=== PATIENT | female | born 1955 | race Caucasian/White ===

== ENCOUNTER 2018-06-12 04:09 | Emergency (ER) | payer OTHER, SELFPAY ==
[2018-06-12 04:11] VITALS: BP 120/54; PULSE 69; RESP 20; TEMP 36.7; O2SAT 98; BMI 40.4
--- NOTE | 2018-06-12 04:35 | ED.VIS.GEN ---
History of Present Illness Chief Complaint: Chest Pain Informant: Patient Onset: Hours - 2.5 Context: Sudden Onset - woke her up from sleep Timing: Continuous Quality: heavy/pressure Location: substernal Current Severity: Moderate Maximum Severity: Moderate Worsened by: nothing. nonpleuritic, no change w/ position chgs, nonexertional. Relieved by: nothing. has tried no meds. Associated Symptoms: nausea Narrative: No vomiting although she feels like she needs to. Pain extends down to her upper abdomen but mostly substernal. No dyspnea, sweating, palpitations, lightheadedness or near syncope. No recent leg pain or swelling that is acute. Has a history of a heart attack, states she was here it was multiple years ago and received no PCI or other intervention. Thinks she was treated medically. States that when she had her MT, she mostly had dyspnea. She does not have that now. States she feels like she needs to belch. Had a routine chemical cardiac stress test 2 weeks ago that was negative. No recent long travel, immobilization, hospitalization, or surgery. - Past Medical History (1) Myocardial infarction Status: Chronic (2) Atrial fibrillation Status: Chronic Past Medical History - Allergies and Home Meds Allergies/Adverse Reactions: Allergies ketorolac tromethamine [From Toradol] Allergy (Verified 06/12/18 04:15) Hives Primary Care Physician: Jamarcus Toro MD [Primary Care Provider] - 3-5 Days if not improving Surgical History: hysterectomy - uterine fibroids, tonsillectomy Smoking Status: Never smoker Review of Systems All systems negative except as indicated Cardiovascular: Reports: Chest pain. Denies: Palpitations, Heart racing Respiratory: Denies: Dyspnea, Cough Gastrointestinal: Reports: Abdominal pain, Nausea Musculoskeletal: Denies: Neck pain, Back pain, Extremity Pain Neurological: Denies: Headache, Weakness, Parasthesia, Numbness Psych: Reports: Anxiety Physical Exam Vital Signs/Narrative: Vital Signs Temp Pulse Resp BP Pulse Ox 06/12/18 04:11 98.1 F 69 20 H 120/54 L 98 Inital Vital Signs reviewed: Yes General: Well nourished, Well developed, Obese Head: Normocephalic, Atraumatic Eyes: Perrl, EOMI ENT: Moist mucous membranes, No rhinorrhea Neck: Supple, Nontender, No JVD Cardiovascular: Regular rate, Regular rhythm, No murmurs Respiratory: No distress, CTA bilaterally, Chest nontender Abdomen: Soft, Nondistended, Normal bowel sounds, Tender - throughout upper abdomen only Back: Nontender, Normal Inspection Extremities: Nontender, No edema Skin: Normal color, No rash Neurological: Alert, Oriented x3, Cranial nerves II-XII grossly intact, Normal Strength, Normal Sensation, Normal Gait Psychological: - - anxious Diagnostic/Tx/Re-eval Chest X-Ray - ED: 1 View, Read by ED Physician, No Acute Disease Laboratory Tests 06/12/18 06/12/18 06/12/18 04:20 04:20 04:20 WBC 7.2 RBC 4.50 Hgb 13.9 Hct 43.0 MCV 95.6 MCH 30.9 MCHC 32.3 RDW 12.8 RDW Differential 43.1 Plt Count 280 MPV 10.2 Immature Gran % (Auto) 0.600 Neut % (Auto) 48.1 Lymph % (Auto) 42.7 H [place] % (Auto) 6.5 Eos % (Auto) 1.5 Baso % (Auto) 0.6 Absolute Neuts (auto) 3.5 Absolute Lymphs (auto) 3.07 Total Counted Not Reportable Sodium 144 Cancelled Potassium 4.4 Cancelled Chloride 107 Cancelled Carbon Dioxide 27.0 Cancelled Anion Gap 10 Cancelled BUN 15 Cancelled Creatinine 1.22 H Cancelled Estim Creat Clear Calc 45.33 Est GFR (MDRD) Af Amer 58 L Cancelled Est GFR (MDRD) Non-Af 48 L Cancelled BUN/Creatinine Ratio 12.3 Cancelled Glucose 127 H Cancelled Calcium 8.7 Cancelled Total Bilirubin 0.50 AST 20 ALT 23 Alkaline Phosphatase 89 Troponin I < 0.015 Total Protein 7.2 Albumin 3.3 Globulin 3.9 Albumin/Globulin Ratio 0.8 L Lipase 224 - Rhythm Strip Rhythm Strip: A-fib Rate: 70 Ectopy: None - EKG Initial EKG Interpretation: No Acute Injury Pattern, Atrial Fibrillation, Non-Specific ST Changes - flattening T waves inferior and ant-sept, - - leftward axis Prior: Unchanged - MUSE system malfunctioning -- not able to look up old EKGs on any pt at this time. however, cardiology interpretation in computer, and description c/w EKG that we obtained. - Medical Decision Making Although patient is in rate controlled atrial fibrillation, her EKG shows no acute injury and is otherwise unremarkable, save nonspecific T-wave flattening in V2 and leads III and aVF only. These are all very nonspecific. X-rays unremarkable on my interpretation, labs show negative troponin. She was given Zofran, she states soon thereafter she vomited, and as soon as she vomited, all of her discomfort and nausea resolved. She did not get the GI cocktail. On reevaluation she has no chest discomfort and no abdominal discomfort. I reexamined her. She is soft and nontender throughout. Given this, I do not think a delta troponin is necessary, and I think it is reasonable that she be discharged home on a two-week course of either PPI or H2 cecil. She is comfortable with that plan. ED Disposition - Plan for ED Patient: Disposition: Home or Assisted Living Chief Complaint: Chest Pain Diagnosis: Atrial fibrillation, Chest pain, unspecified, Upper abdominal pain, Vomiting Instructions: ED Chest Pain NonCardiac, ED Gastritis Prescriptions: Ondansetron [Zofran Odt] 8 mg PO Q8H PRN PRN #12 tab PRN Reason: Nausea Referrals: Jamarcus Toro MD [Primary Care Provider] - 3-5 Days if not improving Additional Instructions: For the next 2 weeks, take twice daily Zantac, Tagamet, or Pepcid. As a different option, may take once daily Prilosec OTC or equivalent, such as Nexium or Prevacid.
[2018-06-12] MEDS: Ondansetron 4 MG/2 ML Vial IV (04:40)
[2018-06-12 04:48] LABS: Absolute Lymphocyte Count 3.07 X10^3/ul (0.83-4.51); Absolute Neutrophil Count 3.5 X10^3/uL (2.0-7.7); Basophil# 0.04 X10^3/uL; Basophil% 0.6 % (0-1); Eosinophil# 0.11 X10^3/uL; Eosinophils% 1.5 % (0-5); Hemoglobin 13.9 g/dl (12.0-15.0); Lymphocyte # 3.07 X10^3/ul (4.0); Lymphocyte % 42.7 % (19-41); Mean Corp Hgb Conc 32.3 g/gl (32-36); Mean Corpuscular Hgb 30.9 pg (27.0-32.0); Mean Corpuscular Volume 95.6 fL (81-99); Mean Platelet Vol. 10.2 fl (6.2-12.0); Monocyte# 0.47 X10^3/uL; Monocyte% 6.5 % (0-10); Neutrophil # 3.46 X10^3/uL (2.7-7.7); Neutrophil % 48.1 % (47-70); Platelet Count 280 K/mm3 (150-450); RBC Distribution Width CV 12.8 % (11.6-14.6); RBC Distribution Width SD 43.1 fl (35.1-43.9); White Blood Count 7.2 K/mm3 (4.4-11.0)
[2018-06-12 04:50] LABS: POSITIVE COUNT NO; POSITIVE DIFFERENTIAL NO; POSITIVE MORPHOLOGY NO
[2018-06-12 04:55] LABS: Anion Gap 10 (5-15); BUN 15 mg/dL (7-18); BUN/Creat Ratio 12.3 RATIO (10-20); Calcium,Total 8.7 mg/dL (8.5-10.1); Chloride 107 mmol/L (98-107); Creatinine, Serum 1.22 mg/dL (0.55-1.02); EST Glomerular Filtration Rate 48 mL/min (>60); Est Glom Filt Rate - Afr Amer 58 mL/min (>60); Estimated Creatinine Clearance 45.33 ml/min; Glucose 127 mg/dL (74-106); Potassium 4.4 mmol/L (3.5-5.1); Sodium Level 144 mmol/L (136-145)
[2018-06-12 05:05] LABS: ALB/GLOB Ratio 0.8 RATIO (0.9-2.4); AST(SGOT) 20 U/L (15-37); Alanine Aminotransfer ALT/SGPT 23 U/L (13-56); Albumin, Serum 3.3 g/dL (3.2-5.0); Alkaline Phosphatase 89 U/L (45-117); Globulin 3.9 g/dL (2.2-4.2); Lipase 224 U/L (73-393); Protein, Total 7.2 g/dL (6.4-8.2)
[2018-06-12] MEDS: Pantoprazole Sodium 40 MG Tablet PO (05:35)
[2018-06-12 05:36] VITALS: BP 104/70; PULSE 83; RESP 15; O2SAT 98
== END 2018-06-12 05:41 | disposition home or self-care (01) ==
PROVIDERS: Emergency Provider Emergency Medicine; Family Provider Family Medicine; PCP Family Medicine
DX: I48.2 Chronic atrial fibrillation (principal); R07.9 Chest pain, unspecified; R10.11 Right upper quadrant pain; R10.12 Left upper quadrant pain; R11.2 Nausea with vomiting, unspecified; I25.2 Old myocardial infarction; Z79.899 Other long term (current) drug therapy
CPT/HCPCS: 71045; 80048; 82040; 82247; 83690; 84075; 84156; 84450; 84460; 84484; 85025; 93005; 96374; 99285; A4216; J2405

== ENCOUNTER → 2018-07-29 07:55 | Outpatient (CLI) | payer OTHER, SELFPAY ==
--- NOTE | 2018-07-29 07:58 | US_ITS ---
STUDY: ABDOMINAL ULTRASOUND - RIGHT UPPER QUADRANT REASON FOR VISIT: Female, 62 years old. Nausea and vomiting, worse after meals. TECHNIQUE: Ultrasound evaluation of the right upper quadrant was performed with real-time and static lopez-scale imaging. TECHNICAL QUALITY: Adequate. COMPARISON: None. FINDINGS: Liver: The liver measures 16.4 cm. There is normal echogenicity of the liver. The bile ducts are within normal limits. There is hepatic color flow. The direction of portal flow is hepatopetal. There is no demonstrated mass lesion. Gallbladder: Normal distended gallbladder. The gallbladder wall measures 4.0 mm. There is a positive sonographic Betancourt's sign. There is no pericholecystic fluid. There are multiple small, mobile echogenic structures within the gallbladder, consistent with multiple gallstones. Common Bile Duct (C.B.D.): The common bile duct measures 6.3 mm. Pancreas: Normal size of the head, body and tail of the pancreas. There is normal echogenicity of the pancreas. There is no demonstrated pancreatic mass or cyst. Right Kidney: Normal size of the right kidney. The right kidney measures 9.8 x 5.4 x 3.3 cm. Normal renal cortex. The right cortex measures 1.1 cm. There is no demonstrated renal mass or cyst. There is no right hydronephrosis. US/Abdomen Limited IMPRESSION: Numerous subcentimeter mobile gallstones. No sonographic sign of acute cholecystitis or bile duct obstruction. Electronically Signed: Leonardo Stewart MD at 19:52 EDT , Service support ,
== END ==
PROVIDERS: Family Provider Family Medicine; PCP Family Medicine; Referring Provider Family Medicine; Visit Provider Family Medicine
DX: R10.13 Epigastric pain (principal); R10.11 Right upper quadrant pain
CPT/HCPCS: 76705

== ENCOUNTER → 2018-08-03 10:13 | Outpatient (CLI) | payer OTHER, SELFPAY ==
[2018-08-03 10:27] LABS: Absolute Lymphocyte Count 2.64 X10^3/ul (0.83-4.51); Basophil# 0.02 X10^3/uL; Basophil% 0.3 % (0-1); Eosinophil# 0.08 X10^3/uL; Eosinophils% 1.3 % (0-5); Hematocrit 44.7 % (37-47); Hemoglobin 13.9 g/dl (12.0-15.0); Lymphocyte # 2.64 X10^3/ul (4.0); Lymphocyte % 42.4 % (19-41); Mean Corp Hgb Conc 31.1 g/gl (32-36); Mean Corpuscular Hgb 29.6 pg (27.0-32.0); Mean Corpuscular Volume 95.3 fL (81-99); Monocyte# 0.43 X10^3/uL; Monocyte% 6.9 % (0-10); Neutrophil # 3.02 X10^3/uL (2.7-7.7); Neutrophil % 48.6 % (47-70); Platelet Count 255 K/mm3 (150-450); RBC Distribution Width CV 13.2 % (11.6-14.6); RBC Distribution Width SD 45.8 fl (35.1-43.9); Red Blood Count 4.69 M/mm3 (4.2-5.4); White Blood Count 6.2 K/mm3 (4.4-11.0)
[2018-08-03 10:29] LABS: POSITIVE COUNT NO; POSITIVE DIFFERENTIAL NO; POSITIVE MORPHOLOGY NO
[2018-08-03 10:54] LABS: AST(SGOT) 17 U/L (15-37); Alanine Aminotransfer ALT/SGPT 50 U/L (13-56); Albumin, Serum 3.6 g/dL (3.2-5.0); Alkaline Phosphatase 111 U/L (45-117); Bilirubin, Direct 0.17 mg/dL (0.00-0.30); Globulin 3.9 g/dL (2.2-4.2); Protein, Total 7.5 g/dL (6.4-8.2)
== END ==
PROVIDERS: Family Provider Family Medicine; PCP Family Medicine; Referring Provider Surgery; Visit Provider Surgery
DX: K80.20 Calculus of gallbladder without cholecystitis without obstruction (principal)
CPT/HCPCS: 36415; 80076; 85025

== ENCOUNTER → 2018-10-06 13:44 | Outpatient (CLI) | payer OTHER, SELFPAY ==
--- NOTE | 2018-10-06 13:47 | CT_ITS ---
STUDY: CT ABDOMEN AND PELVIS WITHOUT CONTRAST REASON FOR EXAM: Female, 62 years old. Diffuse abdominal pain. Projectile vomiting. RADIATION DOSAGE (If Supplied By Facility): CTDIvol = ( 14 ) mGy, DLP = ( 669.43 ) mGycm TECHNIQUE: Transaxial images were obtained from the dome of the diaphragm to the symphysis pubis without oral contrast, and without intravenous contrast. Sagittal and coronal images were reconstructed. Individualized dose optimization techniques were used for this CT. COMPARISON: Comparison is made with prior study dated March 05, 2004. FINDINGS: The visualized lung bases are unremarkable. The visualized portions of the heart are within normal limits. Normal liver. There is mild degree of the gallbladder wall thickening with findings suggestive of a small amount of pericholecystic fluid. I cannot rule out sludge or tiny gallstones within the gallbladder lumen. Correlation with ultrasound is recommended. Normal spleen. Normal pancreas. Normal bilateral adrenal glands. Normal right kidney. There is evidence of a 4.3 cm x 4.1 cm complicated cyst in the lower pole of the left kidney with peripheral calcifications along its inferior and lateral margins. There is a small hiatal hernia. Normal small intestine. Moderate amount of fecal material is seen in the rectosigmoid colon. Scattered sigmoid diverticula. The appendix is visualized and appears normal. Normal abdominal aorta. Normal inferior vena cava. Normal retroperitoneum. Normal urinary bladder. There is absence of the uterus consistent with a prior hysterectomy. Normal abdominal wall. Disc space narrowing at this degeneration at the L4-L5 and L5-S1 levels. There is a 1.2 cm round hypodensity in the L2 vertebral. This may represent a focal meningioma. CT/Abdomen/Pelvis without Cont IMPRESSION: Findings suggestive of gallbladder wall thickening with a small amount of pericholecystic fluid. Possible tiny gallstones or sludge within the lumen. Correlation with ultrasound is recommended. Electronically Signed: Marco Cortes MD at 14:23 EST Tel [phone], Service support ,
--- OUTSIDE RECORDS SUMMARY | 2018-11-22 18:26 | XMS RPT_ITS ---
:1955 Author Organization [place] Support Name Relationship Address Phone ALONOVUS Unavailable [address] + [place] [address] UZAIR BOLANOS Un[address] + [place] [address] ALONOVUS Unavailable [address] + [place] [address] UZAIR BOLANOS Unavailable [address] + [place] [address] ALONOVUS Unavailable [address] + [place] [address] UZAIR BOLANOS Un[address] + [place] [address] ALONOVUS Unavailable [address] + [place] [address] UZAIR BOLANOS Un[address] + [place] [address] ALONOVUS Unavailable [address] + [place] [address] UZAIR BOLANOS Unavailable Unavailable + [place] [address] ALONOVUS Unavailable [address] + [place] [address] UZAIR BOLANOS Unavailable Unavailable + [place] [address] ALONOVUS Unavailable [address] + [place] [address] UZAIR BOLANOS Unavailable Unavailable + [place] [address] ALONOVUS Unavailable [address] + [place] [address] UZAIR BOLANOS Un[address] + [place] [address] ALONOVUS Unavailable [address] + [facility] [place] [address] UZAIR BOLANOS Unavailable Unavailable + [place] [address] ALONOVUS Unavailable [address] + [facility] [address] UZAIR BOLANOS Unavailable Unavailable + [place] [address] ALONOVUS Unavailable [address] + [facility] [place] [address] UZAIR BOLANOS Unavailable Unavailable + [place] [address] ALONOVUS Unavailable [address] + [facility] [address] UZAIR BOLANOS Unavailable [facility] [address] + [place] [address] ALONOVUS Unavailable [address] + [facility] [place] [address] UZAIR BOLANOS Unavailable Unavailable + [place] [address] ALONOVUS Unavailable [address] + [place] [address] UZAIR OBLANOS Unavailable [facility] + [place] [address] ALONOVUS Unavailable [address] + [place] [address] UZAIR BOLANOS Unavailable Unavailable + [place] [address] ALONOVUS Unavailable [address] + [facility] [place] [address] UZAIR BOLANOS Unavailable Unavailable + [place] [address] ALONOVUS Unavailable [address] + [place] [address] UZAIR BOLANOS Unavailable . + [place] [address] ALONOVUS Unavailable [address] + [facility] [place] [address] UZAIR BOLANOS Unavailable Unavailable + [place] [address] ALONOVUS Unavailable [address] + [place] [address] UZAIR BOLANOS Unavailable Unavailable + ALONOVUS Unavailable [address] + [place] [address] GEETHA BOLANOSEL Unavailable . + [place] [address] ALONOVUS Unavailable [address] + [place] [address] GEETHA BOLANOSEL Unavailable Unavailable + [place] [address] UZAIR BOLANOS Unavailable Unavailable + LUDIN BOLANOS Unavailable [address] + [place] [address] GEETHA BOLANOSEL Unavailable Unavailable + ALONOVUS Unavailable [address] + [place] [address] UZAIR BOLANOS Unavailable [address] + [place] [address] GEETHA BOLANOSEL Unavailable Unavailable + LUDIN BOLANOS Unavailable [address] + [place] [address] UZAIR BOLANOS Unavailable Unavailable + Care Team Providers Name Role Phone LISA MANN MD Attending Unavailable [facility] Care Unavailable LISA MANN MD Attending Unavailable [facility] Care Unavailable Robotham, Celina Attending Unavailable [facility], Peace Referring Unavailable Robotham, Celina Attending Unavailable Robotham, Celina Referring Unavailable [facility] Care Unavailable Robotham, Celina Attending Unavailable Robotham, Celina Referring Unavailable [facility] Primary Care Unavailable [facility], [facility] Primary Care Unavailable Dylan Tran Admitting Unavailable Dylan Tran Attending Unavailable Clifford Schrader Consulting Unavailable MARINA DEE Referring Unavailable Dylan Tran Admitting Unavailable Dylan Tran Attending Unavailable [facility] Primary Care Unavailable Dylan Tran Consulting Unavailable Dylan Tran Admitting Unavailable Robotham, Celina Attending Unavailable [facility] Primary Care Unavailable Dylan Tran Consulting Unavailable Dylan Tran Admitting Unavailable Tereletsky, Clifford Attending Unavailable [facility] Primary Care Unavailable Tereletsky, Clifford Consulting Unavailable Calabretta, Dylan Consulting Unavailable Calabretta, Dylan Admitting Unavailable Arriaza PA-C, Tran Attending Unavailable [facility] Primary Care Unavailable Tereletsky, Clifford Consulting Unavailable Calabretta, Dylan Consulting Unavailable Calabretta, Dylan Admitting Unavailable [facility], Ruperto Attending Unavailable [facility] Primary Care Unavailable Tereletsky, Clifford Consulting Unavailable Calabretta, Dylan Consulting Unavailable Calabretta, Dylan Admitting Unavailable Arriaza PA-C, Tran Attending Unavailable MARINA DEE Referring Unavailable [facility] Primary Care Unavailable Tereletsky, Clifford Consulting Unavailable Calabretta, Dylan Consulting Unavailable Calabretta, Dylan Admitting Unavailable [place], Ruperto Attending Unavailable MARINA DEE Referring Unavailable [facility] Primary Care Unavailable Tereletsky, Clifford Consulting Unavailable Calabretta, Dylan Consulting Unavailable Calabretta, Dylan Admitting Unavailable Arriaza PA-C, Tran Attending Unavailable MARINA DEE Referring Unavailable [facility] Care Unavailable Tereletsky, Clifford Consulting Unavailable Calabretta, Dylan Consulting Unavailable Calabretta, Dylan Admitting Unavailable [place], Ruperto Attending Unavailable MARINA DEE Referring Unavailable [facility] Care Unavailable Tereletsky, Clifford Consulting Unavailable Calabretta, Dylan Consulting Unavailable Arriaza PA-C, Tran Attending Unavailable Arriaza PA-C, Tran Referring Unavailable [facility] Care Unavailable [facility] Primary Care Unavailable JONA PULLIAM Attending Unavailable [facility] Attending Unavailable [facility] Referring Unavailable [facility] Primary Care Unavailable Robotham, Celina Attending Unavailable [facility] Referring Unavailable Robotham, Celina Attending Unavailable Robotham, Celina Referring Unavailable [facility] Primary Care Unavailable Miedel, Kanchan Attending Unavailable Miedel, Kanchan Referring Unavailable [facility] Primary Care Unavailable Robotham, Celina Attending Unavailable [facility] Peace Referring Unavailable Robotham, Celina Attending Unavailable [facility] Primary Care Unavailable Robotham, Celina Attending Unavailable PROBLEMS PROBLEMS DATE TYPE CONDITION / CODE ATTENDING STATUS SOURCE 11/02/2018 Unknown R74.8 - Abnormal Robotham, Active [place] levels of other [facility] serum enzymes / Hospital R74.8(ICD-10) Repository 10/15/2018 Unknown G89.18 - Other acute [place], Ruperto Active [facility] postprocedural pain [facility] / G89.18(ICD-10) Hospital Repository 10/09/2018 Unknown K80.20 - [facility] without [facility] cholecystitis [facility] without obstruction Repository / K80.20(ICD-10) PROCEDURES PROCEDURES No Procedure Records FoundRESULTS RESULTS SURGERY VISIT REPORT Observed: 11/13/2018 Status: F Source: [place] 10:05 AM [facility] REPOSITORY [facility] [address] [place] [address] OFFICE VISIT Date of Service: 11/13/18 MR#: [id number] Acct: [id number] Name: RICKY BOLANOS Rep #: [id number] : 1955 Provider: Celina Last MD Age/Sex: 63/F Location: [facility] Status: Signed Intake Intake Visit Reasons: Gall Bladder Surgery 10/15 TR Order Administrator Required: No Is patient in pain?: No Allergies ketorolac tromethamine [From Toradol] Allergy (Verified 11/13/18 08:52) Hives Medications Digoxin [Lanoxin] 250 mcg PO DAILY 12/13/13 [History Confirmed 11/13/18] lisinopril 10 mg tablet 20 mg PO DAILY tab 08/03/18 [History Confirmed 11/13/18] rivaroxaban 20 mg tablet 20 mg PO DAILY 08/03/18 [History Confirmed 11/13/18] spironolactone 25 mg tablet 25 mg PO DAILY tab 08/03/18 [History Confirmed 11/13/18] Metoprolol(XL)Succ [Toprol Xl (Beta Lowell)] 100 mg PO BID #0 10/15/18 [Rx Confirmed 11/13/18] Pantoprazole Sodium [Protonix] 40 mg PO DAILY #30 tab 10/15/18 [Rx Confirmed 11/13/18] Subjective Details: Patient presents status post lap sia, ERCP for follow-up along with follow-up for constipation. Patient did not take the magnesium citrate after last appointment. However she is stating that she is able to eat more she has been taking vitamins as well as 1 of the fiber gummy's which equals about 2.5 g of fiber a day. Patient states she only eats one meal a day. She still states that in her lower epigastric area that she may feel like the food just kind a sits there and/that there is a lump but denies reflux. Patient is currently on Protonix unsure if she actually needs the Protonix. Patient has had bowel movements about every 3-4 days but she does have to strain with that. She did also take milk of magnesia 1 time since the last appointment. Objective Details: Abdomen:, Soft, nondistended, mild tenderness palpation left upper quadrant left lower quadrant, incisions well-healed, no peritoneal signs Assessment AND Plan Problems 1. Constipation K59.00 2. S/P ERCP Z98.890 3. Hx of cholecystectomy Z90.49 10/15/18 4. Encounter for screening for malignant neoplasm of colon Z12.11 Plan Again recommend patient take milk of magnesia to help with her constipation. Also suggested that she try to log book types of food that she is eating to keep a better account of how much fiber she is taking which can be done using the ReVera pal boom. Discussed with patient she would likely need more than just 1 of the fiber gummy's as that is only 2.5 g daily. Also recommended a stool softener that could hopefully help prevent the straining. Discussed with patient that if she does not go in the 3-4 days she may need to take either milk of magnesia or another laxative as well. Also discussed with patient that she may stop the Protonix and see if she does have any reflux symptoms or any epigastric pain. She currently would like to forego the EGD but if anything changes prior to doing the colonoscopy she will let us know and we can add it with a colonoscopy. I have offered the patient colonoscopy for evaluation, patient will first see her cow rider which she has appointment with in November to find out what he would like her to do with her Xarelto and then she will call to schedule for a colonoscopy. I have explained the risks/benefits of the procedure and described the procedure. I have discussed the risks with the patient, including but not limited to: infection, bleeding, perforation of the GI tract requiring emergency surgery, inability to complete the procedure, injury to any internal organs, complications of anesthesia, etc. - the patient understands and agrees to proceed. I have answered all the patient's questions to the patient's satisfaction and the patient has no further questions. The patient has been given instructions for the colon cleansing preparation. 2 days of clears with magnesium citrate the first day and MiraLAX Dulcolax split second day Celina Last M.D. Pager: [phone] [facility] [address] [place] [address], Outpatient [place], [address] [place] [address] Office: [phone] Plan Detail Follow Up Patient will see her cow rider and will give us a call to schedule her colonoscopy Coding Level of Care Code Global Post Op Diagnoses Constipation K59.00 S/P ERCP Z98.890 Hx of cholecystectomy Z90.49 Encounter for screening for malignant neoplasm of colon Z12.11 11/13/18 1005 <Electronically signed by Celina Last MD> Date Celina Last MD Cosigner Signature: Date (if applicable) CC: Peace Toro MD LIVER PROFILE Collected: 11/02/2018 Status: F Source: [place] 2:22 PM [facility] REPOSITORY TYPE CODE TESTS RESULT OUT OF RANGE REFERENCE UNITS LAB L501.1500 6.4-8.2 g/dL Normal T PROT 7.2 LAB L501.1800 3.2-5.0 g/dL Normal ALB 3.3 LAB L501.1950 2.2-4.2 g/dL Normal GLOB 3.9 LAB L501.4100 15-37 U/L Low AST 14 LAB L501.4305 45-117 U/L High ALK P 138 LAB L501.4405 13-56 U/L Normal ALT 22 LAB L501.4600 0.20-1.00 mg/dL Normal T BILI 0.70 LAB L501.4700 0.00-0.30 mg/dL High D BILI 0.32 Performed By: #### L500.3400 #### [facility] [address] [place], [address] SURGERY VISIT REPORT Observed: 11/02/2018 Status: F Source: [place] 2:12 PM [facility] REPOSITORY [facility] [address] [place] [address] OFFICE VISIT Date of Service: 11/02/18 MR#: [id number] Acct: [id number] Name: RICKY BOLANOS Rep #: [id number] : 1955 Provider: Celina Last MD Age/Sex: 63/F Location: [facility] Status: Signed Intake Intake Visit Reasons: Gall Bladder Surgery 10/15 TR Order Administrator Required: No Is patient in pain?: No Allergies ketorolac tromethamine [From Toradol] Allergy (Verified 11/02/18 13:45) Hives Medications Digoxin [Lanoxin] 250 mcg PO DAILY 12/13/13 [History Confirmed 11/02/18] lisinopril 10 mg tablet 20 mg PO DAILY tab 08/03/18 [History Confirmed 11/02/18] rivaroxaban 20 mg tablet 20 mg PO DAILY 08/03/18 [History Confirmed 11/02/18] spironolactone 25 mg tablet 25 mg PO DAILY tab 08/03/18 [History Confirmed 11/02/18] Metoprolol(XL)Succ [Toprol Xl (Beta [place]ell)] 100 mg PO BID #0 10/15/18 [Rx Confirmed 11/02/18] Pantoprazole Sodium [Protonix] 40 mg PO DAILY #30 tab 10/15/18 [Rx Confirmed 11/02/18] Subjective Details: Patient presents status post laparoscopic cholecystectomy on 10/12/18 and ERCP on 10/14/18. Patient left the hospital on 10/15/18. Patient states she still has some abdominal discomfort states right after eating she had some epigastric discomfort and feels like the food just kind of sits there denies any reflux. She has been taking the Protonix 40 mg p.o. daily which was given to her after leaving the hospital. Patient has had issues with constipation states she is only had 2 bowel movements since leaving the hospital. Patient states she did try to take Metamucil once but did not try any other laxatives. Patient did have repeat LFTs done on 10/22 which were almost back down to normal except for elevated alk phos at 234 Objective Details: Abdomen: Soft, nondistended, tender in the left upper quadrant left lower quadrant, no peritoneal signs, incisions healing well remainder of the Steri-Strips were removed in office Assessment AND Plan Problems 1. Gallstone pancreatitis K85.10 2. Hx of cholecystectomy Z90.49 10/15/18 3. S/P ERCP Z98.890 Plan We will recheck liver function Patient states she really has not had too much to eat due to feeling like it is just sitting there. I think most of patient's issue would be her constipation. Discussed with patient plan to take magnesium citrate today. Also recommend patient increase her fiber intake with supplementation of Metamucil or other fiber gummy's. Recommended fiber intake is about 25-30 g daily. Patient also states she has never had an EGD or colonoscopy. We will plan to discuss these further at that follow-up appointment. Recommend patient continue to take her Protonix 40 mg p.o. daily and to call if she needs a refill prior to next follow-up appointment. Patient was agreeable to follow-up in 2 weeks. Celina Last M.D. Pager: [phone] [facility] [address] [place] [address], [address] [place] [address] Office: [phone] Orders Orders: Coding Level of Care Code Global Post Op Diagnoses Gallstone pancreatitis K85.10 Hx of cholecystectomy Z90.49 S/P ERCP Z98.890 11/02/18 1412 <Electronically signed by Celina Last MD> Date Celina Last MD Cosigner Signature: Date (if applicable) CC: Peace Toro MD LIVER PROFILE Collected: 10/22/2018 Status: F Source: [place] 9:25 AM [facility] REPOSITORY TYPE CODE TESTS RESULT OUT OF RANGE REFERENCE UNITS LAB L501.1500 6.4-8.2 g/dL Normal T PROT 6.4 LAB L501.1800 3.2-5.0 g/dL Low ALB 2.6 LAB L501.1950 2.2-4.2 g/dL Normal GLOB 3.8 LAB L501.4100 15-37 U/L Normal AST 23 LAB L501.4305 45-117 U/L High ALK P 234 LAB L501.4405 13-56 U/L Normal ALT 40 LAB L501.4600 0.20-1.00 mg/dL Normal T BILI 0.80 LAB L501.4700 0.00-0.30 mg/dL High D BILI 0.45 Performed By: #### L500.3400 #### [facility] [address] [facility] [place], [address] DISCHARGE SUMMARY Observed: 10/15/2018 Status: F Source: [place] 10:46 AM [facility] REPOSITORY [facility] Medical Records Department [address] [place] [address] Discharge Summary 10/15/18 1040 MR#: [id number] Acct: [id number] Name: RICKY BOLANOS Rep #: [id number] : 1955 62 From: Celina Last MD PCP: Peace Toro MD Status: ADM IN Location: [place] [address] Discharge Date and Diagnosis - Problem List Patient Problems: Active and Suspected Problems (Last Updated 10/11/18 @ 17:28 by Celina Last MD) Gallstone pancreatitis (Acute) Date of Admission: 10/11/18 - Primary Discharge Diagnosis Active and Suspected Problems (Last Updated 10/11/18 @ 17:28 by Celina Last MD) Gallstone pancreatitis (Acute) Obstructive jaundice Acute cholecystitis - Secondary Discharge Diagnosis Chronic Problems (Last Updated 10/11/18 @ 17:28 by Celina Last MD) Myocardial infarction (Chronic) Atrial fibrillation (Chronic) Hospital Course and Treatment Hospitalist for help with medical management Operations: cholecystecomy, ERCP Summary of Care Provided: The patient is a 62 year old F patient presented to the ER due to nausea vomiting and epigastric and right upper quadrant pain on Friday night which started suddenly at 3 AM. Labs showed patient to have a elevated white blood cell count as well as elevated lipase of 33,000 with slight elevations of LFTs. Patient had previous ultrasound on Friday which showed gallstones wall with 3 mm and no sonographic Betancourt sign at that time. By Friday morning patient's LFTs were improved as well as her lipase. And patient had been off her Xarelto since Friday night. Patient underwent a laparoscopic cholecystectomy by Dr. Last 10/12/18. Postoperatively she is still complaining of some abdominal pain her initial LFTs the following day were only slightly elevated which may have been just from surgery. However the following day they are even more elevated. Patient was taken for an ERCP on 10/14/[address] Tran. He did an ERCP with sphincterotomy and only had small amount of debris. Patient self to the following day were slightly elevated from the day before but this may be due to the fact there prior higher the day before and is actually downtrending as patient was feeling better and feeling hungry. Patient was started on a regular diet. She was able to tolerate a regular diet pain control was controlled she was ablating the halls. Patient was okay for discharge and patient may restart her Xarelto upon discharge. We will plan for follow-up liver function panel in 1 week and follow-up with Dr. Last in 1-2 weeks. Patient Problems: Active and Suspected Problems (Last Updated 10/11/18 @ 17:28 by Celina Last MD) Gallstone pancreatitis (Acute) - Physical Exam General: Alert, Oriented x3, Cooperative, No apparent distress Cardiovascular: - - Irregular Abdomen: Soft, Non-Distended, Tender - Near incisions appropriately, incisions clean dry and intact Extremities: No clubbing, No cyanosis, No edema Vital Signs Temp Pulse Resp BP Pulse Ox 98.1 F 88 16 142/71 H 94 10/15/18 09:12 10/15/18 09:24 10/15/18 09:12 10/15/18 09:24 10/15/18 09:12 Oxygen Flow Rate (L/min) 2 Oxygen Delivery Method Room Air Weight: 234 lb 12.677 oz Body Mass Index (BMI) 37.7 Intake and Output for Last 24 Hours Intake Total 3477 / 3477 3184 / 3184 2021 Output Total 900 / 900 800 / 800 700 / 700 Balance 2577 / 2577 2384 / 2384 1322 / 1322 Laboratory Tests Past 24 Hrs WBC 12.5 H RBC 3.62 L Hgb 10.8 L Hct 33.7 L MCV 93.1 MCH 29.8 Discharge Diet: Light diet - advance as tolerated Discharge Activity: Return to Normal Activity, May Not Drive - for 2-3 days or while taking narcotic pain medicataions., - - Do not drive, work heavy equipment or sign legal documents for 24 hours. May shower in (days): 1 - with the bandage in place. Additional Activity Instructions:: Pain medication may cause nausea. You should typically eat light foods as you take your pain medications. Pain medication may also cause constipation. If this is a problem for you, please discuss with your doctor. Call your doctor if your incision/area has: Continuous Slow Oozing, Sudden Increased Bleeding, Increased Pain/ Swelling, Increased Redness, Foul Smelling Discharge, Fever of 101 or Higher Call your doctor if you observe: Fever of 101 or Higher Suture Line Care: Avoid Pulling/Pushing, Avoid Pinching/Bending Additional Dressing/Incision Instructions:: Leave operative bandaids on for 2 days. When you remove dressing, leave Steri-Strips on until your follow-up appointment, or until the Steri-Strips fall off on their own. Home Medications: Medications to take at Discharge Digoxin [Lanoxin] 250 mcg PO DAILY 12/13/13 lisinopril 10 mg tablet 20 mg PO DAILY tab 08/03/18 rivaroxaban 20 mg tablet 20 mg PO DAILY 08/03/18 spironolactone 25 mg tablet 25 mg PO DAILY tab 08/03/18 Metoprolol(XL)Succ [Toprol Xl (Beta [place])] 100 mg PO BID #0 10/15/18 Oxycodone HCl/Acetaminophen [Percocet 5/325] 0.5 - 1 tablet PO Q6H PRN PRN 2 Days #10 tablet 10/15/18 Pantoprazole Sodium [Protonix] 40 mg PO DAILY #30 tablet 10/15/18 Following Prescrptions Were Given to Patient: Oxycodone HCl/Acetaminophen [Percocet 5/325] 0.5 - 1 tablet PO Q6H PRN PRN 2 Days #10 tablet PRN Reason: Pain Pantoprazole Sodium [Protonix] 40 mg PO DAILY #30 tablet Primary Care Physician: Peace Toro MD [Primary Care Provider] - Please Follow Up With: Celina Last MD - [phone] When: 2 weeks Disposition: Home Minutes spent on discharge:: 15 Patient Condition:: Good Medical Necessity - Tobacco Use Smoking Status: Never smoker Meaningful Use Info Meaningful Use Diagnoses (Choose all that apply): None applicable 10/15/18 1046 <Electronically signed by Celina Last MD> Date Celina Last MD Cosigner Signature (if applicable): Date CC: Peace Toro MD; Celina Last MD Signed DISCHARGE INSTRUCTION Observed: 10/15/2018 Status: F Source: [place] 8:42 [facility] REPOSITORY [facility] Medical Records Department [address] [place] [address] Instructions for Home/Discharge Instructions 10/15/18 0802 MR#: [id number] Acct: [id number] Name: RICKY BOLANOS Rep #: [id number] : 1955 62 From: Tran Arriaza PA-C PCP: Peace Toro MD Status: ADM IN ADDENDUM by Tran Arriaza PA-C on 10/15/18 at 0842 Please obtain liver function test (blood work) at the hospital in 1 week from discharge. Thank you. 10/15/18 0842 Date Tran Arriaza PA-C cc: Clifford Schrader DO; Peace Toro MD * Signed Discharge Diet: Light diet - advance as tolerated Discharge Activity: Return to Normal Activity, May Not Drive - for 2-3 days or while taking narcotic pain medicataions., - - Do not drive, work heavy equipment or sign legal documents for 24 hours. May shower in (days): 1 - with the bandage in place. Additional Activity Instructions:: Pain medication may cause nausea. You should typically eat light foods as you take your pain medications. Pain medication may also cause constipation. If this is a problem for you, please discuss with your doctor. Call your doctor if your incision/area has: Continuous Slow Oozing, Sudden Increased Bleeding, Increased Pain/ Swelling, Increased Redness, Foul Smelling Discharge, Fever of 101 or Higher Call your doctor if you observe: Fever of 101 or Higher Suture Line Care: Avoid Pulling/Pushing, Avoid Pinching/Bending Additional Dressing/Incision Instructions:: Leave operative bandaids on for 2 days. When you remove dressing, leave Steri-Strips on until your follow-up appointment, or until the Steri-Strips fall off on their own. Allergies/Adverse Reactions: Allergies ketorolac tromethamine [From Toradol] Allergy (Verified 10/09/18 14:39) Hives Medications to take at Discharge Digoxin [Lanoxin] 250 mcg PO DAILY 12/13/13 Metoprolol(XL)Succ [Toprol Xl (Beta Lowell)] 75 mg PO BID 12/13/13 lisinopril 10 mg tablet 20 mg PO DAILY tab 08/03/18 rivaroxaban 20 mg tablet 20 mg PO DAILY 08/03/18 spironolactone 25 mg tablet 25 mg PO DAILY tab 08/03/18 Oxycodone [Oxyir] 5 mg PO Q6H PRN PRN 7 Days #20 tablet 10/15/18 The following prescriptions were given: Oxycodone [Oxyir] 5 mg PO Q6H PRN PRN 7 Days #20 tablet PRN Reason: Severe Pain (6-08/05) Primary Care Physician: Peace Toro MD [Primary Care Provider] - Test Results: Test results from this visit will be discussed in further detail at your follow-up appointment, if applicable. Please Follow Up With: Celina Last MD - [phone] When: 2 weeks 10/15/18 0803 <Electronically signed by Tran Arriaza PA-C> Date Tran Arriaza PA-C CC: Clifford Schrader DO; Peace Toro MD CBC W/DIFF, AUTOMATED Collected: 10/15/2018 Status: F Source: [place]UL[place] 6:14 AM [facility] REPOSITORY TYPE CODE TESTS RESULT OUT OF RANGE REFERENCE UNITS LAB L100.1000 4.4-11.0 K/mm3 High WBC 12.5 LAB L100.1200 4.2-5.4 M/mm3 Low RBC 3.62 LAB L100.1300 12.0-15.0 g/dl Low HGB 10.8 LAB L100.1400 37-47 % Low HCT 33.7 LAB L100.1500 81-99 fL Normal MCV 93.1 LAB L100.1600 27.0-32.0 pg Normal MCH 29.8 LAB L100.1700 32-36 g/gl Normal MCHC 32.0 LAB L100.1810 11.6-14.6 % Normal RDW CV 13.0 LAB L100.1820 35.1-43.9 fl Normal RDW SD 43.0 LAB L100.1900 150-450 K/mm3 Normal PLT 211 LAB L100.2000 6.2-12.0 fl Normal MPV 10.6 LAB L100.2100 47-70 % High NEUT% 83.5 LAB L100.2200 19-41 % Low LY% 10.2 LAB L100.2300 0-10 % Normal MONO% 5.2 LAB L100.2400 0-5 % Normal EO% 0.5 LAB L100.2500 0-1 % Normal BASO% 0.2 LAB L100.2550 0.0-0.9 % Normal IM GRAN % 0.400 Result Comment: IG% - Immature Granulocytes (promyelocytes, myelocytes and metamyelocytes) > 1% indicates that a LEFT SHIFT is Present. LAB L100.2620 2.0-7.7 X10 3/uL High Absolute Neut 10.5 LAB L100.2720 0.83-4.51 X10 3/ul Normal Absolute Lymph 1.27 Performed By: #### L100.0100 #### [facility] [address] [place], [address] BASIC METABOLIC Collected: 10/15/2018 Status: F Source: [place]UL[place] PROFILE (BMP) 6:14 AM [facility] REPOSITORY TYPE CODE TESTS RESULT OUT OF RANGE REFERENCE UNITS LAB L501.0100 74-106 mg/dL Normal GLU 96 Result Comment: Please note revised GLUCOSE reference range effective 2017. LAB L501.1000 7-18 mg/dL Normal BUN 9 LAB L501.1100 0.55-1.02 mg/dL Normal CREAT,SERUM 0.76 Result Comment: The validity of the calculated GFR AND GFRAA in patients over 70 years has not been determined. Clinical correlation is essential. LAB L501.1110 >60 mL/min Normal EST GFR 82 Result Comment: Non- GFR Calc LAB L501.1115 >60 mL/min Normal EST GFR - AA 99 Result Comment: GFR Calc LAB L501.1255 ml/min Normal Estimated CRCL 72.77 LAB L501.1300 10-20 RATIO Normal BUN/CRE 11.9 LAB L501.2200 8.5-10 mg/dL Low .1 CA 8.1 LAB L501.5300 136-14 mmol/L Normal 5 NA 136 LAB L501.5600 3.5-5. mmol/L Normal 1 K 3.9 LAB L501.5900 98-107 mmol/L Normal CL 104 LAB L501.6100 21.0-3 mmol/L Normal 2.0 CO2 22.0 LAB L501.6200 5-15 Normal GAP 10 Performed By: #### L500.2500, L500.3400, L501.2450 #### [facility] [address] [place], [address] LIVER PROFILE Collected: 10/15/2018 Status: F Source: [place] 6:14 AM [facility] REPOSITORY TYPE CODE TESTS RESULT OUT OF RANGE REFERENCE UNITS LAB L501.1500 6.4-8.2 g/dL Low T PROT 5.5 LAB L501.1800 3.2-5.0 g/dL Low ALB 2.0 LAB L501.1950 2.2-4.2 g/dL Normal GLOB 3.5 LAB L501.4100 15-37 U/L High AST 56 LAB L501.4305 45-117 U/L High ALK P 578 LAB L501.4405 13-56 U/L Normal ALT 56 LAB L501.4600 0.20-1.00 mg/dL High T BILI 4.70 LAB L501.4700 0.00-0.30 mg/dL High D BILI 3.74 Performed By: #### L500.2500, L500.3400, L501.2450 #### [facility] [address] [place], [address] LIPASE Collected: 10/15/2018 Status: F Source: [place] 6:14 AM [facility] REPOSITORY TYPE CODE TESTS RESULT OUT OF RANGE REFERENCE UNITS LAB L501.2450 73-393 U/L Normal LIPASE 170 Performed By: #### L500.2500, L500.3400, L501.2450 #### [facility] [address] [place], [address] 12 LEAD ELECTROCARDIOGRAM Observed: 10/14/2018 Status: F Source: [place] 3:10 PM [facility] REPOSITORY [facility] Cardiovascular Services [address] [place] [address] 12 Lead EKG 10/11/18 1645 MR#: [id number] Acct: [id number] Name: RICKY BOLANOS Rep #: [id number] : 1955 62 From: Angel Ortiz MD Attending Dr: Dylan Tran MD Status: ADM IN Ordering Dr: Wang Woo DO Date: 10/11/18 [place] [facility] [place]: F C Admitted: 10/11/18 Test Reason : NAUSEA/VOMITING Blood Pressure : / mmHG Vent. Rate : 098 BPM Atrial Rate : 108 BPM P-R Int : 000 ms QRS Dur : 082 ms QT Int : 368 ms P-R-T Axes : 000 013 009 degrees QTc Int : 469 ms Atrial fibrillation with premature ventricular or aberrantly conducted complexes Nonspecific ST abnormality Abnormal ECG Confirmed by ANGEL ORTIZ MD ([id number]), subeditor MAICOL VALDOVINOS ([id number]) on 10/14/2018 3:09:34 PM Referred By: PEACE TORO Confirmed By:ANGEL ORTIZ MD 10/14/18 1509 Date Angel Ortiz MD CC: Dylan Tran MD; OUT OF TOWN DOCTOR; Wang Woo DO; Peace Toro MD Signed OPERATIVE REPORT - Observed: 10/14/2018 Status: F Source: [place] ENDOSCOPY 3:01 PM [facility] REPOSITORY [facility] Medical Records Department [address] [facility] [place] [address] Operative Report - Endoscopy MR#: [id number] Acct: [id number] Name: RICKY BOLANOS Rep #: [id number] : 1955 62 From: Dylan Tran MD PCP: Peace Toro MD Status: ADM IN Patient Name: Ricky Bolanos Procedure Date: 10/14/2018 1:56 PM Date of : 1955 Age: 62 Procedure: ERCP Indications: Bile duct stone(s), Elevated liver enzymes Providers: Dylan Tran MD Referring MD: Lady Carranza Medicines: General Anesthesia Patient Profile: This is a 62 year old female. Refer to note in patient chart for documentation of history and physical. Complications: No immediate complications. Estimated blood loss: Minimal. Procedure: Pre-Anesthesia Assessment: - Prior to the procedure, a History and Physical was performed, and patient medications and allergies were reviewed. The patient's tolerance of previous anesthesia was also reviewed. The risks and benefits of the procedure and the sedation options and risks were discussed with the patient. All questions were answered, and informed consent was obtained. Prior Anticoagulants: The patient has taken Xarelto (rivaroxaban), last dose was 3 days prior to procedure. After reviewing the risks and benefits, the patient was deemed in satisfactory condition to undergo the procedure. After obtaining informed consent, the scope was passed under direct vision. Throughout the procedure, the patient's blood pressure, pulse, and oxygen saturations were monitored continuously. The [id number]/n [id number] endoscope was introduced through the mouth, and advanced to the duodenum and used to inject contrast into the bile duct. The ERCP was accomplished without difficulty. The patient tolerated the procedure well. Scope In: 2:30:02 PM Scope Out: 2:46:28 PM Total Procedure Duration Time 0 hours 16 minutes 26 seconds Findings: The dorsal pancreatic duct was inadvertently cannulated without any complications. A 0.035 inch x 260 cm straight Dreamwire was passed into the biliary tree. The sphincterotome was passed over the guidewire and the bile duct was then deeply cannulated. Contrast was injected. I personally interpreted the bile duct images. There was brisk flow of contrast through the ducts. Contrast extended to the hepatic ducts. The main bile duct was diffusely dilated. Biliary sphincterotomy was made with a monofilament sphincterotome using ERBE electrocautery. The sphincterotomy oozed blood. To discover objects, the biliary tree was swept with a 15 mm balloon starting at the bifurcation. The bile duct was diffusely dilated, no stones were found. There was some very small debris. Several sweeps were performed and a repeat cholangiogram was perforemed. The balloon and wire were removed. The endoscope was withdrawn from the patient. Impression: -There was bile in the stomach at beginning of procedure. - The entire main bile duct was dilated. - A biliary sphincterotomy was performed. - The biliary tree was swept and the duct was dilated but no stones were present. Recommendation: - Resume previous diet. Procedure Code(s): --- Professional --- 83490, Endoscopic retrograde cholangiopancreatography (ERCP); with sphincterotomy/papillotomy Diagnosis Code(s): --- Professional --- K80.50, Calculus of bile duct without cholangitis or cholecystitis without obstruction R74.8, Abnormal levels of other serum enzymes K83.8, Other specified diseases of biliary tract CPT copyright 2017 [employer]. All rights reserved. The codes documented in this report are preliminary and upon metallurgical or materials technician review may be revised to meet current compliance requirements. Dylan Tran MD 10/14/2018 3:00:37 PM This report has been signed electronically. Number of Addenda: 0 Note Initiated On: 10/14/2018 1:56 PM 10/14/18 1500 Date Dylan Tran MD Cosigner Signature: Date (if indicated) CC: Dylan Tran MD; Clifford Schrader DO; OUT OF TOWN DOCTOR; Peace Toro MD Date Dictated: 10/14/18 1356 Date Transcribed: Powder Coat Painter: AC Signed ERCP BILIARY/PANCREAS Observed: 10/14/2018 Status: F Source: [place] 1:49 PM [facility] REPOSITORY [facility] Imaging Services [address] [place] [address] ERCP Biliary/Pancreas MR#: [id number] Acct: [id number] Name: RICKY BOLANOS Rep #: [id number] : 1955 F 62 From: David Santiago DO PCP: Peace Toro MD Status: ADM IN Study: ERCP Biliary/Pancreas Date of Exam: 10/14/18 Exam# [id number] Ordering Dr: Dylan Tran MD STUDY: ERCP. REASON FOR EXAM: Female, 62 years old. Questionable cystic duct stones on interoperative cholangiogram. RADIATION DOSAGE (If Supplied By Facility): CTDIvol = ( ) mGy, DLP = ( ) mGycm. FLUOROSCOPY TIME (if supplied): ( ) minutes/seconds TECHNIQUE: 4 intraprocedural images were presented for interpretation. COMPARISON: Intraoperative cholangiogram, October 12, 2018. FINDINGS: The images demonstrate cannulization of the cystic duct which appears distended. Contrast enhancement demonstrates no obvious filling defect. There is evidence of balloon stripping of the CBD. Please refer to the procedural report for further details. RAD/ERCP Biliary/Pancreas IMPRESSION: ERCP in the OR. Electronically Signed: David Santiago DO at 19:04 EST Tel [phone], Service support , CC: Dylan Tran MD; Peace Toro MD Powder Coat Painter: Signed CBC W/DIFF, AUTOMATED Collected: 10/14/2018 Status: F Source: [place] 6:10 AM [facility] REPOSITORY TYPE CODE TESTS RESULT OUT OF RANGE REFERENCE UNITS LAB L100.1000 4.4-11.0 K/mm3 High WBC 14.7 LAB L100.1200 4.2-5.4 M/mm3 Low RBC 3.70 LAB L100.1300 12.0-15.0 g/dl Low HGB 10.9 LAB L100.1400 37-47 % Low HCT 34.4 LAB L100.1500 81-99 fL Normal MCV 93.0 LAB L100.1600 27.0-32.0 pg Normal MCH 29.5 LAB L100.1700 32-36 g/gl Low MCHC 31.7 LAB L100.1810 11.6-14.6 % Normal RDW CV 13.2 LAB L100.1820 35.1-43.9 fl High RDW SD 44.8 LAB L100.1900 150-450 K/mm3 Normal PLT 218 LAB L100.2000 6.2-12.0 fl Normal MPV 10.3 LAB L100.2100 47-70 % High NEUT% 85.3 LAB L100.2200 19-41 % Low LY% 9.4 LAB L100.2300 0-10 % Normal MONO% 4.7 LAB L100.2400 0-5 % Normal EO% 0.3 LAB L100.2500 0-1 % Normal BASO% 0.1 LAB L100.2550 0.0-0.9 % Normal IM GRAN % 0.200 Result Comment: IG% - Immature Granulocytes (promyelocytes, myelocytes and metamyelocytes) > 1% indicates that a LEFT SHIFT is Present. LAB L100.2620 2.0-7.7 X10 3/uL High Absolute Neut 12.6 LAB L100.2720 0.83-4.51 X10 3/ul Normal Absolute Lymph 1.38 Performed By: #### L100.0100 #### [facility] [address] [place], [id number] COMPREHENSIVE METABOLIC Collected: 10/14/2018 Status: F Source: KULDEEP JOSHI 6:10 AM [facility] REPOSITORY TYPE CODE TESTS RESULT OUT OF RANGE REFERENCE UNITS LAB L501.0100 74-106 mg/dL Normal GLU 100 Result Comment: Fasting Glucose result from 100 to 125 mg/dL suggests IMPAIRED HOMEOSTASIS per A.D.A. criteria. Please note revised GLUCOSE reference range effective 2017. LAB L501.1000 7-18 mg/dL Normal BUN 10 LAB L501.1100 0.55-1.02 mg/dL Normal CREAT,SERUM 0.92 Result Comment: The validity of the calculated GFR AND GFRAA in patients over 70 years has not been determined. Clinical correlation is essential. LAB L501.1110 >60 mL/min Normal EST GFR 66 Result Comment: Non- GFR Calc LAB L501.1115 >60 mL/min Normal EST GFR - AA 80 Result Comment: GFR Calc LAB L501.1255 ml/min Normal Estimated CRCL 60.11 LAB L501.1300 10-20 RATIO Normal BUN/CRE 10.9 LAB L501.1500 6.4-8. g/dL Low 2 T PROT 5.9 LAB L501.1800 3.2-5. g/dL Low 0 ALB 2.3 LAB L501.1950 2.2-4. g/dL Normal 2 GLOB 3.6 LAB L501.2000 0.9-2. RATIO Low 4 A/G 0.6 LAB L501.2200 8.5-10 mg/dL Low .1 CA 8.1 LAB L501.4100 15-37 U/L High AST 40 LAB L501.4305 45-117 U/L High ALK P 367 LAB L501.4405 13-56 U/L High ALT 57 LAB L501.4600 0.20-1 mg/dL High .00 T BILI 3.50 LAB L501.5300 136-14 mmol/L Normal 5 NA 139 LAB L501.5600 3.5-5. mmol/L Normal 1 K 3.9 LAB L501.5900 98-107 mmol/L Normal CL 105 LAB L501.6100 21.0-3 mmol/L Normal 2.0 CO2 24.0 LAB L501.6200 5-15 Normal GAP 10 Performed By: #### L500.4050, L501.2450 #### [facility] [address] [place], [address] LIPASE Collected: 10/14/2018 Status: F Source: NORRIS 6:10 AM [facility] REPOSITORY TYPE CODE TESTS RESULT OUT OF RANGE REFERENCE UNITS LAB L501.2450 73-393 U/L Normal LIPASE 345 Performed By: #### L500.4050, L501.2450 #### [facility] [address] [place], [address] LACTIC ACID Collected: 10/14/2018 Status: F Source: NORRIS 6:10 AM [facility] REPOSITORY Order Comment: Yes/No query for Sepsis Lactate Rule Y TYPE CODE TESTS RESULT OUT OF RANGE REFERENCE UNITS LAB L503.6005 0.4-2.0 mmol/L Normal LACTIC ACID 1.2 Performed By: #### L503.6005 #### [facility] [address] [place], [address] OPERATIVE REPORT Observed: 10/13/2018 Status: F Source: NORRIS 4:15 PM [facility] REPOSITORY [facility] Medical Records Department [address] [place] [address] Operative Report 10/12/18 1428 MR#: [id number] Acct: [id number] Name: RICKY BOLANOS Rep #: [id number] : 1955 62 From: Celina Last MD PCP: Peace Toro MD Status: ADM IN Location: [place] [address] Report of Operation Date of Procedure: 10/12/18 Pre-Operative Diagnosis: Gallstone pancreatitis, cholelithiasis Post-Operative Diagnosis: Gallstone pancreatitis, acute cholecystitis, cholelithiasis Surgery/Procedure Performed:: Laparoscopic cholecystectomy with cholangiograms belt back operator: Dylan Tran Type of Anesthesia:: General/Supplemental Anesthesiologist: Scott Acevedo Special Medications: Zosyn 3.375 g IV x1 Specimen's removed: Gallbladder Estimated Blood Loss (mL): 60 CC Fluids Replaced: 1400 Description of Procedure: Indications this is a 62 year-old female who developed abdominal pain/nausea/vomiting and on workup was found to have gallstone pancreatitis slightly dilated common bile duct at 6.4 per ultrasound. Laparoscopic cholecystectomy was elected. Description procedure: The patient was placed on operating table in supine position. General Anesthesia was induced. A timeout was completed verifying correct patient, procedure, site, position, social, and special equipment prior to beginning procedure. An orogastric tube was placed. The abdomen was prepped and draped in usual sterile fashion. An incision was made in the natural skin line above the umbilicus. The fascia was elevated and incised. The peritoneum was elevated and incised. Entry into the peritoneum was confirmed visually and no bowel was noted in the vicinity of the incision. Joyce trocar was placed. The abdomen was insufflated with carbon dioxide to a pressure of 12-15 mmHg. Patient tolerated insufflation well. The laparoscope was then inserted and abdomen inspected. No injuries from initial trocar placement were noted. Additional trochars were then inserted in the following locations 5 mm trocar in the epigastrium and 2 more 5 mm trochars along the right costal margin. The abdomen was inspected no abnormalities were found. The table is placed in reverse Trendelenburg position with the right side up. Adhesions between the omentum abdominal wall were taken down with the harmonic due to patient's previous pyloromyotomy as a child. The gallbladder was noted to be inflamed. The adhesions between the gallbladder and omentum were lysed sharply. The dome of the gallbladder was grasped with atraumatic grasper passed through the lateral port and retracted over the dome of the liver. Infundibulum was then grasped with atraumatic grasper through the midclavicular port and retracted to the right lower quadrant. This maneuver exposed Calot's triangle. The peritoneum overlying the gallbladder infundibulum was then incised and cystic duct and artery identified and circumferentially dissected. Roque catheter was used for cholangiograms. Cholangiograms did show filling of the right and left bile ducts as well as the common bile duct. There is also some filling in the duodenum. The cystic duct and artery were then doubly clipped and divided close to the gallbladder. The gallbladder then dissected from its peritoneal attachments by electrocautery. Hemostasis was checked and the gallbladder and contained stones were removed using the endoscopic retrieval bag through the umbilical port. The gallbladder is passed off table as specimen. The gallbladder fossa was copiously irrigated with saline and hemostasis obtained. There is no evidence of bleeding from the gallbladder fossa or cystic artery leakage of bile from the cystic duct stump. Secondary trochars removed under direct vision. No bleeding was noted the trocar sites. The laparoscope was withdrawn and umbilical trocar removed. The abdomen was allowed to collapse. The fascia of the 12 mm trocar was closed with a [id number] 0 Vicryl suture. The skin was closed with sutures of 4-0 Monocryl and Steri-Strips. The patient was extubated. The patient tolerated procedure well and was taken to the postanesthesia care unit in stable condition. - Complications none 10/13/18 1615 <Electronically signed by Celina Last MD> Date Celina Last MD CC: Clifford Schrader DO; Peace Toro MD; Celina Last MD Signed CBC W/DIFF, AUTOMATED Collected: 10/13/2018 Status: F Source: KUL[place] 5:36 AM [facility] REPOSITORY TYPE CODE TESTS RESULT OUT OF RANGE REFERENCE UNITS LAB L100.1000 4.4-11.0 K/mm3 High WBC 13.3 LAB L100.1200 4.2-5.4 M/mm3 Low RBC 3.70 LAB L100.1300 12.0-15.0 g/dl Low HGB 11.0 LAB L100.1400 37-47 % Low HCT 35.1 LAB L100.1500 81-99 fL Normal MCV 94.9 LAB L100.1600 27.0-32.0 pg Normal MCH 29.7 LAB L100.1700 32-36 g/gl Low MCHC 31.3 LAB L100.1810 11.6-14.6 % Normal RDW CV 13.7 LAB L100.1820 35.1-43.9 fl High RDW SD 47.6 LAB L100.1900 150-450 K/mm3 Normal PLT 218 LAB L100.2000 6.2-12.0 fl Normal MPV 10.1 LAB L100.2100 47-70 % High NEUT% 80.0 LAB L100.2200 19-41 % Low LY% 12.9 LAB L100.2300 0-10 % Normal MONO% 6.2 LAB L100.2400 0-5 % Normal EO% 0.5 LAB L100.2500 0-1 % Normal BASO% 0.2 LAB L100.2550 0.0-0.9 % Normal IM GRAN % 0.200 Result Comment: IG% - Immature Granulocytes (promyelocytes, myelocytes and metamyelocytes) > 1% indicates that a LEFT SHIFT is Present. LAB L100.2620 2.0-7.7 X10 3/uL High Absolute Neut 10.7 LAB L100.2720 0.83-4.51 X10 3/ul Normal Absolute Lymph 1.72 Performed By: #### L100.0100 #### [facility] [address] [place], [place], [address] COMPREHENSIVE METABOLIC Collected: 10/13/2018 Status: F Source: [facility] 5:36 AM [facility] REPOSITORY TYPE CODE TESTS RESULT OUT OF RANGE REFERENCE UNITS LAB L501.0100 74-106 mg/dL Normal GLU 104 Result Comment: Fasting Glucose result from 100 to 125 mg/dL suggests IMPAIRED HOMEOSTASIS per A.D.A. criteria. Please note revised GLUCOSE reference range effective 2017. LAB L501.1000 7-18 mg/dL Normal BUN 12 LAB L501.1100 0.55-1.02 mg/dL Normal CREAT,SERUM 0.88 Result Comment: The validity of the calculated GFR AND GFRAA in patients over 70 years has not been determined. Clinical correlation is essential. LAB L501.1110 >60 mL/min Normal EST GFR 69 Result Comment: Non- GFR Calc LAB L501.1115 >60 mL/min Normal EST GFR - AA 84 Result Comment: GFR Calc LAB L501.1255 ml/min Normal Estimated CRCL 62.85 LAB L501.1300 10-20 RATIO Normal BUN/CRE 13.6 LAB L501.1500 6.4-8. g/dL Low 2 T PROT 5.5 LAB L501.1800 3.2-5. g/dL Low 0 ALB 2.4 LAB L501.1950 2.2-4. g/dL Normal 2 GLOB 3.1 LAB L501.2000 0.9-2. RATIO Low 4 A/G 0.8 LAB L501.2200 8.5-10 mg/dL Low .1 CA 7.5 LAB L501.4100 15-37 U/L High AST 51 Result Comment: Slight Hemolysis, Result may be falsely increased. LAB L501.4305 45-117 U/L High ALK P 151 LAB L501.4405 13-56 U/L Normal ALT 56 LAB L501.4600 0.20-1.00 mg/dL High T BILI 1.10 LAB L501.5300 136-145 mmol/L Normal NA 141 LAB L501.5600 3.5-5.1 mmol/L Normal K 3.7 Result Comment: Slight Hemolysis, Result may be falsely increased. LAB L501.5900 98-107 mmol/L High CL 109 LAB L501.6100 21.0-32.0 mmol/L Normal CO2 23.0 LAB L501.6200 5-15 Normal 9 GAP Performed By: #### L500.4050, L501.2450 #### [facility] [address] [place], [address] LIPASE Collected: 10/13/2018 Status: F Source: [place] 5:36 AM [facility] REPOSITORY TYPE CODE TESTS RESULT OUT OF REFERENCE UNITS RANGE LAB L501.2450 73-393 U/L High LIPASE 698 Performed By: #### L500.4050, L501.2450 #### [facility] [address] [place], [address] GALLBLADDER Observed: 10/12/2018 Status: F Source: [place] 1:00 PM [facility] REPOSITORY Patient: RICKY BOLANOS : 1955 (62/F) Acct Num: [id number] Phys: Marc HERRERA,Dylan Unit Num: [id number] Loc: MS3 [id number] Specimen: [id number] Received: 10/12/181532 Spec Type: GALLBLADDE TISSUES 1 TISSUES: Gallbladder, NOS GROSS DESCRIPTION Received is one container labeled with the patient's name and designated gallbladder. The specimen consists of a gallbladder measuring 10 cm in length and 4 cm in diameter. The external surface is pink-melo, smooth and glistening for the most part. Focally it is granular, hemorrhagic and contains cautery artifact. The gallbladder contains green-yellow mucoid bile and multiple, mulberry-yellowish stones and stone fragments measuring in aggregate 3 x 2.5 x 1 cm and 0.3 to 0.8 cm in greatest dimension. The mucosa also shows several yellowish streaks consistent with cholesterolosis. The mucosa is bile-stained and without any mass lesions. The gallbladder wall measures up to 0.5 cm in thickness. Aviation Boatswain'S Mate sections from the gallbladder and the cystic duct are submitted in one cassette. / GIOVANNI:gunjan 10/13/18 TC:3 CPT: 31980 HEADER OPERATION: Laparoscopic cholecystectomy with IOC PRE-OP DIAGNOSIS: Cholelithiasis TISSUE SUBMITTED: Gallbladder MICROSCOPIC DESCRIPTION Slides are reviewed. MICROSCOPIC DIAGNOSIS Gallbladder: Chronic cholecystitis, cholelithiasis and cholesterolosis. GIOVANNI:gunjan 10/14/18 Signed Vin Ramsey MD 10/14/18 <signature on file> Performed By: #### PGALL #### [facility] [address] [facility] [place], [address] SURGERY VISIT REPORT Observed: 10/12/2018 Status: F Source: NORRIS 11:31 AM [facility] REPOSITORY [facility] [address] [place] [address]. [address] [place] [address] OFFICE VISIT Date of Service: 10/09/18 MR#: [id number] Acct: [id number] Name: RICKY BOLANOS Rep #: [id number] : 1955 Provider: Celina Last MD Age/Sex: 62/F Location: [facility] Status: Signed Intake Intake Visit Reasons: GALLBLADDER Order Administrator Required: No Is patient in pain?: No Allergies ketorolac tromethamine [From Toradol] Allergy (Verified 10/09/18 14:39) Hives Medications Digoxin [Lanoxin] 250 mcg PO DAILY 12/13/13 [History Confirmed 10/11/18] Metoprolol(XL)Succ [Toprol Xl] 75 mg PO BID 12/13/13 [History Confirmed 10/11/18] lisinopril 10 mg tablet 20 mg PO DAILY tab 08/03/18 [History Confirmed 10/11/18] rivaroxaban 20 mg tablet 20 mg PO DAILY 08/03/18 [History Confirmed 10/11/18] spironolactone 25 mg tablet 25 mg PO DAILY tab 08/03/18 [History Confirmed 10/11/18] PFSH Medical History Myocardial infarction (Chronic) Atrial fibrillation (Chronic) Abdominal pain (Acute) Acid reflux (Acute) Anxiety (Acute) Gallstones (Acute) Nausea AND vomiting (Acute) Hypertension (Chronic) pyloromyotomy (Chronic) Surgical History History of hysterectomy (Acute) History of tonsillectomy (Acute) Family History Mother Arthritis High cholesterol Diabetes Heart disease Hypertension CVA (cerebral vascular accident) Father Diabetes Heart disease High cholesterol Hypertension HPI HPI HPI: RICKY BOLANOS, is a 62 F who presents to the office today for nausea or vomiting, epigastric pain to bilateral upper quadrants. Patient states that this occurred on Friday and lasted until Friday. Patient had a peppermint mocha last Friday and within hours after completing the drink she started having the abdominal pain nausea and vomiting. Patient states that since Friday she has had no abdominal pain or nausea and vomiting yesterday she was able to eat ham and cheese omelette and some butter toast without any issues and today she had Max attended to complete a salsa and chips with no pain. Patient states she has been taking some Metamucil occasionally for constipation which has been helping states she has bowel movements about every 1-2 days denies any blood denies any family history of colon cancer states that her mom and her sister do have polyps she is unsure if they were large or not. Patient has never had a colonoscopy. ROS General General: No weight change or fatigue Gastro Gastrointestinal: Yes abdominal pain, Yes nausea or vomiting (fri-, denies currently) Exam Const General: cooperative, comfortable, no acute distress Cardio Rate: regular rate GI Inspection: non-distended Palpation: soft, no guarding, tender (epigastric, LUQ no PS) Assessment AND Plan Problems 1. Cholelithiasis K80.20 2. Gastroesophageal reflux disease K21.[address] scan, gallbladder R93.2 4. heller myotomy Plan We will check white blood cell count, BMP, LFTs. We will also recheck an ultrasound of the gallbladder. If any of these show abnormalities we will plan to do a laparoscopic cholecystectomy. However patient's etiology of epigastric pain and nausea vomiting is still questionable as patient states that last Friday the peppermint mocha because the abdominal pain nausea and vomiting from Friday to Friday. However yesterday she had a ham and cheese omelette and butter toast with no issues and she had Armenian this afternoon with no issues. Patient has not been avoiding any fatty or greasy foods and typically only eats one meal a day and usually that is eating out as she lives alone. Reviewed the anatomy with the patient and discussed the procedure: laparoscopic cholecystectomy with cholangiograms, possible open. Review risks including but not limited to bleeding, infection, hernia, bile leak, retained gallstones requiring another procedure ERCP- Endoscopic Retrograde Cholangiopancreatography, injury to another organ (bile ducts, common bile duct, small bowel, etc.) and conversion to an open procedure. All questions were answered. Will plan for next week. Patient is unable to be on a PPI due to her digoxin medication. She is still taking the Pepcid 40 mg p.o. daily. She denies any pains or nausea vomiting since last Friday. On exam today patient mostly has left upper quadrant pain and some epigastric none in the right upper quadrant. Asked patient try to avoid fatty or greasy foods. Celina Last M.D. Pager: [phone] [facility] [address] [place] [address], [address] [place] [address] Office: [phone] Orders Orders: Plan Detail Follow Up plan for lap sia next week Coding Level of Care Code Off vis,est,level 4 Diagnoses Cholelithiasis K80.20 Gastroesophageal reflux disease K21.[address] scan, gallbladder R93.2 heller myotomy Time Spent (min) 10/12/18 1131 <Electronically signed by Celina Last MD> Date Celina Last MD Cosigner Signature: Date (if applicable) CC: Peace Toro MD CHOLANGIOGRAM/ O Observed: 10/12/2018 Status: F Source: KULDEEP R,INITIAL 9:06 AM [facility] REPOSITORY [facility] Imaging Services [address] [place] [address] Cholangiogram/ O R,Initial MR#: [id number] Acct: [id number] Name: RICKY BOLANOS Rep #: [id number] : 1955 F 62 From: Adan Stewart MD PCP: Peace Toro MD Status: ADM IN Study: Cholangiogram/ O R,Initial Date of Exam: 10/12/18 Exam# [id number] Ordering Dr: Celina Last MD PROCEDURE: INTRAOPERATIVE CHOLANGIOGRAM. REASON FOR EXAM: Female, 62 years old. Cholelithiasis, abdominal pain. FLUOROSCOPY TIME (if supplied): (0:42) minutes/seconds TECHNIQUE: Real-time fluoroscopy was provided during intraoperative contrast infusion via the cystic duct. 3 cine runs with a total of 128 images and 2 additional static fluoroscopic spot films are submitted. COMPARISON: Right quadrant ultrasound October 10, 2018; CT abdomen and pelvis October 06, 2018.. FINDINGS: Dilated intra-and extrahepatic bile ducts. There is backflow of contrast into the collapsed gallbladder. Question of filling/stones in the cystic duct near the point of injection, but no common bile duct stone is seen. Contrast flows to the duodenum. RAD/Cholangiogram/ O R,Initial IMPRESSION: Intra and extrahepatic bile duct ectasia. Question of small stones clustered in the cystic duct near the point of contrast injection. There is no demonstrated common bile duct stone, and contrast flows into the duodenum.. Electronically Signed: Leonardo Stewart MD at 15:00 EST , Service support , CC: Peace Toro MD; Celina Last MD Powder Coat Painter: Signed CBC W/DIFF, AUTOMATED Collected: 10/12/2018 Status: F Source: KULDEEP 5:27 AM [facility] REPOSITORY TYPE CODE TESTS RESULT OUT OF RANGE REFERENCE UNITS LAB L100.1000 4.4-11.0 K/mm3 High WBC 13.2 LAB L100.1200 4.2-5.4 M/mm3 Normal RBC 4.22 LAB L100.1300 12.0-15.0 g/dl Normal HGB 12.7 LAB L100.1400 37-47 % Normal HCT 40.6 LAB L100.1500 81-99 fL Normal MCV 96.2 LAB L100.1600 27.0-32.0 pg Normal MCH 30.1 LAB L100.1700 32-36 g/gl Low MCHC 31.3 LAB L100.1810 11.6-14.6 % Normal RDW CV 13.4 LAB L100.1820 35.1-43.9 fl High RDW SD 45.6 LAB L100.1900 150-450 K/mm3 Normal PLT 263 LAB L100.2000 6.2-12.0 fl Normal MPV 10.7 LAB L100.2100 47-70 % High NEUT% 78.9 LAB L100.2200 19-41 % Low LY% 16.0 LAB L100.2300 0-10 % Normal MONO% 4.6 LAB L100.2400 0-5 % Normal EO% 0.2 LAB L100.2500 0-1 % Normal BASO% 0.1 LAB L100.2550 0.0-0.9 % Normal IM GRAN % 0.200 Result Comment: IG% - Immature Granulocytes (promyelocytes, myelocytes and metamyelocytes) > 1% indicates that a LEFT SHIFT is Present. LAB L100.2620 2.0-7.7 X10 3/uL High Absolute Neut 10.4 LAB L100.2720 0.83-4.51 X10 3/ul Normal Absolute Lymph 2.11 Performed By: #### L100.0100 #### [facility] [address] [place], [address] COMPREHENSIVE METABOLIC Collected: 10/12/2018 Status: F [facility] REPOSITORY TYPE CODE TESTS RESULT OUT OF RANGE REFERENCE UNITS LAB L501.0100 74-106 mg/dL High GLU 111 Result Comment: Fasting Glucose result from 100 to 125 mg/dL suggests IMPAIRED HOMEOSTASIS per A.D.A. criteria. Please note revised GLUCOSE reference range effective 2017. LAB L501.1000 7-18 mg/dL Normal BUN 18 LAB L501.1100 0.55-1.02 mg/dL High CREAT,SERUM 1.19 Result Comment: The validity of the calculated GFR AND GFRAA in patients over 70 years has not been determined. Clinical correlation is essential. LAB L501.1110 >60 mL/min Low EST GFR 49 Result Comment: Non- GFR Calc LAB L501.1115 >60 mL/min Low EST GFR - AA 59 Result Comment: GFR Calc LAB L501.1255 ml/min Normal Estimated CRCL 46.48 LAB L501.1300 10-20 RATIO Normal BUN/CRE 15.1 LAB L501.1500 6.4-8. g/dL Low 2 T PROT 6.0 LAB L501.1800 3.2-5. g/dL Low 0 ALB 2.8 LAB L501.1950 2.2-4. g/dL Normal 2 GLOB 3.2 LAB L501.2000 0.9-2. RATIO Normal 4 A/G 0.9 LAB L501.2200 8.5-10 mg/dL Low .1 CA 7.5 LAB L501.4100 15-37 U/L Normal AST 34 LAB L501.4305 45-117 U/L Normal ALK P 79 LAB L501.4405 13-56 U/L Normal ALT 45 LAB L501.4600 0.20-1 mg/dL Normal .00 T BILI 0.70 LAB L501.5300 136-14 mmol/L High 5 NA 147 LAB L501.5600 3.5-5. mmol/L Normal 1 K 3.6 LAB L501.5900 98-107 mmol/L High CL 110 LAB L501.6100 21.0-3 mmol/L Normal 2.0 CO2 27.0 LAB L501.6200 5-15 Normal GAP 10 Performed By: #### L500.4050, L501.2300, L501.2450, L501.5200 #### [facility] [address] [place], [address] PHOSPHORUS Collected: 10/12/2018 Status: F Source: [place] 5:27 AM [facility] REPOSITORY TYPE CODE TESTS RESULT OUT OF RANGE REFERENCE UNITS LAB L501.2300 2.5-4.9 mg/dL Normal PHOS 3.9 Performed By: #### L500.4050, L501.2300, L501.2450, L501.5200 #### [facility] [address] [place], [address] LIPASE Collected: 10/12/2018 Status: F Source: [place] 5:27 AM [facility] REPOSITORY TYPE CODE TESTS RESULT OUT OF REFERENCE UNITS RANGE LAB L501.2450 73-393 U/L High LIPASE 8989 Performed By: #### L500.4050, L501.2300, L501.2450, L501.5200 #### [facility] [address] [place], [address] MAGNESIUM Collected: 10/12/2018 Status: F Source: [place] 5:27 AM [facility] REPOSITORY TYPE CODE TESTS RESULT OUT OF RANGE REFERENCE UNITS LAB L501.5200 1.6-2.6 mg/dL Normal MG 2.1 Performed By: #### L500.4050, L501.2300, L501.2450, L501.5200 #### [facility] [address] [place], [address] LACTIC ACID Collected: 10/11/2018 Status: F Source: KUL[place] 8:35 PM [facility] REPOSITORY TYPE CODE TESTS RESULT OUT OF REFERENCE UNITS RANGE LAB L503.6005 0.4-2.0 mmol/L High LACTIC ACID 2.3 Result Comment: CALLED ASHLI VELIZ MS- 3 WITH CRITICAL LA BY [facility] 10-11-18 AT 2111PM READ BACK BY SAME Performed By: #### L503.6005 #### [facility] [address] [place], [address] TROPONIN-I Collected: 10/11/2018 Status: F Source: [place] 8:15 PM [facility] REPOSITORY TYPE CODE TESTS RESULT OUT OF RANGE REFERENCE UNITS LAB L501.4010 <0.045 ng/mL Normal < 0.015 TROPONIN-I Result Comment: TROPONIN-I EXPECTED VALUES <0.045 Negative 0.045 - 0.590 Consistent with Cardiac Damage > OR = 0.600 Critical Value Not every elevated troponin is indicative of NM. These values should be used with clinical judgement in examining the patient's clinical picture for diagnosis. To establish a diagnosis of NM versus myocardial injury, there must be a demonstrated rise and/or fall in the troponin values, in addition to ischemic symptoms, EKG changes, new regional wall motion abnormality, and/or angiographical evidence. PLEASE NOTE: REFERENCE RANGES EDITED 18 Performed By: #### L501.4010 #### [facility] [address] [facility] [place], [address] HISTORY AND PHYSICAL Observed: 10/11/2018 Status: F Source: NORRIS EXAM 6:21 PM [facility] REPOSITORY [facility] Medical Records Department [address] [place] [address] History and Physical 10/11/18 1811 MR#: [id number] Acct: [id number] Name: RICKY BOLANOS Rep #: [id number] : 1955 62 From: Dylan Tran MD PCP: Peace Toro MD Status: ADM IN Location: [facility] [id number] Problem List (1) Gallstone pancreatitis Status: Acute History of Present Illness Date of Admission: 10/11/18 The patient is a 62 year old F who was in the office this past week and had a gallbladder ultrasound ordered. She said she had an ultrasound yesterday and this morning at 3 AM she began to have severe epigastric pain as well as nausea and vomiting. She had vomiting throughout the morning and presented to the emergency room. She says she is not having any fevers or chills but she is having some shaking. Her abdominal pain is epigastric in nature and does radiate to the back and right upper quadrant. Past Medical History Past Medical History (Chronic Problems): Chronic Problems (Last Updated 10/11/18 @ 17:28 by Celina Last MD) Myocardial infarction (Chronic) Atrial fibrillation (Chronic) Medical History: Medical History (Last Updated 10/11/18 @ 17:28 by Celina Last MD) Myocardial infarction (Chronic) I21.9 Atrial fibrillation (Chronic) I48.91 Abdominal pain R10.9 Acid reflux K21.9 Anxiety F41.9 Gallstones K80.20 Nausea AND vomiting R11.2 Hypertension I10 pyloromyotomy Allergies ketorolac tromethamine [From Toradol] Allergy (Verified 10/09/18 14:39) Hives Home Medications: Ambulatory Orders Medication Instructions Recorded Digoxin [Lanoxin] 250 mcg PO DAILY 12/13/13 Metoprolol(XL)Succ [Toprol Xl] 75 mg PO BID 12/13/13 Surgical History: Surgical History (Last Reviewed 10/09/18 @ 14:39 by Charley Gaytan) History of hysterectomy Z90.710 History of tonsillectomy Z90.89 Surgical History: hysterectomy - uterine fibroids, tonsillectomy Smoking Status: Never smoker - *Family History Maternal Family History: Family History (Last Reviewed 10/09/18 @ 14:39 by Charley Gaytan) Mother Arthritis High cholesterol Diabetes Heart disease Hypertension CVA (cerebral vascular accident) Father Diabetes Heart disease High cholesterol Hypertension Review of Systems Constitutional: Reports: Anorexia, Chills. Denies: Fever Eyes: Denies: Blurred vision HEENT: Denies: Difficulty Swallowing Cardiovascular: Denies: Chest Pain Respiratory: Denies: Cough, Shortness of Breath Gastrointestinal: Reports: Abdominal Pain, Nausea, Vomiting. Denies: Diarrhea, Hematemesis, Hematochezia, Melena Genitourinary: Denies: Dysuria Musculoskeletal: Denies: Joint Tenderness Skin: Denies: Dryness Neurological: Denies: Difficulty swallowing Psychiatric: Denies: Anxiety Hematologic/ Lymphatic: Denies: Anemia VTE Information - Inpt Only VTE Present on Admission: No VTE Mechan Device Prophylaxis: SCD's Patient Problems: Active and Suspected Problems (Last Updated 10/11/18 @ 17:28 by Celina Last MD) Gallstone pancreatitis (Acute) - Physical Exam General: Alert, Oriented x3, Cooperative HEENT: Atraumatic, PERRLA, EOMI, Normocephalic Neck: No JVD Lungs: Normal air movement Cardiovascular: Regular rate, Regular Rhythm Abdomen: Soft, Non-Distended, Tender - Tender in the epigastric and right upper quadrant Skin: No rashes Musculoskeletal: No Muscle Wasting Neurological: Cranial nerves II-XII grossly intact Psych/Mental Status: Normal Affect, Appropriate Vital Signs Temp Pulse Resp BP Pulse Ox 98.4 F 104 H 16 149/83 H 99 10/11/18 17:05 10/11/18 17:05 10/11/18 17:05 10/11/18 17:05 10/11/18 17:05 Oxygen Delivery Method Room Air Weight: 234 lb 12.677 oz Body Mass Index (BMI) 37.9 Laboratory Tests Past 24 Hrs WBC 10.9 RBC 4.97 Hgb 14.9 Hct 45.8 MCV 92.2 MCH 30.0 MCHC 32.5 RDW 13.1 RDW Differential 44.0 H Plt Count 300 Assessment/Plan All Active Problems (Last Updated 10/11/18 @ 17:28 by Celina Last MD) Gallstone pancreatitis (Acute) 62-year-old female with gallstone pancreatitis 1. The patient has multiple gallstones on her ultrasound which was done yesterday and her gallbladder is at the upper limit of normal. Her white count is normal today. Her LFTs are slightly elevated. There was slight dilation of her common bile duct. 2. I will admit the patient keep her n.p.o. overnight. I will bolus her with fluids but I need to be conservative with my fluid management as the patient has a history of CHF. She is also on spironolactone and several medication. Her last dose of Xarelto was last night and I am holding this. We will check strict I's and O's and bolus as needed. 3. I explained that if the patient's LFTs increase overnight I will take her for an ERCP tomorrow to remove the stone. If her LFTs improve she will be taken for laparoscopic cholecystectomy once her Xarelto has worn off by Dr. Last. Dylan Tran MD Pager: [facility] [address] [place] [address], [address] [place] [phone] Office: 10/11/18 [phone] <Electronically signed by Dylan Tran MD> Date Dylan Tran MD [facility] Signature: Date (if applicable) CC: Dylan Tran MD; Peace Toro MD Signed EMERGENCY DEPARTMENT Observed: 10/11/2018 Status: F Source: NORRIS SUMMARY 5:03 PM [facility] REPOSITORY [facility] Medical Records Department [address] [place] [address] Emergency Department Summary 10/11/18 1700 MR#: [id number] Acct: [id number] Name: RICKY BOLANOS Rep #: [id number] : 1955 62 From: Wang Woo DO PCP: Peace Toro MD Status: REG ER - ER Visit Summary Date of Service: 10/11/18 Chief Complaint: [Abdominal pain and vomiting] History of Present Illness: The patient is a 62 F [presents to the emergency department complaint of abdominal pain and vomiting that started around 3 AM. Patient comes in stating that she thinks it is her gallbladder. Patient states that she is scheduled to have her gallbladder removed this coming week by Dr. Last. Patient's been having pain off and on for some time and recently had CAT scans of her abdomen as well as an ultrasound of her abdomen. Patient denies any fevers. Patient does state that she was on antibiotics recently but is not sure why she was on them but she is no longer currently on them. Patient denies urinary symptoms. Patient describes the pain is in the upper abdomen and severe. She denies any pain into her back.] Physical Examination: [HEENT-PERRLA, EOMI. Cranial nerves II through XII grossly intact. TMs clear. Mucous membranes moist. No adenopathy. Cardiovascular-irregularly irregular. No murmurs auscultated. Lungs-clear to auscultation, chest wall stable without crepitus or subcu emphysema Abdomen-normoactive bowel sounds, soft. Patient has some diffuse tenderness to palpation to the upper abdomen. No rebound, rigidity, or peritoneal signs noted. Extremities-intact 4, normal range of motion, normal pulses, atraumatic] Test Results: [EKG obtained on arrival showed A. fib with a ventricular rate of 90 bpm with some nonspecific ST changes. CBC with differential showed a white count of 10.9, hemoglobin 14.9, hematocrit 46, platelet 300. Chemistries unremarkable. BUN was 20 and creatinine 1.31. LFTs obtained showed a total bilirubin of 1.6, alk phos 100, ALT 62, AST 66, lipase 33,300. Lactate was elevated at 3.9.] Emergency Department Course and Treatment: [Patient was medicated with normal saline and treated with morphine and Zofran. Patient did have pain relief with that. Case was discussed with Dr. Dylan Cisneros who will admit patient to hospital for gallstone pancreatitis.] Treatment Plan: [Admit] Disposition: [Admit] Impression: [Gallstone pancreatitis] This note was generated with [employer] dictation software. It may contain incorrect words, spelling, and punctuation that were not noted in review of the chart prior to signing ED Disposition - Plan for ED Patient: Chief Complaint: Nausea/Vomiting Referrals: Peace Toro MD [Primary Care Provider] - What to do if you have Problems For any increased pain, shortness of breath, bleeding, nausea or vomiting, chest pain, or any unexpected problems, contact your Primary Care Provider. Call [facility] ([phone]) or report to the closest Emergency Room. Call 911 if necessary. 10/11/18 1704 <Electronically signed by Wang Woo DO> Date Wang Woo DO Cosigner Signature (If Indicated): Date CC: Peace Toro MD LACTIC ACID Collected: 10/11/2018 Status: F Source: KUL[place] 4:15 PM [facility] REPOSITORY Order Comment: Yes/No query for Sepsis Lactate Rule Y TYPE CODE TESTS RESULT OUT OF REFERENCE UNITS RANGE LAB L503.6005 0.4-2.0 mmol/L High LACTIC ACID 3.9 Result Comment: called raleigh de oliveira ed with critical la by maf 10-11-18 AT 1701PM READ BACK BY SAME Performed By: #### L503.6005 #### [facility] [address] [place], [address] CBC W/DIFF, AUTOMATED Collected: 10/11/2018 Status: F Source: [place] 3:33 PM [facility] REPOSITORY TYPE CODE TESTS RESULT OUT OF RANGE REFERENCE UNITS LAB L100.1000 4.4-11.0 K/mm3 Normal WBC 10.9 LAB L100.1200 4.2-5.4 M/mm3 Normal RBC 4.97 LAB L100.1300 12.0-15.0 g/dl Normal HGB 14.9 LAB L100.1400 37-47 % Normal HCT 45.8 LAB L100.1500 81-99 fL Normal MCV 92.2 LAB L100.1600 27.0-32.0 pg Normal MCH 30.0 LAB L100.1700 32-36 g/gl Normal MCHC 32.5 LAB L100.1810 11.6-14.6 % Normal RDW CV 13.1 LAB L100.1820 35.1-43.9 fl High RDW SD 44.0 LAB L100.1900 150-450 K/mm3 Normal PLT 300 LAB L100.2000 6.2-12.0 fl Normal MPV 10.1 LAB L100.2100 47-70 % High NEUT% 83.4 LAB L100.2200 19-41 % Low LY% 11.5 LAB L100.2300 0-10 % Normal MONO% 4.8 LAB L100.2400 0-5 % Normal EO% 0.0 LAB L100.2500 0-1 % Normal BASO% 0.1 LAB L100.2550 0.0-0.9 % Normal IM GRAN % 0.200 Result Comment: IG% - Immature Granulocytes (promyelocytes, myelocytes and metamyelocytes) > 1% indicates that a LEFT SHIFT is Present. LAB L100.2620 2.0-7.7 X10 3/uL High Absolute Neut 9.1 LAB L100.2720 0.83-4.51 X10 3/ul Normal Absolute Lymph 1.26 Performed By: #### L100.0100 #### [facility] [place], [address] COMPREHENSIVE METABOLIC Collected: 10/11/2018 Status: F Source: KUL[facility]EP JOSHI 3:33 PM [facility] REPOSITORY TYPE CODE TESTS RESULT OUT OF RANGE REFERENCE UNITS LAB L501.0100 74-106 mg/dL High GLU 196 Result Comment: Fasting Glucose result greater than or equal to 126 mg/dL suggests DIABETES MELLITUS per A.D.A. criteria. Please note revised GLUCOSE reference range effective 2017. LAB L501.1000 7-18 mg/dL High BUN 20 LAB L501.1100 0.55-1.02 mg/dL High CREAT,SERUM 1.31 Result Comment: The validity of the calculated GFR AND GFRAA in patients over 70 years has not been determined. Clinical correlation is essential. LAB L501.1110 >60 mL/min Low EST GFR 44 Result Comment: Non- GFR Calc LAB L501.1115 >60 mL/min Low EST GFR - AA 53 Result Comment: GFR Calc LAB L501.1255 ml/min Normal Estimated CRCL 42.22 LAB L501.1300 10-20 RATIO Normal BUN/CRE 15.3 LAB L501.1500 6.4-8. g/dL Normal 2 T PROT 7.4 LAB L501.1800 3.2-5. g/dL Normal 0 ALB 3.5 LAB L501.1950 2.2-4. g/dL Normal 2 GLOB 3.9 LAB L501.2000 0.9-2. RATIO Normal 4 A/G 0.9 LAB L501.2200 8.5-10 mg/dL Normal .1 CA 8.8 LAB L501.4100 15-37 U/L High AST 66 LAB L501.4305 45-117 U/L Normal ALK P 100 LAB L501.4405 13-56 U/L High ALT 62 LAB L501.4600 0.20-1 mg/dL High .00 T BILI 1.60 LAB L501.5300 136-14 mmol/L Normal 5 NA 142 LAB L501.5600 3.5-5. mmol/L Normal 1 K 3.5 LAB L501.5900 98-107 mmol/L Normal CL 104 LAB L501.6100 21.0-3 mmol/L Normal 2.0 CO2 26.0 LAB L501.6200 5-15 Normal GAP 12 Performed By: #### L500.4050, L501.2450 #### [facility] [address] [place], [address] LIPASE Collected: 10/11/2018 Status: F Source: [place] 3:33 PM [facility] REPOSITORY TYPE CODE TESTS RESULT OUT OF REFERENCE UNITS RANGE LAB L501.2450 73-393 U/L High LIPASE 65542 Result Comment: RESULTS CALLED TO [facility] ED 10/11/18 1645 Dariel Lopez. REPORT READ BACK BY SAME . Performed By: #### L500.4050, L501.2450 #### [facility] [address] [place], [address] GALLBLADDER Observed: 10/10/2018 Status: F Source: NORR[place] 8:11 AM [facility] REPOSITORY [facility] Imaging Services [address] [place] [address] Gallbladder MR#: [id number] Acct: [id number] Name: RICKY BOLANOS Rep #: [id number] : 1955 F 62 From: Bryant Qiu MD PCP: Peace Toro MD Status: REG CLI Study: Gallbladder Date of Exam: 10/10/18 Exam# [id number] Ordering Dr: Celina Last MD STUDY: ABDOMINAL ULTRASOUND - RIGHT UPPER QUADRANT REASON FOR VISIT: Female, [address] scan. Cholelithiasis. TECHNIQUE: Ultrasound evaluation of the right upper quadrant was performed with real-time and static lopez-scale imaging. TECHNICAL QUALITY: Adequate. COMPARISON: Previous ultrasound 07/29/2018 which showed gallstones. Previous CT scan 10/06/2018. FINDINGS: Liver: The liver measures 15.5 cm. There is normal echogenicity of the liver. The bile ducts are within normal limits. There is hepatic color flow. The direction of portal flow is hepatopetal. There is no demonstrated mass lesion. Gallbladder: Normal distended gallbladder. The gallbladder wall measures 3 mm. There is a negative sonographic Betancourt's sign. There is no pericholecystic fluid. There are multiple echogenic structures within the gallbladder, consistent with multiple gallstones. Common Bile Duct (C.B.D.): The common bile duct measures 6.5 mm. Pancreas: Normal size of the head, body and tail of the pancreas. There is normal echogenicity of the pancreas. There is no demonstrated pancreatic mass or cyst. Right Kidney: Normal size of the right kidney. The right kidney measures 10.5 cm. Normal renal cortex. The right cortex measures 1.3 cm. There is no demonstrated renal mass or cyst. There is no right hydronephrosis. US/Gallbladder IMPRESSION: Again seen is cholelithiasis. Gallbladder wall at the upper limits of normal. No tenderness. Slightly dilated common bile duct. Electronically Signed: Bryant Qiu MD at 16:00 EST , Service support , CC: Peace Toro MD; Celina Last MD Powder Coat Painter: Signed CBC W/DIFF, AUTOMATED Collected: 10/09/2018 Status: F Source: [place] 3:26 PM [facility] REPOSITORY TYPE CODE TESTS RESULT OUT OF RANGE REFERENCE UNITS LAB L100.1000 4.4-11.0 K/mm3 Normal WBC 6.9 LAB L100.1200 4.2-5.4 M/mm3 Normal RBC 4.38 LAB L100.1300 12.0-15.0 g/dl Normal HGB 12.9 LAB L100.1400 37-47 % Normal HCT 41.6 LAB L100.1500 81-99 fL Normal MCV 95.0 LAB L100.1600 27.0-32.0 pg Normal MCH 29.5 LAB L100.1700 32-36 g/gl Low MCHC 31.0 LAB L100.1810 11.6-14.6 % Normal RDW CV 13.2 LAB L100.1820 35.1-43.9 fl High RDW SD 45.9 LAB L100.1900 150-450 K/mm3 Normal PLT 296 LAB L100.2000 6.2-12.0 fl Normal MPV 10.1 LAB L100.2100 47-70 % Normal NEUT% 57.6 LAB L100.2200 19-41 % Normal LY% 35.8 LAB L100.2300 0-10 % Normal MONO% 4.8 LAB L100.2400 0-5 % Normal EO% 1.2 LAB L100.2500 0-1 % Normal BASO% 0.3 LAB L100.2550 0.0-0.9 % Normal IM GRAN % 0.300 Result Comment: IG% - Immature Granulocytes (promyelocytes, myelocytes and metamyelocytes) > 1% indicates that a LEFT SHIFT is Present. LAB L100.2620 2.0-7.7 X10 3/uL Normal Absolute Neut 4.0 LAB L100.2720 0.83-4.51 X10 3/ul Normal Absolute Lymph 2.48 Performed By: #### L100.0100 #### [facility] [address] [place], [address] BASIC METABOLIC Collected: 10/09/2018 Status: F Source: [place] PROFILE ([facility]) 3:26 PM [facility] REPOSITORY TYPE CODE TESTS RESULT OUT OF RANGE REFERENCE UNITS LAB L501.0100 74-106 mg/dL Normal GLU 95 Result Comment: Please note revised GLUCOSE reference range effective 2017. LAB L501.1000 7-18 mg/dL High BUN 19 LAB L501.1100 0.55-1.02 mg/dL High CREAT,SERUM 1.24 Result Comment: The validity of the calculated GFR AND GFRAA in patients over 70 years has not been determined. Clinical correlation is essential. LAB L501.1110 >60 mL/min Low EST GFR 47 Result Comment: Non- GFR Calc LAB L501.1115 >60 mL/min Low EST GFR - AA 56 Result Comment: GFR Calc LAB L501.1300 10-20 RATIO Normal BUN/CRE 15.3 LAB L501.2200 8.5-10.1 mg/dL CA Normal 8.5 LAB L501.5300 136-145 mmol/L NA Normal 143 LAB L501.5600 3.5-5.1 mmol/L K Normal 4.4 LAB L501.5900 98-107 mmol/L CL Normal 107 LAB L501.6100 21.0-32.0 mmol/L Normal CO2 31.0 LAB L501.6200 5-15 Normal GAP 5 Performed By: #### L500.2500, L500.3400 #### [facility] [address] [facility] [place], [address] LIVER PROFILE Collected: 10/09/2018 Status: F Source: [place] 3:26 PM [facility] REPOSITORY TYPE CODE TESTS RESULT OUT OF RANGE REFERENCE UNITS LAB L501.1500 6.4-8.2 g/dL Normal T PROT 7.3 LAB L501.1800 3.2-5.0 g/dL Normal ALB 3.4 LAB L501.1950 2.2-4.2 g/dL Normal GLOB 3.9 LAB L501.4100 15-37 U/L Low AST 13 LAB L501.4305 45-117 U/L Normal ALK P 101 LAB L501.4405 13-56 U/L Normal ALT 33 LAB L501.4600 0.20-1.00 mg/dL Normal T BILI 0.40 LAB L501.4700 0.00-0.30 mg/dL Normal D BILI 0.18 Performed By: #### L500.2500, L500.3400 #### [facility] [address] [facility] [place], [place], [address] ABDOMEN/PELVIS WITHOUT Observed: 10/06/2018 Status: F Source: [place] CONT 1:47 PM [facility] REPOSITORY [facility] Imaging Services [address] [place] [address] Abdomen/Pelvis without Cont MR#: [id number] Acct: [id number] Name: RICKY BOLANOS Rep #: [id number] : 1955 F 62 From: Marco Cortes MD PCP: Peace Toro MD Status: REG CLI Study: Abdomen/Pelvis without Cont Date of Exam: 10/06/18 Exam# [id number] Ordering Dr: Kanchan Faustin MD STUDY: CT ABDOMEN AND PELVIS WITHOUT CONTRAST REASON FOR EXAM: Female, 62 years old. Diffuse abdominal pain. Projectile vomiting. RADIATION DOSAGE (If Supplied By Facility): CTDIvol = ( 14 ) mGy, DLP = ( 669.43 ) mGycm TECHNIQUE: Transaxial images were obtained from the dome of the diaphragm to the symphysis pubis without oral contrast, and without intravenous contrast. Sagittal and coronal images were reconstructed. Individualized dose optimization techniques were used for this CT. COMPARISON: Comparison is made with prior study dated March 05, 2004. FINDINGS: The visualized lung bases are unremarkable. The visualized portions of the heart are within normal limits. Normal liver. There is mild degree of the gallbladder wall thickening with findings suggestive of a small amount of pericholecystic fluid. I cannot rule out sludge or tiny gallstones within the gallbladder lumen. Correlation with ultrasound is recommended. Normal spleen. Normal pancreas. Normal bilateral adrenal glands. Normal right kidney. There is evidence of a 4.3 cm x 4.1 cm complicated cyst in the lower pole of the left kidney with peripheral calcifications along its inferior and lateral margins. There is a small hiatal hernia. Normal small intestine. Moderate amount of fecal material is seen in the rectosigmoid colon. Scattered sigmoid diverticula. The appendix is visualized and appears normal. Normal abdominal aorta. Normal inferior vena cava. Normal retroperitoneum. Normal urinary bladder. There is absence of the uterus consistent with a prior hysterectomy. Normal abdominal wall. Disc space narrowing at this degeneration at the L4-L5 and L5-S1 levels. There is a 1.2 cm round hypodensity in the L2 vertebral. This may represent a focal meningioma. CT/Abdomen/Pelvis without Cont IMPRESSION: Findings suggestive of gallbladder wall thickening with a small amount of pericholecystic fluid. Possible tiny gallstones or sludge within the lumen. Correlation with ultrasound is recommended. Electronically Signed: Marco Cortes MD at 14:23 EST Tel [phone], Service support , CC: Kanchan Faustin MD; Peace Toro MD Powder Coat Painter: Signed SURGERY VISIT REPORT Observed: 08/03/2018 Status: F Source: [place] 10:20 AM [facility] REPOSITORY [facility] [address] [place] [address] OFFICE VISIT Date of Service: 08/03/18 MR#: [id number] Acct: [id number] Name: RICKY BOLANOS Rep #: [id number] : 1955 Provider: Celina Last MD Age/Sex: 62/F Location: [facility] Status: Signed Intake Vital Signs08/03/18 Height 5 ft 9 in 08/03/18 Weight: 246 lb Intake Visit Reasons: RUQ/Epigastric US [facility] 07/29 Order Administrator Required: No Allergies ketorolac tromethamine [From Toradol] Allergy (Verified 08/03/18 09:49) Hives Medications Digoxin [Lanoxin] 250 mcg PO DAILY 12/13/13 [History Confirmed 08/03/18] Metoprolol(XL)Succ [Toprol Xl] 75 mg PO BID 12/13/13 [History Confirmed 08/03/18] Ondansetron [Zofran Odt] 8 mg PO Q8H PRN PRN #12 tab 06/12/18 [Rx Confirmed 08/03/18] lisinopril 10 mg tablet 20 mg PO DAILY tab 08/03/18 [History Confirmed 08/03/18] rivaroxaban 20 mg tablet 20 mg PO DAILY 08/03/18 [History Confirmed 08/03/18] spironolactone 25 mg tablet 25 mg PO DAILY tab 08/03/18 [History Confirmed 08/03/18] PFSH Medical History Myocardial infarction (Chronic) Atrial fibrillation (Chronic) Abdominal pain (Acute) Acid reflux (Acute) Anxiety (Acute) Gallstones (Acute) Nausea AND vomiting (Acute) Hypertension (Chronic) Surgical History History of hysterectomy (Acute) History of tonsillectomy (Acute) Family History Mother Arthritis High cholesterol Diabetes Heart disease Hypertension CVA (cerebral vascular accident) Father Diabetes Heart disease High cholesterol Hypertension Social History Smoking Status: Never smoker alcohol intake: never substance use type: does not use HPI HPI HPI: RICKY BOLANOS, is a 62 F who presents to the office today for cholelithiasis. Patient states that her symptoms began about 2-1/2 months ago while she was doing her chemical stress test she noted she had heartburn at the epigastric and going up her esophagus. She states she will get nausea and vomiting she typically will get the epigastric pain and then it will go to both sides after it begins. Currently denies any pain or nausea and vomiting. She states she will typically get the pain either later in the evening hours after eating or in the middle of the night and can also have it before eating in the morning. She has been taking Zofran as needed also Zantac about 4 of the last 7 days usually if she starts burping. She states she has been able to eat salad with [place] dressing with no issues along with turtle ice cream ; however, onions and some meats will cause some pain/nausea and vomiting later. Patient states she drinks 3-4 cups of coffee which is caffeinated daily. She states she normally has bowel movements daily however she has been having issues with constipation currently she has not gone for 6 days and she is only taken milk of magnesia once or twice. ROS General General: Yes weight change and fatigue; no appetite, colon cancer, breast cancer or weakness HEENT HEENT: No difficulty swallowing, eye injury, eye surgery, swollen glands or hoarseness Endo Endocrine: No thyroid disease, diabetes mellitus, thyroid cancer, Hair loss, heat intolerance or cold intolerance Skin Skin: No rash or changing moles Breast Breast: No left breast lump, right breast lump, nipple discharge, breast pain, abnormal mammogram, abnormal US or breast enlargement Musc Musculoskeletal: Yes back problems, rheumatoid arthritis and gout; no arthritis or joint pain Cardio Cardiovascular: Yes heart disease, atrial fibrillation, high blood pressure and heart attack; no murmur, pacemaker, heart stent, palpitations, shortness of breat with exertion or chest pain Psych Psychiatric: Yes anxiety; no depression or hearing voices Resp Respiratory: No shortness of breath, No sleep apnea, No cough, No COPD, No asthma, No emphysema, No wheezing Gastro Gastrointestinal: Yes abdominal pain, Yes nausea or vomiting, No diarrhea, Yes constipation, No blood in stool, Yes acid reflux, No hemorrhoids, No ulcers, Yes gallbladder problem, No black,tarry stools [place] Hematologic: Yes blood thinners, No blood disorders, No bleeding, Yes anemia, Yes blood clots Neuro Neurologic: No system reviewed and no additional complaints, except as docu, No as per HPI, No abnormal walking, No abnormal hearing, No abnormal movements, No abnormal speech, No behavioral changes, No burning sensations, No confusion, No seizure-like activity, No unsteadiness, No dizziness, No localized weakness, No frequent falls, No headache(s), No lack of coordination, No loss of vision, No memory loss, No numbness, No other visual disturbances, No radiating pain, No restless legs, No sensory deficit, No fainting, No tingling, No tremor(s), No weakness, No other Exam Chest Breast Palpation: No nipple discharge Cardio Heart Sounds: no murmurs Assessment AND Plan Problems 1. Gastroesophageal reflux disease K21.9 2. Cholelithiasis K80.20 3. Constipation K59.00 Plan Patient symptoms are more consistent with gastritis/GERD. She states she does have mostly epigastric pain which goes out laterally bilaterally and she will have nausea and vomiting. She also states that she can have pain before eating as well as it has woke her up several times in the middle of night. She denies pain half an hour to hour after eating but does states she may get it later in the evening. Patient was able to eat ice cream with no issues as well as salad with [place] dressing. Patient also states she drinks 3-4 glasses of caffeinated coffee recommend patient reducing caffeine intake. Discussed with patient typical gallbladder pain including right upper quadrant pain about 30 minutes to an hour after eating fatty greasy foods with nausea and vomiting. Also reviewed patient's ultrasound as well as gallbladder anatomy. Her ultrasound report did say her wall was 4 mm however on multiple other measurements done even on the same screen is a 4 mm the wall was typically less than 3 mm. On exam patient had mostly epigastric pain and then left upper quadrant and right upper quadrant pain. For patient's reflux would prefer to have her on PPI however with her being on digoxin and not sure that we will be able to. We will have the patient take Pepcid 40 mg p.o. daily and have her come back in 2 weeks or let us know in the meantime if anything gets worse. Patient was agreeable with plan. Patient's constipation recommend she increase her daily fiber intake and also take some laxatives MiraLAX as needed and if no results with the MiraLAX after several doses recommend taking magnesium citrate half a bottle waiting 6 hours if no results take the other half. Celina Last M.D. Pager: [phone] [facility] [address] [place] [address], [facility], [address] [place] [address] Office: [phone] Orders Orders: Plan Detail Follow Up 2 Weeks Coding Level of Care Code Off vis,new,level 3 Diagnoses Gastroesophageal reflux disease K21.9 Cholelithiasis K80.20 Constipation K59.00 08/03/18 1020 <Electronically signed by Celina Last MD> Date Celina Last MD Cosigner Signature: Date (if applicable) CC: Peace Toro MD CBC W/DIFF, AUTOMATED Collected: 08/03/2018 Status: F Source: [place] 10:16 AM [facility] REPOSITORY TYPE CODE TESTS RESULT OUT OF RANGE REFERENCE UNITS LAB L100.1000 4.4-11.0 K/mm3 Normal WBC 6.2 LAB L100.1200 4.2-5.4 M/mm3 Normal RBC 4.69 LAB L100.1300 12.0-15.0 g/dl Normal HGB 13.9 LAB L100.1400 37-47 % Normal HCT 44.7 LAB L100.1500 81-99 fL Normal MCV 95.3 LAB L100.1600 27.0-32.0 pg Normal MCH 29.6 LAB L100.1700 32-36 g/gl Low MCHC 31.1 LAB L100.1810 11.6-14.6 % Normal RDW CV 13.2 LAB L100.1820 35.1-43.9 fl High RDW SD 45.8 LAB L100.1900 150-450 K/mm3 Normal PLT 255 LAB L100.2000 6.2-12.0 fl Normal MPV 10.0 LAB L100.2100 47-70 % Normal NEUT% 48.6 LAB L100.2200 19-41 % High LY% 42.4 LAB L100.2300 0-10 % Normal MONO% 6.9 LAB L100.2400 0-5 % Normal EO% 1.3 LAB L100.2500 0-1 % Normal BASO% 0.3 LAB L100.2550 0.0-0.9 % Normal IM GRAN % 0.500 Result Comment: IG% - Immature Granulocytes (promyelocytes, myelocytes and metamyelocytes) > 1% indicates that a LEFT SHIFT is Present. LAB L100.2620 2.0-7.7 X10 3/uL Normal Absolute Neut 3.0 LAB L100.2720 0.83-4.51 X10 3/ul Normal Absolute Lymph 2.64 Performed By: #### L100.0100, L500.3400 #### [facility] [address] [place], [place], [id number] LIVER PROFILE Collected: 08/03/2018 Status: F Source: [place] 10:16 AM [facility] REPOSITORY TYPE CODE TESTS RESULT OUT OF RANGE REFERENCE UNITS LAB L501.1500 6.4-8.2 g/dL Normal T PROT 7.5 LAB L501.1800 3.2-5.0 g/dL Normal ALB 3.6 LAB L501.1950 2.2-4.2 g/dL Normal GLOB 3.9 LAB L501.4100 15-37 U/L Normal AST 17 LAB L501.4305 45-117 U/L Normal ALK P 111 LAB L501.4405 13-56 U/L Normal ALT 50 LAB L501.4600 0.20-1.00 mg/dL Normal T BILI 0.60 LAB L501.4700 0.00-0.30 mg/dL Normal D BILI 0.17 Performed By: #### L100.0100, L500.3400 #### [facility] [address] [place], [place], [address] ABDOMEN LIMITED Observed: 07/29/2018 Status: F Source: [place] 7:58 AM [facility] REPOSITORY [facility] Imaging Services [address] [place] [address] Abdomen Limited MR#: [id number] Acct: [id number] Name: RICKY BOLANOS Rep #: [id number] : 1955 F 62 From: Adan Stewart MD PCP: Peace Toro MD Status: REG CLI Study: Abdomen Limited Date of Exam: 07/29/18 Exam# [id number] Ordering Dr: Peace Toro MD STUDY: ABDOMINAL ULTRASOUND - RIGHT UPPER QUADRANT REASON FOR VISIT: Female, 62 years old. Nausea and vomiting, worse after meals. TECHNIQUE: Ultrasound evaluation of the right upper quadrant was performed with real-time and static lopez-scale imaging. TECHNICAL QUALITY: Adequate. COMPARISON: None. FINDINGS: Liver: The liver measures 16.4 cm. There is normal echogenicity of the liver. The bile ducts are within normal limits. There is hepatic color flow. The direction of portal flow is hepatopetal. There is no demonstrated mass lesion. Gallbladder: Normal distended gallbladder. The gallbladder wall measures 4.0 mm. There is a positive sonographic Betancourt's sign. There is no pericholecystic fluid. There are multiple small, mobile echogenic structures within the gallbladder, consistent with multiple gallstones. Common Bile Duct (C.B.D.): The common bile duct measures 6.3 mm. Pancreas: Normal size of the head, body and tail of the pancreas. There is normal echogenicity of the pancreas. There is no demonstrated pancreatic mass or cyst. Right Kidney: Normal size of the right kidney. The right kidney measures 9.8 x 5.4 x 3.3 cm. Normal renal cortex. The right cortex measures 1.1 cm. There is no demonstrated renal mass or cyst. There is no right hydronephrosis. US/Abdomen Limited IMPRESSION: Numerous subcentimeter mobile gallstones. No sonographic sign of acute cholecystitis or bile duct obstruction. Electronically Signed: Leonardo Stewart MD at 19:52 EDT , Service support , CC: Peace Toro MD Powder Coat Painter: Signed 12 LEAD ELECTROCARDIOGRAM Observed: 06/16/2018 Status: F Source: [place] 1:57 PM [facility] REPOSITORY [facility] Cardiovascular Services [address] [place] [address] 12 Lead EKG 06/12/18 0413 MR#: [id number] Acct: [id number] Name: BOLANOSRICKY Rep #: [id number] : 1955 62 From: Angel Ortiz MD Attending Dr: Status: DEP ER Ordering Dr: Jona Pulliam MD Date: 06/12/18 Location: ED Sex: F C Admitted: Test Reason : CP Blood Pressure : / mmHG Vent. Rate : 074 BPM Atrial Rate : 087 BPM P-R Int : 000 ms QRS Dur : 074 ms QT Int : 374 ms P-R-T Axes : 000 -24 026 degrees QTc Int : 415 ms Atrial fibrillation Nonspecific ST abnormality Abnormal ECG Confirmed by ANGEL ORTIZ MD ([id number]), subeditor MAICOL VALDOVINOS ([id number]) on 06/16/2018 1:57:00 PM Referred By: SHASHA Confirmed By:ANGEL ORTIZ MD 06/16/18 1357 Date Angel Ortiz MD CC: JONA PULLIAM MD; Peace Toro MD Signed EMERGENCY DEPARTMENT Observed: 06/12/2018 Status: F Source: [place] SUMMARY 5:33 AM [facility] REPOSITORY [facility] Medical Records Department [address] [place] [address] Emergency Department Summary 06/12/18 0435 MR#: [id number] Acct: [id number] Name: BOLANOSRICKY Rep #: [id number] : 1955 62 From: Jona Pulliam MD PCP: Peace Toro MD Status: REG ER History of Present Illness Chief Complaint: Chest Pain Informant: Patient Onset: Hours - 2.5 Context: Sudden Onset - woke her up from sleep Timing: Continuous Quality: heavy/pressure Location: substernal Current Severity: Moderate Maximum Severity: Moderate Worsened by: nothing. nonpleuritic, no change w/ position chgs, nonexertional. Relieved by: nothing. has tried no meds. Associated Symptoms: nausea Narrative: No vomiting although she feels like she needs to. Pain extends down to her upper abdomen but mostly substernal. No dyspnea, sweating, palpitations, lightheadedness or near syncope. No recent leg pain or swelling that is acute. Has a history of a heart attack, states she was here it was multiple years ago and received no PCI or other intervention. Thinks she was treated medically. States that when she had her NM, she mostly had dyspnea. She does not have that now. States she feels like she needs to belch. Had a routine chemical cardiac stress test 2 weeks ago that was negative. No recent long travel, immobilization, hospitalization, or surgery. - Past Medical History (1) Myocardial infarction Status: Chronic (2) Atrial fibrillation Status: Chronic Past Medical History - Allergies and Home Meds Allergies/Adverse Reactions: Allergies ketorolac tromethamine [From Toradol] Allergy (Verified 06/12/18 04:15) Hives Primary Care Physician: Peace Toro MD [Primary Care Provider] - 3-5 Days if not improving Surgical History: hysterectomy - uterine fibroids, tonsillectomy Smoking Status: Never smoker Review of Systems All systems negative except as indicated Cardiovascular: Reports: Chest pain. Denies: Palpitations, Heart racing Respiratory: Denies: Dyspnea, Cough Gastrointestinal: Reports: Abdominal pain, Nausea Musculoskeletal: Denies: Neck pain, Back pain, Extremity Pain Neurological: Denies: Headache, Weakness, Parasthesia, Numbness Psych: Reports: Anxiety Physical Exam Vital Signs/Narrative: Vital Signs 06/12/18 04:11 98.1 F 69 20 H 120/54 L 98 Inital Vital Signs reviewed: Yes General: Well nourished, Well developed, Obese Head: Normocephalic, Atraumatic Eyes: Perrl, EOMI ENT: Moist mucous membranes, No rhinorrhea Neck: Supple, Nontender, No JVD Cardiovascular: Regular rate, Regular rhythm, No murmurs Respiratory: No distress, CTA bilaterally, Chest nontender Abdomen: Soft, Nondistended, Normal bowel sounds, Tender - throughout upper abdomen only Back: Nontender, Normal Inspection Extremities: Nontender, No edema Skin: Normal color, No rash Neurological: Alert, Oriented x3, Cranial nerves II-XII grossly intact, Normal Strength, Normal Sensation, Normal Gait Psychological: - - anxious Diagnostic/Tx/Re-eval Chest X-Ray - ED: 1 View, Read by ED Physician, No Acute Disease Laboratory Tests WBC 7.2 RBC 4.50 Hgb 13.9 Hct 43.0 - Rhythm Strip Rhythm Strip: A-fib Rate: 70 Ectopy: None - EKG Initial EKG Interpretation: No Acute Injury Pattern, Atrial Fibrillation, Non-Specific ST Changes - flattening T waves inferior and ant-sept, - - leftward axis Prior: Unchanged - MUSE system malfunctioning -- not able to look up old EKGs on any pt at this time. however, cardiology interpretation in computer, and description c/w EKG that we obtained. - Medical Decision Making Although patient is in rate controlled atrial fibrillation, her EKG shows no acute injury and is otherwise unremarkable, save nonspecific T-wave flattening in V2 and leads III and aVF only. These are all very nonspecific. X-rays unremarkable on my interpretation, labs show negative troponin. She was given Zofran, she states soon thereafter she vomited, and as soon as she vomited, all of her discomfort and nausea resolved. She did not get the GI cocktail. On reevaluation she has no chest discomfort and no abdominal discomfort. I reexamined her. She is soft and nontender throughout. Given this, I do not think a delta troponin is necessary, and I think it is reasonable that she be discharged home on a two-week course of either PPI or H2 lowell. She is comfortable with that plan. ED Disposition - Plan for ED Patient: Disposition: Home or Assisted Living Chief Complaint: Chest Pain Diagnosis: Atrial fibrillation, Chest pain, unspecified, Upper abdominal pain, Vomiting Instructions: ED Chest Pain NonCardiac, ED Gastritis Prescriptions: Ondansetron [Zofran Odt] 8 mg PO Q8H PRN PRN #12 tab PRN Reason: Nausea Referrals: Peace Toro MD [Primary Care Provider] - 3-5 Days if not improving Additional Instructions: For the next 2 weeks, take twice daily Zantac, Tagamet, or Pepcid. As a different option, may take once daily Prilosec OTC or equivalent, such as Nexium or Prevacid. What to do if you have Problems For any increased pain, shortness of breath, bleeding, nausea or vomiting, chest pain, or any unexpected problems, contact your Primary Care Provider. Call [facility] ([phone]) or report to the closest Emergency Room. Call 911 if necessary. 06/12/18 0533 <Electronically signed by Jona Pulliam MD> Date Jona Pulliam MD Cosigner Signature (If Indicated): Date CC: Peace Toro MD CHEST 1 VIEW Observed: 06/12/2018 Status: F Source: NORRIS (PORTABLE) 4:35 AM [facility] REPOSITORY [facility] Imaging Services [address] [place] [address] Chest 1 View (Portable) MR#: [id number] Acct: [id number] Name: RICKY BOLANOS Rep #: [id number] : 1955 F 62 From: Frank Vasquez MD PCP: Peace Toro MD Status: REG ER Study: Chest 1 View (Portable) Date of Exam: 06/12/18 Exam# [id number] Ordering Dr: Jona Pulliam MD STUDY: X-RAY CHEST REASON FOR EXAM: Female, 62 years old. Chest pain TECHNIQUE: Single frontal view of the chest. COMPARISON: None. FINDINGS: The lungs are clear and expanded. There is no demonstrated pleural abnormality. Normal size heart. Aortic calcifications. There are diffuse degenerative changes of the visualized thoracic spine. Normal visualized ribs, clavicles, and shoulders. There is no demonstrated abnormality of the visualized soft tissue structures of the upper abdomen. RAD/Chest 1 View (Portable) IMPRESSION: Degenerative changes, as described above. No demonstrated acute cardiopulmonary process. Electronically Signed: Frank Vasquez, at 5:24 EDT Tel , Service support , CC: JONA PULLIAM MD; Peace Toro MD Powder Coat Painter: Signed CBC W/DIFF, AUTOMATED Collected: 06/12/2018 Status: F Source: KULDEEP 4:20 AM [facility] REPOSITORY TYPE CODE TESTS RESULT OUT OF RANGE REFERENCE UNITS LAB L100.1000 4.4-11.0 K/mm3 Normal WBC 7.2 LAB L100.1200 4.2-5.4 M/mm3 Normal RBC 4.50 LAB L100.1300 12.0-15.0 g/dl Normal HGB 13.9 LAB L100.1400 37-47 % Normal HCT 43.0 LAB L100.1500 81-99 fL Normal MCV 95.6 LAB L100.1600 27.0-32.0 pg Normal MCH 30.9 LAB L100.1700 32-36 g/gl Normal MCHC 32.3 LAB L100.1810 11.6-14.6 % Normal RDW CV 12.8 LAB L100.1820 35.1-43.9 fl Normal RDW SD 43.1 LAB L100.1900 150-450 K/mm3 Normal PLT 280 LAB L100.2000 6.2-12.0 fl Normal MPV 10.2 LAB L100.2100 47-70 % Normal NEUT% 48.1 LAB L100.2200 19-41 % High LY% 42.7 LAB L100.2300 0-10 % Normal MONO% 6.5 LAB L100.2400 0-5 % Normal EO% 1.5 LAB L100.2500 0-1 % Normal BASO% 0.6 LAB L100.2550 0.0-0.9 % Normal IM GRAN % 0.600 Result Comment: IG% - Immature Granulocytes (promyelocytes, myelocytes and metamyelocytes) > 1% indicates that a LEFT SHIFT is Present. LAB L100.2620 2.0-7.7 X10 3/uL Normal Absolute Neut 3.5 LAB L100.2720 0.83-4.51 X10 3/ul Normal Absolute Lymph 3.07 Performed By: #### L100.0100 #### [facility] [address] [place], [place], [address] BASIC METABOLIC Collected: 06/12/2018 Status: F Source: NORRIS PROFILE (BMP) 4:20 AM [facility] REPOSITORY TYPE CODE TESTS RESULT OUT OF RANGE REFERENCE UNITS LAB L501.0100 74-106 mg/dL High GLU 127 Result Comment: Fasting Glucose result greater than or equal to 126 mg/dL suggests DIABETES MELLITUS per A.D.A. criteria. Please note revised GLUCOSE reference range effective 2017. LAB L501.1000 7-18 mg/dL Normal BUN 15 LAB L501.1100 0.55-1.02 mg/dL High CREAT,SERUM 1.22 Result Comment: The validity of the calculated GFR AND GFRAA in patients over 70 years has not been determined. Clinical correlation is essential. LAB L501.1110 >60 mL/min Low EST GFR 48 Result Comment: Non- GFR Calc LAB L501.1115 >60 mL/min Low EST GFR - AA 58 Result Comment: GFR Calc LAB L501.1255 ml/min Normal Estimated CRCL 45.33 LAB L501.1300 10-20 RATIO Normal BUN/CRE 12.3 LAB L501.2200 8.5-10 mg/dL Normal .1 CA 8.7 LAB L501.5300 136-14 mmol/L Normal 5 NA 144 LAB L501.5600 3.5-5. mmol/L Normal 1 K 4.4 LAB L501.5900 98-107 mmol/L Normal CL 107 LAB L501.6100 21.0-3 mmol/L Normal 2.0 CO2 27.0 LAB L501.6200 5-15 Normal GAP 10 Performed By: #### L500.2500, L501.4010 #### [facility] [address] [place], [address] TROPONIN-I Collected: 06/12/2018 Status: F Source: NORRIS 4:20 AM [facility] REPOSITORY TYPE CODE TESTS RESULT OUT OF RANGE REFERENCE UNITS LAB L501.4010 <0.045 ng/mL Normal < 0.015 TROPONIN-I Result Comment: TROPONIN-I EXPECTED VALUES <0.045 Negative 0.045 - 0.590 Consistent with Cardiac Damage > OR = 0.600 Critical Value Not every elevated troponin is indicative of NM. These values should be used with clinical judgement in examining the patient's clinical picture for diagnosis. To establish a diagnosis of NM versus myocardial injury, there must be a demonstrated rise and/or fall in the troponin values, in addition to ischemic symptoms, EKG changes, new regional wall motion abnormality, and/or angiographical evidence. PLEASE NOTE: REFERENCE RANGES EDITED 18 Performed By: #### L500.2500, L501.4010 #### [facility] [address] [place], [place], [address] PROTEIN, TOTAL Collected: 06/12/2018 Status: F Source: NORRIS 4:20 AM [facility] REPOSITORY TYPE CODE TESTS RESULT OUT OF RANGE REFERENCE UNITS LAB L501.1500 6.4-8.2 g/dL Normal T PROT 7.2 LAB L501.1950 2.2-4.2 g/dL Normal GLOB 3.9 LAB L501.2000 0.9-2.4 RATIO Low A/G 0.8 Performed By: #### L001.0705, L501.1800, L501.2450, L501.4100, L501.4305, L501.4405, L501.4600 #### [facility] [address] [place], [address] ALBUMIN, SERUM Collected: 06/12/2018 Status: F Source: NORRIS 4:20 AM [facility] REPOSITORY TYPE CODE TESTS RESULT OUT OF RANGE REFERENCE UNITS LAB L501.1800 3.2-5.0 g/dL Normal ALB 3.3 Performed By: #### L001.0705, L501.1800, L501.2450, L501.4100, L501.4305, L501.4405, L501.4600 #### [facility] [address] [place], [address] LIPASE Collected: 06/12/2018 Status: F Source: NORRIS 4:20 AM [facility] REPOSITORY TYPE CODE TESTS RESULT OUT OF RANGE REFERENCE UNITS LAB L501.2450 73-393 U/L Normal LIPASE 224 Performed By: #### L001.0705, L501.1800, L501.2450, L501.4100, L501.4305, L501.4405, L501.4600 #### [facility] [address] [facility] [place], [address] AST(SGOT) Collected: 06/12/2018 Status: F Source: NORRIS 4:20 AM [facility] REPOSITORY TYPE CODE TESTS RESULT OUT OF RANGE REFERENCE UNITS LAB L501.4100 15-37 U/L Normal AST 20 Performed By: #### L001.0705, L501.1800, L501.2450, L501.4100, L501.4305, L501.4405, L501.4600 #### [facility] [facility] [place], [place], [address] ALKALINE PHOSPHATASE Collected: 06/12/2018 Status: F Source: NORRIS 4:20 AM [facility] REPOSITORY TYPE CODE TESTS RESULT OUT OF RANGE REFERENCE UNITS LAB L501.4305 45-117 U/L Normal ALK P 89 Performed By: #### L001.0705, L501.1800, L501.2450, L501.4100, L501.4305, L501.4405, L501.4600 #### [facility] [facility] [place], [address] ALANINE AMINOTRANSFERAS Collected: 06/12/2018 Status: F Source: NORRIS (SGPT) 4:20 AM [facility] REPOSITORY TYPE CODE TESTS RESULT OUT OF RANGE REFERENCE UNITS LAB L501.4405 13-56 U/L Normal ALT 23 Performed By: #### L001.0705, L501.1800, L501.2450, L501.4100, L501.4305, L501.4405, L501.4600 #### [facility] [address] [place], [address] TOTAL BILIRUBIN Collected: 06/12/2018 Status: F Source: KULDEEP 4:20 AM [facility] REPOSITORY TYPE CODE TESTS RESULT OUT OF RANGE REFERENCE UNITS LAB L501.4600 0.20-1.00 mg/dL Normal T BILI 0.50 Performed By: #### L001.0705, L501.1800, L501.2450, L501.4100, L501.4305, L501.4405, L501.4600 #### [facility] [address] [place], [address] NM MYOCARDIAL SPECT Observed: 05/26/2018 Status: F Source: AMADA STRESS/REST 10:00 AM [facility] REPOSITORY ORIGINAL Adenosine Stress Cardiac Gated SPECT/CT, Stress/Rest Clinical Statement: SOB, FATIGUE, CARDIOMYOPATHY, ATRIAL FIBRILLATION, hypertension, chest pain Technique: Adenosine dose: 60 mg IV Radiopharmaceutical (rest and stress doses): Tc-99m sestamibi IV 6.5 and 19.2 mCi SPECT acquisition and processing: Images reconstructed into short, vertical long, and horizontal long axis planes. Wall motion evaluation and quantitative LVEF assessment. Concurrent low-dose CT for attenuation correction. Comparison: 07/15/2017 Findings: There is no scintigraphic LV chamber dilatation or transient ischemic dilatation. 1) Reversible defects: None to suggest ischemia. 2) Fixed defects: None to suggest scarring/infarction. Mildly decreased activity in the distal anteroseptal wall is compatible with breast attenuation artifact. Gated wall motion evaluation reveals no regional or global hypokinesis. The calculated LVEF is 71%. IMPRESSION: No evidence of ischemia or scarring. No wall motion abnormality. Interpreted By: Long Laird DO Preliminary Report By: Long Laird DO Electronically Signed By: Long Laird DO Dictated Date: 05/26/2018 2:57:02 PM Prelim Date: 05/26/2018 2:57:02 PM Sign Date: 05/26/2018 3:11:19 PM ALLERGIES ALLERGIES DATE TYPE / CODE NAME / CODE REACTION SEVERITY SOURCE 11/13/2018 Drug ketorolac Hives Unknown [facility] Allergy/416 tromethamine/F00 [facility] 249852(SNOM 7437858(RXNORM) Repository ED CT) ENCOUNTERS ENCOUNTERS ADMIT/DISCHARGE ACCOUNT NUMBER ADMITTING ENCOUNTER LOCATION SOURCE CLASS 11/13/2018/11/13/19 [id number] Ambulatory [facility]: [place] 19 BMS.[facility] Repository 11/02/2018 [id number] Ambulatory [facility] ding:PAVLAB Repository 11/02/2018/11/02/19 [id number] Ambulatory BMSBuilding: [place] 19 BMS.[facility]ly [facility] Repository 10/22/2018 [id number] Ambulatory [facility] ding:LAB Repository 10/11/2018/10/15/20 [id number] [place] ding:[id number] Repository : ZR698Ked: 1 10/11/2018 [id number] [place], Ambulatory BMSBuilding: [place] Dylan BMS..[facility] Repository 10/11/2018 [id number] [place], Ambulatory BMSBuilding: [place] Dylan BMS..[facility]ly [facility] Repository 10/11/2018 [id number] [place], Ambulatory BMSBuilding: [place] Dylan BMS.[facility]ly [facility] Repository 10/11/2018 [id number] [place], Ambulatory BMSBuilding: [facility] Dylan BMS..[facility] Repository 10/11/2018 [id number] [place], Ambulatory BMSBuilding: [facility] Dylan BMS.[facility]ly [facility] Repository 10/11/2018 [id number] [place], Ambulatory BMSBuilding: [place] Dylan BMS..[facility]ly [facility] Repository 10/11/2018 [id number] [place], Ambulatory BMSBuilding: [place] Dylan BMS.[facility]ly [facility] Repository 10/11/2018 [id number] [place], Ambulatory BMSBuilding: [place] Dylan BMS..Formerly [facility] Repository 10/11/2018 [id number] [place], Ambulatory BMSBuilding: [facility] Dylan BMS.[facility]ly [facility] Repository 10/10/2018 [id number] Ambulatory [facility] ding:US Repository 10/09/2018 [id number] Ambulatory [facility] ding:LAB Repository 10/09/2018/10/09/20 [id number] Ambulatory BMSBuilding: [facility] 18 BMS.[facility]ly [facility] Repository 10/06/2018 [id number] Ambulatory [facility] ding:CT Repository 08/03/2018 [id number] Ambulatory [facility] ding:PAVLAB Repository 08/03/2018/08/03/20 [id number] Ambulatory BMSBuilding: [place] 18 [facility] Repository 07/29/2018 [id number] Ambulatory [facility] ding:US Repository 06/23/2018/06/23/20 [id number] Ambulatory AULTMANBuild [place] 18 ing:[facility] Repository 06/12/2018/06/12/20 [id number] Emergency [address] ding:ED Repository 05/26/2018/05/26/20 [id number] Ambulatory AULTMANBuild [place] 18 ing:[facility] Repository PAYERS PAYERS ENCOUNTER GUARANTOR PAYER SUBSCRIBER SOURCE 11/13/2018 RICKY BOLANOS110 Primary RICKY PERRYB: [place] JEAN Insurance[id number] Number: Hospital [id number]: [phone] [id number] Repository 231 () Date:7715-42-85[address] [address]HP: 11/13/2018 Secondary NOT GIVENUNK [place] Insurance:SELF PAY [facility] Number: Effective Repository Date:2018-11-13 11/02/2018 RICKY BOLANOS110 Primary RICKY PERRYB: [place] JEAN Insurance:[place] [id number] Number: Hospital [id number]: 330 [id number] Repository 2313 () Date:7549-20-40CO [address] [address]JR: 11/02/2018 Secondary NOT GIVENUNK [place] Insurance:SELF PAY [facility] Number: Effective Repository Date:2018-11-02 11/02/2018 RICKY BOLANOS110 Primary RICKY BOLANOSDOB: [place] [facility] JEAN Insurance:[place] [id number] [place] icy Number: Hospital [id number]: 330 [id number] Repository 231 () Date:4887-53-28UR [address] [address]GP: 11/02/2018 Secondary NOT GIVENUNK [place] Insurance:SELF PAY [facility] Number: Effective Repository Date:2018-11-02 10/22/2018 RICKY ABDUL Primary RICKY BOLANOSDOB: [place] JEAN Insurance:[place] [id number] [place] icy Number: Hospital [id number]: 330 [id number] Repository 231 () Date:3771-15-10HP [address] [address]EH: 10/22/2018 Secondary NOT GIVENUNK [place] Insurance:SELF PAY [facility] Number: Effective Repository Date:2018-10-22 10/11/2018 RICKY BOLANOS110 Primary RICKY BOLANOSDOB: [place] JEAN Insurance:[place] [id number] [place] Number: Hospital [id number]: 330 [id number] Repository 2313 () Date:4086-97-85TD [facility] [address] [place] [address]NL: 10/11/2018 Secondary NOT GIVENUNK [place] Insurance:SELF PAY [facility] Number: Effective Repository Date:2018-10-11 10/11/2018 RICKY BOLANOS110 Primary RICKY BOLANOSDOB: [place] JEAN Insurance:[place] [id number] [place] Number: Hospital [address]Mzc: [phone] [id number] Repository 2313 () Date:9393-42-35MG [address] [address]OB: 10/11/2018 Secondary NOT GIVENUNK [place] Insurance:SELF PAY Community [facility] Number: Effective Repository Date:2018-10-11 10/11/2018 RICKY ABDUL Primary RICKY BOLANOSDOB: [place] JEAN Insurance:[place] [id number] Number: Hospital [id number]: 330 [id number] Repository 231 () Date:5021-93-26BH [address] [address]KD: 10/11/2018 Secondary NOT GIVENUNK [place] Insurance:SELF PAY [facility] Number: Effective Repository Date:2018-10-11 10/11/2018 RICKY BOLANOS110 Primary RICKY BOLANOSDOB: [place] JEAN Insurance:[place] [id number] Number: Hospital [id number]: 330 [id number] Repository 231 () Date:3549-30-15RD [address] [address]XB: 10/11/2018 Secondary NOT GIVENUNK [place] Insurance:SELF PAY [facility] Hospital Number: Effective Repository Date:2018-10-11 10/11/2018 RICKY BOLANOS110 Primary RICKY BOLANOSDOB: [place] [facility] JEAN Insurance:[place] [id number] icy Number: Hospital [id number]: 330 [id number] Repository 2313 () Date:9748-75-37HP [address] [address]IL: 10/11/2018 Secondary NOT GIVENUNK [place] Insurance:SELF PAY [facility] Number: Effective Repository Date:2018-10-11 10/11/2018 RICKY BOLANOS110 Primary RICKY BOLANOSDOB: [place] JEAN Insurance:[employer] [id number] [place] Number: Hospital [id number]: 330 [id number] Repository (HP) Date:5497-90-49JC [address] [place] [address]IK: 10/11/2018 Secondary NOT GIVENUNK [place] Insurance:SELF PAY [facility] Number: Effective Repository Date:2018-10-11 10/11/2018 RICKY ABDUL Primary RICKY BOLANOSDOB: [place] JEAN Insurance:[employer] [id number] [place] Number: Hospital [id number]: 330 [id number] Repository (HP) Date:7213-41-03GX [address] [address]NT: 10/11/2018 Secondary NOT GIVENUNK [place] Insurance:SELF PAY [facility] Number: Effective Repository Date:2018-10-11 10/11/2018 RICKY BOLANOS110 Primary RICKY BOLANOSDOB: [place] JEAN Insurance:[employer] [id number] [place] Number: Hospital [id number]: 330 [id number] Repository () Date:6773-04-30PB [facility] [address] [place] [address]TR: 10/11/2018 Secondary NOT GIVENUNK [place] Insurance:SELF PAY [facility] Number: Effective Repository Date:2018-10-11 10/11/2018 RICKY ABDUL Primary RICKY BOLANOSDOB: [place] [facility] JEAN Insurance:[employer] [id number] [place] Number: Hospital [address]Kgp: 330 [id number] Repository () Date:1155-19-63HH [facility] [address] [place] [address]YU: 10/11/2018 Secondary NOT GIVENUNK [place] Insurance:SELF PAY [facility] Number: Effective Repository Date:2018-10-11 10/11/2018 RICKY BOLANOS110 Primary RICKY BOLANOSDOB: [place] [facility] JEAN Insurance:[place] [id number] [place] Number: Hospital [id number]: (330 [id number] Repository 2313 (HP) Date:6629-20-33YJ [facility] [address] [place] [address]IO: 10/11/2018 Secondary NOT GIVENUNK [place] Insurance:SELF PAY [facility] Number: Effective Repository Date:2018-10-11 10/10/2018 RICKY BOLANOS110 Primary RICKY BOLANOSDOB: [place] JEAN Insurance:[employer] [id number] [place] Number: Hospital [id number]: 330 [id number] Repository 231 (HP) Date:1319-95-94BO [facility] [address] [place] [address]WH: 10/10/2018 Secondary NOT GIVENUNK [place] Insurance:SELF PAY [facility] Hospital Number: Effective Repository Date:2018-10-09 10/09/2018 RICKY BOLANOS110 Primary RICKY BOLANOSDOB: [place] JEAN Insurance:[employer] [id number] [place] Number: Hospital [id number]: 330 [id number] Repository 231 (HP) Date:4313-73-04FH [address] [address]JP: 10/09/2018 Secondary NOT GIVENUNK [place] Insurance:SELF PAY [facility] Number: Effective Repository Date:2018-10-09 10/09/2018 RICKY BOLANOS110 Primary RICKY BOLANOSDOB: [place] JEAN Insurance:[employer] [id number] [place] Number: Hospital [id number]: 330 [id number] Repository 2313 () Date:0626-81-89ZW [facility] [address] [place] [address]FS: 10/09/2018 Secondary NOT GIVENUNK [place] Insurance:SELF PAY Community [facility] Number: Effective Repository Date:2018-10-09 10/06/2018 RICKY ABDUL Primary RICKY PERRYB: [place] JEAN Insurance:[employer] [id number] [place] Number: Hospital [address]Ybm: 330 [id number] Repository 231 (HP) Date:4491-80-82LM[address] [address]NG: 10/06/2018 Secondary NOT GIVENUNK [place] Insurance:SELF PAY [facility] Number: Effective Repository Date:2018-09-30 08/03/2018 RICKY ABDUL Primary RICKY PERRYB: [place] JEAN Insurance:[employer] [id number] [place] Number: Hospital [id number]: 330 [id number] Repository 231 () Date:7925-69-94EJ [address] [address]CY: 08/03/2018 Secondary NOT GIVENUNK [place] Insurance:SELF PAY Community [facility] Hospital Number: Effective Repository Date:2018-08-03 08/03/2018 RICKY ABDUL Primary RICKY PERRYB: [place] JEAN Insurance:[employer] [id number] [place] Number: Hospital [id number]: 330 [id number] Repository 2313 (HP) Date:5694-11-78NV[address] [address]PD: 08/03/2018 Secondary NOT GIVENUNK [place] Insurance:SELF PAY [facility] Number: Effective Repository Date:2018-08-03 07/29/2018 RICKY ABDUL Primary RICKY PERRYB: [place] JEAN Insurance:[employer] [id number] [place] Number: Hospital [id number]: 330 [id number] Repository 231 (HP) Date:1390-88-51MF [address] [place] [address]BB: 07/29/2018 Secondary NOT GIVENUNK [place] Insurance:SELF PAY [facility] Hospital Number: Effective Repository Date:2018-07-28 06/23/2018 RICKY PERRYB: Primary RICKY BOLANOSDOB: [facility] Insurance:AULTCARE [id number] Foundation JEAN [id number] Number: JEAN Repository [place], [place] [id number] [place] [address]~[id number] Date:2018-05-08Tel: [email or web address]: [phone] [phone] Name:MONITORING COORDINATOR Box ()Tel: (000) (HP)Tel: (896) [address] [place] [address] [phone] ([phone] () 14217SX: 06/12/2018 Ricky Abdul Primary Ricky PerryB: [facility] JEAN [facility] [id number] icy Number: [facility] [address]Fli: (998) [id number] Repository [phone] (HP) Date:4274-75-81PZ [address] [place] [address]BC: 06/12/2018 Secondary NOT GIVENUNK [place] Insurance:SELF PAY [facility] Hospital Number: Effective Repository Date:2018-06-12 05/26/2018 RICKY PERRYB: Primary RICKY BOLANOSDOB: [facility] Insurance:[employer] [id number] Foundation JEAN [id number] Number: JEAN Repository [place], [place] [id number] [id number] Date:2018-05-0826082Xog: [phone] [email or web address]: [phone] Name:MONITORING COORDINATOR Box ()Tel: [phone] (HP)Tel: [phone], [place] [phone] ([phone] (WP) [phone]:
== END ==
PROVIDERS: Family Provider Family Medicine; PCP Family Medicine; Referring Provider Family Medicine; Visit Provider Family Medicine
DX: R10.11 Right upper quadrant pain (principal)
CPT/HCPCS: 74176

== ENCOUNTER → 2018-10-09 15:22 | Outpatient (CLI) | payer OTHER, SELFPAY ==
[2018-10-09 16:07] LABS: Absolute Lymphocyte Count 2.48 X10^3/ul (0.83-4.51); Basophil# 0.02 X10^3/uL; Basophil% 0.3 % (0-1); Eosinophil# 0.08 X10^3/uL; Eosinophils% 1.2 % (0-5); Hematocrit 41.6 % (37-47); Hemoglobin 12.9 g/dl (12.0-15.0); Lymphocyte # 2.48 X10^3/ul (4.0); Lymphocyte % 35.8 % (19-41); Mean Corpuscular Hgb 29.5 pg (27.0-32.0); Mean Platelet Vol. 10.1 fl (6.2-12.0); Monocyte# 0.33 X10^3/uL; Monocyte% 4.8 % (0-10); Neutrophil % 57.6 % (47-70); POSITIVE COUNT NO; POSITIVE DIFFERENTIAL NO; POSITIVE MORPHOLOGY NO; Platelet Count 296 K/mm3 (150-450); RBC Distribution Width CV 13.2 % (11.6-14.6); RBC Distribution Width SD 45.9 fl (35.1-43.9); Red Blood Count 4.38 M/mm3 (4.2-5.4); White Blood Count 6.9 K/mm3 (4.4-11.0)
[2018-10-09 16:29] LABS: AST(SGOT) 13 U/L (15-37); Alanine Aminotransfer ALT/SGPT 33 U/L (13-56); Albumin, Serum 3.4 g/dL (3.2-5.0); Alkaline Phosphatase 101 U/L (45-117); Anion Gap 5 (5-15); BUN 19 mg/dL (7-18); BUN/Creat Ratio 15.3 RATIO (10-20); Bilirubin, Direct 0.18 mg/dL (0.00-0.30); Calcium,Total 8.5 mg/dL (8.5-10.1); Chloride 107 mmol/L (98-107); Creatinine, Serum 1.24 mg/dL (0.55-1.02); EST Glomerular Filtration Rate 47 mL/min (>60); Est Glom Filt Rate - Afr Amer 56 mL/min (>60); Globulin 3.9 g/dL (2.2-4.2); Glucose 95 mg/dL (74-106); Potassium 4.4 mmol/L (3.5-5.1); Protein, Total 7.3 g/dL (6.4-8.2); Sodium Level 143 mmol/L (136-145)
--- OUTSIDE RECORDS SUMMARY | 2019-01-13 06:25 | XMS RPT_ITS ---
:1955 Author Organization [place] Support Name Relationship Address Phone ALONOVUS Unavailable [address] + [place] [address] UZAIR BOLANOS Unavailable [address] + [place] [address] ALONOVUS Unavailable [address] + [place] [address] UZAIR BOLANOS Unavailable [address] + [place] [address] ALONOVUS Unavailable [address] + [place] [address] UZAIR BOLANOS Un[address] + [place] [address] ALONOVUS Unavailable [address] + [place] [address] UZAIR BOLANOS Un[address] + [place] [address] ALONOVUS Unavailable [address] + [place] [address] UZAIR BOLANOS Unavailable Unavailable + [place] [address] ALONOVUS Unavailable [address] + [place] [address] UZAIR BOLANOS Unavailable Unavailable + [place] [address] ALONOVUS Unavailable [address] + [place] [address] UZAIR BOLANOS Unavailable Unavailable + [place] [address] ALONOVUS Unavailable [address] + [place] [address] UZAIR BOLANOS Un[address] + [place] [address] ALONOVUS Unavailable [address] + [facility] [place] [address] UZAIR BOLANOS Unavailable Unavailable + [place] [address] ALONOVUS Unavailable [address] + [facility] [place] [address] UZAIR BOLANOS Unavailable Unavailable + [place] [address] ALONOVUS Unavailable [address] + [facility] [place] [address] UZAIR BOLANOS Unavailable Unavailable + [place] [address] ALONOVUS Unavailable [address] + [facility] [place] [address] UZAIR BOLANOS Unavailable [facility] [address] + [place] [address] ALONOVUS Unavailable [address] + [facility] [place] [address] UZAIR BOLANOS Unavailable Unavailable + [place] [address] ALONOVUS Unavailable [address] + [place] [address] UZAIR BOLANOS Unavailable [facility] + [place] [address] ALONOVUS Unavailable [address] + [place] [address] UZAIR BOLANOS Unavailable Unavailable + [place] [address] ALONOVUS Unavailable [address] + [facility] [place] [address] UZAIR BOLANOS Unavailable Unavailable + [place] [address] ALONOVUS Unavailable [address] + [place] [address] UZAIR BOLANOS Unavailable . + [place] [address] ALONOVUS Unavailable [address] + [facility] [place] [address] UZAIR BOLANOS Unavailable Unavailable + [place] [address] ALONOVUS Unavailable [address] + [place] [address] UZAIR BOLANOS Unavailable Unavailable + ALONOVUS Unavailable [address] + [place] [address] GEETHA BOLANOSEL Unavailable . + [place] [address] ALONOVUS Unavailable [address] + [place] [address] GEETHA BOLANOSEL Unavailable Unavailable + [place] [address] UZAIR BOLANOS Unavailable Unavailable + LUD[place] BOLANOS Unavailable [address] + [place] [address] GEETHA BOLANOSEL Unavailable Unavailable + ALONOVUS Unavailable [address] + [place] [address] UZAIR BOLANOS Unavailable [address] + [place] [address] GEETHA BOLANOSEL Unavailable Unavailable + [place] BOLANOS Unavailable [address] + [place] [address] UZAIR BOLANOS Unavailable Unavailable + Care Team Providers Name Role Phone LISA MANN MD Attending Unavailable [facility] Unavailable LISA MANN MD Attending Unavailable [facility] Unavailable [place], Celina Attending Unavailable [facility] Referring Unavailable Robotham, Celina Attending Unavailable Robotham, Celina Referring Unavailable [facility] Unavailable Robotham, Celina Attending Unavailable Robotham, Celina Referring Unavailable [facility] Unavailable [facility] Unavailable Dylan Tran Admitting Unavailable Dylan Tran Attending Unavailable Clifford Schrader Consulting Unavailable MARINA DEE Referring Unavailable Dylan Tran Admitting Unavailable Dylan Tran Attending Unavailable [facility] Unavailable Dylan Tran Consulting Unavailable Dylan Tran Admitting Unavailable Robotham, Celina Attending Unavailable [facility] Unavailable Dylan Tran Consulting Unavailable Dylan Tran Admitting Unavailable Tereletsky, Clifford Attending Unavailable [facility] Unavailable Tereletsky, Clifford Consulting Unavailable Calabretta, Dylan Consulting Unavailable [place], Dylan Admitting Unavailable Arriaza PA-C, Tran Attending Unavailable [facility] Unavailable Tereletsky, Clifford Consulting Unavailable Calabretta, Dylan Consulting Unavailable Calab[place]ta, Dylan Admitting Unavailable [facility], Ruperto Attending Unavailable [facility] Unavailable Tereletsky, Clifford Consulting Unavailable Calabretta, Dylan Consulting Unavailable Calabretta, Dylan Admitting Unavailable Arriaza PA-C, Tran Attending Unavailable MARINA DEE Referring Unavailable [facility] Unavailable Tereletsky, Clifford Consulting Unavailable Calabretta, Dylan Consulting Unavailable Calabretta, Dylan Admitting Unavailable [place], Ruperto Attending Unavailable MARINA DEE Referring Unavailable [facility] Unavailable Tereletsky, Clifford Consulting Unavailable Calabretta, Dylan Consulting Unavailable Calabretta, Dylan Admitting Unavailable Arriaza PA-C, Tran Attending Unavailable MARINA DEE Referring Unavailable [facility] Unavailable Tereletsky, Clifford Consulting Unavailable Calabretta, Dylan Consulting Unavailable Calabretta, Dylan Admitting Unavailable [place], Ruperto Attending Unavailable MARINA DEE Referring Unavailable [facility] Unavailable Tereletsky, Clifford Consulting Unavailable Calabretta, Dylan Consulting Unavailable Arriaza PA-C, Tran Attending Unavailable Arriaza PA-C, Tran Referring Unavailable [facility] Unavailable [facility] Unavailable JONA PULLIAM Attending Unavailable [facility] Attending Unavailable [facility] Referring Unavailable [facility] Unavailable Robotham, Celina Attending Unavailable [facility] Referring Unavailable Robotham, Celina Attending Unavailable Robotham, Celina Referring Unavailable [facility] Unavailable Miedel, Kanchan Attending Unavailable Miedel, Kanchan Referring Unavailable [facility] Unavailable Robotham, Celina Attending Unavailable [facility] Referring Unavailable Robotham, Celina Attending Unavailable [facility] Unavailable Robotham, Celina Attending Unavailable PROBLEMS PROBLEMS DATE TYPE CONDITION / CODE ATTENDING STATUS SOURCE 11/02/2018 Unknown R74.8 - Abnormal Robotham, Active [place] levels of other [facility] serum enzymes / Hospital R74.8(ICD-10) Repository 10/15/2018 Unknown G89.18 - Other acute Sanford, Ruperto Active [place] postprocedural pain [facility] / G89.18(ICD-10) Hospital Repository 10/09/2018 Unknown K80.20 - [facility] cholecystitis [facility] without obstruction Repository / K80.20(ICD-10) PROCEDURES PROCEDURES No Procedure Records FoundRESULTS RESULTS SURGERY VISIT REPORT Observed: 11/13/2018 Status: F Source: [place] 10:05 AM [facility] REPOSITORY [facility] [address] [place] [address] OFFICE VISIT Date of Service: 11/13/18 MR#: [id number] Acct: [id number] Name: RICKY BOLANOS Rep #: [id number] : 1955 Provider: Celina Last MD Age/Sex: 63/F Location: [facility] Status: Signed Intake Intake Visit Reasons: Gall Bladder Surgery 10/15 TR Procedure Manager Required: No Is patient in pain?: No [...] taking which can be done using the [employer] pal boom. Discussed with patient she would [...] for evaluation, patient will first see her contact center analyst which she has appointment with in November [...] split second day Celina Last M.D. Pager: [phone] [facility] [address] [place] [address], Outpatient [place], [address] [place] [address] Office: [phone] Plan Detail Follow Up Patient will see her contact center analyst and will give us a call to [...] 11/02/2018 Status: F Source: [place] 2:22 PM [facility] REPOSITORY TYPE CODE TESTS RESULT OUT [...] BILI 0.32 Performed By: #### L500.3400 #### [facility] [address] [place], [address] SURGERY VISIT REPORT Observed: 11/02/2018 Status: F Source: [place] 2:12 PM [facility] REPOSITORY [facility] [place] [facility] [address] [place] [address] OFFICE VISIT Date of Service: 11/02/18 MR#: [id number] Acct: [id number] Name: RICKY BOLANOS Rep #: [id number] : 1955 Provider: Celina Last MD Age/Sex: 63/F Location: [facility] Status: Signed Intake Intake Visit Reasons: Gall Bladder Surgery 10/15 TR Procedure Manager Required: No Is patient in pain?: No [...] in 2 weeks. Celina Last M.D. Pager: [phone] [facility] [address] [place] [address], [address] [place] [address] Office: [phone] Orders Orders: Coding Level of Care Code Global Post Op Diagnoses Gallstone pancreatitis K85.10 Hx of cholecystectomy Z90.49 S/P ERCP Z98.890 11/02/18 1412 <Electronically signed by Celina Last MD> Date Celina Last MD Cosigner Signature: Date (if applicable) CC: Peace Toro MD LIVER PROFILE Collected: 10/22/2018 Status: F Source: [place] 9:25 AM [facility] REPOSITORY TYPE CODE TESTS RESULT OUT [...] BILI 0.45 Performed By: #### L500.3400 #### [facility] [address] [facility] [place], [address] DISCHARGE SUMMARY Observed: 10/15/2018 Status: F Source: [place] 10:46 AM [facility] REPOSITORY [facility] Medical Records Department [address] [place] [address] Discharge Summary 10/15/18 1040 MR#: [id number] Acct: [id number] Name: RICKY BOLANOS Rep #: [id number] : 1955 62 From: Celina Last MD PCP: Peace Toro MD Status: ADM IN Location: [place] [address] Discharge Date and Diagnosis - Problem List [...] Follow Up With: Celina Last MD - [phone] When: 2 weeks Disposition: Home Minutes spent [...] DISCHARGE INSTRUCTION Observed: 10/15/2018 Status: F Source: [place] 8:42 [facility] REPOSITORY [facility] Medical Records Department [address] [place] [address] Instructions for Home/Discharge Instructions 10/15/18 0802 MR#: [id number] Acct: [id number] Name: RICKY BOLANOS Rep #: [id number] : 1955 62 From: Tran Arriaza PA-C PCP: Paece Toro MD Status: ADM IN ADDENDUM by [...] Follow Up With: Celina Last MD - [phone] When: 2 weeks 10/15/18 0803 <Electronically signed by Tran Arriaza PA-C> Date Tran Arriaza PA-C CC: Clifford Schrader DO; Peace Toro MD CBC W/DIFF, AUTOMATED Collected: 10/15/2018 Status: F Source: [place] 6:14 AM [facility] REPOSITORY TYPE CODE TESTS RESULT OUT [...] Lymph 1.27 Performed By: #### L100.0100 #### [facility] [address], [address] BASIC METABOLIC Collected: 10/15/2018 Status: F Source: [place] PROFILE (BMP) 6:14 AM [facility] REPOSITORY TYPE CODE TESTS RESULT OUT [...] Performed By: #### L500.2500, L500.3400, L501.2450 #### [facility] [address] [facility] [place], [address] LIVER PROFILE Collected: 10/15/2018 Status: F Source: [place] 6:14 AM [facility] REPOSITORY TYPE CODE TESTS RESULT OUT [...] Performed By: #### L500.2500, L500.3400, L501.2450 #### [facility] [address] [place], [address] LIPASE Collected: 10/15/2018 Status: F Source: [place] 6:14 AM [facility] REPOSITORY TYPE CODE TESTS RESULT OUT OF RANGE REFERENCE UNITS LAB L501.2450 73-393 U/L Normal LIPASE 170 Performed By: #### L500.2500, L500.3400, L501.2450 #### [facility] [address] [place], [address] 12 LEAD ELECTROCARDIOGRAM Observed: 10/14/2018 Status: F Source: [place] 3:10 PM [facility] REPOSITORY [facility] Cardiovascular Services [address] [place] [address] 12 Lead EKG 10/11/18 1645 MR#: [id number] Acct: [id number] Name: RICKY BOLANOS Rep #: [id number] : 1955 62 From: Angel Ortiz MD Attending Dr: Dylan Tran MD Status: ADM IN Ordering Dr: Wang Woo DO Date: 10/11/18 [place] [facility] [place]: F C Admitted: 10/11/18 Test Reason [...] ECG Confirmed by ANGEL ORTIZ MD ([id number]), editorial writer MAICOL VALDOVINOS ([id number]) on 10/14/2018 3:09:34 PM Referred By: PEACE TORO Confirmed By:ANGEL ORTIZ MD 10/14/18 1509 Date Angel Ortiz MD CC: Dylan Tran MD; OUT OF TOWN DOCTOR; Wang Woo DO; Peace Toro MD Signed OPERATIVE REPORT - Observed: 10/14/2018 Status: F Source: [place] ENDOSCOPY 3:01 PM [facility] REPOSITORY [facility] Medical Records Department [address] [facility] [place] [address] Operative Report - Endoscopy MR#: [id number] Acct: [id number] Name: RICKY BOLANOS Rep #: [id number] : 1955 62 From: Dylan Tran MD [...] and oxygen saturations were monitored continuously. The [id number] s/n [id number] endoscope was introduced through the mouth, and [...] previous diet. Procedure Code(s): --- Professional --- 33769, Endoscopic retrograde cholangiopancreatography (ERCP); with sphincterotomy/papillotomy Diagnosis Code(s): --- Professional --- K80.50, Calculus of bile duct without cholangitis or cholecystitis without obstruction R74.8, Abnormal levels of other serum enzymes K83.8, Other specified diseases of biliary tract CPT copyright 2017 [employer]. All rights reserved. The codes documented in this report are preliminary and upon ice cream freezer assistant review may be revised to meet current compliance requirements. Dylan Tran MD 10/14/2018 3:00:37 PM This report has been signed electronically. Number of Addenda: 0 Note Initiated On: 10/14/2018 1:56 PM 10/14/18 1500 Date Dylan Tran MD Cosigner Signature: Date (if indicated) CC: Dylan Tran MD; Clifford Schrader DO; OUT OF TOWN DOCTOR; Peace Toro MD Date Dictated: 10/14/18 1356 Date Transcribed: Vial Gauger: AC Signed ERCP BILIARY/PANCREAS Observed: 10/14/2018 Status: F Source: [place] 1:49 PM [facility] REPOSITORY [facility] Imaging Services [address] [place] [address] ERCP Biliary/Pancreas MR#: [id number] Acct: [id number] Name: RICKY BOLANOS Rep #: [id number] : 1955 F 62 From: David Santiago DO PCP: Peace Toro MD Status: ADM IN Study: ERCP Biliary/Pancreas Date of Exam: 10/14/18 Exam# [id number] Ordering Dr: Dylan Tran MD STUDY: ERCP. [...] David Santiago DO at 19:04 EST Tel [phone], Service support , CC: Dylan Tran MD; Peace Toro MD Vial Gauger: Signed CBC W/DIFF, AUTOMATED Collected: 10/14/2018 Status: F Source: [place] 6:10 AM [facility] REPOSITORY TYPE CODE TESTS RESULT OUT [...] Lymph 1.38 Performed By: #### L100.0100 #### [place] [address] [place], [id number] COMPREHENSIVE METABOLIC Collected: 10/14/2018 Status: F Source: [place] JOSHI 6:10 AM [facility] REPOSITORY TYPE CODE TESTS RESULT OUT [...] 10 Performed By: #### L500.4050, L501.2450 #### [facility] [address] [place], [address] LIPASE Collected: 10/14/2018 Status: F Source: [place] 6:10 AM [facility] REPOSITORY TYPE CODE TESTS RESULT OUT OF RANGE REFERENCE UNITS LAB L501.2450 73-393 U/L Normal LIPASE 345 Performed By: #### L500.4050, L501.2450 #### [facility] [address] [place], [address] LACTIC ACID Collected: 10/14/2018 Status: F Source: [place] 6:10 AM [facility] REPOSITORY Order Comment: Yes/No query for Sepsis Lactate Rule Y TYPE CODE TESTS RESULT OUT OF RANGE REFERENCE UNITS LAB L503.6005 0.4-2.0 mmol/L Normal LACTIC ACID 1.2 Performed By: #### L503.6005 #### [facility] [address] [place], [address] OPERATIVE REPORT Observed: 10/13/2018 Status: F Source: [place] 4:15 PM [facility] REPOSITORY [facility] Medical Records Department [address] [place] [address] Operative Report 10/12/18 1428 MR#: [id number] Acct: [id number] Name: RICKY BOLANOS Rep #: [id number] : 1955 62 From: Celina Last MD PCP: Peace Toro MD Status: ADM IN Location: [place] [address] Report of Operation Date of Procedure: 10/12/18 Pre-Operative Diagnosis: Gallstone pancreatitis, cholelithiasis Post-Operative Diagnosis: Gallstone pancreatitis, acute cholecystitis, cholelithiasis Surgery/Procedure Performed:: Laparoscopic cholecystectomy with cholangiograms routeman: Dylan Tran Type of Anesthesia:: General/Supplemental Anesthesiologist: [...] 12 mm trocar was closed with a [id number] 0 Vicryl suture. The skin was closed [...] 10/13/2018 Status: F Source: [place] 5:36 AM [facility] REPOSITORY TYPE CODE TESTS RESULT OUT [...] Lymph 1.72 Performed By: #### L100.0100 #### [facility] [address] [place], [place], [address] COMPREHENSIVE METABOLIC Collected: 10/13/2018 Status: F Source: [facility] 5:36 AM [facility] REPOSITORY TYPE CODE TESTS RESULT OUT [...] GAP Performed By: #### L500.4050, L501.2450 #### [facility] [address] [place], [address] LIPASE Collected: 10/13/2018 Status: F Source: [place] 5:36 AM [facility] REPOSITORY TYPE CODE TESTS RESULT OUT OF REFERENCE UNITS RANGE LAB L501.2450 73-393 U/L High LIPASE 698 Performed By: #### L500.4050, L501.2450 #### [facility] [address] [place], [address] GALLBLADDER Observed: 10/12/2018 Status: F Source: [place] 1:00 PM [facility] REPOSITORY Patient: RICKY BOLANOS : 1955 (62/F) Acct Num: [id number] Phys: Marc HERRERA,Dylan Unit Num: [id number] Loc: MS3 [id number] Specimen: [id number] Received: 10/12/181532 Spec Type: GALLBLADDE TISSUES 1 [...] measures up to 0.5 cm in thickness. Rn Hospice sections from the gallbladder and the cystic duct are submitted in one cassette. / GIOVANNI:gunjan 10/13/18 TC:3 CPT: 34198 HEADER OPERATION: Laparoscopic cholecystectomy with IOC PRE-OP DIAGNOSIS: Cholelithiasis TISSUE SUBMITTED: Gallbladder MICROSCOPIC DESCRIPTION Slides are reviewed. MICROSCOPIC DIAGNOSIS Gallbladder: Chronic cholecystitis, cholelithiasis and cholesterolosis. GIOVANNI:gunjan 10/14/18 Signed Vin Ramsey MD 10/14/18 <signature on file> Performed By: #### PGALL #### [facility] [address] [facility] [place], [address] SURGERY VISIT REPORT Observed: 10/12/2018 Status: F Source: [place] 11:31 AM [facility] REPOSITORY [facility] [address] [place] [address]. [address] [place] [address] OFFICE VISIT Date of Service: 10/09/18 MR#: [id number] Acct: [id number] Name: RICKY BOLANOS Rep #: [id number] : 1955 Provider: Celina Last MD Age/Sex: 62/F Location: [facility] Status: Signed Intake Intake Visit Reasons: GALLBLADDER Procedure Manager Required: No Is patient in pain?: No [...] toast with no issues and she had Greenlandic this afternoon with no issues. Patient has [...] or greasy foods. Celina Last M.D. Pager: [phone] [facility] [address] [place] [address], [address] [place] [address] Office: [phone] Orders Orders: Plan Detail Follow Up plan [...] Status: F Source: [place] R,INITIAL 9:06 AM [facility] REPOSITORY [facility] Imaging Services [address] [place] [address] Cholangiogram/ O R,Initial MR#: [id number] Acct: [id number] Name: RICKY BOLANOS Rep #: [id number] : 1955 F 62 From: Adan Stewart MD PCP: Peace Toro MD Status: ADM IN Study: Cholangiogram/ O R,Initial Date of Exam: 10/12/18 Exam# [id number] Ordering Dr: Celina Last MD PROCEDURE: INTRAOPERATIVE [...] CC: Peace Toro MD; Celina Last MD Vial Gauger: Signed CBC W/DIFF, AUTOMATED Collected: 10/12/2018 Status: F Source: [place] 5:27 AM [facility] REPOSITORY TYPE CODE TESTS RESULT OUT [...] Lymph 2.11 Performed By: #### L100.0100 #### [facility] [address] [place], [address] COMPREHENSIVE METABOLIC Collected: 10/12/2018 Status: F [facility]27 AM [facility] REPOSITORY TYPE CODE TESTS RESULT OUT [...] By: #### L500.4050, L501.2300, L501.2450, L501.5200 #### [facility] [address] [place], [address] PHOSPHORUS Collected: 10/12/2018 Status: F Source: [place] 5:27 AM [facility] REPOSITORY TYPE CODE TESTS RESULT OUT OF RANGE REFERENCE UNITS LAB L501.2300 2.5-4.9 mg/dL Normal PHOS 3.9 Performed By: #### L500.4050, L501.2300, L501.2450, L501.5200 #### [facility] [address] [place], [address] LIPASE Collected: 10/12/2018 Status: F Source: [place] 5:27 AM [facility] REPOSITORY TYPE CODE TESTS RESULT OUT OF REFERENCE UNITS RANGE LAB L501.2450 73-393 U/L High LIPASE 8989 Performed By: #### L500.4050, L501.2300, L501.2450, L501.5200 #### [facility] [address] [place], [address] MAGNESIUM Collected: 10/12/2018 Status: F Source: [place] 5:27 AM [facility] REPOSITORY TYPE CODE TESTS RESULT OUT OF RANGE REFERENCE UNITS LAB L501.5200 1.6-2.6 mg/dL Normal MG 2.1 Performed By: #### L500.4050, L501.2300, L501.2450, L501.5200 #### [facility] [address] [place], [address] LACTIC ACID Collected: 10/11/2018 Status: F Source: [place] 8:35 PM [facility] REPOSITORY TYPE CODE TESTS RESULT OUT OF REFERENCE UNITS RANGE LAB L503.6005 0.4-2.0 mmol/L High LACTIC ACID 2.3 Result Comment: CALLED ASHLI VELIZ MS- 3 WITH CRITICAL LA BY [facility] 10-11-18 AT 2111PM READ BACK BY SAME Performed By: #### L503.6005 #### [facility] [address] [place], [address] TROPONIN-I Collected: 10/11/2018 Status: F Source: [place] 8:15 PM [facility] REPOSITORY TYPE CODE TESTS RESULT OUT OF RANGE REFERENCE UNITS LAB L501.4010 <0.045 ng/mL Normal < 0.015 TROPONIN-I Result Comment: TROPONIN-I EXPECTED VALUES <0.045 Negative 0.045 - 0.590 Consistent with Cardiac Damage > OR = 0.600 Critical Value Not every elevated troponin is indicative of MD. These values should be used with clinical judgement in examining the patient's clinical picture for diagnosis. To establish a diagnosis of MD versus myocardial injury, there must be a demonstrated rise and/or fall in the troponin values, in addition to ischemic symptoms, EKG changes, new regional wall motion abnormality, and/or angiographical evidence. PLEASE NOTE: REFERENCE RANGES EDITED 18 Performed By: #### L501.4010 #### [facility] [address] [facility] [place], [address] HISTORY AND PHYSICAL Observed: 10/11/2018 Status: F Source: [place] EXAM 6:21 PM [facility] REPOSITORY [facility] Medical Records Department [address] [place] [address] History and Physical 10/11/18 1811 MR#: [id number] Acct: [id number] Name: RICKY BOLANOS Rep #: [id number] : 1955 62 From: Dylan Tran MD PCP: Peace Toro MD Status: ADM [place] [facility] [place] Problem List (1) Gallstone pancreatitis Status: Acute [...] by Dr. Last. Dylan Tran MD Pager: [facility] [address] [place] [address], [address] [place] [phone] Office: 10/11/18 182 <Electronically signed by Dylan Tran MD> Date Dylan Tran MD [facility] Signature: Date (if applicable) CC: Dylan Tran MD; Peace Toro MD Signed EMERGENCY DEPARTMENT Observed: 10/11/2018 Status: F Source: [place] SUMMARY 5:03 PM [facility] REPOSITORY [facility] Medical Records Department [address] [place] [address] Emergency Department Summary 10/11/18 1700 MR#: [id number] Acct: [id number] Name: RICKY BOLANOS Rep #: [id number] : 1955 62 From: Wang Woo DO [...] [Gallstone pancreatitis] This note was generated with Mumboe dictation software. It may contain incorrect words, [...] your Primary Care Provider. Call [facility] ([phone]) or report to the closest Emergency Room. Call 911 if necessary. 10/11/18 1705 <Electronically signed by Wang Woo DO> Date Wang Woo DO Cosigner Signature (If Indicated): Date CC: Peace Toro MD LACTIC ACID Collected: 10/11/2018 Status: F Source: [place] 4:15 PM [facility] REPOSITORY Order Comment: Yes/No query for Sepsis Lactate Rule Y TYPE CODE TESTS RESULT OUT OF REFERENCE UNITS RANGE LAB L503.6005 0.4-2.0 mmol/L High LACTIC ACID 3.9 Result Comment: called raleigh de oliveira ed with critical la by maf 10-11-18 AT 1701PM READ BACK BY SAME Performed By: #### L503.6005 #### [facility] [address] [place], [address] CBC W/DIFF, AUTOMATED Collected: 10/11/2018 Status: F Source: [place] 3:33 PM [facility] REPOSITORY TYPE CODE TESTS RESULT OUT [...] Lymph 1.26 Performed By: #### L100.0100 #### [facility] [place], [address] COMPREHENSIVE METABOLIC Collected: 10/11/2018 Status: F Source: [place] JOSHI 3:33 PM [facility] REPOSITORY TYPE CODE TESTS RESULT OUT [...] 12 Performed By: #### L500.4050, L501.2450 #### [facility] [address] [place], [address] LIPASE Collected: 10/11/2018 Status: F Source: [place] 3:33 PM [facility] REPOSITORY TYPE CODE TESTS RESULT OUT OF REFERENCE UNITS RANGE LAB L501.2450 73-393 U/L High LIPASE 78394 Result Comment: RESULTS CALLED TO [facility] 10/11/18 1645 Dariel Lopez. REPORT READ BACK BY SAME . Performed By: #### L500.4050, L501.2450 #### [facility] [address] [place], [address] GALLBLADDER Observed: 10/10/2018 Status: F Source: [place] 8:11 AM [facility] REPOSITORY [facility] Imaging Services [address] [place] [address] Gallbladder MR#: [id number] Acct: [id number] Name: RICKY BOLANOS Rep #: [id number] : 1955 F 62 From: Bryant Qiu MD PCP: Peace Toro MD Status: REG CLI Study: Gallbladder Date of Exam: 10/10/18 Exam# [id number] Ordering Dr: Celina Last MD STUDY: ABDOMINAL [...] CC: Peace Toro MD; Celina Last MD Vial Gauger: Signed CBC W/DIFF, AUTOMATED Collected: 10/09/2018 Status: F Source: [place] 3:26 PM [facility] REPOSITORY TYPE CODE TESTS RESULT OUT [...] Lymph 2.48 Performed By: #### L100.0100 #### [facility] [address] [place], [address] BASIC METABOLIC Collected: 10/09/2018 Status: F Source: [place] PROFILE ([facility]) 3:26 PM [facility] REPOSITORY TYPE CODE TESTS RESULT OUT [...] 5 Performed By: #### L500.2500, L500.3400 #### [facility] [address] [facility] [place], [address] LIVER PROFILE Collected: 10/09/2018 Status: F Source: [place] 3:26 PM [facility] REPOSITORY TYPE CODE TESTS RESULT OUT [...] 0.18 Performed By: #### L500.2500, L500.3400 #### [facility] [address] [facility] [place], [place], [address] ABDOMEN/PELVIS WITHOUT Observed: 10/06/2018 Status: F Source: [place] CONT 1:47 PM [facility] REPOSITORY [facility] Imaging Services [address] [place] [address] Abdomen/Pelvis without Cont MR#: [id number] Acct: [id number] Name: RICKY BOLANOS Rep #: [id number] : 1955 F 62 From: Marco Cortes MD PCP: Peace Toro MD Status: REG CLI Study: Abdomen/Pelvis without Cont Date of Exam: 10/06/18 Exam# [id number] Ordering Dr: Kanchan Faustin MD STUDY: CT [...] Marco Cortes MD at 14:23 EST Tel [phone], Service support , CC: Kanchan Faustin MD; Peace Toro MD Vial Gauger: Signed SURGERY VISIT REPORT Observed: 08/03/2018 Status: F Source: [place] 10:20 AM [facility] REPOSITORY [facility] [address] [place] [address] OFFICE VISIT Date of Service: 08/03/18 MR#: [id number] Acct: [id number] Name: RICKY BOLANOS Rep #: [id number] : 1955 Provider: Celina Last MD Age/Sex: 62/F Location: [facility] Status: Signed Intake Vital Signs08/03/18 Height 5 ft 9 in 08/03/18 Weight: 246 lb Intake Visit Reasons: RUQ/Epigastric US [facility] 07/29 Procedure Manager Required: No Allergies ketorolac tromethamine [From Toradol] [...] has been able to eat salad with Bangladeshi dressing with no issues along with turtle [...] no issues as well as salad with Bangladeshi dressing. Patient also states she drinks 3-4 [...] the other half. Celina Last M.D. Pager: [phone] [facility] [address] [place] [address], [facility], [address] [place] [address] Office: [phone] Orders Orders: Plan Detail Follow Up 2 Weeks Coding Level of Care Code Off vis,new,level 3 Diagnoses Gastroesophageal reflux disease K21.9 Cholelithiasis K80.20 Constipation K59.00 08/03/18 1020 <Electronically signed by Celina Last MD> Date Celina Last MD Cosigner Signature: Date (if applicable) CC: Peace Toro MD CBC W/DIFF, AUTOMATED Collected: 08/03/2018 Status: F Source: [place] 10:16 AM [facility] REPOSITORY TYPE CODE TESTS RESULT OUT [...] 2.64 Performed By: #### L100.0100, L500.3400 #### [facility] [address] [place], [place], [address] LIVER PROFILE Collected: 08/03/2018 Status: F Source: [place] 10:16 AM [facility] REPOSITORY TYPE CODE TESTS RESULT OUT [...] 0.17 Performed By: #### L100.0100, L500.3400 #### [facility] [address] [place], [place], [address] ABDOMEN LIMITED Observed: 07/29/2018 Status: F Source: [place] 7:58 AM [facility] REPOSITORY [facility] Imaging Services [address] [place] [address] Abdomen Limited MR#: [id number] Acct: [id number] Name: RICKY BOLANOS Rep #: [id number] : 1955 F 62 From: Adan Stewart MD PCP: Peace Toro MD Status: REG CLI Study: Abdomen Limited Date of Exam: 07/29/18 Exam# [id number] Ordering Dr: Peace Toro MD STUDY: ABDOMINAL [...] Service support , CC: Peace Toro MD Vial Gauger: Signed 12 LEAD ELECTROCARDIOGRAM Observed: 06/16/2018 Status: F Source: [place] 1:57 PM [facility] REPOSITORY [facility] Cardiovascular Services [address] [place] [address] 12 Lead EKG 06/12/18 0413 MR#: [id number] Acct: [id number] Name: BOLANOSRICKY Rep #: [id number] : 1955 62 From: Angel Ortiz MD [...] ECG Confirmed by ANGEL ORTIZ MD ([id number]), editorial writer MAICOL VALDOVINOS ([id number]) on 06/16/2018 1:57:00 PM Referred By: SHASHA Confirmed By:ANGEL ORTIZ MD 06/16/18 1357 Date Angel Ortiz MD CC: JONA PULLIAM MD; Peace Toro MD Signed EMERGENCY DEPARTMENT Observed: 06/12/2018 Status: F Source: [place] SUMMARY 5:33 AM [facility] REPOSITORY [facility] Medical Records Department [address] [place] [address] Emergency Department Summary 06/12/18 0435 MR#: [id number] Acct: [id number] Name: BOLANOSRICKY Rep #: [id number] : 1955 62 From: Jona Pulliam MD [...] medically. States that when she had her MD, she mostly had dyspnea. She does not [...] your Primary Care Provider. Call [facility] ([phone]) or report to the closest Emergency Room. Call 911 if necessary. 06/12/18 0533 <Electronically signed by Jona Pulliam MD> Date Jona Pulliam MD Cosigner Signature (If Indicated): Date CC: Peace Toro MD CHEST 1 VIEW Observed: 06/12/2018 Status: F Source: [place] (PORTABLE) 4:35 AM [facility] REPOSITORY [facility] Imaging Services [address] [place] [address] Chest 1 View (Portable) MR#: [id number] Acct: [id number] Name: RICKY BOLANOS Rep #: [id number] : 1955 F 62 From: Frank Vasquez MD PCP: Peace Toro MD Status: REG ER Study: Chest 1 View (Portable) Date of Exam: 06/12/18 Exam# [id number] Ordering Dr: Jona Pulliam MD STUDY: X-RAY [...] CC: JONA PULLIAM MD; Peace Toro MD Vial Gauger: Signed CBC W/DIFF, AUTOMATED Collected: 06/12/2018 Status: F Source: [place] 4:20 AM [facility] REPOSITORY TYPE CODE TESTS RESULT OUT [...] Lymph 3.07 Performed By: #### L100.0100 #### [facility] [address] [facility] [place], [place], [address] BASIC METABOLIC Collected: 06/12/2018 Status: F Source: [place] PROFILE (BMP) 4:20 AM [facility] REPOSITORY TYPE CODE TESTS RESULT OUT [...] 10 Performed By: #### L500.2500, L501.4010 #### [facility] [address] [place], [address] TROPONIN-I Collected: 06/12/2018 Status: F Source: [place] 4:20 AM [facility] REPOSITORY TYPE CODE TESTS RESULT OUT OF RANGE REFERENCE UNITS LAB L501.4010 <0.045 ng/mL Normal < 0.015 TROPONIN-I Result Comment: TROPONIN-I EXPECTED VALUES <0.045 Negative 0.045 - 0.590 Consistent with Cardiac Damage > OR = 0.600 Critical Value Not every elevated troponin is indicative of MD. These values should be used with clinical judgement in examining the patient's clinical picture for diagnosis. To establish a diagnosis of MD versus myocardial injury, there must be a demonstrated rise and/or fall in the troponin values, in addition to ischemic symptoms, EKG changes, new regional wall motion abnormality, and/or angiographical evidence. PLEASE NOTE: REFERENCE RANGES EDITED 18 Performed By: #### L500.2500, L501.4010 #### [facility] [address] [place], [place], [address] PROTEIN, TOTAL Collected: 06/12/2018 Status: F Source: [place] 4:20 AM [facility] REPOSITORY TYPE CODE TESTS RESULT OUT OF RANGE REFERENCE UNITS LAB L501.1500 6.4-8.2 g/dL Normal T PROT 7.2 LAB L501.1950 2.2-4.2 g/dL Normal GLOB 3.9 LAB L501.2000 0.9-2.4 RATIO Low A/G 0.8 Performed By: #### L001.0705, L501.1800, L501.2450, L501.4100, L501.4305, L501.4405, L501.4600 #### [facility] [address] [place], [address] ALBUMIN, SERUM Collected: 06/12/2018 Status: F Source: [place] 4:20 AM [facility] REPOSITORY TYPE CODE TESTS RESULT OUT OF RANGE REFERENCE UNITS LAB L501.1800 3.2-5.0 g/dL Normal ALB 3.3 Performed By: #### L001.0705, L501.1800, L501.2450, L501.4100, L501.4305, L501.4405, L501.4600 #### [facility] [address] [place], [address] LIPASE Collected: 06/12/2018 Status: F Source: [place] 4:20 AM [facility] REPOSITORY TYPE CODE TESTS RESULT OUT OF RANGE REFERENCE UNITS LAB L501.2450 73-393 U/L Normal LIPASE 224 Performed By: #### L001.0705, L501.1800, L501.2450, L501.4100, L501.4305, L501.4405, L501.4600 #### [facility] [address] [facility] [place], [address] AST(SGOT) Collected: 06/12/2018 Status: F Source: [place] 4:20 AM [facility] REPOSITORY TYPE CODE TESTS RESULT OUT OF RANGE REFERENCE UNITS LAB L501.4100 15-37 U/L Normal AST 20 Performed By: #### L001.0705, L501.1800, L501.2450, L501.4100, L501.4305, L501.4405, L501.4600 #### [facility] Laboratory [facility] [place], [place], [address] ALKALINE PHOSPHATASE Collected: 06/12/2018 Status: F Source: [place] 4:20 AM [facility] REPOSITORY TYPE CODE TESTS RESULT OUT OF RANGE REFERENCE UNITS LAB L501.4305 45-117 U/L Normal ALK P 89 Performed By: #### L001.0705, L501.1800, L501.2450, L501.4100, L501.4305, L501.4405, L501.4600 #### [facility] [facility] [place], [address] ALANINE AMINOTRANSFERAS Collected: 06/12/2018 Status: F Source: [place] (SGPT) 4:20 AM [facility] REPOSITORY TYPE CODE TESTS RESULT OUT OF RANGE REFERENCE UNITS LAB L501.4405 13-56 U/L Normal ALT 23 Performed By: #### L001.0705, L501.1800, L501.2450, L501.4100, L501.4305, L501.4405, L501.4600 #### [facility] [address] [place], [address] TOTAL BILIRUBIN Collected: 06/12/2018 Status: F Source: [place] 4:20 AM [facility] REPOSITORY TYPE CODE TESTS RESULT OUT OF RANGE REFERENCE UNITS LAB L501.4600 0.20-1.00 mg/dL Normal T BILI 0.50 Performed By: #### L001.0705, L501.1800, L501.2450, L501.4100, L501.4305, L501.4405, L501.4600 #### [facility] [address] [place], [address] NM MYOCARDIAL SPECT Observed: 05/26/2018 Status: F Source: AMADA STRESS/REST 10:00 AM [facility] REPOSITORY ORIGINAL Adenosine Stress Cardiac Gated SPECT/CT, [...] SEVERITY SOURCE 11/13/2018 Drug ketorolac Hives Unknown [facility] Allergy/416 tromethamine/F00 [facility] 879463(SNOM 5926142(RXNORM) Repository ED CT) ENCOUNTERS ENCOUNTERS ADMIT/DISCHARGE ACCOUNT NUMBER ADMITTING ENCOUNTER LOCATION SOURCE CLASS 11/13/2018/11/13/19 [id number] Ambulatory BMSBuilding: [place] 19 BMS.[facility] Repository 11/02/2018 [id number] Ambulatory [facility] ding:PAVLAB Repository 11/02/2018/11/02/19 [id number] Ambulatory BMSBuilding: [place] 19 BMS.[facility] Repository 10/22/2018 [id number] Ambulatory [facility] ding:LAB Repository 10/11/2018/10/15/20 [id number] [place] Dylan [facility] ding:EC7Xmfk Repository : FE425Amd: 1 10/11/2018 [id number] [place], Ambulatory BMSBuilding: [place] Dylan BMS..[facility] Repository 10/11/2018 [id number] [place], Ambulatory BMSBuilding: [place] Dylan BMS..[facility] Repository 10/11/2018 [id number] [place], Ambulatory BMSBuilding: [place] Dylan BMS.[facility] Repository 10/11/2018 [id number] [place], Ambulatory BMSBuilding: [place] Dylan BMS..[facility] Repository 10/11/2018 [id number] [place], Ambulatory BMSBuilding: [place] Dylan BMS.[facility] Repository 10/11/2018 [id number] [place], Ambulatory BMSBuilding: [place] Dylan BMS..[facility] Repository 10/11/2018 [id number] [place], Ambulatory BMSBuilding: [place] Dylan BMS.[facility] Repository 10/11/2018 [id number] [place], Ambulatory BMSBuilding: [place] Dylan BMS..[facility] Repository 10/11/2018 [id number] [place], Ambulatory BMSBuilding: [place] Dylan BMS.[facility] Repository 10/10/2018 [id number] Ambulatory [facility] ding:US Repository 10/09/2018 [id number] Ambulatory [facility] ding:LAB Repository 10/09/2018/10/09/20 [id number] Ambulatory BMSBuilding: [place] 18 BMS.[facility] Repository 10/06/2018 [id number] Ambulatory [facility] ding:CT Repository 08/03/2018 [id number] Ambulatory [facility] ding:PAVLAB Repository 08/03/2018/08/03/20 [id number] Ambulatory BMSBuilding: [place] 18 [facility] Repository 07/29/2018 [id number] Ambulatory [facility] ding:US Repository 06/23/2018/06/23/20 [id number] Ambulatory AULTMANBuild [place] 18 ing:[facility] [employer] [place] [facility] Repository 06/12/2018/06/12/20 [id number] Emergency [address] ding:ED Repository 05/26/2018/05/26/20 [id number] Ambulatory AULTMANBuild [place] 18 ing:[facility] [employer] [place] [facility] Repository PAYERS PAYERS ENCOUNTER GUARANTOR PAYER SUBSCRIBER SOURCE 11/13/2018 RICKY BOLANOS110 Primary RICKY PERRYB: [place] JEAN Insurance:[employer] [id number] Number: Hospital [id number]: (442) [id number] Repository [address] () Date:9055-93-[address] [address]NA: 11/13/2018 Secondary NOT GIVENUNK [place] Insurance:SELF PAY [facility] Number: Effective Repository Date:2018-11-13 11/02/2018 RICKY BOLANOS110 Primary RICKY PERRYB: [place] JEAN Insurance:[employer] [id number], [place] Number: Hospital [id number]: 330 [id number] Repository 2313 () Date:2078-43-90FU [address] [address]QG: 11/02/2018 Secondary NOT GIVENUNK [place] Insurance:SELF PAY [facility] Effective Repository Date:2018-11-02 11/02/2018 RICKY BOLANOS110 Primary RICKY BOLANOSDOB: [place] JEAN Insurance:[employer] [id number] [place] icy Number: Hospital [id number]: 330 [id number] Repository 231 () Date:9820-78-87KZ [address] [address]DD: 11/02/2018 Secondary NOT GIVENUNK [place] Insurance:SELF PAY [facility] Number: Effective Repository Date:2018-11-02 10/22/2018 RICKY ABDUL Primary RICKY BOLANOSDOB: [place] JEAN Insurance:[employer] [id number] [place] icy Number: Hospital [id number]: 330 [id number] Repository 231 () Date:8552-81-70EB [address] [address]BF: 10/22/2018 Secondary NOT GIVENUNK [place] Insurance:SELF PAY [facility] Number: Effective Repository Date:2018-10-22 10/11/2018 RICKY BOLANOS110 Primary RICKY BOLANOSDOB: [place] JEAN Insurance:[employer] [id number] [place] icy Number: Hospital [id number]: 330 [id number] Repository [address]13 () Date:5358-42-32DS [facility] [address] [place] [address]YL: 10/11/2018 Secondary NOT GIVENUNK [place] Insurance:SELF PAY [facility] Number: Effective Repository Date:2018-10-11 10/11/2018 RICKY BOLANOS110 Primary RICKY BOLANOSDOB: [place] JEAN Insurance:[employer] [id number] [place] icy Number: Hospital [address]Ahm: (439) [id number] Repository 2313 () Date:4058-81-69VS [address] [address]ZI: 10/11/2018 Secondary NOT GIVENUNK [place] Insurance:SELF PAY [facility] Number: Effective Repository Date:2018-10-11 10/11/2018 RICKY ABDUL Primary RICKY BOLANOSDOB: [place] JEAN Insurance:[place] [id number], [place] icy Number: Hospital [id number]: 330 [id number] Repository [address] () Date:0882-46-46BR [address] [address]NU: 10/11/2018 Secondary NOT GIVENUNK [place] Insurance:SELF PAY [facility] Number: Effective Repository Date:2018-10-11 10/11/2018 RICKY BOLANOS110 Primary RICKY BOLANOSDOB: [place] JEAN Insurance:[place] [id number] icy Number: Hospital [id number]: 330 [id number] Repository 231 () Date:0351-89-89LS [address] [address]YI: 10/11/2018 Secondary NOT GIVENUNK [place] Insurance:SELF PAY [facility] Number: Effective Repository Date:2018-10-11 10/11/2018 RICKY BOLANOS110 Primary RICKY BOLANOSDOB: [place] JEAN Insurance:[place] [id number] Number: Hospital [id number]: 330 [id number] Repository [address]13 () Date:8838-62-83CJ [address] [address]FJ: 10/11/2018 Secondary NOT GIVENUNK [place] Insurance:SELF PAY [facility] Number: Effective Repository Date:2018-10-11 10/11/2018 RICKY BOLANOS110 Primary RICKY BOLANOSDOB: [place] JEAN Insurance:[employer] [id number] [place] icy Number: Hospital [id number]: 330 [id number] Repository (HP) Date:2474-39-59EQ [address] [place] [address]GR: 10/11/2018 Secondary NOT GIVENUNK [place] Insurance:SELF PAY Community [facility] Number: Effective Repository Date:2018-10-11 10/11/2018 RICKY ABDUL Primary RICKY BOLANOSDOB: [place] JEAN Insurance:[employer] [id number] [place] Number: Hospital [id number]: 330 [id number] Repository (HP) Date:8158-95-49FF [address] [address]FC: 10/11/2018 Secondary NOT GIVENUNK [place] Insurance:SELF PAY Community [facility] Number: Effective Repository Date:2018-10-11 10/11/2018 RICKY BOLANOS110 Primary RICKY BOLANOSDOB: [place] JEAN Insurance:[employer] [id number] [place] icy Number: Hospital [id number]: 330 [id number] Repository () Date:2176-03-20BJ [facility] [address] [place] [address]US: 10/11/2018 Secondary NOT GIVENUNK [place] Insurance:SELF PAY Community [facility] Number: Effective Repository Date:2018-10-11 10/11/2018 RICKY ABDUL Primary RICKY BOLANOSDOB: [place] JEAN Insurance:[employer] [id number] [place] icy Number: Hospital [id number]: 330 [id number] Repository () Date:1495-30-82ZB [facility] [address] [place] [address]QL: 10/11/2018 Secondary NOT GIVENUNK [place] Insurance:SELF PAY [facility] Number: Effective Repository Date:2018-10-11 10/11/2018 RICKY BOLANOS110 Primary RICKY BOLANOSDOB: [place] JEAN Insurance:[employer] [id number] [place] icy Number: Hospital [id number]: (330 [id number] Repository 2313 (HP) Date:5057-86-80JO [facility] [address] [place] [address]HS: 10/11/2018 Secondary NOT GIVENUNK [place] Insurance:SELF PAY Community [facility] Number: Effective Repository Date:2018-10-11 10/10/2018 RICKY BOLANOS110 Primary RICKY BOLANOSDOB: [place] JEAN Insurance:[employer] [id number] [place] icy Number: Hospital [id number]: 330 [id number] Repository 231 (HP) Date:8825-10-06PM [facility] [address] [place] [address]MM: 10/10/2018 Secondary NOT GIVENUNK [place] Insurance:SELF PAY [facility] Number: Effective Repository Date:2018-10-09 10/09/2018 RICKY BOLANOS110 Primary RICKY BOLANOSDOB: [place] JEAN Insurance:[employer] [id number] [place] icy Number: Hospital [id number]: 330 [id number] Repository 231 (HP) Date:8253-59-00SX [address] [address] [address]TW: 10/09/2018 Secondary NOT GIVENUNK Kuldeep Insurance:SELF PAY [facility] Number: Effective Repository Date:2018-10-09 10/09/2018 RICKY BOLANOS110 Primary RICKY BOLANOSDOB: [place] Insurance:AULTCAREPol [id number] [place], [place] icy Number: Hospital [id number]: 330 [id number] Repository [phone] () Date:3965-21-06WK [facility] [address] [place] [id number]: 10/09/2018 Secondary NOT GIVENUNK [place] Insurance:SELF PAY [facility]: Effective Repository Date:2018-10-09 10/06/2018 RICKY ABDUL Primary RICKY PERRYB: [place] Insurance:[employer]AREPol [id number] [place] icy Number: Hospital [id number]: 330 [id number] Repository 231 (HP) Date:[id number] [address]AL: 10/06/2018 Secondary NOT GIVENUNK [place] Insurance:SELF PAY [facility] Number: Effective Repository Date:2018-09-30 08/03/2018 RICKY ABDUL Primary RICKY PERRYB: Kuldeep JEAN Insurance:[place]ARE[place] [id number] [place] icy Number: Hospital [id number]: 330 [id number] Repository 231 () Date:0874-16-02SJ [address] [address]BD: 08/03/2018 Secondary NOT GIVENUNK [place] Insurance:SELF PAY [facility] Number: Effective Repository Date:2018-08-03 08/03/2018 RICKY ABDUL Primary RICKY PERRYB: [place] Insurance:[employer]ARE[place] [id number] [place] icy Number: Hospital [id number]: 330 [id number] Repository [phone] (HP) Date:8825-97-04VG[address] [address]AW: 08/03/2018 Secondary NOT GIVENUNK [place] Insurance:SELF PAY [facility] Number: Effective Repository Date:2018-08-03 07/29/2018 RICKY ABDUL Primary RICKY PERRYB: [place] Insurance:[employer]ARE[place] [id number] [place] icy Number: Hospital [id number]: [phone] [id number] Repository 231 (HP) Date:0236-37-14UT [address] [place] [address]AB: 07/29/2018 Secondary NOT GIVENUNK Kuldeep Insurance:SELF PAY [facility] Number: Effective Repository Date:2018-07-28 06/23/2018 RICKY PERRYB: Primary RICKY BOLANOSDOB: [facility] Insurance:AULTCARE [id number] Foundation JEAN [id number] Number: JEAN Repository [place] [id number] [place] [address]~[id number] Date:2018-05-08Tel: [phone] [email or web address]: [phone] Name:[employer] Box ()Tel: ([phone]) (HP)Tel: [phone]) [address] [place] [address] [phone] ([phone] () 10776OI: 06/12/2018 Ricky Abdul Primary Ricky PerryB: [place] [facility] [id number] Number: [facility] [id number]: [phone] [id number] Repository [phone] (HP) Date:5642-05-55PM [address] [place] [phone]: 06/12/2018 Secondary NOT GIVENUNK [place] Insurance:SELF PAY [facility] Number: Effective Repository Date:2018-06-12 05/26/2018 RICKY PERRYB: Primary RICKY BOLANOSDOB: [facility] Insurance:AULTCARE [id number] Foundation JEAN [id number] Number: JEAN Repository [place] [id number] [place] [address]~[id number] Date:2018-05-0877932Ple: [phone] [email or web address]: [id number]-31plan [phone] Name:[employer] Box ()Tel: [phone]) (HP)Tel: [phone], [place] [phone] ([phone] (WP) [id number]:
== END ==
PROVIDERS: Family Provider Family Medicine; PCP Family Medicine; Referring Provider Surgery; Visit Provider Surgery
DX: K80.20 Calculus of gallbladder without cholecystitis without obstruction (principal)
CPT/HCPCS: 36415; 80048; 80076; 85025

== ENCOUNTER → 2018-10-10 08:09 | Outpatient (CLI) | payer OTHER, SELFPAY ==
--- NOTE | 2018-10-10 08:11 | US_ITS ---
STUDY: ABDOMINAL ULTRASOUND - RIGHT UPPER QUADRANT REASON FOR VISIT: Female, [address] scan. Cholelithiasis. TECHNIQUE: Ultrasound evaluation of the right upper quadrant was performed with real-time and static lopez-scale imaging. TECHNICAL QUALITY: Adequate. COMPARISON: Previous ultrasound 07/29/2018 which showed gallstones. Previous CT scan 10/06/2018. FINDINGS: Liver: The liver measures 15.5 cm. There is normal echogenicity of the liver. The bile ducts are within normal limits. There is hepatic color flow. The direction of portal flow is hepatopetal. There is no demonstrated mass lesion. Gallbladder: Normal distended gallbladder. The gallbladder wall measures 3 mm. There is a negative sonographic Betancourt's sign. There is no pericholecystic fluid. There are multiple echogenic structures within the gallbladder, consistent with multiple gallstones. Common Bile Duct (C.B.D.): The common bile duct measures 6.5 mm. Pancreas: Normal size of the head, body and tail of the pancreas. There is normal echogenicity of the pancreas. There is no demonstrated pancreatic mass or cyst. Right Kidney: Normal size of the right kidney. The right kidney measures 10.5 cm. Normal renal cortex. The right cortex measures 1.3 cm. There is no demonstrated renal mass or cyst. There is no right hydronephrosis. US/Gallbladder IMPRESSION: Again seen is cholelithiasis. Gallbladder wall at the upper limits of normal. No tenderness. Slightly dilated common bile duct. Electronically Signed: Bryant Qiu MD at 16:00 EST , Service support ,
--- OUTSIDE RECORDS SUMMARY | 2019-01-13 08:35 | XMS RPT_ITS ---
:1955 Author Organization [place] Support Name Relationship Address Phone ALONOVUS Unavailable [address] + [place] [address] UZAIR BOLANOS Un[address] + [place] [address] ALONOVUS Unavailable [address] + [place] [address] [address]ZAIR BOLANOS Un[address] + [place] [address] ALONOVUS Unavailable [address] + [place] [address] UZAIR BOLANOS Un[address] + [place] [address] ALONOVUS Unavailable [address] + [place] [address] UZAIR BOLANOS Un[address] + [place] [address] ALONOVUS Unavailable [address] + [place] [address] UZAIR BOLANOS Unavailable Unavailable + [place] [address] ALONOVUS Unavailable [address] + [place] [address] UZAIR BOLANOS Unavailable Unavailable + [place] [address] ALONOVUS Unavailable [address] + [place] [address] UZARI BOLANOS Unavailable Unavailable + [place] [address] ALONOVUS Unavailable [address] + [place] [address] UZAIR BOLANOS Un[address] + [place] [address] ALONOVUS Unavailable [address] + [facility] [place] [address] UZAIR BOLANOS Unavailable Unavailable + [place] [address] ALONOVUS Unavailable [address] + [facility] [address] UZAIR BOLANOS Unavailable Unavailable + [place] [address] ALONOVUS Unavailable [address] + [facility] [place] [address] UZAIR BOLANOS Unavailable Unavailable + [place] [address] ALONOVUS Unavailable [address] + [facility] [address] UZAIR BOLANOS Unavailable [facility] [address] + [place] [address] ALONOVUS Unavailable [address] + [facility] [place] [address] UZAIR BOLANOS Unavailable Unavailable + [place] [address] ALONOVUS Unavailable [address] + [place] [address] UZAIR BOLANOS Unavailable [facility] + [place] [address] ALONOVUS Unavailable [address] + [place] [address] UZAIR BOLANOS Unavailable Unavailable + [place] [address] ALONOVUS Unavailable [address] + [facility] [place] [address] UZAIR BOLANOS Unavailable Unavailable + [place] [address] ALONOVUS Unavailable [address] + [place] [address] UZAIR BOLANOS Unavailable . + [place] [address] ALONOVUS Unavailable [address] + [facility] [place] [address] UZAIR BOLANOS Unavailable Unavailable + [place] [address] ALONOVUS Unavailable [address] + [place] [address] UZAIR BOLANOS Unavailable Unavailable + ALONOVUS Unavailable [address] + [place] [address] GEETHA BOLANOSEL Unavailable . + [place] [address] ALONOVUS Unavailable [address] + [place] [address] GEETHA BOLANOSEL Unavailable Unavailable + [place] [address] UZAIR BOLANOS Unavailable Unavailable + LUDIN BOLANOS Unavailable [address] + [place] [address] GEETHA BOLANOSEL Unavailable Unavailable + ALONOVUS Unavailable [address] + [place] [address] UZAIR BOLANOS Unavailable [address] + [place] [address] GEETHA BOLANOSEL Unavailable Unavailable + LUDIN BOLANOS Unavailable [address] + [place] [address] UZAIR BOLANOS Unavailable Unavailable + Care Team Providers Name Role Phone LISA MANN MD Attending Unavailable [facility] Unavailable LISA MANN MD Attending Unavailable [facility] Unavailable Robotham, Celina Attending Unavailable [facility], Peace Referring Unavailable Robotham, Celina Attending Unavailable Robotham, Celina Referring Unavailable [facility] Unavailable Robotham, Celina Attending Unavailable Robotham, Celina Referring Unavailable [facility] Primary Care Unavailable [facility] Primary Care Unavailable Dylan Tran Admitting Unavailable Dylan Tran Attending Unavailable Clifford Schrader Consulting Unavailable MARINA DEE Referring Unavailable Dylan Tran Admitting Unavailable Dylan Tran Attending Unavailable [facility] Primary Care Unavailable Dylan Tran Consulting Unavailable Dylan Tran Admitting Unavailable Robotham, Celina Attending Unavailable [facility] Primary Care Unavailable Dylan Tran Consulting Unavailable Dylan Tran Admitting Unavailable Tereletsky, Clifford Attending Unavailable [facility] Primary Care Unavailable Tereletsky, Clifford Consulting Unavailable Calabretta, Dylan Consulting Unavailable Calabretta, Dylan Admitting Unavailable Arriaza PA-C, Tran Attending Unavailable [facility] Primary Care Unavailable Tereletsky, Clifford Consulting Unavailable Calabretta, Dylan Consulting Unavailable Calabretta, Dylan Admitting Unavailable [place], Ruperto Attending Unavailable [facility] Primary Care Unavailable Tereletsky, Clifford Consulting Unavailable Calabretta, Dylan Consulting Unavailable Calabretta, Dylan Admitting Unavailable Arriaza PA-C, Tran Attending Unavailable MARINA DEE Referring Unavailable [facility] Primary Care Unavailable Tereletsky, Clifford Consulting Unavailable Calabretta, Dylan Consulting Unavailable Calabretta, Dylan Admitting Unavailable Sanford, Ruperto Attending Unavailable MARINA DEE Referring Unavailable [facility] Primary Care Unavailable Tereletsky, Clifford Consulting Unavailable Calabretta, Dylan Consulting Unavailable Calabretta, Dylan Admitting Unavailable Arriaza PA-C, Tran Attending Unavailable MARINA DEE Referring Unavailable [facility] Care Unavailable Tereletsky, Clifford Consulting Unavailable Calabretta, Dylan Consulting Unavailable Calabretta, Dylan Admitting Unavailable San[place], Ruperto Attending Unavailable MARINA DEE Referring Unavailable [facility] Care Unavailable Tereletsky, Clifford Consulting Unavailable Calabretta, Dylan Consulting Unavailable Arriaza PA-C, Tran Attending Unavailable Arriaza PA-C, Tran Referring Unavailable [facility] Care Unavailable [facility] Primary Care Unavailable JONA PULLIAM Attending Unavailable [facility] Attending Unavailable [facility] Referring Unavailable [facility] Primary Care Unavailable Robotham, Celina Attending Unavailable [facility] Referring Unavailable Robotham, Celina Attending Unavailable Robotham, Celina Referring Unavailable [facility] Primary Care Unavailable Miedel, Kanchan Attending Unavailable Miedel, Kanchan Referring Unavailable [facility] Primary Care Unavailable Robotham, Celina Attending Unavailable [facility] Peace Referring Unavailable Robotham, Celina Attending Unavailable [facility] Primary Care Unavailable Robotham, Celina Attending Unavailable PROBLEMS PROBLEMS DATE TYPE CONDITION / CODE ATTENDING STATUS SOURCE 11/02/2018 Unknown R74.8 - Abnormal Robotham, Active [place] levels of other [facility] serum enzymes / Hospital R74.8(ICD-10) Repository 10/15/2018 Unknown G89.18 - Other acute Sanford, Ruperto Active [place] postprocedural pain [facility] / G89.18(ICD-10) Hospital Repository 10/09/2018 Unknown K80.20 - [facility] cholecystitis [facility] without obstruction Repository / K80.20(ICD-10) PROCEDURES PROCEDURES No Procedure Records FoundRESULTS RESULTS SURGERY VISIT REPORT Observed: 11/13/2018 Status: F Source: [place] 10:05 AM [facility] REPOSITORY [facility] [address] [place] [address] OFFICE VISIT Date of Service: 11/13/18 MR#: [id number] Acct: [id number] Name: RICKY BOLANOS Rep #: [id number] : 1955 Provider: Celina Last MD Age/Sex: 63/F Location: [facility] Status: Signed Intake Intake Visit Reasons: Gall Bladder Surgery 10/15 TR Mortgage Manager Required: No Is patient in pain?: [...] taking which can be done using the Wheelright pal boom. Discussed with patient she would [...] for evaluation, patient will first see her domestic laundry worker which she has appointment with in November [...] split second day Celina Last M.D. Pager: [phone] [facility] [address] [place] [address], Outpatient [address], [address] [place] [address] Office: [phone] Plan Detail Follow Up Patient will see her domestic laundry worker and will give us a call to [...] 11/02/2018 Status: F Source: [place] 2:22 PM [facility] REPOSITORY TYPE CODE TESTS RESULT OUT OF [...] BILI 0.32 Performed By: #### L500.3400 #### [facility] [address] [place], [address] SURGERY VISIT REPORT Observed: 11/02/2018 Status: F Source: [place] 2:12 PM [facility] REPOSITORY [facility] [place] [facility] [address] [place] [address] OFFICE VISIT Date of Service: 11/02/18 MR#: [id number] Acct: [id number] Name: RICKY BOLANOS Rep #: [id number] : 1955 Provider: Celina Last MD Age/Sex: 63/F Location: [facility] Status: Signed Intake Intake Visit Reasons: Gall Bladder Surgery 10/15 TR Mortgage Manager Required: No Is patient in pain?: [...] in 2 weeks. Celina Last M.D. Pager: [phone] [facility] [address] [place] [address], [address] [place] [address] Office: [phone] Orders Orders: Coding Level of Care Code Global Post Op Diagnoses Gallstone pancreatitis K85.10 Hx of cholecystectomy Z90.49 S/P ERCP Z98.890 11/02/18 1412 <Electronically signed by Celina Last MD> Date Celina Last MD Cosigner Signature: Date (if applicable) CC: Peace Toro MD LIVER PROFILE Collected: 10/22/2018 Status: F Source: [place] 9:25 AM [facility] REPOSITORY TYPE CODE TESTS RESULT OUT OF [...] BILI 0.45 Performed By: #### L500.3400 #### [facility] [address] [place], [address] DISCHARGE SUMMARY Observed: 10/15/2018 Status: F Source: [place] 10:46 AM [facility] REPOSITORY [facility] Medical Records Department [address] [place] [address] Discharge Summary 10/15/18 1040 MR#: [id number] Acct: [id number] Name: RICKY BOLANOS Rep #: [id number] : 1955 62 From: Celina Last MD PCP: Peace Toro MD Status: ADM IN Location: [place] [address] Discharge Date and Diagnosis - Problem List [...] Follow Up With: Celina Last MD - [phone] When: 2 weeks Disposition: Home Minutes spent [...] DISCHARGE INSTRUCTION Observed: 10/15/2018 Status: F Source: [place] 8:42 [facility] REPOSITORY [facility] Medical Records Department [address] [place] [address] Instructions for Home/Discharge Instructions 10/15/18 0802 MR#: [id number] Acct: [id number] Name: RICKY BOLANOS Rep #: [id number] : 1955 62 From: Tran Arriaza PA-C [...] Follow Up With: Celina Last MD - [phone] When: 2 weeks 10/15/18 0803 <Electronically signed by Tran Arriaza PA-C> Date Tran Arriaza PA-C CC: Clifford Schrader DO; Peace Toro MD CBC W/DIFF, AUTOMATED Collected: 10/15/2018 Status: F Source: [place] 6:14 AM [facility] REPOSITORY TYPE CODE TESTS RESULT OUT OF [...] Lymph 1.27 Performed By: #### L100.0100 #### [facility] [address], [address] BASIC METABOLIC Collected: 10/15/2018 Status: F Source: [place] PROFILE (BMP) 6:14 AM [facility] REPOSITORY TYPE CODE TESTS RESULT OUT OF [...] Performed By: #### L500.2500, L500.3400, L501.2450 #### [facility] [address] [place], [address] LIVER PROFILE Collected: 10/15/2018 Status: F Source: [place] 6:14 AM [facility] REPOSITORY TYPE CODE TESTS RESULT OUT OF [...] Performed By: #### L500.2500, L500.3400, L501.2450 #### [facility] [address] [place], [address] LIPASE Collected: 10/15/2018 Status: F Source: [place] 6:14 AM [facility] REPOSITORY TYPE CODE TESTS RESULT OUT OF RANGE REFERENCE UNITS LAB L501.2450 73-393 U/L Normal LIPASE 170 Performed By: #### L500.2500, L500.3400, L501.2450 #### [facility] [address] [place], [address] 12 LEAD ELECTROCARDIOGRAM Observed: 10/14/2018 Status: F Source: [place] 3:10 PM [facility] REPOSITORY [facility] Cardiovascular Services [address] [place] [address] 12 Lead EKG 10/11/18 1645 MR#: [id number] Acct: [id number] Name: RICKY BOLANOS Rep #: [id number] : 1955 62 From: Angel Ortiz MD Attending Dr: Dylan Tran MD Status: ADM IN Ordering Dr: Wang Woo DO Date: 10/11/18 Location: [facility] Sex: F C Admitted: 10/11/18 Test Reason [...] ECG Confirmed by ANGEL ORTIZ MD ([id number]), editor map MAICOL VALDOVINOS ([id number]) on 10/14/2018 3:09:34 PM Referred By: PEACE TORO Confirmed By:ANGEL ORTIZ MD 10/14/18 1509 Date Angel Ortiz MD CC: Dylan Tran MD; OUT OF TOWN DOCTOR; Wang Woo DO; Peace Toro MD Signed OPERATIVE REPORT - Observed: 10/14/2018 Status: F Source: [place] ENDOSCOPY 3:01 PM [facility] REPOSITORY [facility] Medical Records Department [address] [facility] [place] [address] Operative Report - Endoscopy MR#: [id number] Acct: [id number] Name: RICKY BOLANOS Rep #: [id number] : 1955 62 From: Dylan Tran MD [...] and oxygen saturations were monitored continuously. The [id number] s/n [id number] endoscope was introduced through the mouth, and [...] previous diet. Procedure Code(s): --- Professional --- 31938, Endoscopic retrograde cholangiopancreatography (ERCP); with sphincterotomy/papillotomy Diagnosis Code(s): --- Professional --- K80.50, Calculus of bile duct without cholangitis or cholecystitis without obstruction R74.8, Abnormal levels of other serum enzymes K83.8, Other specified diseases of biliary tract CPT copyright 2017 [employer]. All rights reserved. The codes documented in this report are preliminary and upon retina subspecialist review may be revised to meet current compliance requirements. Dylan Tarn MD 10/14/2018 3:00:37 PM This report has been signed electronically. Number of Addenda: 0 Note Initiated On: 10/14/2018 1:56 PM 10/14/18 1500 Date Dylan Tran MD Cosigner Signature: Date (if indicated) CC: Dylan Tran MD; Clifford Schrader DO; OUT OF TOWN DOCTOR; Peace Toro MD Date Dictated: 10/14/18 1356 Date Transcribed: Cryolite Recovery Operator: AC Signed ERCP BILIARY/PANCREAS Observed: 10/14/2018 Status: F Source: [place] 1:49 PM [facility] REPOSITORY [facility] Imaging Services [address] [place] [address] ERCP Biliary/Pancreas MR#: [id number] Acct: [id number] Name: RICKY BOLANOS Rep #: [id number] : 1955 F 62 From: David Santiago DO PCP: Peace Toro MD Status: ADM IN Study: ERCP Biliary/Pancreas Date of Exam: 10/14/18 Exam# [id number] Ordering Dr: Dylan Tran MD STUDY: ERCP. [...] David Santiago DO at 19:04 EST Tel [phone], Service support , CC: Dylan Tran MD; Peace Toro MD Cryolite Recovery Operator: Signed CBC W/DIFF, AUTOMATED Collected: 10/14/2018 Status: F Source: [place] 6:10 AM [facility] REPOSITORY TYPE CODE TESTS RESULT OUT OF [...] Lymph 1.38 Performed By: #### L100.0100 #### [place] [facility] [address] [place], [id number] COMPREHENSIVE METABOLIC Collected: 10/14/2018 Status: F Source: [place] JOSHI 6:10 AM [facility] REPOSITORY TYPE CODE TESTS RESULT OUT OF [...] 10 Performed By: #### L500.4050, L501.2450 #### [facility] [address] [place], [address] LIPASE Collected: 10/14/2018 Status: F Source: [place] 6:10 AM [facility] REPOSITORY TYPE CODE TESTS RESULT OUT OF RANGE REFERENCE UNITS LAB L501.2450 73-393 U/L Normal LIPASE 345 Performed By: #### L500.4050, L501.2450 #### [facility] [address] [place], [address] LACTIC ACID Collected: 10/14/2018 Status: F Source: [place] 6:10 AM [facility] REPOSITORY Order Comment: Yes/No query for Sepsis Lactate Rule Y TYPE CODE TESTS RESULT OUT OF RANGE REFERENCE UNITS LAB L503.6005 0.4-2.0 mmol/L Normal LACTIC ACID 1.2 Performed By: #### L503.6005 #### [facility] [address] [place], [address] OPERATIVE REPORT Observed: 10/13/2018 Status: F Source: [place] 4:15 PM [facility] REPOSITORY [facility] Medical Records Department [address] [place] [address] Operative Report 10/12/18 1428 MR#: [id number] Acct: [id number] Name: RICKY BOLANOS Rep #: [id number] : 1955 62 From: Celina Last MD PCP: Peace Toro MD Status: ADM IN Location: [place] [address] Report of Operation Date of Procedure: 10/12/18 Pre-Operative Diagnosis: Gallstone pancreatitis, cholelithiasis Post-Operative Diagnosis: Gallstone pancreatitis, acute cholecystitis, cholelithiasis Surgery/Procedure Performed:: Laparoscopic cholecystectomy with cholangiograms desulfurizer operator: Dylan Tran Type of Anesthesia:: General/Supplemental [...] 12 mm trocar was closed with a acncjy-zp-eqbmd 0 Vicryl suture. The skin was closed [...] 10/13/2018 Status: F Source: [place] 5:36 AM [facility] REPOSITORY TYPE CODE TESTS RESULT OUT OF [...] Lymph 1.72 Performed By: #### L100.0100 #### [facility] [address] [place], [place], [address] COMPREHENSIVE METABOLIC Collected: 10/13/2018 Status: F Source: [facility] 5:36 AM [facility] REPOSITORY TYPE CODE TESTS RESULT OUT OF [...] GAP Performed By: #### L500.4050, L501.2450 #### [facility] [address] [place], [address] LIPASE Collected: 10/13/2018 Status: F Source: [place] 5:36 AM [facility] REPOSITORY TYPE CODE TESTS RESULT OUT OF REFERENCE UNITS RANGE LAB L501.2450 73-393 U/L High LIPASE 698 Performed By: #### L500.4050, L501.2450 #### [facility] [address] [place], [address] GALLBLADDER Observed: 10/12/2018 Status: F Source: [place] 1:00 PM [facility] REPOSITORY Patient: RICKY BOLANOS : 1955 (62/F) Acct Num: [id number] Phys: Marc HERRERA,Dylan Unit Num: [id number] Loc: MS3 [id number] Specimen: [id number] Received: 10/12/181532 Spec Type: GALLBLADDE TISSUES 1 [...] measures up to 0.5 cm in thickness. Storeroom Attendant sections from the gallbladder and the cystic duct are submitted in one cassette. / GIOVANNI:gunjan 10/13/18 TC:3 CPT: 00236 HEADER OPERATION: Laparoscopic cholecystectomy with IOC PRE-OP DIAGNOSIS: Cholelithiasis TISSUE SUBMITTED: Gallbladder MICROSCOPIC DESCRIPTION Slides are reviewed. MICROSCOPIC DIAGNOSIS Gallbladder: Chronic cholecystitis, cholelithiasis and cholesterolosis. GIOVANNI:gunjan 10/14/18 Signed Vin Ramesy MD 10/14/18 <signature on file> Performed By: #### PGALL #### [facility] [address] [place], [address] SURGERY VISIT REPORT Observed: 10/12/2018 Status: F Source: [place] 11:31 AM [facility] REPOSITORY [facility] [address] [place] [address]. [address] [place] [address] OFFICE VISIT Date of Service: 10/09/18 MR#: [id number] Acct: [id number] Name: RICKY BOLANOS Rep #: [id number] : 1955 Provider: Celina Last MD Age/Sex: 62/F Location: [facility] Status: Signed Intake Intake Visit Reasons: GALLBLADDER Mortgage Manager Required: No Is patient in pain?: [...] toast with no issues and she had [place] Islander this afternoon with no issues. Patient has [...] or greasy foods. Celina Last M.D. Pager: [phone] [facility] [address] [place] [address], [address] [place] [address] Office: [phone] Orders Orders: Plan Detail Follow Up plan [...] Status: F Source: [place] R,INITIAL 9:06 AM [facility] REPOSITORY [facility] Imaging Services [address] [place] [address] Cholangiogram/ O R,Initial MR#: [id number] Acct: [id number] Name: RICKY BOLANOS Rep #: [id number] : 1955 F 62 From: Adan Stewart MD PCP: Peace Toro MD Status: ADM IN Study: Cholangiogram/ O R,Initial Date of Exam: 10/12/18 Exam# [id number] Ordering Dr: Celina Last MD PROCEDURE: INTRAOPERATIVE [...] CC: Peace Toro MD; Celina Last MD Cryolite Recovery Operator: Signed CBC W/DIFF, AUTOMATED Collected: 10/12/2018 Status: F Source: [place] 5:27 AM [facility] REPOSITORY TYPE CODE TESTS RESULT OUT OF [...] Lymph 2.11 Performed By: #### L100.0100 #### [facility] [address] [place], [address] COMPREHENSIVE METABOLIC Collected: 10/12/2018 Status: F [facility] AM [facility] REPOSITORY TYPE CODE TESTS RESULT OUT OF [...] By: #### L500.4050, L501.2300, L501.2450, L501.5200 #### [facility] [address] [place], [address] PHOSPHORUS Collected: 10/12/2018 Status: F Source: [place] 5:27 AM [facility] REPOSITORY TYPE CODE TESTS RESULT OUT OF RANGE REFERENCE UNITS LAB L501.2300 2.5-4.9 mg/dL Normal PHOS 3.9 Performed By: #### L500.4050, L501.2300, L501.2450, L501.5200 #### [facility] [address] [place], [address] LIPASE Collected: 10/12/2018 Status: F Source: [place] 5:27 AM [facility] REPOSITORY TYPE CODE TESTS RESULT OUT OF REFERENCE UNITS RANGE LAB L501.2450 73-393 U/L High LIPASE 8989 Performed By: #### L500.4050, L501.2300, L501.2450, L501.5200 #### [facility] [address] [place], [address] MAGNESIUM Collected: 10/12/2018 Status: F Source: [place] 5:27 AM [facility] REPOSITORY TYPE CODE TESTS RESULT OUT OF RANGE REFERENCE UNITS LAB L501.5200 1.6-2.6 mg/dL Normal MG 2.1 Performed By: #### L500.4050, L501.2300, L501.2450, L501.5200 #### [facility] [address] [place], [address] LACTIC ACID Collected: 10/11/2018 Status: F Source: [place] 8:35 PM [facility] REPOSITORY TYPE CODE TESTS RESULT OUT OF REFERENCE UNITS RANGE LAB L503.6005 0.4-2.0 mmol/L High LACTIC ACID 2.3 Result Comment: CALLED ASHLI VELIZ MS- 3 WITH CRITICAL LA BY [facility] 10-11-18 AT 2111PM READ BACK BY SAME Performed By: #### L503.6005 #### [facility] [address] [place], [address] TROPONIN-I Collected: 10/11/2018 Status: F Source: [place] 8:15 PM [facility] REPOSITORY TYPE CODE TESTS RESULT OUT OF RANGE REFERENCE UNITS LAB L501.4010 <0.045 ng/mL Normal < 0.015 TROPONIN-I Result Comment: TROPONIN-I EXPECTED VALUES <0.045 Negative 0.045 - 0.590 Consistent with Cardiac Damage > OR = 0.600 Critical Value Not every elevated troponin is indicative of DC. These values should be used with clinical judgement in examining the patient's clinical picture for diagnosis. To establish a diagnosis of DC versus myocardial injury, there must be a demonstrated rise and/or fall in the troponin values, in addition to ischemic symptoms, EKG changes, new regional wall motion abnormality, and/or angiographical evidence. PLEASE NOTE: REFERENCE RANGES EDITED 18 Performed By: #### L501.4010 #### [facility] [address] [facility] [place], [address] HISTORY AND PHYSICAL Observed: 10/11/2018 Status: F Source: INMAN EXAM 6:21 PM [facility] REPOSITORY [facility] Medical Records Department [address] [place] [address] History and Physical 10/11/18 1811 MR#: [id number] Acct: [id number] Name: RICKY BOLANOS Rep #: [id number] : 1955 62 From: Dylan Tran MD PCP: Peace Toro MD Status: ADM IN Location: [facility] CE433-1 Problem List (1) Gallstone pancreatitis Status: Acute [...] by Dr. Last. Dylan Tran MD Pager: [facility] [address] [place] [address], [address] [place] [phone] Office: 10/11/18 182 <Electronically signed by Dylan Tran MD> Date Dylan Tran MD [facility] Signature: Date (if applicable) CC: Dylan Tran MD; Peace Toro MD Signed EMERGENCY DEPARTMENT Observed: 10/11/2018 Status: F Source: INMAN SUMMARY 5:03 PM [facility] REPOSITORY [facility] Medical Records Department [address] [place] [address] Emergency Department Summary 10/11/18 1700 MR#: [id number] Acct: [id number] Name: RICKY BOLANOS Rep #: [id number] : 1955 62 From: Wang Woo DO [...] [Gallstone pancreatitis] This note was generated with ECO-[employer]FE dictation software. It may contain incorrect words, [...] your Primary Care Provider. Call [facility] ([phone]) or report to the closest Emergency Room. Call 911 if necessary. 10/11/18 1706 <Electronically signed by Wang Woo DO> Date Wang Woo DO Cosigner Signature (If Indicated): Date CC: Peace Toro MD LACTIC ACID Collected: 10/11/2018 Status: F Source: KULDEEP 4:15 PM [facility] REPOSITORY Order Comment: Yes/No query for Sepsis Lactate Rule Y TYPE CODE TESTS RESULT OUT OF REFERENCE UNITS RANGE LAB L503.6005 0.4-2.0 mmol/L High LACTIC ACID 3.9 Result Comment: called raleigh de oliveira ed with critical la by maf 10-11-18 AT 1701PM READ BACK BY SAME Performed By: #### L503.6005 #### [facility] [address] [place], [address] CBC W/DIFF, AUTOMATED Collected: 10/11/2018 Status: F Source: KULDEEP 3:33 PM [facility] REPOSITORY TYPE CODE TESTS RESULT OUT OF [...] Lymph 1.26 Performed By: #### L100.0100 #### [facility] [place], [address] COMPREHENSIVE METABOLIC Collected: 10/11/2018 Status: F Source: KULDEEP JOSHI 3:33 PM [facility] REPOSITORY TYPE CODE TESTS RESULT OUT OF [...] 12 Performed By: #### L500.4050, L501.2450 #### [facility] [address] [place], [address] LIPASE Collected: 10/11/2018 Status: F Source: INMAN 3:33 PM [facility] REPOSITORY TYPE CODE TESTS RESULT OUT OF REFERENCE UNITS RANGE LAB L501.2450 73-393 U/L High LIPASE 88014 Result Comment: RESULTS CALLED TO [facility] 10/11/18 1645 Dariel Lopez. REPORT READ BACK BY SAME . Performed By: #### L500.4050, L501.2450 #### [facility] [address] [place], [address] GALLBLADDER Observed: 10/10/2018 Status: F Source: INMAN 8:11 AM [facility] REPOSITORY [facility] Imaging Services [address] [place] [address] Gallbladder MR#: [id number] Acct: [id number] Name: RICKY BOLANOS Rep #: [id number] : 1955 F 62 From: Bryant Qiu MD PCP: Peace Toro MD Status: REG CLI Study: Gallbladder Date of Exam: 10/10/18 Exam# [id number] Ordering Dr: Celina Last MD STUDY: ABDOMINAL [...] CC: Peace Toro MD; Celina Last MD Cryolite Recovery Operator: Signed CBC W/DIFF, AUTOMATED Collected: 10/09/2018 Status: F Source: INMAN 3:26 PM [facility] REPOSITORY TYPE CODE TESTS RESULT OUT OF [...] Lymph 2.48 Performed By: #### L100.0100 #### [facility] [address] [place], [address] BASIC METABOLIC Collected: 10/09/2018 Status: F Source: INMAN PROFILE ([facility]) 3:26 PM [facility] REPOSITORY TYPE CODE TESTS RESULT OUT OF [...] 5 Performed By: #### L500.2500, L500.3400 #### [facility] [address] [place], [address] LIVER PROFILE Collected: 10/09/2018 Status: F Source: INMAN 3:26 PM [facility] REPOSITORY TYPE CODE TESTS RESULT OUT OF [...] 0.18 Performed By: #### L500.2500, L500.3400 #### [facility] [address] [address] [place], [place], [address] ABDOMEN/PELVIS WITHOUT Observed: 10/06/2018 Status: F Source: KULDEEP CONT 1:47 PM [facility] REPOSITORY [facility] Imaging Services [address] [place] [address] Abdomen/Pelvis without Cont MR#: [id number] Acct: [id number] Name: RICKY BOLANOS Rep #: [id number] : 1955 F 62 From: Marco Cortes MD PCP: Peace Toro MD Status: REG CLI Study: Abdomen/Pelvis without Cont Date of Exam: 10/06/18 Exam# [id number] Ordering Dr: Kanchan Faustin MD STUDY: CT [...] Marco Cortes MD at 14:23 EST Tel [phone], Service support , CC: Kanchan Faustin MD; Peace Toro MD Cryolite Recovery Operator: Signed SURGERY VISIT REPORT Observed: 08/03/2018 Status: F Source: KULDEEP 10:20 AM [facility] REPOSITORY [facility] [address] [place] [address] OFFICE VISIT Date of Service: 08/03/18 MR#: [id number] Acct: [id number] Name: RICKY BOLANOS Rep #: [id number] : 1955 Provider: Celina Last MD Age/Sex: 62/F Location: [facility] Status: Signed Intake Vital Signs08/03/18 Height 5 ft 9 in 08/03/18 Weight: 246 lb Intake Visit Reasons: RUQ/Epigastric US [facility] 07/29 Mortgage Manager Required: No Allergies ketorolac tromethamine [From [...] has been able to eat salad with Kenyan dressing with no issues along with turtle [...] no issues as well as salad with Kenyan dressing. Patient also states she drinks 3-4 [...] the other half. Celina Last M.D. Pager: [phone] [facility] [address] [place] [address], [facility] [address] [place] [address] Office: [phone] Orders Orders: Plan Detail Follow Up 2 Weeks Coding Level of Care Code Off vis,new,level 3 Diagnoses Gastroesophageal reflux disease K21.9 Cholelithiasis K80.20 Constipation K59.00 08/03/18 1020 <Electronically signed by Celina Last MD> Date Celina Last MD Cosigner Signature: Date (if applicable) CC: Peace Toro MD CBC W/DIFF, AUTOMATED Collected: 08/03/2018 Status: F Source: KULDEEP 10:16 AM [facility] REPOSITORY TYPE CODE TESTS RESULT OUT OF [...] 2.64 Performed By: #### L100.0100, L500.3400 #### [facility] [address] [place], [place], [address] LIVER PROFILE Collected: 08/03/2018 Status: F Source: INMAN 10:16 AM [facility] REPOSITORY TYPE CODE TESTS RESULT OUT OF [...] 0.17 Performed By: #### L100.0100, L500.3400 #### [facility] [address] [place], [place], [address] ABDOMEN LIMITED Observed: 07/29/2018 Status: F Source: INMAN 7:58 AM [facility] REPOSITORY [facility] Imaging Services [address] [place] [address] Abdomen Limited MR#: [id number] Acct: [id number] Name: RICKY BOLANOS Rep #: [id number] : 1955 F 62 From: Adan Stewart MD PCP: Peace Toro MD Status: REG CLI Study: Abdomen Limited Date of Exam: 07/29/18 Exam# [id number] Ordering Dr: Peace Toro MD STUDY: ABDOMINAL [...] Service support , CC: Peace Toro MD Cryolite Recovery Operator: Signed 12 LEAD ELECTROCARDIOGRAM Observed: 06/16/2018 Status: F Source: KULDEEP 1:57 PM [facility] REPOSITORY [facility] Cardiovascular Services [address] [place] [address] 12 Lead EKG 06/12/18 0413 MR#: [id number] Acct: [id number] Name: BOLANOSRICKY Rep #: [id number] : 1955 62 From: Angel Ortiz MD [...] ECG Confirmed by ANGEL ORTIZ MD ([id number]), editor map MAICOL VALDOVINOS ([id number]) on 06/16/2018 1:57:00 PM Referred By: SHASHA Confirmed By:ANGEL ORTIZ MD 06/16/18 1357 Date Angel Ortiz MD CC: JONA PULLIAM MD; Peace Toro MD Signed EMERGENCY DEPARTMENT Observed: 06/12/2018 Status: F Source: KULDEEP SUMMARY 5:33 AM [facility] REPOSITORY [facility] Medical Records Department [address] [place] [address] Emergency Department Summary 06/12/18 0435 MR#: [id number] Acct: [id number] Name: BOLANOSRICKY Rep #: [id number] : 1955 62 From: Jona Pulliam MD [...] medically. States that when she had her DC, she mostly had dyspnea. She does not [...] your Primary Care Provider. Call [facility] ([phone]) or report to the closest Emergency Room. Call 911 if necessary. 06/12/18 0533 <Electronically signed by Jona Pulliam MD> Date Jona Pulliam MD Cosigner Signature (If Indicated): Date CC: Peace Toro MD CHEST 1 VIEW Observed: 06/12/2018 Status: F Source: INMAN (PORTABLE) 4:35 AM [facility] REPOSITORY [facility] Imaging Services [address] [place] [address] Chest 1 View (Portable) MR#: [id number] Acct: [id number] Name: RICKY BOLANOS Rep #: [id number] : 1955 F 62 From: Frank Vasquez MD PCP: Peace Toro MD Status: REG ER Study: Chest 1 View (Portable) Date of Exam: 06/12/18 Exam# [id number] Ordering Dr: Jona Pulliam MD STUDY: X-RAY [...] CC: JONA PULLIAM MD; Peace Toro MD Cryolite Recovery Operator: Signed CBC W/DIFF, AUTOMATED Collected: 06/12/2018 Status: F Source: KULDEEP 4:20 AM [facility] REPOSITORY TYPE CODE TESTS RESULT OUT OF [...] Lymph 3.07 Performed By: #### L100.0100 #### [facility] [address] [place], [place], [address] BASIC METABOLIC Collected: 06/12/2018 Status: F Source: INMAN PROFILE (BMP) 4:20 AM [facility] REPOSITORY TYPE CODE TESTS RESULT OUT OF [...] 10 Performed By: #### L500.2500, L501.4010 #### [facility] [address] [place], [address] TROPONIN-I Collected: 06/12/2018 Status: F Source: INMAN 4:20 AM [facility] REPOSITORY TYPE CODE TESTS RESULT OUT OF RANGE REFERENCE UNITS LAB L501.4010 <0.045 ng/mL Normal < 0.015 TROPONIN-I Result Comment: TROPONIN-I EXPECTED VALUES <0.045 Negative 0.045 - 0.590 Consistent with Cardiac Damage > OR = 0.600 Critical Value Not every elevated troponin is indicative of DC. These values should be used with clinical judgement in examining the patient's clinical picture for diagnosis. To establish a diagnosis of DC versus myocardial injury, there must be a demonstrated rise and/or fall in the troponin values, in addition to ischemic symptoms, EKG changes, new regional wall motion abnormality, and/or angiographical evidence. PLEASE NOTE: REFERENCE RANGES EDITED 18 Performed By: #### L500.2500, L501.4010 #### [facility] [address] [place], [place], [address] PROTEIN, TOTAL Collected: 06/12/2018 Status: F Source: INMAN 4:20 AM [facility] REPOSITORY TYPE CODE TESTS RESULT OUT OF RANGE REFERENCE UNITS LAB L501.1500 6.4-8.2 g/dL Normal T PROT 7.2 LAB L501.1950 2.2-4.2 g/dL Normal GLOB 3.9 LAB L501.2000 0.9-2.4 RATIO Low A/G 0.8 Performed By: #### L001.0705, L501.1800, L501.2450, L501.4100, L501.4305, L501.4405, L501.4600 #### [facility] [address] [place], [address] ALBUMIN, SERUM Collected: 06/12/2018 Status: F Source: INMAN 4:20 AM [facility] REPOSITORY TYPE CODE TESTS RESULT OUT OF RANGE REFERENCE UNITS LAB L501.1800 3.2-5.0 g/dL Normal ALB 3.3 Performed By: #### L001.0705, L501.1800, L501.2450, L501.4100, L501.4305, L501.4405, L501.4600 #### [facility] [address] [place], [address] LIPASE Collected: 06/12/2018 Status: F Source: INMAN 4:20 AM [facility] REPOSITORY TYPE CODE TESTS RESULT OUT OF RANGE REFERENCE UNITS LAB L501.2450 73-393 U/L Normal LIPASE 224 Performed By: #### L001.0705, L501.1800, L501.2450, L501.4100, L501.4305, L501.4405, L501.4600 #### [facility] [address] [place], [address] AST(SGOT) Collected: 06/12/2018 Status: F Source: INMAN 4:20 AM [facility] REPOSITORY TYPE CODE TESTS RESULT OUT OF RANGE REFERENCE UNITS LAB L501.4100 15-37 U/L Normal AST 20 Performed By: #### L001.0705, L501.1800, L501.2450, L501.4100, L501.4305, L501.4405, L501.4600 #### [facility] [facility] [place], [place], [address] ALKALINE PHOSPHATASE Collected: 06/12/2018 Status: F Source: INMAN 4:20 AM [facility] REPOSITORY TYPE CODE TESTS RESULT OUT OF RANGE REFERENCE UNITS LAB L501.4305 45-117 U/L Normal ALK P 89 Performed By: #### L001.0705, L501.1800, L501.2450, L501.4100, L501.4305, L501.4405, L501.4600 #### [facility] [place], [address] ALANINE AMINOTRANSFERAS Collected: 06/12/2018 Status: F Source: INMAN (SGPT) 4:20 AM [facility] REPOSITORY TYPE CODE TESTS RESULT OUT OF RANGE REFERENCE UNITS LAB L501.4405 13-56 U/L Normal ALT 23 Performed By: #### L001.0705, L501.1800, L501.2450, L501.4100, L501.4305, L501.4405, L501.4600 #### [facility] [address] [place], [address] TOTAL BILIRUBIN Collected: 06/12/2018 Status: F Source: KULDEEP 4:20 AM [facility] REPOSITORY TYPE CODE TESTS RESULT OUT OF RANGE REFERENCE UNITS LAB L501.4600 0.20-1.00 mg/dL Normal T BILI 0.50 Performed By: #### L001.0705, L501.1800, L501.2450, L501.4100, L501.4305, L501.4405, L501.4600 #### [facility] [address] [place], [address] NM MYOCARDIAL SPECT Observed: 05/26/2018 Status: F Source: AMADA STRESS/REST 10:00 AM [facility] REPOSITORY ORIGINAL Adenosine Stress Cardiac Gated SPECT/CT, [...] SEVERITY SOURCE 11/13/2018 Drug ketorolac Hives Unknown [facility] Allergy/416 tromethamine/F00 [facility] 842480(SNOM 3868512(RXNORM) Repository ED CT) ENCOUNTERS ENCOUNTERS ADMIT/DISCHARGE ACCOUNT NUMBER ADMITTING ENCOUNTER LOCATION SOURCE CLASS 11/13/2018/11/13/19 [id number] Ambulatory B[place]: [place] 19 BMS[facility] Repository 11/02/2018 [id number] Ambulatory [facility] ding:PAVLAB Repository 11/02/2018/11/02/19 [id number] Ambulatory BMSBuilding: [place] 19 BMS.[facility] Repository 10/22/2018 [id number] Ambulatory [facility] ding:LAB Repository 10/11/2018/10/15/20 [id number] [place] ding:ZG6Fpex Repository : HY119Bpv: 1 10/11/2018 [id number] [place], Ambulatory BMSBuilding: [place] Dylan BMS..[facility] Repository 10/11/2018 [id number] [place], Ambulatory BMSBuilding: [place] Dylan BMS..[facility] Repository 10/11/2018 [id number] [place], Ambulatory BMSBuilding: [place] Dylan BMS.[facility] Repository 10/11/2018 [id number] [place], Ambulatory B[place]Building: [place] Dylan BMS..[facility] Repository 10/11/2018 [id number] [place], Ambulatory BMSBuilding: [place] Dylan BMS.[facility] Repository 10/11/2018 [id number] [place], Ambulatory BMSBuilding: [place] Dylan BMS..[facility] Repository 10/11/2018 [id number] [place], Ambulatory BMSBuilding: [place] Dylan BMS.[facility] Repository 10/11/2018 [id number] [place], Ambulatory BMSBuilding: [place] Dylan BMS..[facility] Repository 10/11/2018 [id number] [place], Ambulatory B[place]Building: [place] Dylan BMS.[facility] Repository 10/10/2018 [id number] Ambulatory [facility] ding:US Repository 10/09/2018 [id number] Ambulatory [facility] ding:LAB Repository 10/09/2018/10/09/20 [id number] Ambulatory BMSBuilding: [place] 18 BMS.[facility] Repository 10/06/2018 [id number] Ambulatory [facility] ding:CT Repository 08/03/2018 [id number] Ambulatory [facility] ding:PAVLAB Repository 08/03/2018/08/03/20 [id number] Ambulatory BMSBuilding: [place] [address] [facility] Repository 07/29/2018 [id number] Ambulatory [facility] ding:US Repository 06/23/2018/06/23/20 [id number] Ambulatory AULTMANBuild [place] 18 ing:[facility] Repository 06/12/2018/06/12/20 [id number] Emergency [address] ding:ED Repository 05/26/2018/05/26/20 [id number] Ambulatory AULTMANBuild [place] 18 ing:[facility] Repository PAYERS PAYERS ENCOUNTER GUARANTOR PAYER SUBSCRIBER SOURCE 11/13/2018 RICKY BOLANOS110 Primary RICKY PERRYB: [place] JEAN Insurance:[place]ARE[id number] Number[place] Hospital [id number]: ([phone] [id number] Repository [address] () Date:0844-30-41[address] [address]HX: 11/13/2018 Secondary NOT GIVENUNK [place] Insurance:SELF PAY [facility] Number: Effective Repository Date:2018-11-13 11/02/2018 RICKY BOLANOS110 Primary RICKY PERRYB: [place] JEAN Insurance:[employer]ARE[id number] Number: Hospital [id number]: 330 [id number] Repository 2313 () Date:6494-94-44UZ [address] [address]YE: 11/02/2018 Secondary NOT GIVENUNK [place] Insurance:SELF PAY [facility] Effective Repository Date:2018-11-02 11/02/2018 RICKY BOLANOS110 Primary RICKY BOLANOSDOB: [place] JEAN Insurance:[employer]ARE[place] [id number] [place] icy Number: Hospital [id number]: 330 [id number] Repository 231 () Date:3049-67-88LB [address] [address]SK: 11/02/2018 Secondary NOT GIVENUNK [place] Insurance:SELF PAY [facility] Number: Effective Repository Date:2018-11-02 10/22/2018 RICKY ABDUL Primary RICKY BOLANOSDOB: [place] JEAN Insurance:[employer]ARE[employer] [id number] [place] icy Number: Hospital [id number]: 330 [id number] Repository 231 () Date:9853-82-69QD [address] [address]MV: 10/22/2018 Secondary NOT GIVENUNK [place] Insurance:SELF PAY [facility] Number: Effective Repository Date:2018-10-22 10/11/2018 RICKY BOLANOS110 Primary RICKY BOLANOSDOB: [place] JEAN Insurance:[employer]ARE[employer] [id number] [place] icy Number: Hospital [id number]: 330 [id number] Repository [address]13 () Date:8085-34-10DY [facility] [address] [place] [address]RQ: 10/11/2018 Secondary NOT GIVENUNK [place] Insurance:SELF PAY [facility] Number: Effective Repository Date:2018-10-11 10/11/2018 RICKY BOLANOS110 Primary RICKY BOLANOSDOB: [place] JEAN Insurance:[employer] [id number] [place] icy Number: Hospital [id number]: (005) [id number] Repository [address]13 () Date:7006-63-26CZ [address] [address]RI: 10/11/2018 Secondary NOT GIVENUNK [place] Insurance:SELF PAY [facility] Number: Effective Repository Date:2018-10-11 10/11/2018 RICKY ABDUL Primary RICKY BOLANOSDOB: [place] JEAN Insurance:[employer]ARE[place] [id number] Number: Hospital [id number]: 330 [id number] Repository [address] () Date:5224-82-07RX [address] [address]LU: 10/11/2018 Secondary NOT GIVENUNK [place] Insurance:SELF PAY [facility] Number: Effective Repository Date:2018-10-11 10/11/2018 RICKY BOLANOS110 Primary RICKY BOLANOSDOB: [place] JEAN Insurance:[employer]ARE[id number] Number: Hospital [id number]: 330 [id number] Repository [address] () Date:2923-97-07LS [address] [address]JB: 10/11/2018 Secondary NOT GIVENUNK [place] Insurance:SELF PAY [facility] Number: Effective Repository Date:2018-10-11 10/11/2018 RICKY BOLANOS110 Primary RICKY BOLANOSDOB: [place] JEAN Insurance:[employer]ARE[place] [id number] Number: Hospital [id number]: 330 [id number] Repository [address]13 () Date:0381-09-24BS [address] [address]CM: 10/11/2018 Secondary NOT GIVENUNK [place] Insurance:SELF PAY [facility] Number: Effective Repository Date:2018-10-11 10/11/2018 RICKY BOLANOS110 Primary RICKY BOLANOSDOB: [place] JEAN Insurance:[employer] [id number] [place] icy Number: Hospital [id number]: 330 [id number] Repository (HP) Date:4153-82-69VW [address] [place] [address]VN: 10/11/2018 Secondary NOT GIVENUNK [place] Insurance:SELF PAY Community [facility] Number: Effective Repository Date:2018-10-11 10/11/2018 RICKY ABDUL Primary RICKY BOLANOSDOB: [place] JEAN Insurance:[employer]ARE[employer] [id number] [place] icy Number: Hospital [id number]: 330 [id number] Repository (HP) Date:7506-05-30KH [address] [address]VJ: 10/11/2018 Secondary NOT GIVENUNK [place] Insurance:SELF PAY Community [facility] Number: Effective Repository Date:2018-10-11 10/11/2018 RICKY BOLANOS110 Primary RICKY BOLANOSDOB: [place] JEAN Insurance:[employer] [id number] [place] icy Number: Hospital [id number]: 330 [id number] Repository () Date:8208-96-97TV [facility] [address] [place] [address]YO: 10/11/2018 Secondary NOT GIVENUNK [place] Insurance:SELF PAY Community [facility] Hospital Number: Effective Repository Date:2018-10-11 10/11/2018 RICKY ABDUL Primary RICKY BOLANOSDOB: [place] JEAN Insurance:[employer] [id number] [place] Number: Hospital [id number]: 330 [id number] Repository () Date:3761-80-43GA [facility] [address] [place] [address]CX: 10/11/2018 Secondary NOT GIVENUNK [place] Insurance:SELF PAY Community [facility] Hospital Number: Effective Repository Date:2018-10-11 10/11/2018 RICKY BOLANOS110 Primary RICKY BOLANOSDOB: [place] JEAN Insurance:[employer]ARE[employer] [id number] [place] icy Number: Hospital [id number]: (330 [id number] Repository 2313 (HP) Date:7166-74-69ZO [facility] [address] [place] [address]NW: 10/11/2018 Secondary NOT GIVENUNK [place] Insurance:SELF PAY Community [facility] Number: Effective Repository Date:2018-10-11 10/10/2018 RICKY BOLANOS110 Primary RICKY BOLANOSDOB: [place] JEAN Insurance:[employer]ARE[place] [id number] [place] icy Number: Hospital [id number]: 330 [id number] Repository 231 (HP) Date:0083-49-08VZ [facility] [address] [place] [phone]: 10/10/2018 Secondary NOT GIVENUNK [place] Insurance:SELF PAY [facility]: Effective Repository Date:2018-10-09 10/09/2018 RICKY BOLANOS110 Primary RICKY BOLANOSDOB: Kuldeep JEAN Insurance:[employer]AREPol [id number] [place] icy Number: Hospital [id number]: 330 [id number] Repository 231 (HP) Date:0032-86-21ZU [address] [address]KB: 10/09/2018 Secondary NOT GIVENUNK [place] Insurance:SELF PAY [facility] Number: Effective Repository Date:2018-10-09 10/09/2018 RICKY BOLANOS110 Primary RICKY BOLANOSDOB: [place] JEAN Insurance:[employer]ARE[place] [id number] [place] icy Number: Hospital [id number]: 330 [id number] Repository [phone] () Date:7624-56-03EY [facility] [address] [place] [phone]: 10/09/2018 Secondary NOT GIVENUNK [place] Insurance:SELF PAY [facility] Number: Effective Repository Date:2018-10-09 10/06/2018 RICKY ABDUL Primary RICKY PERRYB: [place] JEAN Insurance:[employer]ARE[place] [id number] [place] icy Number: Hospital [id number]: 330 [id number] Repository 231 (HP) Date:4016-71-50NZ[address] [address]WY: 10/06/2018 Secondary NOT GIVENUNK [place] Insurance:SELF PAY [facility] Number: Effective Repository Date:2018-09-30 08/03/2018 RICKY ABDUL Primary RICKY PERRYB: Kuldeep JEAN Insurance:[employer]ARE[employer] [id number] [place] icy Number: Hospital [id number]: 330 [id number] Repository 231 () Date:3340-97-19HC [address] [address]SQ: 08/03/2018 Secondary NOT GIVENUNK [place] Insurance:SELF PAY [facility] Number: Effective Repository Date:2018-08-03 08/03/2018 RICKY ABDUL Primary RICKY PERRYB: [place] JEAN Insurance:[employer] [id number] [place] icy Number: Hospital [id number]: 330 [id number] Repository [phone] (HP) Date:7195-30-49SQ[address] [address]CC: 08/03/2018 Secondary NOT GIVENUNK [place] Insurance:SELF PAY [facility] Number: Effective Repository Date:2018-08-03 07/29/2018 RICKY ABDUL Primary RICKY PERRYB: [place] JEAN Insurance:[employer] [id number] [place] icy Number: Hospital [id number]: 330 [id number] Repository 231 (HP) Date:4841-35-20QH [address] [place] [address]VD: 07/29/2018 Secondary NOT GIVENUNK [place] Insurance:SELF PAY [facility] Number: Effective Repository Date:2018-07-28 06/23/2018 RICKY PERRYB: Primary RICKY BOLANOSDOB: [facility] Insurance:AULTCARE [id number] Foundation JEAN [id number] Number: JEAN Repository [place], [place] [id number] [id number] Date:2018-05-08Tel: [phone] [email or web address]: [id number] [phone] Name:PHONE CIRCUIT OPERATOR Box ()Tel: (000) (HP)Tel: [phone] [place] [address] [phone] () [id number]: 06/12/2018 Ricky Abdul Primary Ricky PerryB: [place] JEAN [facility] [id number] Number: [facility] [address]Vlq: [phone] [id number] Repository [phone] (HP) Date:1764-74-08UF [address] [place] [id number]: 06/12/2018 Secondary NOT GIVENUNK [place] Insurance:SELF PAY [facility] Number: Effective Repository Date:2018-06-12 05/26/2018 RICKY PERRYB: Primary RICKY BOLANOSDOB: [facility] Insurance:AULTCARE [id number] Foundation JEAN [id number] Number: JEAN Repository [place], [place] [id number] [address]~ROSEJONES7 Date:2018-05-0866039Nox: [phone] [email or web address]: 8411-50-19Npds-31plan [phone] Name:PHONE CIRCUIT OPERATOR Box ()Tel: [phone]) (HP)Tel: [phone] [place], [place] [phone] ([phone] (WP) [phone]:
== END ==
PROVIDERS: Family Provider Family Medicine; PCP Family Medicine; Referring Provider Surgery; Visit Provider Surgery
DX: K80.20 Calculus of gallbladder without cholecystitis without obstruction (principal)
CPT/HCPCS: 76705

== ENCOUNTER 2018-10-11 15:45 | Inpatient (IN) | payer OTHER, SELFPAY ==
[2018-10-11 15:46] VITALS: BP 147/86; PULSE 112; RESP 18; TEMP 36.6; O2SAT 96; BMI 37.9
[2018-10-11 15:54] VITALS: BP 124/60; PULSE 146; RESP 18; O2SAT 100
[2018-10-11] MEDS: 0.9% Normal Saline 1,000 ML 1000 ML IV (16:01)
[2018-10-11] MEDS: Ondansetron 4 MG/2 ML Vial IV ×2 (16:06→21:27)
[2018-10-11] MEDS: Morphine 4 MG/ML Syringe IV ×2 (16:06→18:18)
[2018-10-11 16:19] LABS: Absolute Lymphocyte Count 1.26 X10^3/ul (0.83-4.51); Absolute Neutrophil Count 9.1 X10^3/uL (2.0-7.7); Basophil# 0.01 X10^3/uL; Basophil% 0.1 % (0-1); Hematocrit 45.8 % (37-47); Hemoglobin 14.9 g/dl (12.0-15.0); Lymphocyte # 1.26 X10^3/ul (4.0); Lymphocyte % 11.5 % (19-41); Mean Corp Hgb Conc 32.5 g/gl (32-36); Mean Corpuscular Volume 92.2 fL (81-99); Mean Platelet Vol. 10.1 fl (6.2-12.0); Monocyte# 0.52 X10^3/uL; Monocyte% 4.8 % (0-10); Neutrophil # 9.11 X10^3/uL (2.7-7.7); Neutrophil % 83.4 % (47-70); Platelet Count 300 K/mm3 (150-450); RBC Distribution Width CV 13.1 % (11.6-14.6); Red Blood Count 4.97 M/mm3 (4.2-5.4); White Blood Count 10.9 K/mm3 (4.4-11.0)
[2018-10-11 16:20] LABS: POSITIVE COUNT NO; POSITIVE DIFFERENTIAL NO; POSITIVE MORPHOLOGY NO
[2018-10-11 16:33] LABS: ALB/GLOB Ratio 0.9 RATIO (0.9-2.4); AST(SGOT) 66 U/L (15-37); Alanine Aminotransfer ALT/SGPT 62 U/L (13-56); Albumin, Serum 3.5 g/dL (3.2-5.0); Alkaline Phosphatase 100 U/L (45-117); Anion Gap 12 (5-15); BUN 20 mg/dL (7-18); BUN/Creat Ratio 15.3 RATIO (10-20); Calcium,Total 8.8 mg/dL (8.5-10.1); Chloride 104 mmol/L (98-107); Creatinine, Serum 1.31 mg/dL (0.55-1.02); EST Glomerular Filtration Rate 44 mL/min (>60); Est Glom Filt Rate - Afr Amer 53 mL/min (>60); Estimated Creatinine Clearance 42.22 ml/min; Globulin 3.9 g/dL (2.2-4.2); Glucose 196 mg/dL (74-106); Potassium 3.5 mmol/L (3.5-5.1); Protein, Total 7.4 g/dL (6.4-8.2); Sodium Level 142 mmol/L (136-145)
--- NOTE | 2018-10-11 16:37 | EKG12_ITS ---
Test Reason : NAUSEA/VOMITING Blood Pressure : / mmHG Vent. Rate : 098 BPM Atrial Rate : 108 BPM P-R Int : 000 ms QRS Dur : 082 ms QT Int : 368 ms P-R-T Axes : 000 013 009 degrees QTc Int : 469 ms Atrial fibrillation with premature ventricular or aberrantly conducted complexes Nonspecific ST abnormality Abnormal ECG Confirmed by JAKOB HERRERA, MIKE ([id number]), editor publications MAICOL VALDOVINOS ([id number]) on 10/14/2018 3:09:34 PM Referred By: PEACE MCKINNEY Confirmed By:MIKE ROBERT MD
[2018-10-11 16:46] LABS: Lipase 33033 U/L (73-393)
[2018-10-11 17:00] LABS: Lactic Acid 3.9 mmol/L (0.4-2.0)
[2018-10-11 17:01] LABS: Reflex Lactate? Y
--- NOTE | 2018-10-11 17:01 | NURSING ---
[facility]
--- NOTE | 2018-10-11 17:03 | ED.DCSUM_ITS ---
- ER Visit Summary Date of Service: 10/11/18 Chief Complaint: [Abdominal pain and vomiting] History of Present Illness: The patient is a 62 F [presents to the emergency department complaint of abdominal pain and vomiting that started around 3 AM. Patient comes in stating that she thinks it is her gallbladder. Patient states that she is scheduled to have her gallbladder removed this coming week by Dr. Last. Patient's been having pain off and on for some time and recently had CAT scans of her abdomen as well as an ultrasound of her abdomen. Patient denies any fevers. Patient does state that she was on antibiotics recently but is not sure why she was on them but she is no longer currently on them. Patient denies urinary symptoms. Patient describes the pain is in the upper abdomen and severe. She denies any pain into her back.] Physical Examination: [HEENT-PERRLA, EOMI. Cranial nerves II through XII grossly intact. TMs clear. Mucous membranes moist. No adenopathy. Cardiovascular-irregularly irregular. No murmurs auscultated. Lungs-clear to auscultation, chest wall stable without crepitus or subcu emphysema Abdomen-normoactive bowel sounds, soft. Patient has some diffuse tenderness to palpation to the upper abdomen. No rebound, rigidity, or peritoneal signs noted. Extremities-intact ?4, normal range of motion, normal pulses, atraumatic] Test Results: [EKG obtained on arrival showed A. fib with a ventricular rate of 90 bpm with some nonspecific ST changes. CBC with differential showed a white count of 10.9, hemoglobin 14.9, hematocrit 46, platelet 300. Chemistries unremarkable. BUN was 20 and creatinine 1.31. LFTs obtained showed a total bilirubin of 1.6, alk phos 100, ALT 62, AST 66, lipase 33,300. Lactate was elevated at 3.9.] Emergency Department Course and Treatment: [Patient was medicated with normal saline and treated with morphine and Zofran. Patient did have pain relief with that. Case was discussed with Dr. Dylan Cisneros who will admit patient to hospital for gallstone pancreatitis.] Treatment Plan: [Admit] Disposition: [Admit] Impression: [Gallstone pancreatitis] This note was generated with [employer] dictation software. It may contain incorrect words, spelling, and punctuation that were not noted in review of the chart prior to signing ED Disposition - Plan for ED Patient: Chief Complaint: Nausea/Vomiting Referrals: Jamarcus Toro MD [Primary Care Provider] -
[2018-10-11] MEDS: 0.9% Normal Saline 1,000 ML 999 ML IV ×2 (17:04→18:57)
[2018-10-11 17:05] VITALS: BP 149/83; PULSE 104; RESP 16; TEMP 36.9; O2SAT 99
--- NOTE | 2018-10-11 17:34 | NURSING ---
DR SERNA IN ER
--- NOTE | 2018-10-11 17:40 | NURSING ---
pt notes that she is still does not feel that she can urinate.resting comfortably in cot.
--- NOTE | 2018-10-11 18:11 | PCM.HP.STD ---
Problem List (1) Gallstone pancreatitis Status: Acute History of Present Illness Date of Admission: 10/11/18 The patient is a 62 year old F who was in the office this past week and had a gallbladder ultrasound ordered. She said she had an ultrasound yesterday and this morning at 3 AM she began to have severe epigastric pain as well as nausea and vomiting. She had vomiting throughout the morning and presented to the emergency room. She says she is not having any fevers or chills but she is having some shaking. Her abdominal pain is epigastric in nature and does radiate to the back and right upper quadrant. Past Medical History Past Medical History (Chronic Problems): Chronic Problems (Last Updated 10/11/18 @ 17:28 by Celina Last MD) Myocardial infarction (Chronic) Atrial fibrillation (Chronic) Medical History: Medical History (Last Updated 10/11/18 @ 17:28 by Celina Last MD) Myocardial infarction (Chronic) I21.9 Atrial fibrillation (Chronic) I48.91 Abdominal pain R10.9 Acid reflux K21.9 Anxiety F41.9 Gallstones K80.20 Nausea & vomiting R11.2 Hypertension I10 pyloromyotomy Allergies ketorolac tromethamine [From Toradol] Allergy (Verified 10/09/18 14:39) Hives Home Medications: Ambulatory Orders Medication Instructions Recorded Digoxin [Lanoxin] 250 mcg PO DAILY 12/13/13 Metoprolol(XL)Succ [Toprol Xl] 75 mg PO BID 12/13/13 lisinopril 10 mg tablet 20 mg PO DAILY tab 08/03/18 rivaroxaban 20 mg tablet 20 mg PO DAILY 08/03/18 spironolactone 25 mg tablet 25 mg PO DAILY tab 08/03/18 Surgical History: Surgical History (Last Reviewed 10/09/18 @ 14:39 by Charley Gaytan) History of hysterectomy Z90.710 History of tonsillectomy Z90.89 Surgical History: hysterectomy - uterine fibroids, tonsillectomy Smoking Status: Never smoker - *Family History Maternal Family History: Family History (Last Reviewed 10/09/18 @ 14:39 by Charley Gaytan) Mother Arthritis High cholesterol Diabetes Heart disease Hypertension CVA (cerebral vascular accident) Father Diabetes Heart disease High cholesterol Hypertension Review of Systems Constitutional: Reports: Anorexia, Chills. Denies: Fever Eyes: Denies: Blurred vision HEENT: Denies: Difficulty Swallowing Cardiovascular: Denies: Chest Pain Respiratory: Denies: Cough, Shortness of Breath Gastrointestinal: Reports: Abdominal Pain, Nausea, Vomiting. Denies: Diarrhea, Hematemesis, Hematochezia, Melena Genitourinary: Denies: Dysuria Musculoskeletal: Denies: Joint Tenderness Skin: Denies: Dryness Neurological: Denies: Difficulty swallowing Psychiatric: Denies: Anxiety Hematologic/ Lymphatic: Denies: Anemia VTE Information - Inpt Only VTE Present on Admission: No VTE Mechan Device Prophylaxis: SCD's Patient Problems: Active and Suspected Problems (Last Updated 10/11/18 @ 17:28 by Celina Last MD) Gallstone pancreatitis (Acute) - Physical Exam General: Alert, Oriented x3, Cooperative HEENT: Atraumatic, PERRLA, EOMI, Normocephalic Neck: No JVD Lungs: Normal air movement Cardiovascular: Regular rate, Regular Rhythm Abdomen: Soft, Non-Distended, Tender - Tender in the epigastric and right upper quadrant Skin: No rashes Musculoskeletal: No Muscle Wasting Neurological: Cranial nerves II-XII grossly intact Psych/Mental Status: Normal Affect, Appropriate Vital Signs Temp Pulse Resp BP Pulse Ox 98.4 F 104 H 16 149/83 H 99 10/11/18 17:05 10/11/18 17:05 10/11/18 17:05 10/11/18 17:05 10/11/18 17:05 Oxygen Delivery Method Room Air Weight: 234 lb 12.677 oz Body Mass Index (BMI) 37.9 Laboratory Tests Past 24 Hrs 10/11/18 10/11/18 10/11/18 15:33 15:33 16:15 WBC 10.9 RBC 4.97 Hgb 14.9 Hct 45.8 MCV 92.2 MCH 30.0 MCHC 32.5 RDW 13.1 RDW Differential 44.0 H Plt Count 300 MPV 10.1 Immature Gran % (Auto) 0.200 Neut % (Auto) 83.4 H Lymph % (Auto) 11.5 L [place] % (Auto) 4.8 Eos % (Auto) 0.0 Baso % (Auto) 0.1 Absolute Neuts (auto) 9.1 H Absolute Lymphs (auto) 1.26 Total Counted Not Reportable Sodium 142 Potassium 3.5 Chloride 104 Carbon Dioxide 26.0 Anion Gap 12 BUN 20 H Creatinine 1.31 H Estim Creat Clear Calc 42.22 Est GFR (MDRD) Af Amer 53 L Est GFR (MDRD) Non-Af 44 L BUN/Creatinine Ratio 15.3 Glucose 196 H Lactic Acid 3.9 H Calcium 8.8 Total Bilirubin 1.60 H AST 66 H ALT 62 H Alkaline Phosphatase 100 Total Protein 7.4 Albumin 3.5 Globulin 3.9 Albumin/Globulin Ratio 0.9 Lipase 25614 H Assessment/Plan All Active Problems (Last Updated 10/11/18 @ 17:28 by Celina Last MD) Gallstone pancreatitis (Acute) 62-year-old female with gallstone pancreatitis 1. The patient has multiple gallstones on her ultrasound which was done yesterday and her gallbladder is at the upper limit of normal. Her white count is normal today. Her LFTs are slightly elevated. There was slight dilation of her common bile duct. 2. I will admit the patient keep her n.p.o. overnight. I will bolus her with fluids but I need to be conservative with my fluid management as the patient has a history of CHF. She is also on spironolactone and several medication. Her last dose of Xarelto was last night and I am holding this. We will check strict I's and O's and bolus as needed. 3. I explained that if the patient's LFTs increase overnight I will take her for an ERCP tomorrow to remove the stone. If her LFTs improve she will be taken for laparoscopic cholecystectomy once her Xarelto has worn off by Dr. Last. Dylan Tran MD Pager: [facility] [address] [place] [address], [address] [place] [phone] Office:
--- NOTE | 2018-10-11 18:14 | HP.PCM_ITS ---
Problem List (1) Gallstone pancreatitis Status: Acute History of Present Illness Date of Admission: 10/11/18 The patient is a 62 year old F who was in the office this past week and had a gallbladder ultrasound ordered. She said she had an ultrasound yesterday and this morning at 3 AM she began to have severe epigastric pain as well as nausea and vomiting. She had vomiting throughout the morning and presented to the emergency room. She says she is not having any fevers or chills but she is having some shaking. Her abdominal pain is epigastric in nature and does radiate to the back and right upper quadrant. Past Medical History Past Medical History (Chronic Problems): Chronic Problems (Last Updated 10/11/18 @ 17:28 by Celina Last MD) Myocardial infarction (Chronic) Atrial fibrillation (Chronic) Medical History: Medical History (Last Updated 10/11/18 @ 17:28 by Celina Last MD) Myocardial infarction (Chronic) I21.9 Atrial fibrillation (Chronic) I48.91 Abdominal pain R10.9 Acid reflux K21.9 Anxiety F41.9 Gallstones K80.20 Nausea & vomiting R11.2 Hypertension I10 pyloromyotomy Allergies ketorolac tromethamine [From Toradol] Allergy (Verified 10/09/18 14:39) Hives Home Medications: Ambulatory Orders Medication Instructions Recorded Digoxin [Lanoxin] 250 mcg PO DAILY 12/13/13 Metoprolol(XL)Succ [Toprol Xl] 75 mg PO BID 12/13/13 lisinopril 10 mg tablet 20 mg PO DAILY tab 08/03/18 rivaroxaban 20 mg tablet 20 mg PO DAILY 08/03/18 spironolactone 25 mg tablet 25 mg PO DAILY tab 08/03/18 Surgical History: Surgical History (Last Reviewed 10/09/18 @ 14:39 by Charley Gaytan) History of hysterectomy Z90.710 History of tonsillectomy Z90.89 Surgical History: hysterectomy - uterine fibroids, tonsillectomy Smoking Status: Never smoker - *Family History Maternal Family History: Family History (Last Reviewed 10/09/18 @ 14:39 by Charley Gaytan) Mother Arthritis High cholesterol Diabetes Heart disease Hypertension CVA (cerebral vascular accident) Father Diabetes Heart disease High cholesterol Hypertension Review of Systems Constitutional: Reports: Anorexia, Chills. Denies: Fever Eyes: Denies: Blurred vision HEENT: Denies: Difficulty Swallowing Cardiovascular: Denies: Chest Pain Respiratory: Denies: Cough, Shortness of Breath Gastrointestinal: Reports: Abdominal Pain, Nausea, Vomiting. Denies: Diarrhea, Hematemesis, Hematochezia, Melena Genitourinary: Denies: Dysuria Musculoskeletal: Denies: Joint Tenderness Skin: Denies: Dryness Neurological: Denies: Difficulty swallowing Psychiatric: Denies: Anxiety Hematologic/ Lymphatic: Denies: Anemia VTE Information - Inpt Only VTE Present on Admission: No VTE Mechan Device Prophylaxis: SCD's Patient Problems: Active and Suspected Problems (Last Updated 10/11/18 @ 17:28 by Celina Last MD) Gallstone pancreatitis (Acute) - Physical Exam General: Alert, Oriented x3, Cooperative HEENT: Atraumatic, PERRLA, EOMI, Normocephalic Neck: No JVD Lungs: Normal air movement Cardiovascular: Regular rate, Regular Rhythm Abdomen: Soft, Non-Distended, Tender - Tender in the epigastric and right upper quadrant Skin: No rashes Musculoskeletal: No Muscle Wasting Neurological: Cranial nerves II-XII grossly intact Psych/Mental Status: Normal Affect, Appropriate Vital Signs Temp Pulse Resp BP Pulse Ox 98.4 F 104 H 16 149/83 H 99 10/11/18 17:05 10/11/18 17:05 10/11/18 17:05 10/11/18 17:05 10/11/18 17:05 Oxygen Delivery Method Room Air Weight: 234 lb 12.677 oz Body Mass Index (BMI) 37.9 Laboratory Tests Past 24 Hrs 10/11/18 10/11/18 10/11/18 15:33 15:33 16:15 WBC 10.9 RBC 4.97 Hgb 14.9 Hct 45.8 MCV 92.2 MCH 30.0 MCHC 32.5 RDW 13.1 RDW Differential 44.0 H Plt Count 300 MPV 10.1 Immature Gran % (Auto) 0.200 Neut % (Auto) 83.4 H Lymph % (Auto) 11.5 L [place] % (Auto) 4.8 Eos % (Auto) 0.0 Baso % (Auto) 0.1 Absolute Neuts (auto) 9.1 H Absolute Lymphs (auto) 1.26 Total Counted Not Reportable Sodium 142 Potassium 3.5 Chloride 104 Carbon Dioxide 26.0 Anion Gap 12 BUN 20 H Creatinine 1.31 H Estim Creat Clear Calc 42.22 Est GFR (MDRD) Af Amer 53 L Est GFR (MDRD) Non-Af 44 L BUN/Creatinine Ratio 15.3 Glucose 196 H Lactic Acid 3.9 H Calcium 8.8 Total Bilirubin 1.60 H AST 66 H ALT 62 H Alkaline Phosphatase 100 Total Protein 7.4 Albumin 3.5 Globulin 3.9 Albumin/Globulin Ratio 0.9 Lipase 46719 H Assessment/Plan All Active Problems (Last Updated 10/11/18 @ 17:28 by Celina Last MD) Gallstone pancreatitis (Acute) 62-year-old female with gallstone pancreatitis 1. The patient has multiple gallstones on her ultrasound which was done yesterday and her gallbladder is at the upper limit of normal. Her white count is normal today. Her LFTs are slightly elevated. There was slight dilation of her common bile duct. 2. I will admit the patient keep her n.p.o. overnight. I will bolus her with fluids but I need to be conservative with my fluid management as the patient has a history of CHF. She is also on spironolactone and several medication. Her last dose of Xarelto was last night and I am holding this. We will check strict I's and O's and bolus as needed. 3. I explained that if the patient's LFTs increase overnight I will take her for an ERCP tomorrow to remove the stone. If her LFTs improve she will be taken for laparoscopic cholecystectomy once her Xarelto has worn off by Dr. Last. Dylan Tran MD Pager: [facility] [address] [place] [address], [address] [place] [phone] Office:
[2018-10-11 18:42] VITALS: BMI 37.9
[2018-10-11 18:44] VITALS: BP 146/88; PULSE 107; RESP 18; TEMP 36.4; O2SAT 100
[2018-10-11 20:03] VITALS: BP 150/90; PULSE 93; RESP 18; TEMP 36.9; O2SAT 100
[2018-10-11] MEDS: 0.9% Normal Saline 1,000 ML 125 ML IV (20:11)
[2018-10-11 21:10] LABS: Lactic Acid 2.3 mmol/L (0.4-2.0)
[2018-10-11 21:19] VITALS: PULSE 107
[2018-10-11] MEDS: Metoprolol(XL)Succ 50 MG Tablet 75 MG PO (21:19)
[2018-10-11] MEDS: Piperacil/Tazobactam 3.375 GM/50 ML ML IV (21:19)
[2018-10-11] MEDS: HYDROmorphone 1 MG/ML Syringe IV (21:27)
[2018-10-12] VITALS (16 sets, daily range): BP systolic 126–153; BP diastolic 68–111; PULSE 92–140; RESP 16–18; TEMP 36.2–37.2; O2SAT 85–100; BMI 37.7
[2018-10-12] MEDS: HYDROmorphone 1 MG/ML Syringe IV ×4 (02:45→19:48)
[2018-10-12] MEDS: Piperacil/Tazobactam 3.375 GM/50 ML ML IV ×3 (05:13→23:05)
[2018-10-12 06:22] LABS: Absolute Lymphocyte Count 2.11 X10^3/ul (0.83-4.51); Absolute Neutrophil Count 10.4 X10^3/uL (2.0-7.7); Basophil# 0.01 X10^3/uL; Basophil% 0.1 % (0-1); Eosinophil# 0.02 X10^3/uL; Eosinophils% 0.2 % (0-5); Hematocrit 40.6 % (37-47); Hemoglobin 12.7 g/dl (12.0-15.0); Lymphocyte # 2.11 X10^3/ul (4.0); Mean Corp Hgb Conc 31.3 g/gl (32-36); Mean Corpuscular Hgb 30.1 pg (27.0-32.0); Mean Corpuscular Volume 96.2 fL (81-99); Mean Platelet Vol. 10.7 fl (6.2-12.0); Monocyte% 4.6 % (0-10); Neutrophil # 10.41 X10^3/uL (2.7-7.7); Neutrophil % 78.9 % (47-70); Platelet Count 263 K/mm3 (150-450); RBC Distribution Width CV 13.4 % (11.6-14.6); RBC Distribution Width SD 45.6 fl (35.1-43.9); Red Blood Count 4.22 M/mm3 (4.2-5.4); White Blood Count 13.2 K/mm3 (4.4-11.0)
[2018-10-12 06:34] LABS: POSITIVE COUNT NO; POSITIVE DIFFERENTIAL NO; POSITIVE MORPHOLOGY NO
[2018-10-12 06:53] LABS: ALB/GLOB Ratio 0.9 RATIO (0.9-2.4); AST(SGOT) 34 U/L (15-37); Alanine Aminotransfer ALT/SGPT 45 U/L (13-56); Albumin, Serum 2.8 g/dL (3.2-5.0); Alkaline Phosphatase 79 U/L (45-117); Anion Gap 10 (5-15); BUN 18 mg/dL (7-18); BUN/Creat Ratio 15.1 RATIO (10-20); Calcium,Total 7.5 mg/dL (8.5-10.1); Chloride 110 mmol/L (98-107); Creatinine, Serum 1.19 mg/dL (0.55-1.02); EST Glomerular Filtration Rate 49 mL/min (>60); Est Glom Filt Rate - Afr Amer 59 mL/min (>60); Estimated Creatinine Clearance 46.48 ml/min; Globulin 3.2 g/dL (2.2-4.2); Glucose 111 mg/dL (74-106); Lipase 8989 U/L (73-393); Magnesium 2.1 mg/dL (1.6-2.6); Phosphorus 3.9 mg/dL (2.5-4.9); Potassium 3.6 mmol/L (3.5-5.1); Sodium Level 147 mmol/L (136-145)
[2018-10-12] MEDS: 0.9% Normal Saline 1,000 ML 125 ML IV ×2 (09:00→17:29)
--- NOTE | 2018-10-12 11:00 | RAD_ITS ---
PROCEDURE: INTRAOPERATIVE CHOLANGIOGRAM. REASON FOR EXAM: Female, 62 years old. Cholelithiasis, abdominal pain. FLUOROSCOPY TIME (if supplied): (0:42) minutes/seconds TECHNIQUE: Real-time fluoroscopy was provided during intraoperative contrast infusion via the cystic duct. 3 cine runs with a total of 128 images and 2 additional static fluoroscopic spot films are submitted. COMPARISON: Right quadrant ultrasound October 10, 2018; CT abdomen and pelvis October 06, 2018.. FINDINGS: Dilated intra-and extrahepatic bile ducts. There is backflow of contrast into the collapsed gallbladder. Question of filling/stones in the cystic duct near the point of injection, but no common bile duct stone is seen. Contrast flows to the duodenum. RAD/Cholangiogram/ O R,Initial IMPRESSION: Intra and extrahepatic bile duct ectasia. Question of small stones clustered in the cystic duct near the point of contrast injection. There is no demonstrated common bile duct stone, and contrast flows into the duodenum.. Electronically Signed: Leonardo Stewart MD at 15:00 EST , Service support ,
--- NOTE | 2018-10-12 11:14 | PCM.PN.SRG ---
Patient Problems: Active and Suspected Problems (Last Updated 10/11/18 @ 17:28 by Celina Last MD) Gallstone pancreatitis (Acute) Subjective: Patient complains of diffuse abdominal pain mostly in the epigastric and right upper quadrant, controlled with pain meds, overall pain has improved some. Patient initially had some nausea and vomiting on presentation. Patient's LFTs have gone back down to within normal limits this morning her lipase has decreased from 33,000-> 8900 - Physical Exam General: Alert, Oriented x3, Cooperative, No apparent distress HEENT: Atraumatic Lungs: Normal air movement Cardiovascular: Regular rate Abdomen: Soft, Non-Distended, Tender - Diffusely mainly in the epigastric and right upper quadrant, voluntary guarding Vital Signs Temp Pulse Resp BP Pulse Ox 97.9 F 92 18 135/72 H 99 10/12/18 10:35 10/12/18 10:35 10/12/18 10:35 10/12/18 10:35 10/12/18 10:35 Oxygen Delivery Method Room Air Weight: 234 lb 12.677 oz Body Mass Index (BMI) 37.7 Intake and Output for Last 24 Hours 10/10/18 10/11/18 10/12/18 23:59 23:59 23:59 Intake Total 1532 / 1532 765 / 765 Output Total 225 / 225 400 / 400 Balance 1307 / 1307 365 / 365 Laboratory Tests Past 24 Hrs 10/11/18 10/11/18 10/11/18 15:33 15:33 16:15 WBC 10.9 RBC 4.97 Hgb 14.9 Hct 45.8 MCV 92.2 MCH 30.0 MCHC 32.5 RDW 13.1 RDW Differential 44.0 H Plt Count 300 MPV 10.1 Immature Gran % (Auto) 0.200 Neut % (Auto) 83.4 H Lymph % (Auto) 11.5 L Stephen[place] % (Auto) 4.8 Eos % (Auto) 0.0 Baso % (Auto) 0.1 Absolute Neuts (auto) 9.1 H Absolute Lymphs (auto) 1.26 Total Counted Not Reportable Sodium 142 Potassium 3.5 Chloride 104 Carbon Dioxide 26.0 Anion Gap 12 BUN 20 H Creatinine 1.31 H Estim Creat Clear Calc 42.22 Est GFR (MDRD) Af Amer 53 L Est GFR (MDRD) Non-Af 44 L BUN/Creatinine Ratio 15.3 Glucose 196 H Lactic Acid 3.9 H Calcium 8.8 Phosphorus Magnesium Total Bilirubin 1.60 H AST 66 H ALT 62 H Alkaline Phosphatase 100 Troponin I Total Protein 7.4 Albumin 3.5 Globulin 3.9 Albumin/Globulin Ratio 0.9 Lipase 57645 H 10/11/18 10/11/18 10/12/18 20:15 20:35 05:27 WBC 13.2 H RBC 4.22 Hgb 12.7 Hct 40.6 MCV 96.2 MCH 30.1 MCHC 31.3 L RDW 13.4 RDW Differential 45.6 H Plt Count 263 MPV 10.7 Immature Gran % (Auto) 0.200 Neut % (Auto) 78.9 H Lymph % (Auto) 16.0 L Stephenson % (Auto) 4.6 Eos % (Auto) 0.2 Baso % (Auto) 0.1 Absolute Neuts (auto) 10.4 H Absolute Lymphs (auto) 2.11 Total Counted Not Reportable Sodium Potassium Chloride Carbon Dioxide Anion Gap BUN Creatinine Estim Creat Clear Calc Est GFR (MDRD) Af Amer Est GFR (MDRD) Non-Af BUN/Creatinine Ratio Glucose Lactic Acid 2.3 H Calcium Phosphorus Magnesium Total Bilirubin AST ALT Alkaline Phosphatase Troponin I < 0.015 Total Protein Albumin Globulin Albumin/Globulin Ratio Lipase 10/12/18 05:27 WBC RBC Hgb Hct MCV MCH MCHC RDW RDW Differential Plt Count MPV Immature Gran % (Auto) Neut % (Auto) Lymph % (Auto) Stephenson % (Auto) Eos % (Auto) Baso % (Auto) Absolute Neuts (auto) Absolute Lymphs (auto) Total Counted Sodium 147 H Potassium 3.6 Chloride 110 H Carbon Dioxide 27.0 Anion Gap 10 BUN 18 Creatinine 1.19 H Estim Creat Clear Calc 46.48 Est GFR (MDRD) Af Amer 59 L Est GFR (MDRD) Non-Af 49 L BUN/Creatinine Ratio 15.1 Glucose 111 H Lactic Acid Calcium 7.5 L Phosphorus 3.9 Magnesium 2.1 Total Bilirubin 0.70 AST 34 ALT 45 Alkaline Phosphatase 79 Troponin I Total Protein 6.0 L Albumin 2.8 L Globulin 3.2 Albumin/Globulin Ratio 0.9 Lipase 8989 H Medical Necessity - Tobacco Use Smoking Status: Never smoker Assessment/Plan All Active Problems (Last Updated 10/11/18 @ 17:28 by Celina Last MD) Gallstone pancreatitis (Acute) 62-year-old female with gallstone pancreatitis, cholelithiasis 1. Discussed procedure laparoscopic cholecystectomy with cholangiograms, possible open along with the risk but not limited to bleeding, infection, injury to another organ (small bowel, bile ducts, etc.), which may require transfer to tertiary center, bile leak or retained gallstone requiring ERCP, hernia at incision sites, possible partial cholecystectomy if there is a lot of information, and anesthesia. Patient and her family no further questions at this time. Also discussed the patient that she will would be stay in the hospital until her labs improved along with her pain and she was able to tolerate a diet. Celina Last M.D. Pager: [phone] [facility] [address] [place] [address], [address] [place] [phone] Office: [phone]
--- NOTE | 2018-10-12 11:19 | PN.SURG_ITS ---
Patient Problems: Active and Suspected Problems (Last Updated 10/11/18 @ 17:28 by Celina Last MD) Gallstone pancreatitis (Acute) Subjective: Patient complains of diffuse abdominal pain mostly in the epigastric and right upper quadrant, controlled with pain meds, overall pain has improved some. Patient initially had some nausea and vomiting on presentation. Patient's LFTs have gone back down to within normal limits this morning her lipase has decreased from 33,000-> 8900 - Physical Exam General: Alert, Oriented x3, Cooperative, No apparent distress HEENT: Atraumatic Lungs: Normal air movement Cardiovascular: Regular rate Abdomen: Soft, Non-Distended, Tender - Diffusely mainly in the epigastric and right upper quadrant, voluntary guarding Vital Signs Temp Pulse Resp BP Pulse Ox 97.9 F 92 18 135/72 H 99 10/12/18 10:35 10/12/18 10:35 10/12/18 10:35 10/12/18 10:35 10/12/18 10:35 Oxygen Delivery Method Room Air Weight: 234 lb 12.677 oz Body Mass Index (BMI) 37.7 Intake and Output for Last 24 Hours 10/10/18 10/11/18 10/12/18 23:59 23:59 23:59 Intake Total 1532 / 1532 765 / 765 Output Total 225 / 225 400 / 400 Balance 1307 / 1307 365 / 365 Laboratory Tests Past 24 Hrs 10/11/18 10/11/18 10/11/18 15:33 15:33 16:15 WBC 10.9 RBC 4.97 Hgb 14.9 Hct 45.8 MCV 92.2 MCH 30.0 MCHC 32.5 RDW 13.1 RDW Differential 44.0 H Plt Count 300 MPV 10.1 Immature Gran % (Auto) 0.200 Neut % (Auto) 83.4 H Lymph % (Auto) 11.5 L [place] % (Auto) 4.8 Eos % (Auto) 0.0 Baso % (Auto) 0.1 Absolute Neuts (auto) 9.1 H Absolute Lymphs (auto) 1.26 Total Counted Not Reportable Sodium 142 Potassium 3.5 Chloride 104 Carbon Dioxide 26.0 Anion Gap 12 BUN 20 H Creatinine 1.31 H Estim Creat Clear Calc 42.22 Est GFR (MDRD) Af Amer 53 L Est GFR (MDRD) Non-Af 44 L BUN/Creatinine Ratio 15.3 Glucose 196 H Lactic Acid 3.9 H Calcium 8.8 Phosphorus Magnesium Total Bilirubin 1.60 H AST 66 H ALT 62 H Alkaline Phosphatase 100 Troponin I Total Protein 7.4 Albumin 3.5 Globulin 3.9 Albumin/Globulin Ratio 0.9 Lipase 91268 H 10/11/18 10/11/18 10/12/18 20:15 20:35 05:27 WBC 13.2 H RBC 4.22 Hgb 12.7 Hct 40.6 MCV 96.2 MCH 30.1 MCHC 31.3 L RDW 13.4 RDW Differential 45.6 H Plt Count 263 MPV 10.7 Immature Gran % (Auto) 0.200 Neut % (Auto) 78.9 H Lymph % (Auto) 16.0 L [place] % (Auto) 4.6 Eos % (Auto) 0.2 Baso % (Auto) 0.1 Absolute Neuts (auto) 10.4 H Absolute Lymphs (auto) 2.11 Total Counted Not Reportable Sodium Potassium Chloride Carbon Dioxide Anion Gap BUN Creatinine Estim Creat Clear Calc Est GFR (MDRD) Af Amer Est GFR (MDRD) Non-Af BUN/Creatinine Ratio Glucose Lactic Acid 2.3 H Calcium Phosphorus Magnesium Total Bilirubin AST ALT Alkaline Phosphatase Troponin I < 0.015 Total Protein Albumin Globulin Albumin/Globulin Ratio Lipase 10/12/18 05:27 WBC RBC Hgb Hct MCV MCH MCHC RDW RDW Differential Plt Count MPV Immature Gran % (Auto) Neut % (Auto) Lymph % (Auto) [place] % (Auto) Eos % (Auto) Baso % (Auto) Absolute Neuts (auto) Absolute Lymphs (auto) Total Counted Sodium 147 H Potassium 3.6 Chloride 110 H Carbon Dioxide 27.0 Anion Gap 10 BUN 18 Creatinine 1.19 H Estim Creat Clear Calc 46.48 Est GFR (MDRD) Af Amer 59 L Est GFR (MDRD) Non-Af 49 L BUN/Creatinine Ratio 15.1 Glucose 111 H Lactic Acid Calcium 7.5 L Phosphorus 3.9 Magnesium 2.1 Total Bilirubin 0.70 AST 34 ALT 45 Alkaline Phosphatase 79 Troponin I Total Protein 6.0 L Albumin 2.8 L Globulin 3.2 Albumin/Globulin Ratio 0.9 Lipase 8989 H Medical Necessity - Tobacco Use Smoking Status: Never smoker Assessment/Plan All Active Problems (Last Updated 10/11/18 @ 17:28 by Celina Last MD) Gallstone pancreatitis (Acute) 62-year-old female with gallstone pancreatitis, cholelithiasis 1. Discussed procedure laparoscopic cholecystectomy with cholangiograms, possible open along with the risk but not limited to bleeding, infection, injury to another organ (small bowel, bile ducts, etc.), which may require transfer to tertiary center, bile leak or retained gallstone requiring ERCP, hernia at incision sites, possible partial cholecystectomy if there is a lot of information, and anesthesia. Patient and her family no further questions at this time. Also discussed the patient that she will would be stay in the hospital until her labs improved along with her pain and she was able to tolerate a diet. Celina Last M.D. Pager: [phone] [facility] [address] [place] [address], [address] [place] [phone] Office: [phone]
--- NOTE | 2018-10-12 11:30 | CASEMGMT ---
RONAN WILL Face to Face with patient for initial transition planning/care coordination assessment. RN CM introduced self and role at [facility]. Patient lying in bed, alert and oriented, family at bedside. Patient willing to participate in assessment and is able to answer all questions appropriately. Care providers, pharmacy, and demographics verified. Patient wishes to discharge home, denies need for home health at this time. Patient states she has no further needs or concerns at this time. CM to follow for discharge planning needs that may arise. PCP: [facility] Specialists: None Preferred Pharmacy: [facility] Insurance: [employer] Prescription Benefit: [employer] Living Will/HPOA: None LNOK: Daughter Living Arrangements: Patient lives alone in 2 story house, independent Transportation: Self/Family DME/HHC: Patient denies need for DME Disposition Plan: Patient to discharge home with family support and follow-up plans in place. Rosalba RIVERA, RN, CM
--- NOTE | 2018-10-12 13:00 | GALL_PTH ---
PATIENT: RICKY BOLANOS LOC: MS3 U#:[id number] AGE/SX: 62/F ROOM: MS316 RE10/11/[address]: Dr. Dylan Tran MD : [id number] BED: 1 DIS: 10/15/2018 SPEC #: [id number] RECD: 10/12/18 15:33 STATUS: ELADIA REValeriy #: [id number] MARY: 10/12/18 13:[address]: Dylan Tran DEPT: SURGICAL PATHOLOGY RECD BY: Tyrone Phillips ENTERED: 10/13/18 11:54 SP TYPE: EBENEZER ROCA DR: DO Dr. Jamarcus Stanley MD Tissues: Gallbladder, NOS Procedures: Surgery Specimen Level III HEADER OPERATION: Laparoscopic cholecystectomy with IOC PRE-OP DIAGNOSIS: Cholelithiasis TISSUE SUBMITTED: Gallbladder MICROSCOPIC DIAGNOSIS Gallbladder: Chronic cholecystitis, cholelithiasis and cholesterolosis. SJ:gunjan 10/14/18 MICROSCOPIC DESCRIPTION Slides are reviewed. GROSS DESCRIPTION Received is one container labeled with the patient's name and designated gallbladder. The specimen consists of a gallbladder measuring 10 cm in length and 4 cm in diameter. The external surface is pink-melo, smooth and glistening for the most part. Focally it is granular, hemorrhagic and contains cautery artifact. The gallbladder contains green-yellow mucoid bile and multiple, mulberry-yellowish stones and stone fragments measuring in aggregate 3 x 2.5 x 1 cm and 0.3 to 0.8 cm in greatest dimension. The mucosa also shows several yellowish streaks consistent with cholesterolosis. The mucosa is bile-stained and without any mass lesions. The gallbladder wall measures up to 0.5 cm in thickness. Estate Manager sections from the gallbladder and the cystic duct are submitted in one cassette. / GIOVANNI:gunjan 10/13/18 TC:3 CPT: 43367
--- NOTE | 2018-10-12 13:06 | PCA ---
pt off floor
[2018-10-12] MEDS: Bupivacaine Mpf 0.5% 30 ML VIAL (14:18)
--- NOTE | 2018-10-12 14:28 | PCM.OPRPT ---
Report of Operation Date of Procedure: 10/12/18 Pre-Operative Diagnosis: Gallstone pancreatitis, cholelithiasis Post-Operative Diagnosis: Gallstone pancreatitis, acute cholecystitis, cholelithiasis Surgery/Procedure Performed:: Laparoscopic cholecystectomy with cholangiograms commissions analyst: Dylan Tran Type of Anesthesia:: General/Supplemental Anesthesiologist: Scott Acevedo Special Medications: Zosyn 3.375 g IV x1 Specimen's removed: Gallbladder Estimated Blood Loss (mL): 60 CC Fluids Replaced: 1400 Description of Procedure: Indications this is a 62 year-old female who developed abdominal pain/nausea/vomiting and on workup was found to have gallstone pancreatitis slightly dilated common bile duct at 6.4 per ultrasound. Laparoscopic cholecystectomy was elected. Description procedure: The patient was placed on operating table in supine position. General Anesthesia was induced. A timeout was completed verifying correct patient, procedure, site, position, social, and special equipment prior to beginning procedure. An orogastric tube was placed. The abdomen was prepped and draped in usual sterile fashion. An incision was made in the natural skin line above the umbilicus. The fascia was elevated and incised. The peritoneum was elevated and incised. Entry into the peritoneum was confirmed visually and no bowel was noted in the vicinity of the incision. Joyce trocar was placed. The abdomen was insufflated with carbon dioxide to a pressure of 12-15 mmHg. Patient tolerated insufflation well. The laparoscope was then inserted and abdomen inspected. No injuries from initial trocar placement were noted. Additional trochars were then inserted in the following locations 5 mm trocar in the epigastrium and 2 more 5 mm trochars along the right costal margin. The abdomen was inspected no abnormalities were found. The table is placed in reverse Trendelenburg position with the right side up. Adhesions between the omentum abdominal wall were taken down with the harmonic due to patient's previous pyloromyotomy as a child. The gallbladder was noted to be inflamed. The adhesions between the gallbladder and omentum were lysed sharply. The dome of the gallbladder was grasped with atraumatic grasper passed through the lateral port and retracted over the dome of the liver. Infundibulum was then grasped with atraumatic grasper through the midclavicular port and retracted to the right lower quadrant. This maneuver exposed Calot's triangle. The peritoneum overlying the gallbladder infundibulum was then incised and cystic duct and artery identified and circumferentially dissected. Roque catheter was used for cholangiograms. Cholangiograms did show filling of the right and left bile ducts as well as the common bile duct. There is also some filling in the duodenum. The cystic duct and artery were then doubly clipped and divided close to the gallbladder. The gallbladder then dissected from its peritoneal attachments by electrocautery. Hemostasis was checked and the gallbladder and contained stones were removed using the endoscopic retrieval bag through the umbilical port. The gallbladder is passed off table as specimen. The gallbladder fossa was copiously irrigated with saline and hemostasis obtained. There is no evidence of bleeding from the gallbladder fossa or cystic artery leakage of bile from the cystic duct stump. Secondary trochars removed under direct vision. No bleeding was noted the trocar sites. The laparoscope was withdrawn and umbilical trocar removed. The abdomen was allowed to collapse. The fascia of the 12 mm trocar was closed with a [id number] 0 Vicryl suture. The skin was closed with sutures of 4-0 Monocryl and Steri-Strips. The patient was extubated. The patient tolerated procedure well and was taken to the postanesthesia care unit in stable condition. - Complications none
--- NOTE | 2018-10-12 14:32 | OP.PCM_ITS ---
Report of Operation Date of Procedure: 10/12/18 Pre-Operative Diagnosis: Gallstone pancreatitis, cholelithiasis Post-Operative Diagnosis: Gallstone pancreatitis, acute cholecystitis, cholelithiasis Surgery/Procedure Performed:: Laparoscopic cholecystectomy with cholangiograms paint brush maker: Dylan Tran Type of Anesthesia:: General/Supplemental Anesthesiologist: Scott Acevedo Special Medications: Zosyn 3.375 g IV x1 Specimen's removed: Gallbladder Estimated Blood Loss (mL): 60 CC Fluids Replaced: 1400 Description of Procedure: Indications this is a 62 year-old female who developed abdominal pain/nausea/vomiting and on workup was found to have gallstone pancreatitis slightly dilated common bile duct at 6.4 per ultrasound. Laparoscopic cholecystectomy was elected. Description procedure: The patient was placed on operating table in supine position. General Anesthesia was induced. A timeout was completed verifying correct patient, procedure, site, position, social, and special equipment prior to beginning procedure. An orogastric tube was placed. The abdomen was prepped and draped in usual sterile fashion. An incision was made in the natural skin line above the umbilicus. The fascia was elevated and incised. The peritoneum was elevated and incised. Entry into the peritoneum was confirmed visually and no bowel was noted in the vicinity of the incision. Joyce trocar was placed. The abdomen was insufflated with carbon dioxide to a pressure of 12-15 mmHg. Patient tolerated insufflation well. The laparoscope was then inserted and abdomen inspected. No injuries from initial trocar placement were noted. Additional trochars were then inserted in the following locations 5 mm trocar in the epigastrium and 2 more 5 mm trochars along the right costal margin. The abdomen was inspected no abnormalities were found. The table is placed in reverse Trendelenburg position with the right side up. Adhesions between the omentum abdominal wall were taken down with the harmonic due to patient's previous pyloromyotomy as a child. The gallbladder was noted to be inflamed. The adhesions between the gallbladder and omentum were lysed sharply. The dome of the gallbladder was grasped with atraumatic grasper passed through the lateral port and retracted over the dome of the liver. Infundibulum was then grasped with atraumatic grasper through the midclavicular port and retracted to the right lower quadrant. This maneuver exposed Calot's triangle. The peritoneum overlying the gallbladder infundibulum was then incised and cystic duct and artery identified and circumferentially dissected. Roque catheter was used for cholangiograms. Cholangiograms did show filling of the right and left bile ducts as well as the common bile duct. There is also some filling in the duodenum. The cystic duct and artery were then doubly clipped and divided close to the gallbladder. The gallbladder then dissected from its peritoneal attachments by electrocautery. Hemostasis was checked and the gallbladder and contained stones were removed using the endoscopic retrieval bag through the umbilical port. The gallbladder is passed off table as specimen. The gallbladder fossa was copiously irrigated with saline and hemostasis obtained. There is no evidence of bleeding from the gallbladder fossa or cystic artery leakage of bile from the cystic duct stump. Secondary trochars removed under direct vision. No bleeding was noted the tro car sites. The laparoscope was withdrawn and umbilical trocar removed. The abdomen was allowed to collapse. The fascia of the 12 mm trocar was closed with a [id number] 0 Vicryl suture. The skin was closed with sutures of 4-0 Monocryl and Steri-Strips. The patient was extubated. The patient tolerated procedure well and was taken to the postanesthesia care unit in stable condition. - Complications none
[2018-10-12] MEDS: Digoxin 250 MCG Tablet PO (16:17)
[2018-10-12] MEDS: Lisinopril 10 MG Tablet 20 MG PO (16:17)
[2018-10-12] MEDS: Metoprolol(XL)Succ 50 MG Tablet 75 MG PO (16:18)
[2018-10-12] MEDS: Pantoprazole Sodium 40 MG Tablet PO (17:30)
[2018-10-12] MEDS: Spironolactone 25 MG Tablet PO (17:31)
[2018-10-12] MEDS: 0.9% NaCl Peripheral Flush Adult/Peds IV (19:48)
[2018-10-12] MEDS: Metoprolol(XL)Succ 100 MG Tablet PO (20:39)
--- NOTE | 2018-10-12 21:00 | PN_ITS ---
Patient Problems: Active and Suspected Problems (Last Updated 10/11/18 @ 17:28 by Celina Last MD) Gallstone pancreatitis (Acute) Subjective: I was asked to see the patient today for medical management following her cholecystectomy. Patient was admitted for gallstone pancreatitis and performed a cholecystectomy today on the patient. Her medical problems include chronic atrial fibrillation for which she is on rate limiting medications and Xarelto, her Xarelto has been held due to her surgery at this time. Patient also has a history of hypertension and a past history of myocardial infarction for which she underwent no stenting or coronary artery bypass grafting. Patient sees a career development engineer in [place] at this time on a regular basis. At the time of my examination today, patient is in PACU, she has no specific complaints, she is in atrial fibrillation with a rate varying from 110- 130 at this time. Patient does not complain of any chest pain or shortness of breath at this time. Labs obtained today showed an elevated white blood cell count at 13.2, creatinine was elevated at 1.19, patient's liver enzymes today were normal. Lipase was elevated at 8989. Patient's first lactic acid yesterday was elevated at 3.9 with the second lactic acid resulting at 2.3. It did not appear however the patient had evidence of sepsis. - Physical Exam General: Alert, Oriented x3, Cooperative, No apparent distress, Well developed, Well nourished HEENT: Atraumatic, PERRLA, EOMI, Normocephalic Oral: Moist Mucosa Neck: Supple, No JVD, Negative Carotid Bruits, No Nuchal Rigidity, Trachea Midline, Thyroid Normal Size and Texture Lungs: Clear to auscultation, Normal air movement, No rhonchi, No wheeze, No rales Cardiovascular: No murmurs, PMI Normal, Irregular Rate, No rub noted Abdomen: Soft, Non-Distended, - - No bowel sounds noted at this time Extremities: No clubbing, No cyanosis, No edema, Capillary Refill Less than 3 Seconds Skin: No rashes, No breakdown Musculoskeletal: No Tenderness to Palpation of Joints or Extremities Neurological: Cranial nerves II-XII grossly intact, Neuro grossly intact, Sensory exam intact to light touch and pain, Coordination normal Psych/Mental Status: Normal Affect, Appropriate, Alert and oriented to time, place, person, mood and affect Vital Signs Temp Pulse Resp BP Pulse Ox 99.0 F 135 H 16 126/78 H 98 10/12/18 19:38 10/12/18 20:39 10/12/18 19:38 10/12/18 19:38 10/12/18 19:38 Oxygen Flow Rate (L/min) 2 Oxygen Delivery Method Room Air Weight: 106.5 kg Body Mass Index (BMI) 37.7 Intake and Output for Last 24 Hours 10/10/18 10/11/18 10/12/18 23:59 23:59 23:59 Intake Total 1532 / 1532 2365 / 2365 Output Total 225 / 225 800 / 800 Balance 1307 / 1307 1565 / 1565 Laboratory Tests Past 24 Hrs 10/11/18 10/11/18 10/12/18 20:15 20:35 05:27 WBC 13.2 H RBC 4.22 Hgb 12.7 Hct 40.6 MCV 96.2 MCH 30.1 MCHC 31.3 L RDW 13.4 RDW Differential 45.6 H Plt Count 263 MPV 10.7 Immature Gran % (Auto) 0.200 Neut % (Auto) 78.9 H Lymph % (Auto) 16.0 L [place] % (Auto) 4.6 Eos % (Auto) 0.2 Baso % (Auto) 0.1 Absolute Neuts (auto) 10.4 H Absolute Lymphs (auto) 2.11 Total Counted Not Reportable Sodium Potassium Chloride Carbon Dioxide Anion Gap BUN Creatinine Estim Creat Clear Calc Est GFR (MDRD) Af Amer Est GFR (MDRD) Non-Af BUN/Creatinine Ratio Glucose Lactic Acid 2.3 H Calcium Phosphorus Magnesium Total Bilirubin AST ALT Alkaline Phosphatase Troponin I < 0.015 Total Protein Albumin Globulin Albumin/Globulin Ratio Lipase 10/12/18 05:27 WBC RBC Hgb Hct MCV MCH MCHC RDW RDW Differential Plt Count MPV Immature Gran % (Auto) Neut % (Auto) Lymph % (Auto) [place] % (Auto) Eos % (Auto) Baso % (Auto) Absolute Neuts (auto) Absolute Lymphs (auto) Total Counted Sodium 147 H Potassium 3.6 Chloride 110 H Carbon Dioxide 27.0 Anion Gap 10 BUN 18 Creatinine 1.19 H Estim Creat Clear Calc 46.48 Est GFR (MDRD) Af Amer 59 L Est GFR (MDRD) Non-Af 49 L BUN/Creatinine Ratio 15.1 Glucose 111 H Lactic Acid Calcium 7.5 L Phosphorus 3.9 Magnesium 2.1 Total Bilirubin 0.70 AST 34 ALT 45 Alkaline Phosphatase 79 Troponin I Total Protein 6.0 L Albumin 2.8 L Globulin 3.2 Albumin/Globulin Ratio 0.9 Lipase 8989 H Medical Necessity - Tobacco Use Smoking Status: Never smoker Assessment/Plan All Active Problems (Last Updated 10/11/18 @ 17:28 by Celina Last MD) Gallstone pancreatitis (Acute) #1 chronic atrial fibrillation-at the time of this dictation, I have increased the patient's Toprol-XL 200 mg twice a day for better rate control, she will remain on Lanoxin at this time. Patient's Xarelto will need to be restarted at the discretion of general surgery in the near future. #2 acute cholecystitis without evidence of sepsis or bacterial infection at this time-patient remains on antibiotics at this time, surgery has indicated that if the patient continues to improve, these antibiotics will probably be stopped. #3 gallstone pancreatitis-status post cholecystectomy postop day 0 #4 elevated lactic acid-probably as result of acute pancreatitis #5 mild dehydration-patient continues to receive fluids, I will stop the patient's spironolactone for now #6 hypertension-patient will remain on lisinopril and metoprolol Code Visit Inpatient E&M: 47022 Subs Hosp L2
[2018-10-13] VITALS (11 sets, daily range): BP systolic 116–148; BP diastolic 65–84; PULSE 80–99; RESP 16–18; TEMP 36.5–37.1; O2SAT 94–99
[2018-10-13] MEDS: 0.9% Normal Saline 1,000 ML 125 ML IV (02:00)
[2018-10-13] MEDS: 0.9% NaCl Peripheral Flush Adult/Peds IV ×3 (04:20→21:41)
[2018-10-13] MEDS: HYDROmorphone 1 MG/ML Syringe IV ×3 (04:20→21:41)
[2018-10-13] MEDS: Piperacil/Tazobactam 3.375 GM/50 ML ML IV ×3 (05:41→21:37)
[2018-10-13 06:18] LABS: Absolute Lymphocyte Count 1.72 X10^3/ul (0.83-4.51); Absolute Neutrophil Count 10.7 X10^3/uL (2.0-7.7); Basophil# 0.02 X10^3/uL; Basophil% 0.2 % (0-1); Eosinophil# 0.06 X10^3/uL; Eosinophils% 0.5 % (0-5); Hematocrit 35.1 % (37-47); Lymphocyte # 1.72 X10^3/ul (4.0); Lymphocyte % 12.9 % (19-41); Mean Corp Hgb Conc 31.3 g/gl (32-36); Mean Corpuscular Hgb 29.7 pg (27.0-32.0); Mean Corpuscular Volume 94.9 fL (81-99); Mean Platelet Vol. 10.1 fl (6.2-12.0); Monocyte# 0.82 X10^3/uL; Monocyte% 6.2 % (0-10); Neutrophil # 10.66 X10^3/uL (2.7-7.7); Platelet Count 218 K/mm3 (150-450); RBC Distribution Width CV 13.7 % (11.6-14.6); RBC Distribution Width SD 47.6 fl (35.1-43.9); White Blood Count 13.3 K/mm3 (4.4-11.0)
[2018-10-13 06:32] LABS: POSITIVE COUNT NO; POSITIVE DIFFERENTIAL NO; POSITIVE MORPHOLOGY NO
[2018-10-13 06:42] LABS: ALB/GLOB Ratio 0.8 RATIO (0.9-2.4); AST(SGOT) 51 U/L (15-37); Alanine Aminotransfer ALT/SGPT 56 U/L (13-56); Albumin, Serum 2.4 g/dL (3.2-5.0); Alkaline Phosphatase 151 U/L (45-117); Anion Gap 9 (5-15); BUN 12 mg/dL (7-18); BUN/Creat Ratio 13.6 RATIO (10-20); Calcium,Total 7.5 mg/dL (8.5-10.1); Chloride 109 mmol/L (98-107); Creatinine, Serum 0.88 mg/dL (0.55-1.02); EST Glomerular Filtration Rate 69 mL/min (>60); Est Glom Filt Rate - Afr Amer 84 mL/min (>60); Estimated Creatinine Clearance 62.85 ml/min; Globulin 3.1 g/dL (2.2-4.2); Glucose 104 mg/dL (74-106); Lipase 698 U/L (73-393); Potassium 3.7 mmol/L (3.5-5.1); Protein, Total 5.5 g/dL (6.4-8.2); Sodium Level 141 mmol/L (136-145)
--- NOTE | 2018-10-13 07:46 | PN.SURG_ITS ---
Patient Problems: Active and Suspected Problems (Last Updated 10/11/18 @ 17:28 by Celina Last MD) Gallstone pancreatitis (Acute) Subjective: Patient evaluated resting comfortably in bed. Patient notes rib pain/discomfort. She has been up to the bathroom otherwise laying in bed. She notes dry mouth. She denies nausea and vomiting. She states she is unsure if she feels better than when she arrived. Patient is also concerned in regards to why her heart rate was increased after surgery. She notes urinating well. She denies flatus and BM. - Physical Exam General: Alert, Oriented x3, Cooperative Abdomen: Soft, Hypoactive Bowel Sounds, Distended, Obese, Tender - Right lateral side around the two incisions which are close. No erythema or infection noted. Vital Signs Temp Pulse Resp BP Pulse Ox 98.7 F 88 18 116/65 95 10/13/18 02:30 10/13/18 07:11 10/13/18 02:30 10/13/18 02:30 10/13/18 02:30 Oxygen Flow Rate (L/min) 2 Oxygen Delivery Method Room Air Weight: 234 lb 12.677 oz Body Mass Index (BMI) 37.7 Intake and Output for Last 24 Hours 10/11/18 10/12/18 10/13/18 23:59 23:59 23:59 Intake Total 1532 / 1532 3675 / 3675 905 / 905 Output Total 225 / 225 1000 / 1000 200 / 200 Balance 1307 / 1307 2675 / 2675 705 / 705 Laboratory Tests Past 24 Hrs 10/13/18 10/13/18 05:36 05:36 WBC 13.3 H RBC 3.70 L Hgb 11.0 L Hct 35.1 L MCV 94.9 MCH 29.7 MCHC 31.3 L RDW 13.7 RDW Differential 47.6 H Plt Count 218 MPV 10.1 Immature Gran % (Auto) 0.200 Neut % (Auto) 80.0 H Lymph % (Auto) 12.9 L [place] % (Auto) 6.2 Eos % (Auto) 0.5 Baso % (Auto) 0.2 Absolute Neuts (auto) 10.7 H Absolute Lymphs (auto) 1.72 Total Counted Not Reportable Sodium 141 Potassium 3.7 Chloride 109 H Carbon Dioxide 23.0 Anion Gap 9 BUN 12 Creatinine 0.88 Estim Creat Clear Calc 62.85 Est GFR (MDRD) Af Amer 84 Est GFR (MDRD) Non-Af 69 BUN/Creatinine Ratio 13.6 Glucose 104 Calcium 7.5 L Total Bilirubin 1.10 H AST 51 H ALT 56 Alkaline Phosphatase 151 H Total Protein 5.5 L Albumin 2.4 L Globulin 3.1 Albumin/Globulin Ratio 0.8 L Lipase 698 H Medical Necessity - Tobacco Use Smoking Status: Never smoker Assessment/Plan All Active Problems (Last Updated 10/11/18 @ 17:28 by Celina Last MD) Gallstone pancreatitis (Acute) I am following this patient in conjunction with Dr. Last Impression: S/p lab sia Increase to clear liquids Recommend up and out of bed walking in the hallways Patient had an episode of A Fib following the surgery due to the stress of the surgery which caused the rapid heart rate We will continue to follow this patient Hopeful discharge later today, possibly tomorrow. Code Visit Inpatient E&M: 42060 Subs Hosp L1 - NO Charge/ POST-OP
--- NOTE | 2018-10-13 07:49 | PN_ITS ---
Patient Problems: Active and Suspected Problems (Last Updated 10/11/18 @ 17:28 by Celina Last MD) Gallstone pancreatitis (Acute) Subjective: The patient is still in A. fib but heart rate is controlled. Heart rate in 80s. Patient complain of pain mainly at surgical site on right upper quadrant and right flank. Has passed gas/flatus. Complain of mild gastroesophageal reflux symptoms. No fever/chills Vitals/I&O's: Vital Signs Temp Pulse Resp BP Pulse Ox 98.1 F 90 16 128/71 H 99 10/13/18 07:43 10/13/18 07:43 10/13/18 07:43 10/13/18 07:43 10/13/18 07:43 Oxygen Flow Rate (L/min) 2 Oxygen Delivery Method Room Air Weight: 234 lb 12.677 oz Body Mass Index (BMI) 37.7 Intake and Output for Last 24 Hours 10/11/18 10/12/18 10/13/18 23:59 23:59 23:59 Intake Total 1532 / 1532 3675 / 3675 905 / 905 Output Total 225 / 225 1000 / 1000 200 / 200 Balance 1307 / 1307 2675 / 2675 705 / 705 General: Alert, Oriented x3, Cooperative HEENT: Atraumatic, PERRLA, EOMI, Normocephalic Neck: Supple, No JVD, Negative Carotid Bruits Lungs: Clear to auscultation, No rhonchi, No wheeze, No rales, Diminished - Air entry diminished in bilateral lung bases Cardiovascular: Normal S1, Normal S2, No murmurs, Irregular Rate Abdomen: Bowel Sounds Present, Soft, Non-Distended, Tender - Expected tenderness over right upper quadrant. Ports dressings are dry. Bowel sounds present Extremities: Capillary Refill Less than 3 Seconds, Edema Skin: No rashes, No breakdown Musculoskeletal: No Tenderness to Palpation of Joints or Extremities, Arthritic Changes Neurological: Cranial nerves II-XII grossly intact Psych/Mental Status: Normal Affect, Appropriate Laboratory Results 10/13/18 05:36: WBC 13.3 H, RBC 3.70 L, Hgb 11.0 L, Hct 35.1 L, MCV 94.9, MCH 29.7, MCHC 31.3 L, RDW 13.7, RDW Differential 47.6 H, Plt Count 218, MPV 10.1, Immature Gran % (Auto) 0.200, Neut % (Auto) 80.0 H, Lymph % (Auto) 12.9 L, [place] % (Auto) 6.2, Eos % (Auto) 0.5, Baso % (Auto) 0.2, Absolute Neuts (auto) 10.7 H, Absolute Lymphs (auto) 1.72, Total Counted Not Reportable 10/13/18 05:36: Sodium 141, Potassium 3.7, Chloride 109 H, Carbon Dioxide 23.0, Anion Gap 9, BUN 12, Creatinine 0.88, Estim Creat Clear Calc 62.85, Est GFR (MDRD) Af Amer 84, Est GFR (MDRD) Non-Af 69, BUN/Creatinine Ratio 13.6, Glucose 104, Calcium 7.5 L, Total Bilirubin 1.10 H, AST 51 H, ALT 56, Alkaline Phosphatase 151 H, Total Protein 5.5 L, Albumin 2.4 L, Globulin 3.1, Albumin/Globulin Ratio 0.8 L, Lipase 698 H Current Medications Acetaminophen (Tylenol) 650 mg PO Q6H PRN PRN PRN Reason: PAIN Digoxin (Lanoxin) 250 mcg PO DAILY [facility] Last Admin: 10/12/18 16:17 Dose: 250 mcg Hydromorphone HCl (Dilaudid Inj) 0.5 - 1.5 mg IV Q2H PRN PRN PRN Reason: SEVERE PAIN (6-10/10) Last Admin: 10/13/18 04:20 Dose: 1 mg Piperacillin Sod/Tazobactam Sod (Zosyn) 3.375 gm in 50 mls @ 12.5 mls/hr IV Q8 [facility] Last Admin: 10/13/18 05:41 Dose: 12.5 mls/hr Potassium Chloride/Sodium Chloride (Kcl 20meq In 0.45% Ns 1000ml) 1,000 mls @ 125 mls/hr IV .Q8H [facility] Lisinopril (Zestril) 20 mg PO DAILY [facility] Last Admin: 10/12/18 16:17 Dose: 20 mg Magnesium Hydroxide (Milk Of Magnesia) 30 ml PO DAILY PRN PRN PRN Reason: Constipation Metoprolol Succinate (Toprol Xl (Beta [place])) 100 mg PO BID [facility] Last Admin: 10/12/18 20:39 Dose: 100 mg Ondansetron HCl (Zofran) 4 mg IV Q6H PRN PRN PRN Reason: NAUSEA/VOMITING Last Admin: 10/11/18 21:27 Dose: 4 mg Oxycodone HCl (Oxyir) 5 - 10 mg PO Q4H PRN PRN PRN Reason: SEVERE PAIN (6-10/10) Pantoprazole Sodium (Protonix) 40 mg PO DAILY [facility] Last Admin: 10/12/18 17:30 Dose: 40 mg Sodium Chloride () 5 - 15 ml IV UD PRN PRN Reason: SALINE FLUSH Last Admin: 10/13/18 04:20 Dose: 10 ml Medical Necessity - Tobacco Use Smoking Status: Never smoker Assessment/Plan All Active Problems (Last Updated 10/11/18 @ 17:28 by Celina Last MD) Gallstone pancreatitis (Acute) There is a 62-year-old female with history of gallstone pancreatitis admitted for lap cholecystectomy which was done on 10/12/2018. Patient has multiple comorbidities including chronic A. fib on Xarelto which is being held during perioperative. Today heart rate is controlled initially patient was tachycardic but rate is controlled. #1 chronic atrial fibrillation-rate is controlled on Toprol-XL 100 mg twice daily. Generally speaking, Xarelto can be resumed after 36 hours postoperative period but I will leave the decision on description of the surgeon #2 acute cholecystitis without evidence of sepsis or bacterial infection- on Zosyn. I think it can be stopped. #3 gallstone pancreatitis-status post lap sia postop day 1. #4 elevated lactic acid-probably as result of acute pancreatitis. First lactic acid 3.9. Repeat lactic acid is 2.3. #5 mild dehydration-patient continues to receive fluids: Spironolactone were held. #6 hypertension-patient on lisinopril and metoprolol Laboratory Results 10/13/18 05:36: WBC 13.3 H, RBC 3.70 L, Hgb 11.0 L, Hct 35.1 L, MCV 94.9, MCH 29.7, MCHC 31.3 L, RDW 13.7, RDW Differential 47.6 H, Plt Count 218, MPV 10.1, Immature Gran % (Auto) 0.200, Neut % (Auto) 80.0 H, Lymph % (Auto) 12.9 L, [place] % (Auto) 6.2, Eos % (Auto) 0.5, Baso % (Auto) 0.2, Absolute Neuts (auto) 10.7 H, Absolute Lymphs (auto) 1.72, Total Counted Not Reportable 10/13/18 05:36: Sodium 141, Potassium 3.7, Chloride 109 H, Carbon Dioxide 23.0, Anion Gap 9, BUN 12, Creatinine 0.88, Estim Creat Clear Calc 62.85, Est GFR (MDRD) Af Amer 84, Est GFR (MDRD) Non-Af 69, BUN/Creatinine Ratio 13.6, Glucose 104, Calcium 7.5 L, Total Bilirubin 1.10 H, AST 51 H, ALT 56, Alkaline Phosphatase 151 H, Total Protein 5.5 L, Albumin 2.4 L, Globulin 3.1, Albumin/Globulin Ratio 0.8 L, Lipase 698 H Active Medications Acetaminophen (Tylenol) 650 mg PO Q6H PRN PRN PRN Reason: PAIN Digoxin (Lanoxin) 250 mcg PO DAILY [facility] Last Admin: 10/13/18 09:45 Dose: 250 mcg Hydromorphone HCl (Dilaudid Inj) 0.5 - 1.5 mg IV Q2H PRN PRN PRN Reason: SEVERE PAIN (6-10/10) Last Admin: 10/13/18 04:20 Dose: 1 mg Piperacillin Sod/Tazobactam Sod (Zosyn) 3.375 gm in 50 mls @ 12.5 mls/hr IV Q8 [facility] Last Admin: 10/13/18 13:56 Dose: 12.5 mls/hr Potassium Chloride/Sodium Chloride (Kcl 20meq In 0.45% Ns 1000ml) 1,000 mls @ 125 mls/hr IV .Q8H [facility] Last Admin: 10/13/18 07:50 Dose: 125 mls/hr Lisinopril (Zestril) 20 mg PO DAILY [facility] Last Admin: 10/13/18 09:46 Dose: 20 mg Magnesium Hydroxide (Milk Of Magnesia) 30 ml PO DAILY PRN PRN PRN Reason: Constipation Metoprolol Succinate (Toprol Xl (Beta [place])) 100 mg PO BID [facility] Last Admin: 10/13/18 09:45 Dose: 100 mg Ondansetron HCl (Zofran) 4 mg IV Q6H PRN PRN PRN Reason: NAUSEA/VOMITING Last Admin: 10/13/18 10:38 Dose: 4 mg Oxycodone HCl (Oxyir) 5 - 10 mg PO Q4H PRN PRN PRN Reason: SEVERE PAIN (6-10/10) Pantoprazole Sodium (Protonix) 40 mg PO DAILY [facility] Last Admin: 10/13/18 09:45 Dose: 40 mg Promethazine HCl (Phenergan) 12.5 mg IV Q6H PRN PRN PRN Reason: NAUSEA/VOMITING Last Admin: 10/13/18 13:53 Dose: 12.5 mg Sodium Chloride () 5 - 15 ml IV UD PRN PRN Reason: SALINE FLUSH Last Admin: 10/13/18 13:54 Dose: 10 ml Clinical Impression(s) from Imaging Studies Cholangiogram 10/12/18 11:00 IMPRESSION: Intra and extrahepatic bile duct ectasia. Question of small stones clustered in the cystic duct near the point of contrast injection. There is no demonstrated common bile duct stone, and contrast flows into the duodenum.. Code Visit Inpatient E&M: 69897 Subs Hosp L3
[2018-10-13] MEDS: Metoprolol(XL)Succ 100 MG Tablet PO ×2 (09:45→21:29)
[2018-10-13] MEDS: Digoxin 250 MCG Tablet PO (09:45)
[2018-10-13] MEDS: Pantoprazole Sodium 40 MG Tablet PO (09:45)
[2018-10-13] MEDS: Lisinopril 10 MG Tablet 20 MG PO (09:46)
--- NOTE | 2018-10-13 10:35 | NURSING ---
Pt. c/o nausea. Denies vomiting at this time.
[2018-10-13] MEDS: Ondansetron 4 MG/2 ML Vial IV ×3 (10:38→21:54)
--- NOTE | 2018-10-13 13:14 | NURSING ---
Pt. c/o nausea after attempt to eat from clear liquid lunch tray
[2018-10-13] MEDS: proMETHazine 25 MG/ML Syringe 12.5 MG IV (13:53)
[2018-10-14] VITALS (14 sets, daily range): BP systolic 101–148; BP diastolic 67–94; PULSE 80–97; RESP 16–18; TEMP 36.4–37.1; O2SAT 93–100; BMI 37.7
[2018-10-14] MEDS: 0.9% NaCl Peripheral Flush Adult/Peds IV ×2 (03:25→03:26)
[2018-10-14] MEDS: proMETHazine 25 MG/ML Syringe 12.5 MG IV ×2 (03:25→08:40)
[2018-10-14] MEDS: Piperacil/Tazobactam 3.375 GM/50 ML ML IV (05:36)
[2018-10-14 06:40] LABS: Absolute Lymphocyte Count 1.38 X10^3/ul (0.83-4.51); Absolute Neutrophil Count 12.6 X10^3/uL (2.0-7.7); Basophil# 0.01 X10^3/uL; Basophil% 0.1 % (0-1); Eosinophil# 0.05 X10^3/uL; Eosinophils% 0.3 % (0-5); Hematocrit 34.4 % (37-47); Hemoglobin 10.9 g/dl (12.0-15.0); Lymphocyte # 1.38 X10^3/ul (4.0); Lymphocyte % 9.4 % (19-41); Mean Corp Hgb Conc 31.7 g/gl (32-36); Mean Corpuscular Hgb 29.5 pg (27.0-32.0); Mean Platelet Vol. 10.3 fl (6.2-12.0); Monocyte# 0.69 X10^3/uL; Monocyte% 4.7 % (0-10); Neutrophil # 12.55 X10^3/uL (2.7-7.7); Neutrophil % 85.3 % (47-70); Platelet Count 218 K/mm3 (150-450); RBC Distribution Width CV 13.2 % (11.6-14.6); RBC Distribution Width SD 44.8 fl (35.1-43.9); White Blood Count 14.7 K/mm3 (4.4-11.0)
[2018-10-14 06:41] LABS: POSITIVE COUNT NO; POSITIVE DIFFERENTIAL NO; POSITIVE MORPHOLOGY NO
[2018-10-14 06:42] LABS: ALB/GLOB Ratio 0.6 RATIO (0.9-2.4); AST(SGOT) 40 U/L (15-37); Alanine Aminotransfer ALT/SGPT 57 U/L (13-56); Albumin, Serum 2.3 g/dL (3.2-5.0); Alkaline Phosphatase 367 U/L (45-117); Anion Gap 10 (5-15); BUN 10 mg/dL (7-18); BUN/Creat Ratio 10.9 RATIO (10-20); Calcium,Total 8.1 mg/dL (8.5-10.1); Chloride 105 mmol/L (98-107); Creatinine, Serum 0.92 mg/dL (0.55-1.02); EST Glomerular Filtration Rate 66 mL/min (>60); Est Glom Filt Rate - Afr Amer 80 mL/min (>60); Estimated Creatinine Clearance 60.11 ml/min; Globulin 3.6 g/dL (2.2-4.2); Glucose 100 mg/dL (74-106); Lactic Acid 1.2 mmol/L (0.4-2.0); Lipase 345 U/L (73-393); Potassium 3.9 mmol/L (3.5-5.1); Protein, Total 5.9 g/dL (6.4-8.2); Sodium Level 139 mmol/L (136-145)
[2018-10-14] MEDS: Digoxin 250 MCG Tablet PO (08:57)
[2018-10-14] MEDS: Metoprolol(XL)Succ 100 MG Tablet PO ×2 (08:58→23:59)
[2018-10-14] MEDS: Lisinopril 10 MG Tablet 20 MG PO (08:58)
--- NOTE | 2018-10-14 09:07 | PN.SURG_ITS ---
Patient Problems: Active and Suspected Problems (Last Updated 10/11/18 @ 17:28 by Celina Last MD) Gallstone pancreatitis (Acute) Subjective: Patient evaluated resting in bed. She appears flushed and not feeling well. She notes having right upper quadrant pain. Her bilirubin has increased from 1 to 3.5 today. She notes nausea. She continues to be in A Fib with controlled heart rate in the 80's. - Physical Exam General: Alert, Oriented x3, Cooperative, - - Flushed. Ill appearing Abdomen: Hypoactive Bowel Sounds, Distended, Obese, Tender - RUQ, - - Incisions c/d/i. No erythema or infection noted. Vital Signs Temp Pulse Resp BP Pulse Ox 98.6 F 80 18 148/82 H 100 10/14/18 03:12 10/14/18 08:58 10/14/18 03:12 10/14/18 03:12 10/14/18 03:12 Oxygen Flow Rate (L/min) 2 Oxygen Delivery Method Room Air Weight: 234 lb 12.677 oz Body Mass Index (BMI) 37.7 Intake and Output for Last 24 Hours 10/12/18 10/13/18 10/14/18 23:59 23:59 23:59 Intake Total 3675 / 3675 3477 / 3477 784 / 784 Output Total 1000 / 1000 900 / 900 400 / 400 Balance 2675 / 2675 2577 / 2577 384 / 384 Laboratory Tests Past 24 Hrs 10/14/18 10/14/18 10/14/18 06:10 06:10 06:10 WBC 14.7 H RBC 3.70 L Hgb 10.9 L Hct 34.4 L MCV 93.0 MCH 29.5 MCHC 31.7 L RDW 13.2 RDW Differential 44.8 H Plt Count 218 MPV 10.3 Immature Gran % (Auto) 0.200 Neut % (Auto) 85.3 H Lymph % (Auto) 9.4 L [place] % (Auto) 4.7 Eos % (Auto) 0.3 Baso % (Auto) 0.1 Absolute Neuts (auto) 12.6 H Absolute Lymphs (auto) 1.38 Total Counted Not Reportable Sodium 139 Potassium 3.9 Chloride 105 Carbon Dioxide 24.0 Anion Gap 10 BUN 10 Creatinine 0.92 Estim Creat Clear Calc 60.11 Est GFR (MDRD) Af Amer 80 Est GFR (MDRD) Non-Af 66 BUN/Creatinine Ratio 10.9 Glucose 100 Lactic Acid 1.2 Calcium 8.1 L Total Bilirubin 3.50 H AST 40 H ALT 57 H Alkaline Phosphatase 367 H Total Protein 5.9 L Albumin 2.3 L Globulin 3.6 Albumin/Globulin Ratio 0.6 L Lipase 345 Medical Necessity - Tobacco Use Smoking Status: Never smoker Assessment/Plan All Active Problems (Last Updated 10/11/18 @ 17:28 by Celina Last MD) Gallstone pancreatitis (Acute) I am following this patient in conjunction with Dr. Last Impression: S/p lab sia NPO Dr. Tran to take patient for an ERCP today at 2. We will continue to monitor this patient Code Visit Inpatient E&M: 78095 Subs Hosp L1 - Post-op/No charge
--- NOTE | 2018-10-14 10:12 | PN_ITS ---
Progress Note I did see the patient was still complaining of right upper quadrant and left upper quadrant pain. Her bilirubin and alkaline phosphatase have acutely risen this morning. Patient had a cholangiogram which did show flow into the duodenum but there was a narrow opening at the ampulla. This may be obstructed by a small stone that was missed on cholangiogram. I do recommend ERCP. I discussed ERCP with the patient in detail. I explained the risks including but not limited to bleeding, infection, heart attack and stroke, perforation of the bile duct or bowels, worsening of pancreatitis. The patient understands and is willing to proceed. I also explained the possibility of having to place a stent. I will order a dose of antibiotics and keep the patient n.p.o. today. I will take her this afternoon for ERCP. Dylan Tran MD Pager: [facility] [address] [place] [address] [address] [place] [address] Office:
[2018-10-14] MEDS: HYDROmorphone 1 MG/ML Syringe IV (11:17)
--- NOTE | 2018-10-14 12:06 | PCM.PN.HOSP ---
Patient Problems: Active and Suspected Problems (Last Updated 10/11/18 @ 17:28 by Celina Last MD) Gallstone pancreatitis (Acute) Subjective: Patient abdominal pain got worse from evening yesterday and currently 9/10 intensity. Pain is mainly localized over right upper quadrant and right flank. N.p.o. for ERCP today. No fever. Mild tachycardia, heart rate 100s yesterday evening. No hypoxia. On IV Zosyn for suspicion of cholangitis Vitals/I&O's: Vital Signs Temp Pulse Resp BP Pulse Ox 98.3 F 93 16 140/94 H 99 10/14/18 09:10 10/14/18 09:59 10/14/18 09:10 10/14/18 09:10 10/14/18 09:10 Oxygen Flow Rate (L/min) 2 Oxygen Delivery Method Room Air Weight: 234 lb 12.677 oz Body Mass Index (BMI) 37.7 Intake and Output for Last 24 Hours 10/12/18 10/13/18 10/14/18 23:59 23:59 23:59 Intake Total 3675 / 3675 3477 / 3477 784 / 784 Output Total 1000 / 1000 900 / 900 400 / 400 Balance 2675 / 2675 2577 / 2577 384 / 384 General: Alert, Oriented x3, Cooperative HEENT: Atraumatic, PERRLA, EOMI, Normocephalic Neck: Supple, No JVD, Negative Carotid Bruits Lungs: Clear to auscultation, Diminished - Decreased respiratory effort because of pain. Air entry diminished at right lung base Cardiovascular: Normal S1, Normal S2, No murmurs, Irregular Rate Abdomen: Bowel Sounds Present, Soft, Tender - Tenderness present over right upper quadrant, right flank and left upper quadrant. mild distention. Extremities: No edema, Capillary Refill Less than 3 Seconds Skin: No rashes, No breakdown Musculoskeletal: No Tenderness to Palpation of Joints or Extremities, Arthritic Changes Neurological: Cranial nerves II-XII grossly intact Psych/Mental Status: Normal Affect, Appropriate Laboratory Results 10/14/18 06:10: WBC 14.7 H, RBC 3.70 L, Hgb 10.9 L, Hct 34.4 L, MCV 93.0, MCH 29.5, MCHC 31.7 L, RDW 13.2, RDW Differential 44.8 H, Plt Count 218, MPV 10.3, Immature Gran % (Auto) 0.200, Neut % (Auto) 85.3 H, Lymph % (Auto) 9.4 L, [place] % (Auto) 4.7, Eos % (Auto) 0.3, Baso % (Auto) 0.1, Absolute Neuts (auto) 12.6 H, Absolute Lymphs (auto) 1.38, Total Counted Not Reportable 10/14/18 06:10: Sodium 139, Potassium 3.9, Chloride 105, Carbon Dioxide 24.0, Anion Gap 10, BUN 10, Creatinine 0.92, Estim Creat Clear Calc 60.11, Est GFR (MDRD) Af Amer 80, Est GFR (MDRD) Non-Af 66, BUN/Creatinine Ratio 10.9, Glucose 100, Calcium 8.1 L, Total Bilirubin 3.50 H, AST 40 H, ALT 57 H, Alkaline Phosphatase 367 H, Total Protein 5.9 L, Albumin 2.3 L, Globulin 3.6, Albumin/Globulin Ratio 0.6 L, Lipase 345 10/14/18 06:10: Lactic Acid 1.2 Current Medications Acetaminophen (Tylenol) 650 mg PO Q6H PRN PRN PRN Reason: PAIN Digoxin (Lanoxin) 250 mcg PO DAILY [facility] Last Admin: 10/14/18 08:57 Dose: 250 mcg Hydromorphone HCl (Dilaudid Inj) 0.5 - 1.5 mg IV Q2H PRN PRN PRN Reason: SEVERE PAIN (6-10/10) Last Admin: 10/14/18 11:17 Dose: 1 mg Piperacillin Sod/Tazobactam Sod (Zosyn) 3.375 gm in 50 mls @ 12.5 mls/hr IV Q8 [facility] Last Admin: 10/14/18 05:36 Dose: 12.5 mls/hr Potassium Chloride/Sodium Chloride (Kcl 20meq In 0.45% Ns 1000ml) 1,000 mls @ 125 mls/hr IV .Q8H [facility] Last Admin: 10/14/18 08:34 Dose: 125 mls/hr Lisinopril (Zestril) 20 mg PO DAILY [facility] Last Admin: 10/14/18 08:58 Dose: 20 mg Magnesium Hydroxide (Milk Of Magnesia) 30 ml PO DAILY PRN PRN PRN Reason: Constipation Metoprolol Succinate (Toprol Xl (Beta Lowell)) 100 mg PO BID [facility] Last Admin: 10/14/18 08:58 Dose: 100 mg Ondansetron HCl (Zofran) 4 mg IV Q6H PRN PRN PRN Reason: NAUSEA/VOMITING Last Admin: 10/13/18 21:54 Dose: 4 mg Oxycodone HCl (Oxyir) 5 - 10 mg PO Q4H PRN PRN PRN Reason: SEVERE PAIN (6-10/10) Pantoprazole Sodium (Protonix) 40 mg PO DAILY [facility] Last Admin: 10/14/18 08:58 Dose: 40 mg Promethazine HCl (Phenergan) 12.5 mg IV Q6H PRN PRN PRN Reason: NAUSEA/VOMITING Last Admin: 10/14/18 08:40 Dose: 12.5 mg Sodium Chloride () 5 - 15 ml IV UD PRN PRN Reason: SALINE FLUSH Last Admin: 10/14/18 03:26 Dose: 10 ml Medical Necessity - Tobacco Use Smoking Status: Never smoker Assessment/Plan All Active Problems (Last Updated 10/11/18 @ 17:28 by eClina Last MD) Gallstone pancreatitis (Acute) There is a 62-year-old female with history of gallstone pancreatitis admitted for lap cholecystectomy which was done on 10/12/2018. Patient has multiple comorbidities including chronic A. fib on Xarelto which is being held during perioperative. Today heart rate is controlled initially patient was tachycardic but rate is controlled. #1 chronic atrial fibrillation-rate is controlled on Toprol-XL 100 mg twice daily. Generally speaking, Xarelto can be resumed after 36 hours postoperative period but I will leave the decision on description of the surgeon #2 acute cholecystitis with possibility of small stones over ampulla: Patient has leukocytosis, 14.7 thousand increased since yesterday. The patient has right upper quadrant abdominal pain, jaundice, total bili 3.5 went up from 0.7 but no fever. On Zosyn for suspicion of possible cholangitis. Intraoperative cholangiogram showed narrowing at the ampulla with suspicion of possible stone. Scheduled for ERCP today. #3 gallstone pancreatitis-status post lap sia postop day 2. #4 elevated lactic acid-probably as result of acute pancreatitis. First lactic acid 3.9, 2.3. lactic acid is normal #5 mild dehydration-patient continues to receive fluids: Spironolactone were held. #6 hypertension-patient on lisinopril and metoprolol Laboratory Results 10/14/18 06:10: WBC 14.7 H, RBC 3.70 L, Hgb 10.9 L, Hct 34.4 L, MCV 93.0, MCH 29.5, MCHC 31.7 L, RDW 13.2, RDW Differential 44.8 H, Plt Count 218, MPV 10.3, Immature Gran % (Auto) 0.200, Neut % (Auto) 85.3 H, Lymph % (Auto) 9.4 L, [place] % (Auto) 4.7, Eos % (Auto) 0.3, Baso % (Auto) 0.1, Absolute Neuts (auto) 12.6 H, Absolute Lymphs (auto) 1.38, Total Counted Not Reportable 10/14/18 06:10: Sodium 139, Potassium 3.9, Chloride 105, Carbon Dioxide 24.0, Anion Gap 10, BUN 10, Creatinine 0.92, Estim Creat Clear Calc 60.11, Est GFR (MDRD) Af Amer 80, Est GFR (MDRD) Non-Af 66, BUN/Creatinine Ratio 10.9, Glucose 100, Calcium 8.1 L, Total Bilirubin 3.50 H, AST 40 H, ALT 57 H, Alkaline Phosphatase 367 H, Total Protein 5.9 L, Albumin 2.3 L, Globulin 3.6, Albumin/Globulin Ratio 0.6 L, Lipase 345 10/14/18 06:10: Lactic Acid 1.2 Clinical Impression(s) from Imaging Studies Cholangiogram 10/12/18 11:00 IMPRESSION: Intra and extrahepatic bile duct ectasia. Question of small stones clustered in the cystic duct near the point of contrast injection. There is no demonstrated common bile duct stone, and contrast flows into the duodenum.. Code Visit Inpatient E&M: 08834 [facility] Hosp L3
--- NOTE | 2018-10-14 14:00 | RAD_ITS ---
STUDY: ERCP. REASON FOR EXAM: Female, 62 years old. Questionable cystic duct stones on interoperative cholangiogram. RADIATION DOSAGE (If Supplied By Facility): CTDIvol = ( ) mGy, DLP = ( ) mGycm. FLUOROSCOPY TIME (if supplied): ( ) minutes/seconds TECHNIQUE: 4 intraprocedural images were presented for interpretation. COMPARISON: Intraoperative cholangiogram, October 12, 2018. FINDINGS: The images demonstrate cannulization of the cystic duct which appears distended. Contrast enhancement demonstrates no obvious filling defect. There is evidence of balloon stripping of the CBD. Please refer to the procedural report for further details. RAD/ERCP Biliary/Pancreas IMPRESSION: ERCP in the OR. Electronically Signed: David Santiago DO at 19:04 EST Tel [phone], Service support ,
--- NOTE | 2018-10-14 15:01 | OP.ENDO_ITS ---
Patient Name: Pascale Vigil Procedure Date: 10/14/2018 1:56 PM Date of : 1955 Age: 62 Procedure: ERCP Indications: Bile duct stone(s), Elevated liver enzymes Providers: Dylan Tran MD Referring MD: Lady Carranza Medicines: General Anesthesia Patient Profile: This is a 62 year old female. Refer to note in patient chart for documentation of history and physical. Complications: No immediate complications. Estimated blood loss: Minimal. Procedure: Pre-Anesthesia Assessment: - Prior to the procedure, a History and Physical was performed, and patient medications and allergies were reviewed. The patient's tolerance of previous anesthesia was also reviewed. The risks and benefits of the procedure and the sedation options and risks were discussed with the patient. All questions were answered, and informed consent was obtained. Prior Anticoagulants: The patient has taken Xarelto (rivaroxaban), last dose was 3 days prior to procedure. After reviewing the risks and benefits, the patient was deemed in satisfactory condition to undergo the procedure. After obtaining informed consent, the scope was passed under direct vision. Throughout the procedure, the patient's blood pressure, pulse, and oxygen saturations were monitored continuously. The [id number] endoscope was introduced through the mouth, and advanced to the duodenum and used to inject contrast into the bile duct. The ERCP was accomplished without difficulty. The patient tolerated the procedure well. Scope In: 2:30:02 PM Scope Out: 2:46:28 PM Total Procedure Duration Time 0 hours 16 minutes 26 seconds Findings: The dorsal pancreatic duct was inadvertently cannulated without any complications. A 0.035 inch x 260 cm straight Dreamwire was passed into the biliary tree. The sphincterotome was passed over the guidewire and the bile duct was then deeply cannulated. Contrast was injected. I personally interpreted the bile duct images. There was brisk flow of contrast through the ducts. Contrast extended to the hepatic ducts. The main bile duct was diffusely dilated. Biliary sphincterotomy was made with a monofilament sphincterotome using ERBE electrocautery. The sphincterotomy oozed blood. To discover objects, the biliary tree was swept with a 15 mm balloon starting at the bifurcation. The bile duct was diffusely dilated, no stones were found. There was some very small debris. Several sweeps were performed and a repeat cholangiogram was perforemed. The balloon and wire were removed. The endoscope was withdrawn from the patient. Impression: -There was bile in the stomach at beginning of procedure. - The entire main bile duct was dilated. - A biliary sphincterotomy was performed. - The biliary tree was swept and the duct was dilated but no stones were present. Recommendation: - Resume previous diet. Procedure Code(s): --- Professional --- 46123, Endoscopic retrograde cholangiopancreatography (ERCP); with sphincterotomy/papillotomy Diagnosis Code(s): --- Professional --- K80.50, Calculus of bile duct without cholangitis or cholecystitis without obstruction R74.8, Abnormal levels of other serum enzymes K83.8, Other specified diseases of biliary tract CPT copyright 2017 [employer]. All rights reserved. The codes documented in this report are preliminary and upon saw repairer review may be revised to meet current compliance requirements. Dylan Tran MD 10/14/2018 3:00:37 PM This report has been signed electronically. Number of Addenda: 0 Note Initiated On: 10/14/2018 1:56 PM
[2018-10-14] MEDS: Glucagon 1 MG/ML Syringe (17:08)
[2018-10-14] MEDS: Pantoprazole Sodium 40 MG Tablet PO (18:50)
[2018-10-15] VITALS (8 sets, daily range): BP systolic 133–142; BP diastolic 70–80; PULSE 58–103; RESP 16–18; TEMP 36.7–37.3; O2SAT 94
[2018-10-15] MEDS: 0.9% NaCl Peripheral Flush Adult/Peds IV (02:15)
[2018-10-15 06:44] LABS: Absolute Lymphocyte Count 1.27 X10^3/ul (0.83-4.51); Absolute Neutrophil Count 10.5 X10^3/uL (2.0-7.7); Basophil# 0.02 X10^3/uL; Basophil% 0.2 % (0-1); Eosinophil# 0.06 X10^3/uL; Eosinophils% 0.5 % (0-5); Hematocrit 33.7 % (37-47); Hemoglobin 10.8 g/dl (12.0-15.0); Lymphocyte # 1.27 X10^3/ul (4.0); Lymphocyte % 10.2 % (19-41); Mean Corpuscular Hgb 29.8 pg (27.0-32.0); Mean Corpuscular Volume 93.1 fL (81-99); Mean Platelet Vol. 10.6 fl (6.2-12.0); Monocyte# 0.65 X10^3/uL; Monocyte% 5.2 % (0-10); Neutrophil # 10.46 X10^3/uL (2.7-7.7); Neutrophil % 83.5 % (47-70); Platelet Count 211 K/mm3 (150-450); Red Blood Count 3.62 M/mm3 (4.2-5.4); White Blood Count 12.5 K/mm3 (4.4-11.0)
[2018-10-15 06:56] LABS: POSITIVE COUNT NO; POSITIVE DIFFERENTIAL NO; POSITIVE MORPHOLOGY NO
[2018-10-15 07:00] LABS: AST(SGOT) 56 U/L (15-37); Alanine Aminotransfer ALT/SGPT 56 U/L (13-56); Alkaline Phosphatase 578 U/L (45-117); Anion Gap 10 (5-15); BUN 9 mg/dL (7-18); BUN/Creat Ratio 11.9 RATIO (10-20); Bilirubin, Direct 3.74 mg/dL (0.00-0.30); Calcium,Total 8.1 mg/dL (8.5-10.1); Chloride 104 mmol/L (98-107); Creatinine, Serum 0.76 mg/dL (0.55-1.02); EST Glomerular Filtration Rate 82 mL/min (>60); Est Glom Filt Rate - Afr Amer 99 mL/min (>60); Estimated Creatinine Clearance 72.77 ml/min; Globulin 3.5 g/dL (2.2-4.2); Glucose 96 mg/dL (74-106); Lipase 170 U/L (73-393); Potassium 3.9 mmol/L (3.5-5.1); Protein, Total 5.5 g/dL (6.4-8.2); Sodium Level 136 mmol/L (136-145)
--- NOTE | 2018-10-15 07:27 | PN.SURG_ITS ---
Patient Problems: Active and Suspected Problems (Last Updated 10/11/18 @ 17:28 by Celina Last MD) Gallstone pancreatitis (Acute) Subjective: Patient is evaluated resting comfortably in bed. She notes minimal amount of abdominal pain. She notes this is much improved since yesterday. She denies nausea, vomiting, fever. She is tolerating clear liquids well. She notes lots of flatus. She denies bowel movement. - Physical Exam General: Alert, Oriented x3, Cooperative Abdomen: Bowel Sounds Present, Soft, Tender - slightly RUQ, - - Incisions c/d/i. No erythema or infection. Vital Signs Temp Pulse Resp BP Pulse Ox 99.2 F H 103 H 18 133/80 H 97 10/15/18 02:16 10/15/18 05:18 10/15/18 02:16 10/15/18 02:16 10/14/18 21:57 Oxygen Flow Rate (L/min) 2 Oxygen Delivery Method Room Air Weight: 234 lb 12.677 oz Body Mass Index (BMI) 37.7 Intake and Output for Last 24 Hours 10/13/18 10/14/18 10/15/18 23:59 23:59 23:59 Intake Total 3477 / 3477 3184 / 3184 2021 / 2021 Output Total 900 / 900 800 / 800 700 / 700 Balance 2577 / 2577 2384 / 2384 1322 / 1322 Laboratory Tests Past 24 Hrs 10/15/18 10/15/18 06:14 06:14 WBC 12.5 H RBC 3.62 L Hgb 10.8 L Hct 33.7 L MCV 93.1 MCH 29.8 MCHC 32.0 RDW 13.0 RDW Differential 43.0 Plt Count 211 MPV 10.6 Immature Gran % (Auto) 0.400 Neut % (Auto) 83.5 H Lymph % (Auto) 10.2 L [place] % (Auto) 5.2 Eos % (Auto) 0.5 Baso % (Auto) 0.2 Absolute Neuts (auto) 10.5 H Absolute Lymphs (auto) 1.27 Total Counted Not Reportable Sodium 136 Potassium 3.9 Chloride 104 Carbon Dioxide 22.0 Anion Gap 10 BUN 9 Creatinine 0.76 Estim Creat Clear Calc 72.77 Est GFR (MDRD) Af Amer 99 Est GFR (MDRD) Non-Af 82 BUN/Creatinine Ratio 11.9 Glucose 96 Calcium 8.1 L Total Bilirubin 4.70 H Direct Bilirubin 3.74 H AST 56 H ALT 56 Alkaline Phosphatase 578 H Total Protein 5.5 L Albumin 2.0 L Globulin 3.5 Lipase 170 Medical Necessity - Tobacco Use Smoking Status: Never smoker Assessment/Plan All Active Problems (Last Updated 10/11/18 @ 17:28 by Celina Last MD) Gallstone pancreatitis (Acute) I am following this patient in conjunction with Dr. Last Impression: S/p lab sia ERCP showed small debris, no stone identified. Labs reviewed and discussed with Dr. Last Increase diet to regular diet Encourage ambulation and I.S. We will continue to monitor this patient Hopeful discharge later today Code Visit Inpatient E&M: 27633 Subs Hosp L1 - NO CHARGE/POST-OP
--- NOTE | 2018-10-15 08:03 | DCINST_ITS ---
Discharge Diet: Light diet - advance as tolerated Discharge Activity: Return to Normal Activity, May Not Drive - for 2-3 days or while taking narcotic pain medicataions., - - Do not drive, work heavy equipment or sign legal documents for 24 hours. May shower in (days): 1 - with the bandage in place. Additional Activity Instructions:: Pain medication may cause nausea. You should typically eat light foods as you take your pain medications. Pain medication may also cause constipation. If this is a problem for you, please discuss with your doctor. Call your doctor if your incision/area has: Continuous Slow Oozing, Sudden Increased Bleeding, Increased Pain/ Swelling, Increased Redness, Foul Smelling Discharge, Fever of 101 or Higher Call your doctor if you observe: Fever of 101 or Higher Suture Line Care: Avoid Pulling/Pushing, Avoid Pinching/Bending Additional Dressing/Incision Instructions:: Leave operative bandaids on for 2 days. When you remove dressing, leave Steri-Strips on until your follow-up appointment, or until the Steri-Strips fall off on their own. Allergies/Adverse Reactions: Allergies ketorolac tromethamine [From Toradol] Allergy (Verified 10/09/18 14:39) Hives Medications to take at Discharge Digoxin [Lanoxin] 250 mcg PO DAILY 12/13/13 Metoprolol(XL)Succ [Toprol Xl (Beta [place])] 75 mg PO BID 12/13/13 lisinopril 10 mg tablet 20 mg PO DAILY tab 08/03/18 rivaroxaban 20 mg tablet 20 mg PO DAILY 08/03/18 spironolactone 25 mg tablet 25 mg PO DAILY tab 08/03/18 Oxycodone [Oxyir] 5 mg PO Q6H PRN PRN 7 Days #20 tablet 10/15/18 The following prescriptions were given: Oxycodone [Oxyir] 5 mg PO Q6H PRN PRN 7 Days #20 tablet PRN Reason: Severe Pain (6-08/05) Primary Care Physician: Jamarcus Toro MD [Primary Care Provider] - Test Results: Test results from this visit will be discussed in further detail at your follow- up appointment, if applicable. Please Follow Up With: Celina Last MD - [phone] When: 2 weeks
[2018-10-15] MEDS: oxyCODONE 5 MG Tablet PO (09:23)
[2018-10-15] MEDS: Digoxin 250 MCG Tablet PO (09:24)
[2018-10-15] MEDS: Metoprolol(XL)Succ 100 MG Tablet PO (09:24)
[2018-10-15] MEDS: Pantoprazole Sodium 40 MG Tablet PO (09:24)
[2018-10-15] MEDS: Lisinopril 10 MG Tablet 20 MG PO (09:24)
--- NOTE | 2018-10-15 10:40 | PN_ITS ---
Subjective: Seen and examined. Patient abdominal pain has much improved. She is on liquid to soft diet. ERCP findings noted. Discussed with the surgeons. Vitals/I&O's: Vital Signs Temp Pulse Resp BP Pulse Ox 98.1 F 88 16 142/71 H 94 10/15/18 09:12 10/15/18 09:24 10/15/18 09:12 10/15/18 09:24 10/15/18 09:12 Oxygen Flow Rate (L/min) 2 Oxygen Delivery Method Room Air Weight: 234 lb 12.677 oz Body Mass Index (BMI) 37.7 Intake and Output for Last 24 Hours 10/13/18 10/14/18 10/15/18 23:59 23:59 23:59 Intake Total 3477 / 3477 3184 / 3184 2021 Output Total 900 / 900 800 / 800 700 / 700 Balance 2577 / 2577 2384 / 2384 1322 / 1322 General: Alert, Oriented x3, Cooperative HEENT: Atraumatic, PERRLA, EOMI, Normocephalic Neck: Supple, No JVD, Negative Carotid Bruits Lungs: Clear to auscultation, No rhonchi, No wheeze, No rales, Diminished - the right lung base Cardiovascular: Regular rate, Regular Rhythm, Normal S1, Normal S2, No murmurs Abdomen: Bowel Sounds Present, Soft, Non-Distended, Tender - Mild expected postsurgical tenderness in right upper quadrant although improved Extremities: No edema, Capillary Refill Less than 3 Seconds Skin: No rashes, No breakdown Musculoskeletal: No Tenderness to Palpation of Joints or Extremities, Arthritic Changes Neurological: Cranial nerves II-XII grossly intact Psych/Mental Status: Normal Affect, Appropriate Laboratory Results 10/15/18 06:14: WBC 12.5 H, RBC 3.62 L, Hgb 10.8 L, Hct 33.7 L, MCV 93.1, MCH 29.8, MCHC 32.0, RDW 13.0, RDW Differential 43.0, Plt Count 211, MPV 10.6, Immature Gran % (Auto) 0.400, Neut % (Auto) 83.5 H, Lymph % (Auto) 10.2 L, [place] % (Auto) 5.2, Eos % (Auto) 0.5, Baso % (Auto) 0.2, Absolute Neuts (auto) 10.5 H, Absolute Lymphs (auto) 1.27, Total Counted Not Reportable 10/15/18 06:14: Sodium 136, Potassium 3.9, Chloride 104, Carbon Dioxide 22.0, Anion Gap 10, BUN 9, Creatinine 0.76, Estim Creat Clear Calc 72.77, Est GFR (MDRD) Af Amer 99, Est GFR (MDRD) Non-Af 82, BUN/Creatinine Ratio 11.9, Glucose 96, Calcium 8.1 L, Total Bilirubin 4.70 H, Direct Bilirubin 3.74 H, AST 56 H, ALT 56, Alkaline Phosphatase 578 H, Total Protein 5.5 L, Albumin 2.0 L, Globulin 3.5, Lipase 170 Current Medications Acetaminophen (Tylenol) 650 mg PO Q6H PRN PRN PRN Reason: PAIN Digoxin (Lanoxin) 250 mcg PO DAILY [facility] Last Admin: 10/15/18 09:24 Dose: 250 mcg Potassium Chloride/Sodium Chloride (Kcl 20meq In 0.45% Ns 1000ml) 1,000 mls @ 80 mls/hr IV .[id number] [facility] Last Admin: 10/14/18 21:55 Dose: 80 mls/hr Lisinopril (Zestril) 20 mg PO DAILY [facility] Last Admin: 10/15/18 09:24 Dose: 20 mg Magnesium Hydroxide (Milk Of Magnesia) 30 ml PO DAILY PRN PRN PRN Reason: Constipation Metoprolol Succinate (Toprol Xl (Beta [place])) 100 mg PO BID [facility] Last Admin: 10/15/18 09:24 Dose: 100 mg Ondansetron HCl (Zofran) 4 mg IV Q6H PRN PRN PRN Reason: NAUSEA/VOMITING Last Admin: 10/13/18 21:54 Dose: 4 mg Oxycodone HCl (Oxyir) 2.5 - 5 mg PO Q4H PRN PRN PRN Reason: SEVERE PAIN (6-10/10) Last Admin: 10/15/18 09:23 Dose: 5 mg Pantoprazole Sodium (Protonix) 40 mg PO DAILY [facility] Last Admin: 10/15/18 09:24 Dose: 40 mg Promethazine HCl (Phenergan) 12.5 mg IV Q6H PRN PRN PRN Reason: NAUSEA/VOMITING Last Admin: 10/14/18 08:40 Dose: 12.5 mg Sodium Chloride () 5 - 15 ml IV UD PRN PRN Reason: SALINE FLUSH Last Admin: 10/15/18 02:15 Dose: 10 ml Medical Necessity - Tobacco Use Smoking Status: Never smoker Assessment/Plan All Active Problems (Last Updated 10/11/18 @ 17:28 by Celina Last MD) Gallstone pancreatitis (Acute) There is a 62-year-old female with history of gallstone pancreatitis admitted for lap cholecystectomy which was done on 10/12/2018. Patient has multiple comorbidities including chronic A. fib on Xarelto which is being held during perioperative. Today heart rate is controlled initially patient was tachycardic but rate is controlled. #1 chronic atrial fibrillation-rate is controlled on Toprol-XL 100 mg twice daily. Xarelto can be resumed at the time of discharge. #2 acute cholecystitis with possibility of small stones over ampulla: Patient has leukocytosis, 14.7 thousand increased since yesterday. The patient has right upper quadrant abdominal pain, jaundice, total bili 3.5 went up from 0.7 but no fever. On Zosyn for suspicion of possible cholangitis. Intraoperative cholangiogram showed narrowing at the ampulla with suspicion of possible stone. Patient had ERCP on 10/14 and sphincterotomy was done and a small amount of debris/drained. LFTs are elevated, TB 4.7, mainly direct 3.74. Alkaline phosphatase elevated with mild elevation in transaminases at that is expected after ERCP. Patient is being discharged home. Follow-up with Dr. Last In 1-2 weeks. #3 gallstone pancreatitis-status post lap sia postop day 3. #4 elevated lactic acid-probably as result of acute pancreatitis. First lactic acid 3.9, 2.3. lactic acid is normal #5 mild dehydration-patient continues to receive fluids: Spironolactone can be resumed. #6 hypertension-patient on lisinopril and metoprolol. Patient is being discharged home. Discharge medication reconciliation done. Discharge summary done by general surgery. Laboratory Results 10/14/18 06:10: WBC 14.7 H, RBC 3.70 L, Hgb 10.9 L, Hct 34.4 L, MCV 93.0, MCH 29.5, MCHC 31.7 L, RDW 13.2, RDW Differential 44.8 H, Plt Count 218, MPV 10.3, I mmature Gran % (Auto) 0.200, Neut % (Auto) 85.3 H, Lymph % (Auto) 9.4 L, [place] % (Auto) 4.7, Eos % (Auto) 0.3, Baso % (Auto) 0.1, Absolute Neuts (auto) 12.6 H, Absolute Lymphs (auto) 1.38, Total Counted Not Reportable 10/14/18 06:10: Sodium 139, Potassium 3.9, Chloride 105, Carbon Dioxide 24.0, Anion Gap 10, BUN 10, Creatinine 0.92, Estim Creat Clear Calc 60.11, Est GFR (MDRD) Af Amer 80, Est GFR (MDRD) Non-Af 66, BUN/Creatinine Ratio 10.9, Glucose 100, Calcium 8.1 L, Total Bilirubin 3.50 H, AST 40 H, ALT 57 H, Alkaline Phosphatase 367 H, Total Protein 5.9 L, Albumin 2.3 L, Globulin 3.6, Albumin/Globulin Ratio 0.6 L, Lipase 345 10/14/18 06:10: Lactic Acid 1.2 10/15/18 06:14: WBC 12.5 H, RBC 3.62 L, Hgb 10.8 L, Hct 33.7 L, MCV 93.1, MCH 29.8, MCHC 32.0, RDW 13.0, RDW Differential 43.0, Plt Count 211, MPV 10.6, Immature Gran % (Auto) 0.400, Neut % (Auto) 83.5 H, Lymph % (Auto) 10.2 L, [place] % (Auto) 5.2, Eos % (Auto) 0.5, Baso % (Auto) 0.2, Absolute Neuts (auto) 10.5 H, Absolute Lymphs (auto) 1.27, Total Counted Not Reportable 10/15/18 06:14: Sodium 136, Potassium 3.9, Chloride 104, Carbon Dioxide 22.0, Anion Gap 10, BUN 9, Creatinine 0.76, Estim Creat Clear Calc 72.77, Est GFR (MDRD) Af Amer 99, Est GFR (MDRD) Non-Af 82, BUN/Creatinine Ratio 11.9, Glucose 96, Calcium 8.1 L, Total Bilirubin 4.70 H, Direct Bilirubin 3.74 H, AST 56 H, ALT 56, Alkaline Phosphatase 578 H, Total Protein 5.5 L, Albumin 2.0 L, Globulin 3.5, Lipase 170 Clinical Impression(s) from Imaging Studies Cholangiogram 10/12/18 11:00 IMPRESSION: Intra and extrahepatic bile duct ectasia. Question of small stones clustered in the cystic duct near the point of contrast injection. There is no demonstrated common bile duct stone, and contrast flows into the duodenum.. Code Visit Inpatient E&M: 48442 Subs Hosp L3
--- NOTE | 2018-10-15 10:44 | DS.PCM_ITS ---
Discharge Date and Diagnosis - Problem List Patient Problems: Active and Suspected Problems (Last Updated 10/11/18 @ 17:28 by Celina Last MD) Gallstone pancreatitis (Acute) Date of Admission: 10/11/18 - Primary Discharge Diagnosis Active and Suspected Problems (Last Updated 10/11/18 @ 17:28 by Celina Last MD) Gallstone pancreatitis (Acute) Obstructive jaundice Acute cholecystitis - Secondary Discharge Diagnosis Chronic Problems (Last Updated 10/11/18 @ 17:28 by Celina Last MD) Myocardial infarction (Chronic) Atrial fibrillation (Chronic) Hospital Course and Treatment Hospitalist for help with medical management Operations: cholecystecomy, ERCP Summary of Care Provided: The patient is a 62 year old F patient presented to the ER due to nausea vomiting and epigastric and right upper quadrant pain on Friday night which started suddenly at 3 AM. Labs showed patient to have a elevated white blood cell count as well as elevated lipase of 33,000 with slight elevations of LFTs. Patient had previous ultrasound on Friday which showed gallstones wall with 3 mm and no sonographic Betancourt sign at that time. By Friday morning patient's LFTs were improved as well as her lipase. And patient had been off her Xarelto since Friday night. Patient underwent a laparoscopic cholecystectomy by Dr. Last 10/12/18. Postoperatively she is still complaining of some abdominal pain her initial LFTs the following day were only slightly elevated which may have been just from surgery. However the following day they are even more elevated. Patient was taken for an ERCP on 10/14/[address] Tran. He did an ERCP with sphincterotomy and only had small amount of debris. Patient self to the following day were slightly elevated from the day before but this may be due to the fact there prior higher the day before and is actually downtrending as patient was feeling better and feeling hungry. Patient was started on a regular diet. She was able to tolerate a regular diet pain control was controlled she was ablating the halls. Patient was okay for discharge and patient may restart her Xarelto upon discharge. We will plan for follow-up liver function panel in 1 week and follow-up with Dr. Last in 1-2 weeks. Patient Problems: Active and Suspected Problems (Last Updated 10/11/18 @ 17:28 by Celina Last MD) Gallstone pancreatitis (Acute) - Physical Exam General: Alert, Oriented x3, Cooperative, No apparent distress Cardiovascular: - - Irregular Abdomen: Soft, Non-Distended, Tender - Near incisions appropriately, incisions clean dry and intact Extremities: No clubbing, No cyanosis, No edema Vital Signs Temp Pulse Resp BP Pulse Ox 98.1 F 88 16 142/71 H 94 10/15/18 09:12 10/15/18 09:24 10/15/18 09:12 10/15/18 09:24 10/15/18 09:12 Oxygen Flow Rate (L/min) 2 Oxygen Delivery Method Room Air Weight: 234 lb 12.677 oz Body Mass Index (BMI) 37.7 Intake and Output for Last 24 Hours 10/13/18 10/14/18 10/15/18 23:59 23:59 23:59 Intake Total 3477 / 3477 3184 / 3184 2021 Output Total 900 / 900 800 / 800 700 / 700 Balance 2577 / 2577 2384 / 2384 1322 / 1322 Laboratory Tests Past 24 Hrs 10/15/18 10/15/18 06:14 06:14 WBC 12.5 H RBC 3.62 L Hgb 10.8 L Hct 33.7 L MCV 93.1 MCH 29.8 MCHC 32.0 RDW 13.0 RDW Differential 43.0 Plt Count 211 MPV 10.6 Immature Gran % (Auto) 0.400 Neut % (Auto) 83.5 H Lymph % (Auto) 10.2 L [place] % (Auto) 5.2 Eos % (Auto) 0.5 Baso % (Auto) 0.2 Absolute Neuts (auto) 10.5 H Absolute Lymphs (auto) 1.27 Total Counted Not Reportable Sodium 136 Potassium 3.9 Chloride 104 Carbon Dioxide 22.0 Anion Gap 10 BUN 9 Creatinine 0.76 Estim Creat Clear Calc 72.77 Est GFR (MDRD) Af Amer 99 Est GFR (MDRD) Non-Af 82 BUN/Creatinine Ratio 11.9 Glucose 96 Calcium 8.1 L Total Bilirubin 4.70 H Direct Bilirubin 3.74 H AST 56 H ALT 56 Alkaline Phosphatase 578 H Total Protein 5.5 L Albumin 2.0 L Globulin 3.5 Lipase 170 Discharge Diet: Light diet - advance as tolerated Discharge Activity: Return to Normal Activity, May Not Drive - for 2-3 days or while taking narcotic pain medicataions., - - Do not drive, work heavy equipment or sign legal documents for 24 hours. May shower in (days): 1 - with the bandage in place. Additional Activity Instructions:: Pain medication may cause nausea. You should typically eat light foods as you take your pain medications. Pain medication may also cause constipation. If this is a problem for you, please discuss with your doctor. Call your doctor if your incision/area has: Continuous Slow Oozing, Sudden Increased Bleeding, Increased Pain/ Swelling, Increased Redness, Foul Smelling Discharge, Fever of 101 or Higher Call your doctor if you observe: Fever of 101 or Higher Suture Line Care: Avoid Pulling/Pushing, Avoid Pinching/Bending Additional Dressing/Incision Instructions:: Leave operative bandaids on for 2 days. When you remove dressing, leave Steri-Strips on until your follow-up appointment, or until the Steri-Strips fall off on their own. Home Medications: Medications to take at Discharge Digoxin [Lanoxin] 250 mcg PO DAILY 12/13/13 lisinopril 10 mg tablet 20 mg PO DAILY tab 08/03/18 rivaroxaban 20 mg tablet 20 mg PO DAILY 08/03/18 spironolactone 25 mg tablet 25 mg PO DAILY tab 08/03/18 Metoprolol(XL)Succ [Toprol Xl (Beta [place])] 100 mg PO BID #0 10/15/18 Oxycodone HCl/Acetaminophen [Percocet 5/325] 0.5 - 1 tablet PO Q6H PRN PRN 2 Days #10 tablet 10/15/18 Pantoprazole Sodium [Protonix] 40 mg PO DAILY #30 tablet 10/15/18 Following Prescrptions Were Given to Patient: Oxycodone HCl/Acetaminophen [Percocet 5/325] 0.5 - 1 tablet PO Q6H PRN PRN 2 Days #10 tablet PRN Reason: Pain Pantoprazole Sodium [Protonix] 40 mg PO DAILY #30 tablet Primary Care Physician: Jamarcus Toro MD [Primary Care Provider] - Please Follow Up With: Celina Last MD - [phone] When: 2 weeks Disposition: Home Minutes spent on discharge:: 15 Patient Condition:: Good Medical Necessity - Tobacco Use Smoking Status: Never smoker Meaningful Use Info Meaningful Use Diagnoses (Choose all that apply): None applicable
--- NOTE | 2018-10-15 11:55 | NURSING ---
PT REPORTS NO FOOD TASTES GOOD. STATES HAD 1/2 DONUT FOR BREAKFAST D/T NOTHING TASTING GOOD. REPORTS OPTIONS ON MENU DO NOT LOOK GOOD. DAUGHTER GOT SOUP FROM [facility] FOR PT-PT REFUSING TO EAT THE SOUP. THIS NURSE REVIEWED OPTIONS W/PT. PT STATES SHE WILL TRY BUTTERED NOODLES FOR LUNCH. PT DENIES PAIN W/EATING, STATES I HAVEN'T EATEN FOR SO LONG. EVEN AT HOME I WASN'T EATING BECAUSE OF THE PAIN. DENIES PAIN AT THIS TIME, STATES SHE'S HUNGRY BUT NOTHING TASTES GOOD. AFTER MUCH ENCOURAGEMENT PT AGREED TO AMB IN HALLS PRIOR TO LUNCH COMING UP. VERENA AMB IN HALLS. NOW SITTING IN CHAIR. DAUGHTER PRESENT IN ROOM.
--- NOTE | 2018-10-16 16:56 | CASEMGMT ---
RONAN WILL Discharge Follow-up Phone Call: JACQUELINE: Ivette Strata: 3 Call Date: 10/16/18 Discharge Date:10/15/18 Time of Call: 1645 Duration: 3 min Admitting Diagnosis: Gallstones, pancreatitis RONAN WILL completed follow-up phone call after recent hospitalization. Patient states that she is doing ok still in some pain. RN SUMAN encouraged to take pain medication as prescribed. Patient states she had no questions regarding discharge instructions and was able to fill medications without any problems.
--- OUTSIDE RECORDS SUMMARY | 2019-01-13 13:38 | XMS RPT_ITS ---
:1955 Author Organization [place] Support Name Relationship Address Phone ALONOVUS Unavailable [address] + [place] [address] UZAIR BOLANOS Unavailable [address] + [place] [address] ALONOVUS Unavailable [address] + [place] [address] UZAIR BOLANOS Unavailable [address] + [place] [address] ALONOVUS Unavailable [address] + [place] [address] UZAIR BOLANOS Un[address] + [place] [address] ALONOVUS Unavailable [address] + [place] [address] UZAIR BOLANOS Unavailable [address] + [place] [address] ALONOVUS Unavailable [address] + [place] [address] UZAIR BOLANOS Unavailable Unavailable + [place] [address] ALONOVUS Unavailable [address] + [place] [address] UZAIR BOLANOS Unavailable Unavailable + [place] [address] ALONOVUS Unavailable [address] + [place] [address] UZAIR BOLANOS Unavailable Unavailable + [place] [address] ALONOVUS Unavailable [address] + [place] [address] UZAIR BOLANOS Un[address] + [place] [address] ALONOVUS Unavailable [address] + [facility] [place] [address] UZAIR BOLANOS Unavailable Unavailable + [place] [address] ALONOVUS Unavailable [address] + [facility] [address] UZAIR BOLANOS Unavailable Unavailable + [place] [address] ALONOVUS Unavailable [address] + [facility] [address] UZAIR BOLANOS Unavailable Unavailable + [place] [address] ALONOVUS Unavailable [address] + [facility] [address] UZAIR BOLANOS Unavailable [facility] [address] + [place] [address] ALONOVUS Unavailable [address] + [facility] [place] [address] UZAIR BOLANOS Unavailable Unavailable + [place] [address] ALONOVUS Unavailable [address] + [place] [address] UZAIR BOLANOS Unavailable [facility] + [place] [address] ALONOVUS Unavailable [address] + [place] [address] UZAIR BOLANOS Unavailable Unavailable + [place] [address] ALONOVUS Unavailable [address] + [facility] [place] [address] UZAIR BOLANOS Unavailable Unavailable + [place] [address] ALONOVUS Unavailable [address] + [place] [address] UZAIR BOLANOS Unavailable . + [place] [address] ALONOVUS Unavailable [address] + [facility] [place] [address] UZAIR BOLANOS Unavailable Unavailable + [place] [address] ALONOVUS Unavailable [address] + [place] [address] UZAIR BOLANOS Unavailable Unavailable + ALONOVUS Unavailable [address] + [place] [address] GEETHA BOLANOSEL Unavailable . + [place] [address] ALONOVUS Unavailable [address] + [place] [address] GEETHA BOLANOSEL Unavailable Unavailable + [place] [address] UZAIR BOLANOS Unavailable Unavailable + LUDIN BOLANOS Unavailable [address] + [place] [address] GEETHA BOLANOSEL Unavailable Unavailable + ALONOVUS Unavailable [address] + [place] [address] UZAIR BOLANOS Unavailable [address] + [place] [address] GEETHA BOLANOSEL Unavailable Unavailable + LUDIN BOLANOS Unavailable [address] + [place] [address] UZAIR BOLANOS Unavailable Unavailable + Care Team Providers Name Role Phone LISA MANN MD Attending Unavailable [facility] Unavailable LISA MANN MD Attending Unavailable [facility] Unavailable [place], Celina Attending Unavailable [facility] Referring Unavailable Robotham, Celina Attending Unavailable Robotham, Celina Referring Unavailable [facility] Unavailable Robotham, Celina Attending Unavailable Robotham, Celina Referring Unavailable [facility] Primary Care Unavailable [facility] Primary [facility] Unavailable Dylan Tran Admitting Unavailable Dylan Tran Attending Unavailable Clifford Schrader Consulting Unavailable MARINA DEE Referring Unavailable Dylan Trna Admitting Unavailable Dylan Tran Attending Unavailable [facility] Primary Care Unavailable Dylan Tran Consulting Unavailable Dylan Tran Admitting Unavailable Robotham, Celina Attending Unavailable [facility] Primary Care Unavailable Dylan Tran Consulting Unavailable Dylan Tran Admitting Unavailable Tereletsky, Clifford Attending Unavailable [facility] Primary Care Unavailable Tereletsky, Clifford Consulting Unavailable Calabretta, Dylan Consulting Unavailable Calabretta, Dylan Admitting Unavailable Arriaza PA-C, Tran Attending Unavailable [facility] Primary Care Unavailable Tereletsky, Lcifford Consulting Unavailable Calabretta, Dylan Consulting Unavailable Calabretta, Dylan Admitting Unavailable [place], Ruperto Attending Unavailable [facility] Primary Care Unavailable Tereletsky, Clifford Consulting Unavailable Calabretta, Dylan Consulting Unavailable Calabretta, Dylan Admitting Unavailable Arriaza PA-C, Tran Attending Unavailable MARINA DEE Referring Unavailable [facility] Primary Care Unavailable Tereletsky, Clifford Consulting Unavailable Calabretta, Dylan Consulting Unavailable Calabretta, Dylan Admitting Unavailable [place], Ruperto Attending Unavailable MAIRNA DEE Referring Unavailable [facility] Primary Care Unavailable Tereletsky, Clifford Consulting Unavailable Calabretta, Dylan Consulting Unavailable Calabretta, Dylan Admitting Unavailable Arriaza PA-C, Tran Attending Unavailable MARINA DEE Referring Unavailable [facility] Care Unavailable Tereletsky, Clifford Consulting Unavailable Calabretta, Dylan Consulting Unavailable Calabretta, Dylan Admitting Unavailable [place], Ruperto Attending Unavailable MARINA DEE Referring Unavailable [facility] Care Unavailable Tereletsky, Clifford Consulting Unavailable Calabretta, Dylan Consulting Unavailable Arriaza PA-C, Tran Attending Unavailable Arriaza PA-C, Tran Referring Unavailable [facility] Care Unavailable [facility] Primary Care Unavailable JONA PULLIAM Attending Unavailable [facility] Attending Unavailable [facility] Referring Unavailable [facility] Primary Care Unavailable Robotham, Celina Attending Unavailable [facility] Referring Unavailable Robotham, Celina Attending Unavailable Robotham, Celina Referring Unavailable [facility] Primary Care Unavailable Miedel, Kanchan Attending Unavailable Miedel, Kanchan Referring Unavailable [facility] Primary Care Unavailable Robotham, Celina Attending Unavailable [facility] Referring Unavailable Robotham, Celina Attending Unavailable [facility] Primary Care Unavailable Robotham, Celina Attending Unavailable PROBLEMS PROBLEMS DATE TYPE CONDITION / CODE ATTENDING STATUS SOURCE 11/02/2018 Unknown R74.8 - Abnormal Robotham, Active [place] levels of other [facility] serum enzymes / Hospital R74.8(ICD-10) Repository 10/15/2018 Unknown G89.18 - Other acute [place], Ruperto Active [place] postprocedural pain [facility] / G89.18(ICD-10) Hospital Repository 10/09/2018 Unknown K80.20 - [facility] cholecystitis [facility] without obstruction Repository / K80.20(ICD-10) PROCEDURES PROCEDURES No Procedure Records FoundRESULTS RESULTS SURGERY VISIT REPORT Observed: 11/13/2018 Status: F Source: [place] 10:05 AM [facility] REPOSITORY [facility] [address] [place] [address] OFFICE VISIT Date of Service: 11/13/18 MR#: [id number] Acct: [id number] Name: RICKY BOLANOS Rep #: [id number] : 1955 Provider: Celina Last MD Age/Sex: 63/F Location: [facility] Status: Signed Intake Intake Visit Reasons: Gall Bladder Surgery 10/15 TR Diaper Machine Tender Required: No Is patient in pain?: No [...] taking which can be done using the Flypad pal boom. Discussed with patient she would [...] for evaluation, patient will first see her inspector insulation which she has appointment with in November [...] split second day Celina Last M.D. Pager: [phone] [facility] [address] [place] [address], Outpatient [place], [address] [place] [address] Office: [phone] Plan Detail Follow Up Patient will see her inspector insulation and will give us a call to [...] 11/02/2018 Status: F Source: [place] 2:22 PM [facility] [place] TYPE CODE TESTS RESULT OUT OF [...] BILI 0.32 Performed By: #### L500.3400 #### [facility] [address] [place], [address] SURGERY VISIT REPORT Observed: 11/02/2018 Status: F Source: [place] 2:12 PM [facility] [place] [facility] [address] [place] [address] OFFICE VISIT Date of Service: 11/02/18 MR#: [id number] Acct: [id number] Name: RICKY BOLANOS Rep #: [id number] : 1955 Provider: Celina Last MD Age/Sex: 63/F Location: [facility] Status: Signed Intake Intake Visit Reasons: Gall Bladder Surgery 10/15 TR Diaper Machine Tender Required: No Is patient in pain?: No [...] in 2 weeks. Celina Last M.D. Pager: [phone] [facility] [address] [place] [address], [address] [place] [address] Office: [phone] Orders Orders: Coding Level of Care Code Global Post Op Diagnoses Gallstone pancreatitis K85.10 Hx of cholecystectomy Z90.49 S/P ERCP Z98.890 11/02/18 1412 <Electronically signed by Celina Last MD> Date Celina Last MD Cosigner Signature: Date (if applicable) CC: Peace Toro MD LIVER PROFILE Collected: 10/22/2018 Status: F Source: [place] 9:25 AM [facility] [place] TYPE CODE TESTS RESULT OUT OF [...] BILI 0.45 Performed By: #### L500.3400 #### [facility] [address] [facility] [place], [address] DISCHARGE SUMMARY Observed: 10/15/2018 Status: F Source: [place] 10:46 AM [facility] [place] [facility] Medical Records Department [address] [place] [address] Discharge Summary 10/15/18 1040 MR#: [id number] Acct: [id number] Name: RICKY BOLANOS Rep #: [id number] : 1955 62 From: Celina Last MD PCP: Peace Toro MD Status: ADM IN Location: [place] [address] Discharge Date and Diagnosis - Problem List [...] Follow Up With: Celina Last MD - [phone] When: 2 weeks Disposition: Home Minutes spent [...] DISCHARGE INSTRUCTION Observed: 10/15/2018 Status: F Source: [place] 8:42 [facility] REPOSITORY [facility] Medical Records Department [address] [place] [address] Instructions for Home/Discharge Instructions 10/15/18 0802 MR#: [id number] Acct: [id number] Name: RICKY BOLANOS Rep #: [id number] : 1955 62 From: Tran Arriaza PA-C [...] Follow Up With: Celina Last MD - [phone] When: 2 weeks 10/15/18 0803 <Electronically signed by Tran Arriaza PA-C> Date Tran Arriaza PA-C CC: Clifford Schrader DO; Peace Toro MD CBC W/DIFF, AUTOMATED Collected: 10/15/2018 Status: F Source: [place] 6:14 AM [facility] [place] TYPE CODE TESTS RESULT OUT OF [...] Lymph 1.27 Performed By: #### L100.0100 #### [facility] [address], [address] BASIC METABOLIC Collected: 10/15/2018 Status: F Source: [place] PROFILE (BMP) 6:14 AM [facility] [place] [facility] TYPE CODE TESTS RESULT OUT OF [...] Performed By: #### L500.2500, L500.3400, L501.2450 #### [facility] [address] [facility] [place], [address] LIVER PROFILE Collected: 10/15/2018 Status: F Source: [place] 6:14 AM [facility] [place] TYPE CODE TESTS RESULT OUT OF [...] Performed By: #### L500.2500, L500.3400, L501.2450 #### [facility] [address] [place], [address] LIPASE Collected: 10/15/2018 Status: F Source: [place] 6:14 AM [facility] [place] [facility] TYPE CODE TESTS RESULT OUT OF RANGE REFERENCE UNITS LAB L501.2450 73-393 U/L Normal LIPASE 170 Performed By: #### L500.2500, L500.3400, L501.2450 #### [facility] [address] [place], [address] 12 LEAD ELECTROCARDIOGRAM Observed: 10/14/2018 Status: F Source: [place] 3:10 PM [facility] [place] [facility] Cardiovascular Services [address] [place] [address] 12 Lead EKG 10/11/18 1645 MR#: [id number] Acct: [id number] Name: RICKY BOLANOS Rep #: [id number] : 1955 62 From: Angel Ortiz MD Attending Dr: Dylan Tran MD Status: ADM IN Ordering Dr: Wang Woo DO Date: 10/11/18 Location: [facility] Sex: F C Admitted: 10/11/18 Test Reason [...] ECG Confirmed by ANGEL ORTIZ MD ([id number]), film and video editor MAICOL VALDOVINOS ([id number]) on 10/14/2018 3:09:34 PM Referred By: PEACE TORO Confirmed By:ANGEL ORTIZ MD 10/14/18 1509 Date Angel Ortiz MD CC: Dylan Tran MD; OUT OF TOWN DOCTOR; Wang Woo DO; Peace Toro MD Signed OPERATIVE REPORT - Observed: 10/14/2018 Status: F Source: [place] ENDOSCOPY 3:01 PM [facility] [facility] Medical Records Department [address] [facility] [place] [address] Operative Report - Endoscopy MR#: [id number] Acct: [id number] Name: RICKY BOLANOS Rep #: [id number] : 1955 62 From: Dylan Tran MD [...] and oxygen saturations were monitored continuously. The [id number] s/n [id number] endoscope was introduced through the mouth, and [...] previous diet. Procedure Code(s): --- Professional --- 30969, Endoscopic retrograde cholangiopancreatography (ERCP); with sphincterotomy/papillotomy Diagnosis Code(s): --- Professional --- K80.50, Calculus of bile duct without cholangitis or cholecystitis without obstruction R74.8, Abnormal levels of other serum enzymes K83.8, Other specified diseases of biliary tract CPT copyright 2017 [employer]. All rights reserved. The codes documented in this report are preliminary and upon cash shortage investigator review may be revised to meet current compliance requirements. Dylan Tran MD 10/14/2018 3:00:37 PM This report has been signed electronically. Number of Addenda: 0 Note Initiated On: 10/14/2018 1:56 PM 10/14/18 1500 Date Dylan Tran MD Cosigner Signature: Date (if indicated) CC: Dylan Tran MD; Clifford Schrader DO; OUT OF TOWN DOCTOR; Peace Toro MD Date Dictated: 10/14/18 1356 Date Transcribed: Hospital Secretary: AC Signed ERCP BILIARY/PANCREAS Observed: 10/14/2018 Status: F Source: [place] 1:49 PM [facility] [place] [facility] Imaging Services [address] [place] [address] ERCP Biliary/Pancreas MR#: [id number] Acct: [id number] Name: RICKY BOLANOS Rep #: [id number] : 1955 F 62 From: David Santiago DO PCP: Peace Toro MD Status: ADM IN Study: ERCP Biliary/Pancreas Date of Exam: 10/14/18 Exam# [id number] Ordering Dr: Dylan Tran MD STUDY: ERCP. [...] David Santiago DO at 19:04 EST Tel [phone], Service support , CC: Dylan Tran MD; Peace Toro MD Hospital Secretary: Signed CBC W/DIFF, AUTOMATED Collected: 10/14/2018 Status: F Source: [place] 6:10 AM [facility] [place] TYPE CODE TESTS RESULT OUT OF [...] Lymph 1.38 Performed By: #### L100.0100 #### [place] [address] [place], [id number] COMPREHENSIVE METABOLIC Collected: 10/14/2018 Status: F Source: [place] JOSHI 6:10 AM [facility] [place] [place] TYPE CODE TESTS RESULT OUT OF [...] 10 Performed By: #### L500.4050, L501.2450 #### [facility] [address] [place], [address] LIPASE Collected: 10/14/2018 Status: F Source: [place] 6:10 AM [facility] [place] [place] TYPE CODE TESTS RESULT OUT OF RANGE REFERENCE UNITS LAB L501.2450 73-393 U/L Normal LIPASE 345 Performed By: #### L500.4050, L501.2450 #### [facility] [address] [place], [address] LACTIC ACID Collected: 10/14/2018 Status: F Source: [place] 6:10 AM [facility] [place] [facility] Order Comment: Yes/No query for Sepsis Lactate Rule Y TYPE CODE TESTS RESULT OUT OF RANGE REFERENCE UNITS LAB L503.6005 0.4-2.0 mmol/L Normal LACTIC ACID 1.2 Performed By: #### L503.6005 #### [facility] [address] [place], [address] OPERATIVE REPORT Observed: 10/13/2018 Status: F Source: [place] 4:15 PM [facility] Medical Records Department [address] [place] [address] Operative Report 10/12/18 1428 MR#: [id number] Acct: [id number] Name: RICKY BOLANOS Rep #: [id number] : 1955 62 From: Celina Last MD PCP: Peace Toro MD Status: ADM IN Location: [place] [address] Report of Operation Date of Procedure: 10/12/18 Pre-Operative Diagnosis: Gallstone pancreatitis, cholelithiasis Post-Operative Diagnosis: Gallstone pancreatitis, acute cholecystitis, cholelithiasis Surgery/Procedure Performed:: Laparoscopic cholecystectomy with cholangiograms icing mixer: Dylan Tran Type of Anesthesia:: General/Supplemental Anesthesiologist: [...] 12 mm trocar was closed with a exorll-wp-bikus 0 Vicryl suture. The skin was closed [...] 10/13/2018 Status: F Source: [place] 5:36 AM [facility] [place] TYPE CODE TESTS RESULT OUT OF [...] Lymph 1.72 Performed By: #### L100.0100 #### [facility] [address] [place], [place], [address] COMPREHENSIVE METABOLIC Collected: 10/13/2018 Status: F Source: [facility] 5:36 AM [facility] [place] [facility] TYPE CODE TESTS RESULT OUT OF [...] GAP Performed By: #### L500.4050, L501.2450 #### [facility] [address] [place], [address] LIPASE Collected: 10/13/2018 Status: F Source: [place] 5:36 AM [facility] [place] [facility] TYPE CODE TESTS RESULT OUT OF REFERENCE UNITS RANGE LAB L501.2450 73-393 U/L High LIPASE 698 Performed By: #### L500.4050, L501.2450 #### [facility] [address] [place], [address] GALLBLADDER Observed: 10/12/2018 Status: F Source: [place] 1:00 PM [facility] [place] [facility] Patient: RICKY BOLANOS : 1955 (62/F) Acct Num: [id number] Phys: Marc HERRERA,Dylan Unit Num: [id number] Loc: MS3 PD140-0 Specimen: [id number] Received: 10/12/181532 Spec Type: GALLBLADDE TISSUES 1 [...] measures up to 0.5 cm in thickness. Yield Analyst sections from the gallbladder and the cystic duct are submitted in one cassette. / GIOVANNI:gunjan 10/13/18 TC:3 CPT: 92864 HEADER OPERATION: Laparoscopic cholecystectomy with IOC PRE-OP DIAGNOSIS: Cholelithiasis TISSUE SUBMITTED: Gallbladder MICROSCOPIC DESCRIPTION Slides are reviewed. MICROSCOPIC DIAGNOSIS Gallbladder: Chronic cholecystitis, cholelithiasis and cholesterolosis. GIOVANNI:gunjan 10/14/18 Signed Vin Ramsey MD 10/14/18 <signature on file> Performed By: #### PGALL #### [facility] [address] [facility] [place], [address] SURGERY VISIT REPORT Observed: 10/12/2018 Status: F Source: [place] 11:31 AM [facility] [place] [facility] [place] [facility] [address] [place] [address]. [address] [place] [address] OFFICE VISIT Date of Service: 10/09/18 MR#: [id number] Acct: [id number] Name: RICKY BOLANOS Rep #: [id number] : 1955 Provider: Cel[place] Last MD Age/Sex: 62/F Location: [facility] Status: Signed Intake Intake Visit Reasons: GALLBLADDER Diaper Machine Tender Required: No Is patient in pain?: No [...] toast with no issues and she had Emir[place] this afternoon with no issues. Patient has [...] or greasy foods. Celina Last M.D. Pager: [phone] [facility] [address] [place] [address], [address] [place] [address] Office: [phone] Orders Orders: Plan Detail Follow Up plan [...] Status: F Source: [place] R,INITIAL 9:06 AM [facility] [place] [facility] Imaging Services [address] [place] [address] Cholangiogram/ O R,Initial MR#: [id number] Acct: [id number] Name: RICKY BOLANOS Rep #: [id number] : 1955 F 62 From: Adan Stewart MD PCP: Peace Toro MD Status: ADM IN Study: Cholangiogram/ O R,Initial Date of Exam: 10/12/18 Exam# [id number] Ordering Dr: Celina Last MD PROCEDURE: INTRAOPERATIVE [...] CC: Peace Toro MD; Celina Last MD Hospital Secretary: Signed CBC W/DIFF, AUTOMATED Collected: 10/12/2018 Status: F Source: [place] 5:27 AM [facility] [place] [facility] TYPE CODE TESTS RESULT OUT OF [...] Lymph 2.11 Performed By: #### L100.0100 #### [facility] [address] [place], [address] COMPREHENSIVE METABOLIC Collected: 10/12/2018 Status: F [facility] [place] TYPE CODE TESTS RESULT OUT OF [...] By: #### L500.4050, L501.2300, L501.2450, L501.5200 #### [facility] [address] [place], [address] PHOSPHORUS Collected: 10/12/2018 Status: F Source: [place] 5:27 AM [facility] [place] [facility] TYPE CODE TESTS RESULT OUT OF RANGE REFERENCE UNITS LAB L501.2300 2.5-4.9 mg/dL Normal PHOS 3.9 Performed By: #### L500.4050, L501.2300, L501.2450, L501.5200 #### [facility] [address] [place], [address] LIPASE Collected: 10/12/2018 Status: F Source: [place] 5:27 AM [facility] [place] [facility] TYPE CODE TESTS RESULT OUT OF REFERENCE UNITS RANGE LAB L501.2450 73-393 U/L High LIPASE 8989 Performed By: #### L500.4050, L501.2300, L501.2450, L501.5200 #### [facility] [address] [place], [address] MAGNESIUM Collected: 10/12/2018 Status: F Source: [place] 5:27 AM [facility] [place] [facility] TYPE CODE TESTS RESULT OUT OF RANGE REFERENCE UNITS LAB L501.5200 1.6-2.6 mg/dL Normal MG 2.1 Performed By: #### L500.4050, L501.2300, L501.2450, L501.5200 #### [facility] [address] [place], [address] LACTIC ACID Collected: 10/11/2018 Status: F Source: [place] 8:35 PM [facility] [place] [facility] TYPE CODE TESTS RESULT OUT OF REFERENCE UNITS RANGE LAB L503.6005 0.4-2.0 mmol/L High LACTIC ACID 2.3 Result Comment: CALLED ASLHI VELIZ MS- 3 WITH CRITICAL LA BY [facility] 10-11-18 AT 2111PM READ BACK BY SAME Performed By: #### L503.6005 #### [facility] [address] [place], [address] TROPONIN-I Collected: 10/11/2018 Status: F Source: [place] 8:15 PM [facility] TYPE CODE TESTS RESULT OUT OF RANGE REFERENCE UNITS LAB L501.4010 <0.045 ng/mL Normal < 0.015 TROPONIN-I Result Comment: TROPONIN-I EXPECTED VALUES <0.045 Negative 0.045 - 0.590 Consistent with Cardiac Damage > OR = 0.600 Critical Value Not every elevated troponin is indicative of UT. These values should be used with clinical judgement in examining the patient's clinical picture for diagnosis. To establish a diagnosis of UT versus myocardial injury, there must be a demonstrated rise and/or fall in the troponin values, in addition to ischemic symptoms, EKG changes, new regional wall motion abnormality, and/or angiographical evidence. PLEASE NOTE: REFERENCE RANGES EDITED 18 Performed By: #### L501.4010 #### [facility] [address] [facility] [place], [address] HISTORY AND PHYSICAL Observed: 10/11/2018 Status: F Source: [place] EXAM 6:21 PM [facility] [place] [facility] Medical Records Department [address] [place] [address] History and Physical 10/11/18 1811 MR#: [id number] Acct: [id number] Name: RICKY BOLANOS Rep #: [id number] : 1955 62 From: Dylan Tran MD PCP: Peace Toro MD Status: ADM IN Location: [facility] UK479-0 Problem List (1) Gallstone pancreatitis Status: Acute [...] by Dr. Last. Dylan Tran MD Pager: [facility] [address] [place] [address], [address] [place] [phone] Office: 10/11/18 182 <Electronically signed by Dylan Tran MD> Date Dylan Tran MD [facility] Signature: Date (if applicable) CC: Dylan Tran MD; Peace Toro MD Signed EMERGENCY DEPARTMENT Observed: 10/11/2018 Status: F Source: [place] SUMMARY 5:03 PM [facility] [place] [facility] Medical Records Department [address] [place] [address] Emergency Department Summary 10/11/18 1700 MR#: [id number] Acct: [id number] Name: RICKY BOLANOS Rep #: [id number] : 1955 62 From: Wang Woo DO [...] [Gallstone pancreatitis] This note was generated with [employer]Tweet dictation software. It may contain incorrect words, [...] your Primary Care Provider. Call [facility] ([phone]) or report to the closest Emergency Room. Call 911 if necessary. 10/11/18 1705 <Electronically signed by Wang Woo DO> Date Wang Woo DO Cosigner Signature (If Indicated): Date CC: Peace Toro MD LACTIC ACID Collected: 10/11/2018 Status: F Source: [place] 4:15 PM [facility] [place] Order Comment: Yes/No query for Sepsis Lactate Rule Y TYPE CODE TESTS RESULT OUT OF REFERENCE UNITS RANGE LAB L503.6005 0.4-2.0 mmol/L High LACTIC ACID 3.9 Result Comment: called raleigh de oliveira ed with critical la by maf 10-11-18 AT 1701PM READ BACK BY SAME Performed By: #### L503.6005 #### [facility] [address] [place], [address] CBC W/DIFF, AUTOMATED Collected: 10/11/2018 Status: F Source: [place] 3:33 PM [facility] [place] TYPE CODE TESTS RESULT OUT OF [...] Lymph 1.26 Performed By: #### L100.0100 #### [facility] [place], [address] COMPREHENSIVE METABOLIC Collected: 10/11/2018 Status: F Source: [place] JOSHI 3:33 PM [facility] [place] TYPE CODE TESTS RESULT OUT OF [...] 12 Performed By: #### L500.4050, L501.2450 #### [facility] [address] [place], [address] LIPASE Collected: 10/11/2018 Status: F Source: [place] 3:33 PM [facility] [place] TYPE CODE TESTS RESULT OUT OF REFERENCE UNITS RANGE LAB L501.2450 73-393 U/L High LIPASE [address]4042 Result Comment: RESULTS CALLED TO [facility] ED 10/11/18 1645 Dariel Lopez. REPORT READ BACK BY SAME . Performed By: #### L500.4050, L501.2450 #### [facility] [address] [place], [address] GALLBLADDER Observed: 10/10/2018 Status: F Source: [place] 8:11 AM [facility] [place] [facility] Imaging Services [address] [place] [address] Gallbladder MR#: [id number] Acct: [id number] Name: RICKY BOLANOS Rep #: [id number] : 1955 F 62 From: Bryant Qiu MD PCP: Peace Toro MD Status: REG CLI Study: Gallbladder Date of Exam: 10/10/18 Exam# [id number] Ordering Dr: Celina Last MD STUDY: ABDOMINAL [...] CC: Peace Toro MD; Celina Last MD Hospital Secretary: Signed CBC W/DIFF, AUTOMATED Collected: 10/09/2018 Status: F Source: [place] 3:26 PM [facility] [place] TYPE CODE TESTS RESULT OUT OF [...] Lymph 2.48 Performed By: #### L100.0100 #### [facility] [address] [place], [address] BASIC METABOLIC Collected: 10/09/2018 Status: F Source: [place] PROFILE ([facility]) 3:26 PM [facility] [place] TYPE CODE TESTS RESULT OUT OF [...] 5 Performed By: #### L500.2500, L500.3400 #### [facility] [address] [facility] [place], [address] LIVER PROFILE Collected: 10/09/2018 Status: F Source: [place] 3:26 PM [facility] [place] TYPE CODE TESTS RESULT OUT OF [...] 0.18 Performed By: #### L500.2500, L500.3400 #### [facility] [address] [facility] [place], [place], [address] ABDOMEN/PELVIS WITHOUT Observed: 10/06/2018 Status: F Source: [place] CONT 1:47 PM [facility] [place] [facility] Imaging Services [address] [place] [address] Abdomen/Pelvis without Cont MR#: [id number] Acct: [id number] Name: RICKY BOLANOS Rep #: [id number] : 1955 F 62 From: Marco Cortes MD PCP: Peace Toro MD Status: REG CLI Study: Abdomen/Pelvis without Cont Date of Exam: 10/06/18 Exam# [id number] Ordering Dr: Kanchan Faustin MD STUDY: CT [...] Marco Cortes MD at 14:23 EST Tel [phone], Service support , CC: Knachan Faustin MD; Peace Toro MD Hospital Secretary: Signed SURGERY VISIT REPORT Observed: 08/03/2018 Status: F Source: [place] 10:20 AM [facility] [place] [facility] [address] [place] [address] OFFICE VISIT Date of Service: 08/03/18 MR#: [id number] Acct: [id number] Name: RICKY BOLANOS Rep #: [id number] : 1955 Provider: Celina Last MD Age/Sex: 62/F Location: [facility] Status: Signed Intake Vital Signs08/03/18 Height 5 ft 9 in 08/03/18 Weight: 246 lb Intake Visit Reasons: RUQ/Epigastric US [facility] 07/29 Diaper Machine Tender Required: No Allergies ketorolac tromethamine [From Toradol] [...] has been able to eat salad with Martiniquais dressing with no issues along with turtle [...] no issues as well as salad with Martiniquais dressing. Patient also states she drinks 3-4 [...] the other half. Celina Last M.D. Pager: [phone] [facility] [address] [place] [address], [facility] [address] [place] [address] Office: [phone] Orders Orders: Plan Detail Follow Up 2 Weeks Coding Level of Care Code Off vis,new,level 3 Diagnoses Gastroesophageal reflux disease K21.9 Cholelithiasis K80.20 Constipation K59.00 08/03/18 1020 <Electronically signed by Celina Last MD> Date Celina Last MD Cosigner Signature: Date (if applicable) CC: Peace Toro MD CBC W/DIFF, AUTOMATED Collected: 08/03/2018 Status: F Source: [place] 10:16 AM [facility] [place] TYPE CODE TESTS RESULT OUT OF [...] 2.64 Performed By: #### L100.0100, L500.3400 #### [facility] [address] [place], [place], [address] LIVER PROFILE Collected: 08/03/2018 Status: F Source: [place] 10:16 AM [facility] [place] TYPE CODE TESTS RESULT OUT OF [...] 0.17 Performed By: #### L100.0100, L500.3400 #### [facility] [address] [place], [place], [address] ABDOMEN LIMITED Observed: 07/29/2018 Status: F Source: [place] 7:58 AM [facility] [place] [facility] Imaging Services [address] [place] [address] Abdomen Limited MR#: [id number] Acct: [id number] Name: RICKY BOLANOS Rep #: [id number] : 1955 F 62 From: Adan Stewart MD PCP: Peace Toro MD Status: REG CLI Study: Abdomen Limited Date of Exam: 07/29/18 Exam# [id number] Ordering Dr: Peace Toro MD STUDY: ABDOMINAL [...] Service support , CC: Peace Toro MD Hospital Secretary: Signed 12 LEAD ELECTROCARDIOGRAM Observed: 06/16/2018 Status: F Source: [place] 1:57 PM [facility] [place] [facility] Cardiovascular Services [address] [place] [address] 12 Lead EKG 06/12/18 0413 MR#: [id number] Acct: [id number] Name: BOLANOSRICKY Rep #: [id number] : 1955 62 From: Angel Ortiz MD [...] ECG Confirmed by ANGEL ORTIZ MD ([id number]), film and video editor MAICOL VALDOVINOS ([id number]) on 06/16/2018 1:57:00 PM Referred By: SHASHA Confirmed By:ANGEL ORTIZ MD 06/16/18 1357 Date Angel Ortiz MD CC: JONA PULLIAM MD; Peace Toro MD Signed EMERGENCY DEPARTMENT Observed: 06/12/2018 Status: F Source: [place] SUMMARY 5:33 AM [facility] [place] [facility] Medical Records Department [address] [place] [address] Emergency Department Summary 06/12/18 0435 MR#: [id number] Acct: [id number] Name: BOLANOSRICKY Rep #: [id number] : 1955 62 From: Jona Pulliam MD [...] medically. States that when she had her UT, she mostly had dyspnea. She does not [...] your Primary Care Provider. Call [facility] ([phone]) or report to the closest Emergency Room. Call 911 if necessary. 06/12/18 0533 <Electronically signed by Jona Pulliam MD> Date Jona Pulliam MD Cosigner Signature (If Indicated): Date CC: Peace Toro MD CHEST 1 VIEW Observed: 06/12/2018 Status: F Source: [place] (PORTABLE) 4:35 AM [facility] [place] [facility] Imaging Services [address] [place] [address] Chest 1 View (Portable) MR#: [id number] Acct: [id number] Name: RICKY BOLANOS Rep #: [id number] : 1955 F 62 From: Frank Vasquez MD PCP: Peace Toro MD Status: REG ER Study: Chest 1 View (Portable) Date of Exam: 06/12/18 Exam# [id number] Ordering Dr: Jona Pulliam MD STUDY: X-RAY [...] CC: JONA PULLIAM MD; Peace Toro MD Hospital Secretary: Signed CBC W/DIFF, AUTOMATED Collected: 06/12/2018 Status: F Source: [place] 4:20 AM [facility] [place] TYPE CODE TESTS RESULT OUT OF [...] Lymph 3.07 Performed By: #### L100.0100 #### [facility] [address] [place], [place], [address] BASIC METABOLIC Collected: 06/12/2018 Status: F Source: [place] PROFILE (BMP) 4:20 AM [facility] [place] TYPE CODE TESTS RESULT OUT OF [...] 10 Performed By: #### L500.2500, L501.4010 #### [facility] [address] [place], [address] TROPONIN-I Collected: 06/12/2018 Status: F Source: [place] 4:20 AM [facility] [place] TYPE CODE TESTS RESULT OUT OF RANGE REFERENCE UNITS LAB L501.4010 <0.045 ng/mL Normal < 0.015 TROPONIN-I Result Comment: TROPONIN-I EXPECTED VALUES <0.045 Negative 0.045 - 0.590 Consistent with Cardiac Damage > OR = 0.600 Critical Value Not every elevated troponin is indicative of UT. These values should be used with clinical judgement in examining the patient's clinical picture for diagnosis. To establish a diagnosis of UT versus myocardial injury, there must be a demonstrated rise and/or fall in the troponin values, in addition to ischemic symptoms, EKG changes, new regional wall motion abnormality, and/or angiographical evidence. PLEASE NOTE: REFERENCE RANGES EDITED 18 Performed By: #### L500.2500, L501.4010 #### [facility] [address] [place], [place], [address] PROTEIN, TOTAL Collected: 06/12/2018 Status: F Source: [place] 4:20 AM [facility] [place] TYPE CODE TESTS RESULT OUT OF RANGE REFERENCE UNITS LAB L501.1500 6.4-8.2 g/dL Normal T PROT 7.2 LAB L501.1950 2.2-4.2 g/dL Normal GLOB 3.9 LAB L501.2000 0.9-2.4 RATIO Low A/G 0.8 Performed By: #### L001.0705, L501.1800, L501.2450, L501.4100, L501.4305, L501.4405, L501.4600 #### [facility] [address] [place], [address] ALBUMIN, SERUM Collected: 06/12/2018 Status: F Source: [place] 4:20 AM [facility] [place] TYPE CODE TESTS RESULT OUT OF RANGE REFERENCE UNITS LAB L501.1800 3.2-5.0 g/dL Normal ALB 3.3 Performed By: #### L001.0705, L501.1800, L501.2450, L501.4100, L501.4305, L501.4405, L501.4600 #### [facility] [address] [place], [address] LIPASE Collected: 06/12/2018 Status: F Source: [place] 4:20 AM [facility] [place] TYPE CODE TESTS RESULT OUT OF RANGE REFERENCE UNITS LAB L501.2450 73-393 U/L Normal LIPASE 224 Performed By: #### L001.0705, L501.1800, L501.2450, L501.4100, L501.4305, L501.4405, L501.4600 #### [facility] [address] [facility] [place], [address] AST(SGOT) Collected: 06/12/2018 Status: F Source: [place] 4:20 AM [facility] [place] TYPE CODE TESTS RESULT OUT OF RANGE REFERENCE UNITS LAB L501.4100 15-37 U/L Normal AST 20 Performed By: #### L001.0705, L501.1800, L501.2450, L501.4100, L501.4305, L501.4405, L501.4600 #### [facility] [place], [place], [address] ALKALINE PHOSPHATASE Collected: 06/12/2018 Status: F Source: [place] 4:20 AM [facility] [place] TYPE CODE TESTS RESULT OUT OF RANGE REFERENCE UNITS LAB L501.4305 45-117 U/L Normal ALK P 89 Performed By: #### L001.0705, L501.1800, L501.2450, L501.4100, L501.4305, L501.4405, L501.4600 #### [facility] [place], [address] ALANINE AMINOTRANSFERAS Collected: 06/12/2018 Status: F Source: [place] (SGPT) 4:20 AM [facility] [place] TYPE CODE TESTS RESULT OUT OF RANGE REFERENCE UNITS LAB L501.4405 13-56 U/L Normal ALT 23 Performed By: #### L001.0705, L501.1800, L501.2450, L501.4100, L501.4305, L501.4405, L501.4600 #### [facility] [address] [place], [address] TOTAL BILIRUBIN Collected: 06/12/2018 Status: F Source: [place] 4:20 AM [facility] [place] TYPE CODE TESTS RESULT OUT OF RANGE REFERENCE UNITS LAB L501.4600 0.20-1.00 mg/dL Normal T BILI 0.50 Performed By: #### L001.0705, L501.1800, L501.2450, L501.4100, L501.4305, L501.4405, L501.4600 #### [facility] [address] [place], [address] NM MYOCARDIAL SPECT Observed: 05/26/2018 Status: F Source: [place] STRESS/REST 10:00 AM [facility] REPOSITORY ORIGINAL Adenosine Stress Cardiac Gated SPECT/CT, [...] SEVERITY SOURCE 11/13/2018 Drug ketorolac Hives Unknown [facility] Allergy/416 tromethamine/F00 [facility] 392446(SNOM 2554783(RXNORM) Repository ED CT) ENCOUNTERS ENCOUNTERS ADMIT/DISCHARGE ACCOUNT NUMBER ADMITTING ENCOUNTER LOCATION SOURCE CLASS 11/13/2018/11/13/19 [id number] Ambulatory BMSBuilding: [place] 19 [facility] Repository 11/02/[id number] [facility] ding:PAVLAB Repository 11/02/2018/11/02/19 [id number] Ambulatory BMSBuilding: [place] 19 [facility] Repository 10/22/[id number] [facility] ding:LAB Repository 10/11/2018/10/15/20 [id number] [place] Dylan [facility] ding:VN0Zess Repository : GL135Hvi: 1 10/11/2018 [id number] [place], Ambulatory BMSBuilding: [place] Dylan BMS..[facility] Repository 10/11/2018 [id number] [place], Ambulatory BMSBuilding: [place] Dylan BMS..[facility] Repository 10/11/2018 [id number] [place], Ambulatory BMSBuilding: [place] Dylan BMS.[facility] Repository 10/11/2018 [id number] [place], Ambulatory BMSBuilding: [place] Dylan BMS..[facility] Repository 10/11/2018 [id number] [place], Ambulatory BMSBuilding: [place] Dylan BMS.[facility] Repository 10/11/2018 [id number] [place], Ambulatory BMSBuilding: [place] Dylan BMS..[facility] Repository 10/11/2018 [id number] [place], Ambulatory BMSBuilding: [place] Dylan BMS.[facility] Repository 10/11/2018 [id number] [place], Ambulatory BMSBuilding: [place] Dylan BMS..[facility] Repository 10/11/2018 [id number] [place], Ambulatory BMSBuilding: [place] Dylan BMS.[facility] Repository 10/10/[id number] [facility] ding:US Repository 10/09/[id number] [facility] ding:LAB Repository 10/09/2018/10/09/20 [id number] Ambulatory BMSBuilding: [place] 18 [facility] Repository 10/06/[id number] [facility] ding:CT Repository 08/03/[id number] [facility] ding:PAVLAB Repository 08/03/2018/08/03/20 [id number] Ambulatory BMSBuilding: [place] 18 [facility] Repository 07/29/[id number] [facility] ding:US Repository 06/23/2018/06/23/20 [id number] Ambulatory AULTMANBuild [place] 18 ing[facility] [employer] [facility] Repository 06/12/2018/06/12/20 [id number] Emergency [address] ding:ED Repository 05/26/2018/05/26/20 [id number] Ambulatory AULTMANBuild [place] 18 ing:[facility] [employer] [facility] Repository PAYERS PAYERS ENCOUNTER GUARANTOR PAYER SUBSCRIBER SOURCE 11/13/2018 RICKY BOLANOS110 Primary RICKY PERRYB: [place] JEAN Insurance:[id number] Number: Hospital [id number]: ([phone] [id number] Repository [address] () Date:9299-71-67[address] [address]AZ: 11/13/2018 Secondary NOT GIVENUNK [place] Insurance:SELF PAY [facility] Number: Effective Repository Date:2018-11-13 11/02/2018 RICKY BOLANOS110 Primary RICKY PERRYB: [place] JEAN Insurance:[place] [id number] Number: Hospital [id number]: 330 [id number] Repository 2313 () Date:7639-94-99IL [address] [address]QQ: 11/02/2018 Secondary NOT GIVENUNK [place] Insurance:SELF PAY [facility] Number: Effective Repository Date:2018-11-02 11/02/2018 RICKY BOLANOS110 Primary RICKY BOLANOSDOB: [place] JEAN Insurance:[employer] [id number] [place] icy Number: Hospital [id number]: 330 [id number] Repository 231 () Date:4253-88-17VF [address] [address]YR: 11/02/2018 Secondary NOT GIVENUNK [place] Insurance:SELF PAY [facility] Number: Effective Repository Date:2018-11-02 10/22/2018 RICKY ABDUL Primary RICKY BOLANOSDOB: [place] JEAN Insurance:[employer] [id number] [place] icy Number: Hospital [id number]: 330 [id number] Repository 231 () Date:3530-07-79SN [address] [address]JR: 10/22/2018 Secondary NOT GIVENUNK [place] Insurance:SELF PAY [facility] Number: Effective Repository Date:2018-10-22 10/11/2018 RICKY BOLANOS110 Primary RICKY BOLANOSDOB: [place] JEAN Insurance:[employer] [id number] [place] icy Number: Hospital [id number]: 330 [id number] Repository 2313 () Date:8164-78-10PI [facility] [address] [place] [address]EP: 10/11/2018 Secondary NOT GIVENUNK [place] Insurance:SELF PAY [facility] Number: Effective Repository Date:2018-10-11 10/11/2018 RICKY BOLANOS110 Primary RICKY BOLANOSDOB: [place] JEAN Insurance:[employer] [id number] [place] icy Number: Hospital [id number]: ([phone]) [id number] Repository 2313 () Date:0600-70-17XI [address] [address]JZ: 10/11/2018 Secondary NOT GIVENUNK [place] Insurance:SELF PAY Community [facility] Number: Effective Repository Date:2018-10-11 10/11/2018 RICKY ABDUL Primary RICKY BOLANOSDOB: [place] JEAN Insurance:[employer] [id number] Number: Hospital [id number]: 330 [id number] Repository 231 () Date:5564-40-40YL [address] [address]WR: 10/11/2018 Secondary NOT GIVENUNK [place] Insurance:SELF PAY [facility] Number: Effective Repository Date:2018-10-11 10/11/2018 RICKY BOLANOS110 Primary RICKY BOLANOSDOB: [place] JEAN Insurance:[employer] [id number] Number: Hospital [id number]: 330 [id number] Repository 231 () Date:0144-36-74IJ [address] [address]PX: 10/11/2018 Secondary NOT GIVENUNK [place] Insurance:SELF PAY [facility] Number: Effective Repository Date:2018-10-11 10/11/2018 RICKY BOLANOS110 Primary RICKY BOLANOSDOB: [place] JEAN Insurance:[employer] [id number] Number: Hospital [address]Dez: 330 [id number] Repository 2313 () Date:7338-22-96NY [address] [address]YT: 10/11/2018 Secondary NOT GIVENUNK [place] Insurance:SELF PAY [facility] Number: Effective Repository Date:2018-10-11 10/11/2018 RICKY BOLANOS110 Primary RICKY BOLANOSDOB: [place] JEAN Insurance:[employer] [id number] [place] icy Number: Hospital [id number]: 330 [id number] Repository (HP) Date:0373-44-56QN [address] [place] [address]ZC: 10/11/2018 Secondary NOT GIVENUNK [place] Insurance:SELF PAY [facility] Number: Effective Repository Date:2018-10-11 10/11/2018 RICKY ABDUL Primary RICKY BOLANOSDOB: [place] JEAN Insurance:[employer] [id number] [place] icy Number: Hospital [id number]: 330 [id number] Repository (HP) Date:0145-75-37KM [address] [address]GC: 10/11/2018 Secondary NOT GIVENUNK [place] Insurance:SELF PAY Community [facility] Number: Effective Repository Date:2018-10-11 10/11/2018 RICKY BOLANOS110 Primary RICKY BOLANOSDOB: [place] JEAN Insurance:[employer] [id number] [place] icy Number: Hospital [id number]: 330 [id number] Repository () Date:3412-34-73RT [facility] [address] [place] [address]UQ: 10/11/2018 Secondary NOT GIVENUNK [place] Insurance:SELF PAY Community [facility] Number: Effective Repository Date:2018-10-11 10/11/2018 RICKY ABDUL Primary RICKY BOLANOSDOB: [place] JEAN Insurance:[employer] [id number] [place] icy Number: Hospital [id number]: 330 [id number] Repository () Date:8007-76-51GX [facility] [address] [place] [address]KA: 10/11/2018 Secondary NOT GIVENUNK [place] Insurance:SELF PAY [facility] Number: Effective Repository Date:2018-10-11 10/11/2018 RICKY BOLANOS110 Primary RICKY BOLANOSDOB: [place] JEAN Insurance:[employer] [id number] [place] icy Number: Hospital [id number]: (330 [id number] Repository 2313 (HP) Date:8232-07-94BJ [facility] [address] [place] [address]EK: 10/11/2018 Secondary NOT GIVENUNK [place] Insurance:SELF PAY Community [facility] Number: Effective Repository Date:2018-10-11 10/10/2018 RICKY BOLAONS110 Primary RICKY BOLANOSDOB: [place] JEAN Insurance:[employer] [id number] [place] Number: Hospital [id number]: 330 [id number] Repository 231 (HP) Date:4707-80-18YH [facility] [address] [place] [address]AX: 10/10/2018 Secondary NOT GIVENUNK [place] Insurance:SELF PAY [facility] Number: Effective Repository Date:2018-10-09 10/09/2018 RICKY BOLANOS110 Primary RICKY BOLANOSDOB: [place] Insurance:[employer] [id number] [place] icy Number: Hospital [id number]: 330 [id number] Repository 231 (HP) Date:[id number] [address] [address]CP: 10/09/2018 Secondary NOT GIVENUNK Kuldeep Insurance:SELF PAY [facility] Number: Effective Repository Date:2018-10-09 10/09/2018 RICKY BOLANOS110 Primary RICKY BOLANOSDOB: [place] Insurance:[place]AREPol [id number] [place], [place] icy Number: Hospital [id number]: 330 [id number] Repository [phone] () Date:6447-70-95OW [facility] [address] [place] [phone]: 10/09/2018 Secondary NOT GIVENUNK [place] Insurance:SELF PAY [facility] Number: Effective Repository Date:2018-10-09 10/06/2018 RICKY ABDUL Primary RICKY PERRYB: [place] JE[place] Insurance:[employer]ARE[place] [id number] [place] icy Number: Hospital [id number]: 330 [id number] Repository 231 (HP) Date:[id number] [address]MS: 10/06/2018 Secondary NOT GIVENUNK [place] Insurance:SELF PAY [facility] Number: Effective Repository Date:2018-09-30 08/03/2018 RICKY ABDUL Primary RICKY PERRYB: Kuldeep JE[place] Insurance:[employer]ARE[place] [id number] [place] icy Number: Hospital [id number]: 330 [id number] Repository 231 () Date:4115-87-02MO [address] [address]DB: 08/03/2018 Secondary NOT GIVENUNK [place] Insurance:SELF PAY [facility] Number: Effective Repository Date:2018-08-03 08/03/2018 RICKY ABDUL Primary RICKY PERRYB: [place] JE[place] Insurance:[employer]ARE[place] [id number] [place] icy Number: Hospital [id number]: 330 [id number] Repository [phone] (HP) Date:[id number] [address]MH: 08/03/2018 Secondary NOT GIVENUNK [place] Insurance:SELF PAY [facility] Number: Effective Repository Date:2018-08-03 07/29/2018 RICKY ABDUL Primary RICKY PERRYB: [place] JE[place] Insurance:[employer] [id number] [place] icy Number: Hospital [id number]: 330 [id number] Repository 231 (HP) Date:9131-87-91TW [address] [place] [phone]: 07/29/2018 Secondary NOT GIVENUNK Kuldeep Insurance:SELF PAY [facility] Number: Effective Repository Date:2018-07-28 06/23/2018 RICKY PERRYB: Primary RICKY BOLANOSDOB: [facility] Insurance:AULTCARE [id number] Foundation JEAN [id number] Number: JEAN Repository [place], [place] [id number] [place] [address]~ROSEJONES7 Date:2018-05-08Tel: [phone] [email or web address]: [id number] [phone] Name:DRUG CLERK Box ()Tel: (000) (HP)Tel: [phone]) [address] [place] [address] [phone] (WP) [phone] () [address]BZ: 06/12/2018 Ricky Abdul Primary Ricky PerryB: [place] [facility] [id number] Number: [facility] [id number]: [phone] [id number] Repository [phone] (HP) Date:[id number] [address] [place] [address]BJ: 06/12/2018 Secondary NOT GIVENUNK [place] Insurance:SELF PAY [facility] Number: Effective Repository Date:2018-06-12 05/26/2018 RICKY PERRYB: Primary RICKY BOLANOSDOB: [facility] Insurance:AULTCARE [id number] Foundation JEAN [id number] Number: JEAN Repository [place], [place] [id number] [place] [address]~ROSEJONES7 Date:2018-05-0814545Uel: [phone] [email or web address]: [id number]-31plan [phone] Name:DRUG CLERK Box ()Tel: (035) (HP)Tel: [phone] [address], [place] [phone] ([phone] ([phone]:
== END 2018-10-15 15:11 | disposition home or self-care (01) | DRG 417 ==
LOC: ED 16:11 → MS3 17:54
PROVIDERS: Internal Medicine; Surgery; Admitting Provider Surgery; Emergency Provider Emergency Medicine; Family Provider Family Medicine; PCP Family Medicine; Visit Provider Surgery
PROC: 0FT44ZZ Resection of Gallbladder, Percutaneous Endoscopic Approach (ICD-10-PCS; CPT 47610; principal; 2018-10-12 12:40)
PROC: 0F798ZZ Dilation of Common Bile Duct, Via Natural or Artificial Opening Endoscopic (ICD-10-PCS; CPT 43260; principal; 2018-10-14 13:30)
DX: K80.01 Calculus of gallbladder with acute cholecystitis with obstruction (principal); K85.10 Biliary acute pancreatitis without necrosis or infection; I48.2 Chronic atrial fibrillation; I11.0 Hypertensive heart disease with heart failure; E86.0 Dehydration; Z79.01 Long term (current) use of anticoagulants; I25.2 Old myocardial infarction; Z79.899 Other long term (current) drug therapy
CPT/HCPCS: 36415; 74300; 74330; 76000; 80048; 80053; 80076; 83605; 83690; 83735; 84100; 84484; 85025; 88304; 93005; 99282; J7030; A4216; J1610; J2405

== ENCOUNTER → 2018-10-22 09:23 | Outpatient (CLI) | payer OTHER, SELFPAY ==
[2018-10-22 09:23] VITALS: BMI 37.9
[2018-10-22 11:11] LABS: AST(SGOT) 23 U/L (15-37); Alanine Aminotransfer ALT/SGPT 40 U/L (13-56); Albumin, Serum 2.6 g/dL (3.2-5.0); Alkaline Phosphatase 234 U/L (45-117); Bilirubin, Direct 0.45 mg/dL (0.00-0.30); Globulin 3.8 g/dL (2.2-4.2); Protein, Total 6.4 g/dL (6.4-8.2)
== END ==
PROVIDERS: Family Provider Family Medicine; PCP Family Medicine; Referring Provider Physician Assistant; Visit Provider Physician Assistant
DX: R17 Unspecified jaundice (principal)
CPT/HCPCS: 36415; 80076

== ENCOUNTER → 2018-11-02 13:59 | Outpatient (CLI) | payer OTHER, SELFPAY ==
[2018-10-22 09:23] VITALS: BMI 37.9
[2018-11-02 14:54] LABS: AST(SGOT) 14 U/L (15-37); Alanine Aminotransfer ALT/SGPT 22 U/L (13-56); Albumin, Serum 3.3 g/dL (3.2-5.0); Alkaline Phosphatase 138 U/L (45-117); Bilirubin, Direct 0.32 mg/dL (0.00-0.30); Globulin 3.9 g/dL (2.2-4.2); Protein, Total 7.2 g/dL (6.4-8.2)
== END ==
PROVIDERS: Family Provider Family Medicine; PCP Family Medicine; Visit Provider Surgery
DX: R74.8 Abnormal levels of other serum enzymes (principal)
CPT/HCPCS: 36415; 80076

== ENCOUNTER → 2019-01-29 09:21 | Outpatient (CLI) | payer OTHER, SELFPAY ==
[2018-10-22 09:23] VITALS: BMI 37.9
--- NOTE | 2019-01-29 09:27 | MRI_ITS ---
HISTORY: meningioma f/u, no complaints from patient EXAM/TECHNIQUE: MR Brain W/O Contrast: Multiplanar, multisequence. 1.5 Emilia. COMPARISON: CTA head 03/27/17. FINDINGS: # of images incl. paperwork: 282 2.0 x 2.3 x 1.6 cm TRV X APX craniocaudad left posterior, medial meningioma abutting the falx and the high posterior frontal dura near the vertex, with mild mass-effect upon the underlying superior frontal gyrus, but with no adjacent edema. Size not significant change compared to prior. No other mass. No infarct or hemorrhage. No midline shift or hydrocephalus. The brain as normal signal and volume. Major flow voids preserved. No acute osseous abnormality. MRI/Brain without Contrast IMPRESSION: No significant change in the left posterior, medial frontal meningioma. at 0111 Reported and signed by: Abhishek Shaikh MD Electronically Signed: Abhishek Shaikh, at 1:10 EDT Tel , Service support ,
== END ==
PROVIDERS: Family Provider Family Medicine; PCP Family Medicine; Referring Provider Psychiatry & Neurology Sleep Medicine; Visit Provider Psychiatry & Neurology Sleep Medicine
DX: D32.9 Benign neoplasm of meninges, unspecified (principal)
CPT/HCPCS: 70551

== ENCOUNTER → 2019-10-22 13:16 | Outpatient (CLI) | payer OTHER, SELFPAY ==
[2018-10-22 09:23] VITALS: BMI 37.9
[2019-10-22 17:07] LABS: ALB/GLOB Ratio 0.9 RATIO (0.9-2.4); AST(SGOT) 17 U/L (15-37); Alanine Aminotransfer ALT/SGPT 20 U/L (13-56); Albumin, Serum 3.4 g/dL (3.2-5.0); Alkaline Phosphatase 79 U/L (45-117); Anion Gap 3 (5-15); BUN 16 mg/dL (7-18); BUN/Creat Ratio 14.8 RATIO (10-20); Calcium,Total 8.6 mg/dL (8.5-10.1); Chloride 106 mmol/L (98-107); Creatinine, Serum 1.08 mg/dL (0.55-1.02); EST Glomerular Filtration Rate 55 mL/min (>60); Est Glom Filt Rate - Afr Amer 66 mL/min (>60); Globulin 3.7 g/dL (2.2-4.2); Glucose 93 mg/dL (74-106); Potassium 4.2 mmol/L (3.5-5.1); Protein, Total 7.1 g/dL (6.4-8.2); Sodium Level 140 mmol/L (136-145)
[2019-10-22 17:49] LABS: Digoxin Level 1.15 ng/mL (0.80-2.00)
== END ==
PROVIDERS: Family Provider Family Medicine; PCP Family Medicine; Visit Provider Family Medicine
DX: I11.0 Hypertensive heart disease with heart failure (principal); I50.9 Heart failure, unspecified
CPT/HCPCS: 36415; 80053; 80162

== ENCOUNTER → 2020-12-15 08:02 | Outpatient (CLI) | payer OTHER, SELFPAY ==
[2018-10-22 09:23] VITALS: BMI 37.9
[2020-12-15 10:30] LABS: Digoxin Level 1.74 ng/mL (0.80-2.00)
== END ==
PROVIDERS: PCP Family Medicine; Referring Provider Internal Medicine Interventional Cardiology; Visit Provider Internal Medicine Interventional Cardiology
DX: I25.10 Atherosclerotic heart disease of native coronary artery without angina pectoris (principal); E78.00 Pure hypercholesterolemia, unspecified; I42.9 Cardiomyopathy, unspecified; I10 Essential (primary) hypertension; I48.91 Unspecified atrial fibrillation
CPT/HCPCS: 36415; 80162

== ENCOUNTER → 2024-01-01 | Outpatient (CLI) | payer MEDICARE, OTHER, SELFPAY ==
--- OUTSIDE RECORDS SUMMARY | 2024-01-01 07:30 | XMS RPT_ITS | CCD ---
Author Name Unknown Address [address] [place] [address] Organization [facility] Care Team Providers Care Architectural Practice Manager Name Role Phone FAYE HERRERA, PEACE Primary Care Physician [phone] ALBA HERRERA, KEELY Admitting Unavailable ALBA HERRERA, KEELY Attending Unavailable PEACE MCKINNEY MD Primary Care Unavailable PHIL HERRERA, SHOLA Consulting Unavailable DEJON HAM MD Consulting Unavailable ABDULKADIR HERRERA, GIANNA CAIN Attending Unavailable NICKY CARMICHAEL Primary Care Unavailable Allergies Allergy Classification Reported Allergen(s) Allergy Type Date of Onset Reaction(s) Facility (4 sources) Ketorolac; Translations: [ketorolac] Drug Allergy Unknown (qualifier value) [facility] Work Phone: Medications Current Medications Medication Drug Class(es) Dates Sig (Normalized) Sig (Original) dofetilide 0.25 mg oral capsule (2 sources) Antiarrhythmic Start: 11-12-2022 End: 11-20-2022 Tikosyn 250 mcg oral capsule Dose : 250 mcg = 1 cap(s), Oral, q12h, # 14 cap(s), 0 Refill(s), Pharmacy: [facility], 167.6, cm, 11/11/22 8:55:00 EST, Height, kg, 11/11/22 8:55:00 EST, Dosing Weight Start Date: 11/13/22 Stop Date: 11/20/22 Status: Ordered fluticasone propionate 0.05 mg/actuat metered dose nasal spray (2 sources) Corticosteroid Start: 08-25-2017 take 1 dose nasal route once daily in the morning as needed Flonase 50 mcg/inh nasal spray Dose = 1 spray(s), Nostril, each, qAM, PRN Allergy symptoms, 0 Refill(s) Start Date: 08/25/17 Status: Ordered lisinopril 20 mg oral tablet (2 sources) Angiotensin Converting Enzyme Inhibitor Start: 09-16-2022 take 1 tablet by mouth once daily lisinopril 20 mg oral tablet 1 tab(s), Oral, qDay, # 90 tab(s), 1 Refill(s), Pharmacy: [facility], 167.6, cm, 03/29/22 13:46:00 EDT, Height, kg, 03/29/22 13:46:00 EDT, Dosing Weight Start Date: 09/16/22 Status: Ordered Completed/Discontinued Medications Medication Drug Class(es) Dates Sig (Normalized) Sig (Original) Digoxin (3 sources) Cardiac Glycoside Start: 11-13-2022 End: 11-13-2022 digoxin Start: 11/13/22 12:00:00 EST, Dose = 250 mcg, = 1 tab(s), Oral, 11/11/22 9:27:00 EST Start Date: 11/13/22 Stop Date: 11/13/22 Status: Completed Problems Active Problems Problem Classification Problem Date Documented Da te Episodic/Chronic Acute myocardial infarction (2 sources) Myocardial infarction 08-25-2013 Chronic Benign neoplasm of uterus (2 sources) Uterine leiomyoma 02-01-2020 Episodic Cardiac dysrhythmias (3 sources) Atrial fibrillation; Translations: [Longstanding persistent atrial fibrillation] 08-27-2017 Chronic Congestive heart failure; nonhypertensive (7 sources) Chronic systolic heart failure; Translations: [Heart failure] 02-01-2020 Chronic Past or Other Problems Problem Classification Problem Date Documented Da te Episodic/Chronic Syncope (2 sources) Syncope Onset: 08-24-2013 08-25-2013 Episodic Results Test Name Value Interpretation Reference Range Facil ity Vital Signs Date Time Vital Sign Value Performing Clinician Yas kim 11-13-2022 13:58-0500 diastolic 55 mm[Hg] KEELY WILLIS MD [facility] 11-13-2022 13:58-0500 diastolic 78 mm[Hg] KEELY WILLIS MD [address] [place] [address] 11-13-2022 13:58-0500 Heart rate 65 /min KEELY WILLIS MD [address] [place] [address] 11-13-2022 13:58-0500 Heart rate 70 /min KEELY WILLIS MD [address] [place] [address] 11-13-2022 13:58-0500 Respiratory rate 16 /min KEELY WILLIS MD [address] [place] [address] 11-13-2022 13:58-0500 systolic 123 mm[Hg] KEELY WILLIS MD [address] [place] [address] 11-13-2022 13:58-0500 systolic 135 mm[Hg] KEELY WILLIS MD [address] [place] [address] 11-13-2022 12:55-0500 Heart rate 56 /min KEELY WILLIS MD [address] [place] [address] 11-13-2022 12:47-0500 Heart rate 53 /min KEELY WILLIS MD [address] [place] [address] 11-13-2022 11:43-0500 Heart rate 52 /min KEELY WILLIS MD [address] [place] [address] 11-13-2022 11:35-0500 Body temperature 97.52 [degF] KEELY WILLIS MD [address] [place] [address] 11-13-2022 11:35-0500 Diastolic Blood Pressure Non-Invasive 40 1 KEELY WILLIS MD [address] [place] [address] 11-13-2022 11:35-0500 Heart rate 53 /min KEELY WILLIS MD [address] [place] [address] 11-13-2022 11:35-0500 Reason For Taking VItal Signs KEELY WILLIS MD [address] [place] [address] 11-13-2022 11:35-0500 Respiratory rate 18 /min KEELY WILLIS MD [address] [place] [address] 11-13-2022 11:35-0500 Systolic Blood Pressure Non-Invasive 111 1 KEELY WILLIS MD [address] [place] [address] 11-13-2022 11:06-0500 Respiratory rate 19 /min KEELY WILLIS MD [address] [place] [address] 11-13-2022 11:01-0500 Body temperature 96.08 [degF] KEELY WILLIS MD [address] [place] [address] 11-13-2022 11:01-0500 Reason For Taking VItal Signs KEELY WILLIS MD [address] [place] [address] 11-13-2022 08:38-0500 Heart rate 74 /min KEELY WILLIS MD [address] [place] [address] 11-13-2022 07:05-0500 Body temperature 97.52 [degF] KEELY WILLIS MD [address] [place] [address] 11-13-2022 04:45-0500 Blood Pressure Cuff Size KEELY WILLIS MD [address] [place] [address] 11-13-2022 04:45-0500 Blood Pressure Location KEELY WILLIS MD [address] [place] [address] 11-13-2022 04:45-0500 Blood Pressure Method KEELY WILLIS MD [address] [place] [address] 11-13-2022 04:45-0500 Reason For Taking VItal Signs KEELY WILLIS MD [address] [place] [address] 11-12-2022 23:13-0500 Mean blood pressure 83 mm[Hg] KEELY WILLIS MD [address] [place] [address] 11-12-2022 18:38-0500 Blood Pressure Cuff Size KEELY WILLIS MD [address] [place] [address] 11-12-2022 18:38-0500 Blood Pressure Location KEELY WILLIS MD [address] [place] [address] 11-12-2022 18:38-0500 Blood Pressure Method KEELY WILLIS MD [address] [place] [address] 11-12-2022 16:54-0500 Heart rate 107 /min KEELY WILLIS MD [address] [place] [address] 11-12-2022 16:27-0500 Mean blood pressure 86 mm[Hg] KEELY WILLIS MD [address] [place] [address] 11-12-2022 14:40-0500 Blood Pressure Cuff Size KEELY WILLIS MD [address] [place] [address] 11-12-2022 14:40-0500 Blood Pressure Location KEELY WILLIS MD [address] [place] [address] 11-12-2022 14:40-0500 Blood Pressure Method KEELY WILLIS MD [address] [place] [address] 11-11-2022 22:30-0500 Mean blood pressure 73 mm[Hg] KEELY WILLIS MD [address] [place] [address] 11-11-2022 08:55-0500 Body height 167.6 cm KEELY WILLIS MD [address] [place] [address] 11-11-2022 08:55-0500 Body weight 114.5 kg KEELY WILLIS MD [address] [place] [address] 11-11-2022 08:55-0500 Body weight 40.76 kg/m2 KEELY WILLIS MD [address] [place] [address] 11-11-2022 08:37-0500 Body weight 114.5 kg KEELY WILLIS MD [address] [place] [address] Encounters Encounter Date Encounter Type Care Provider Facility Start: 08-21-2023 ambulatory GIANNA PANCHAL MD [facility] ity:B Start: 11-11-2022 End: 11-13-2022 Evaluation and management of inpatient KEELY WILLIS MD Facility:A Start: 11-11-2022 End: 11-13-2022 Evaluation and management of inpatient KEELY WILLIS MD [address] [place] [address] Start: 03-13-2022 End: 03-13-2022 Patient encounter procedure LISA JARA MD [facility] Procedures Date Procedure Procedure Detail Performing Clinician Start: 03-12-2022 Echocardiography KEELY OTT MD Payers Date Payer Category Payer Medicare [id number] 2022 Unknown [id number] 1955 Unknown [id number] 1955 Unknown [id number] Social History Date Type Detail Facility Start: 03-28-2020 Tobacco smoking status Never s moked tobacco (finding) [facility] Sex Assigned At Female [facility] Functional Status Date Assessment Result Facility 11-13-2022 Functional Status Room check performed [facility] 11-13-2022 Functional Status [facility] 11-13-2022 Functional Status Done [facility] 11-12-2022 Functional Status [facility] 11-12-2022 Functional Status Personal ADL [facility] 11-12-2022 Functional Status [facility] 11-11-2022 Functional Status Sensory Deficits None A [facility] Mental Status Date Assessment Result Facility 11-13-2022 Mental Status Oriented [facility] Clinical Notes 11-11-2022 to 11-13-2022 Note Date & Type Note Facility 11-13-2022 Hospital Discharg e instructions Patient Education 11/13/2022 13:18:14 Atrial Fibrillation Atrial Fibrillation Atrial fibrillation is a type of irregular heart rhythm (arrhythmia). During atrial fibrillation, the upper chambers of the heart (atria) quiver continuously in a chaotic pattern. This causes an irregular and often rapid heart rate. Atrial fibrillation is the result of the heart becoming overloaded with disorganized signals that tell it to beat. These signals are normally released one at a time by a part of the right atrium called the sinoatrial node. They then travel from the atria to the lower chambers of the heart (ventricles), causing the atria and ventricles to contract and pump blood as they pass. In atrial fibrillation, parts of the atria outside of the sinoatrial node also release these signals. This results in two problems. First, the atria receive so many signals that they do not have time to fully contract. Second, the ventricles, which can only receive one signal at a time, beat irregularly and out of rhythm with the atria. There are three types of atrial fibrillation: Paroxysmal. Paroxysmal atrial fibrillation starts suddenly and stops on its own within a week. Persistent. Persistent atrial fibrillation lasts for more than a week. It may stop on its own or with treatment. Permanent. Permanent atrial fibrillation does not go away. Episodes of atrial fibrillation may lead to permanent atrial fibrillation. Atrial fibrillation can prevent your heart from pumping blood normally. It increases your risk of stroke and can lead to heart failure. CAUSES Heart conditions, including a heart attack, heart failure, coronary artery disease, and heart valve conditions. Inflammation of the sac that surrounds the heart (pericarditis). Blockage of an artery in the lungs (pulmonary embolism). Pneumonia or other infections. Chronic lung disease. Thyroid problems, especially if the thyroid is overactive (hyperthyroidism). Caffeine, excessive alcohol use, and use of some illegal drugs. Use of some medicines, including certain decongestants and diet pills. Heart surgery. defects. Sometimes, no cause can be found. When this happens, the atrial fibrillation is called lone atrial fibrillation. The risk of complications from atrial fibrillation increases if you have lone atrial fibrillation and you are age 60 years or older. RISK FACTORS Heart failure. Coronary artery disease. Diabetes mellitus. High blood pressure (hypertension). Obesity. Other arrhythmias. Increased age. SYMPTOMS A feeling that your heart is beating rapidly or irregularly. A feeling of discomfort or pain in your chest. Shortness of breath. Sudden light-headedness or weakness. Getting tired easily when exercising. Urinating more often than normal (mainly when atrial fibrillation first begins). In paroxysmal atrial fibrillation, symptoms may start and suddenly stop. DIAGNOSIS Your health care provider may be able to detect atrial fibrillation when taking your pulse. Your health care provider may have you take a test called an ambulatory electrocardiogram (ECG). An ECG records your heartbeat patterns over a 24-hour period. You may also have other tests, such as: Transthoracic echocardiogram (TTE). During echocardiography, sound waves are used to evaluate how blood flows through your heart. Transesophageal echocardiogram (FLORIDALMA). Stress test. There is more than one type of stress test. If a stress test is needed, ask your health care provider about which type is best for you. Chest X-ray exam. Blood tests. Computed tomography (CT). TREATMENT Treatment may include: Treating any underlying conditions. For example, if you have an overactive thyroid, treating the condition may correct atrial fibrillation. Taking medicine. Medicines may be given to control a rapid heart rate or to prevent blood clots, heart failure, or a stroke. Having a procedure to correct the rhythm of the heart: ? Electrical cardioversion. During electrical cardioversion, a controlled, low-energy shock is delivered to the heart through your skin. If you have chest pain, very low blood pressure, or sudden heart failure, this procedure may need to be done as an emergency. ? Catheter ablation. During this procedure, heart tissues that send the signals that cause atrial fibrillation are destroyed. ? Maze or minimaze procedure. During this surgery, thin lines of heart tissue that carry the abnormal signals are destroyed. The maze procedure is an open-heart surgery. The minimaze procedure is a minimally invasive surgery. This means that small cuts are made to access the heart instead of a large opening. ? Pulmonary venous isolation. During this surgery, tissue around the veins that carry blood from the lungs (pulmonary veins) is destroyed. This tissue is thought to carry the abnormal signals. HOME CARE INSTRUCTIONS Only take medicines that your health care provider approves, and take them as directed. Some medicines can make atrial fibrillation worse or recur. If blood thinners were prescribed by your health care provider, take them exactly as directed. Too much blood-thinning medicine can cause bleeding. If you take too little, you will not have the needed protection against stroke and other problems. Perform blood tests at home if directed by your health care provider. Perform blood tests exactly as directed. Quit smoking if you smoke. Do not drink alcohol. Do not drink caffeinated beverages such as coffee, soda, and some teas. You may drink decaffeinated coffee, soda, or tea. Maintain a healthy weight. Do not use diet pills unless your health care provider approves. They may make heart problems worse. Follow diet instructions as directed by your health care provider. Exercise regularly as directed by your health care provider. Keep all follow-up appointments with your health care provider. PREVENTION The following substances can cause atrial fibrillation to recur: Caffeinated beverages. Alcohol. Certain medicines, especially those used for breathing problems. Certain herbs and herbal medicines, such as those containing ephedra or ginseng. Illegal drugs, such as cocaine and amphetamines. Sometimes medicines are given to prevent atrial fibrillation from recurring. Proper treatment of any underlying condition is also important in helping prevent recurrence. SEEK MEDICAL CARE IF: You notice a change in the rate, rhythm, or strength of your heartbeat. You suddenly begin urinating more frequently. You tire more easily when exerting yourself or exercising. SEEK IMMEDIATE MEDICAL CARE IF: You have chest pain, abdominal pain, sweating, or weakness. You feel nauseous. You have shortness of breath. You suddenly have swollen feet and ankles. You feel dizzy. Your face or limbs feel numb or weak. You have a change in your vision or speech. MAKE SURE YOU: Understand these instructions. Will watch your condition. Will get help right away if you are not doing well or get worse. Document Released: 10/13/2006 Document Revised: 10/18/2014 Document Reviewed: 11/23/2013 Exit[employer] Patient Information 2015 [employer]. This information is not intended to replace advice given to you by your health care provider. Make sure you discuss any questions you have with your health care provider. Follow Up Care 11/11/2022 08:11:30 With:PEACE MCKINNEY MD Address: [address] [place] [address]- [phone] When:1-2 days With:LISA JARA MD Address: [address] [facility] [address] [facility] [place] [address]- [phone] When:12/19/2022 11:00:00 Comments:THIS APPOINTMENT WILL BE WITH FRANSISCO MIMS [facility] 11-13-2022 Note Procedure Name Cardioversion Consent In chart Indication Atrial fibrillation Pre-Procedure Exam Atrial fibrillation Procedural Sedation Per anesthesia Technique After the patient was brought to the lab and informed consent was obtained, the defibrillator patches were placed in the AP position just left of the sternum. After adequate sedation, synchronized electrical cardioversion was delivered at 200 J with successful conversion to normal sinus rhythm. After approximately 30 to 40 seconds she reverted back into atrial fibrillation and another 200 J shock was delivered. After the second shock she maintain normal sinus rhythm. Post-Procedure Exam Normal sinus rhythm Findings Successful cardioversion Complications None Assessment/Plan Orders: Cardioversion (CV) Electrocardiogram Electrocardiogram Digitally Signed by KEELY WILLIS MD on 11/13/2022 02:52 PM [facility] 11-13-2022 Discharge summary Discharge Diagnosis Longstanding persistent atrial fibrillation (I48.11 - ICD-10-CM) Chronic diastolic (congestive) heart failure (I50.32 - ICD-10-CM) Encounter for therapeutic drug level monitoring (Z51.81 - ICD-10-CM) Cardiomyopathy, unspecified (I42.9 - ICD-10-CM) Hyperlipidemia, unspecified (E78.5 - ICD-10-CM) Hypertensive heart disease with heart failure (I11.0 - ICD-10-CM) Additional Orders: Ordered: Discharge,11/13/22 12:54:00 EST, Discharged to: Home Discontinued: NPO after Midnight,11/12/22 23:58:00 EST Ordered: Tikosyn 250 mcg oral capsule,Dose : 250 mcg = 1 cap(s), Oral, q12h, # 14 cap(s), 0 Refill(s), Pharmacy: [facility], 167.6, cm, 11/11/22 8:55:00 EST, Height, kg, 11/11/22 8:55:00 EST, Dosing Weight Hospital Course Longstanding persistent NVAF [id number] 4 s/p DCCV 11/13/2022 Chronic heart failure improved EF (20% LV gram 2012, 60 65 % 02/2022 TTE) Nonischemic cardiomyopathy (left heart cath 2012 clean) Dyslipidemia, hypertension CVC: Alba Jara 67-year-old woman with longstanding percent AF, admitted directly from Dr. Willis clinic for dofetilide loading. She is euvolemic, no acute complaints. Tolerated 250 mg PO BID well, successful DCCV 11/13/2022 with QTc within acceptable limits. Will discharge today, in stable condition. Additional dofetilide Rx sent to our pharmacy to avoid interruption (pt main pharmacy is [facility] which might not stock dofetilide). [facility] or Pager [phone] Allergies Toradol ketorolac (Unknown) Consults No qualifying data available. Physical Exam Vitals and Measurements Weight Dosing Weight: 114.5 kg (11/11/22) Dosing Weight: 114.5 kg (11/11/22) Code Status Code Status - Ordered -- 11/11/22 9:26:00 EST, Full Code, Constant Order Admission Date 11/11/2022 Discharge Date 11/13/2022 Medications New Prescription dofetilide (Tikosyn 250 mcg oral capsule)1 cap by mouth every 12 hours. Refills: 0. dofetilide (Tikosyn 250 mcg oral capsule)1 cap by mouth every 12 hours for 7 Days. Refills: 0. Unchanged digoxin (digoxin 250 mcg (0.25 mg) oral tablet)1 tab(s) by mouth once a day. Refills: 3. fluticasone nasal (Flonase 50 mcg/inh nasal spray)1 spray(s) each nostril once a day (in the morning) as needed Allergy symptoms. lisinopril (lisinopril 20 mg oral tablet)1 tab(s) by mouth once a day. Refills: 1. metoprolol (metoprolol succinate 100 mg oral TABLET extended release)1 tab(s) by mouth two (2) times a day. Refills: 3. rivaroxaban (Xarelto 20 mg oral tablet)1 tab(s) by mouth with supper. Refills: 3. spironolactone (Aldactone 25 mg oral tablet)0.5 tab(s) by mouth once a day with a meal. Refills: 3. Discontinued multivitamin (Multivitamin)1 tab(s) by mouth every day. Follow Up Follow Up with LISA JARA MD When 12/19/2022 11:00 AM EST Why: THIS APPOINTMENT WILL BE WITH FRANSISCO MIMS CNP Where: [address] [facility] [address] [facility] [place] [address]- [phone] Follow Up with PEACE MCKINNEY MD When Within 1-2 days Where: [address] [place] [address] [phone] Follow Up Appointments No qualifying data available. Follow Up Labs/Studies Discharge Labs No Follow-up Labs Discharge Studies No Follow-up Studies Discharge Diet No qualifying data available. Discharge Activity No qualifying data available. Digitally Signed by DEJON HAM MD on 11/13/2022 02:46 PM [facility] 11-13-2022 Discharge summary Discharge Diagnosis Longstanding persistent atrial fibrillation (I48.11 - ICD-10-CM) Chronic diastolic (congestive) heart failure (I50.32 - ICD-10-CM) Encounter for therapeutic drug level monitoring (Z51.81 - ICD-10-CM) Cardiomyopathy, unspecified (I42.9 - ICD-10-CM) Hyperlipidemia, unspecified (E78.5 - ICD-10-CM) Hypertensive heart disease with heart failure (I11.0 - ICD-10-CM) Additional Orders: Ordered: Discharge,11/13/22 12:54:00 EST, Discharged to: Home Discontinued: NPO after Midnight,11/12/22 23:58:00 EST Ordered: Tikosyn 250 mcg oral capsule,Dose : 250 mcg = 1 cap(s), Oral, q12h, # 14 cap(s), 0 Refill(s), Pharmacy: [facility], 167.6, cm, 11/11/22 8:55:00 EST, Height, kg, 11/11/22 8:55:00 EST, Dosing Weight Hospital Course Longstanding persistent NVAF [id number] 4 s/p DCCV 11/13/2022 Chronic heart failure improved EF (20% LV gram 2012, 60 65 % 02/2022 TTE) Nonischemic cardiomyopathy (left heart cath 2012 clean) Dyslipidemia, hypertension CVC: Alba Jara 67-year-old woman with longstanding percent AF, admitted directly from Dr. Willis clinic for dofetilide loading. She is euvolemic, no acute complaints. Tolerated 250 mg PO BID well, successful DCCV 11/13/2022 with QTc within acceptable limits. Will discharge today, in stable condition. Additional dofetilide Rx sent to our pharmacy to avoid interruption (pt main pharmacy is [facility] which might not stock dofetilide). d/w Dr Alba Ham MD [facility] or Pager [phone] Allergies Toradol ketorolac (Unknown) Consults No qualifying data available. Physical Exam Vitals and Measurements Weight Dosing Weight: 114.5 kg (11/11/22) Dosing Weight: 114.5 kg (11/11/22) Code Status Code Status - Ordered -- 11/11/22 9:26:00 EST, Full Code, Constant Order Admission Date 11/11/2022 Discharge Date 11/13/2022 Medications New Prescription dofetilide (Tikosyn 250 mcg oral capsule)1 cap by mouth every 12 hours. Refills: 0. dofetilide (Tikosyn 250 mcg oral capsule)1 cap by mouth every 12 hours for 7 Days. Refills: 0. Unchanged digoxin (digoxin 250 mcg (0.25 mg) oral tablet)1 tab(s) by mouth once a day. Refills: 3. fluticasone nasal (Flonase 50 mcg/inh nasal spray)1 spray(s) each nostril once a day (in the morning) as needed Allergy symptoms. lisinopril (lisinopril 20 mg oral tablet)1 tab(s) by mouth once a day. Refills: 1. metoprolol (metoprolol succinate 100 mg oral TABLET extended release)1 tab(s) by mouth two (2) times a day. Refills: 3. rivaroxaban (Xarelto 20 mg oral tablet)1 tab(s) by mouth with supper. Refills: 3. spironolactone (Aldactone 25 mg oral tablet)0.5 tab(s) by mouth once a day with a meal. Refills: 3. Discontinued multivitamin (Multivitamin)1 tab(s) by mouth every day. Follow Up Follow Up with LISA JARA MD When 12/19/2022 11:00 AM EST Why: THIS APPOINTMENT WILL BE WITH FRANSISCO MIMS CNP Where: [address] [facility] [address] [facility] [place] [address]- [phone] Follow Up with PEACE MCKINNEY MD When Within 1-2 days Where: [address] [place] [address] [phone] Follow Up Appointments No qualifying data available. Follow Up Labs/Studies Discharge Labs No Follow-up Labs Discharge Studies No Follow-up Studies Discharge Diet No qualifying data available. Discharge Activity No qualifying data available. Digitally Signed by DEJON HAM MD on 11/13/2022 02:46 PM [facility] 11-13-2022 Note Discharge Instructions Thank you for allowing [facility] to assist you with your healthcare needs. The following is important discharge information regarding your hospital visit. Your Care Team PEACE MCKINNEY MD What to do next Scheduled Follow-Up Appointments Appointment Type When With Where Contact InformationCV OV Hospital Follow Up 12/19/2022 11:00 AM EST FRANSISCO MIMS APRN-SILVIA [facility] CV OV 04/03/2023 01:45 PM EDT [facility] Follow Up Appointments Follow Up with LISA JARA MD When 12/19/2022 11:00 AM EST Why: THIS APPOINTMENT WILL BE WITH FRANSISCO MIMS CNP Where: [address] [place] [address]- [phone] Follow Up with PEACE MCKINNEY MD When Within 1-2 days Where: [address] [place] [phone] The Following Activity and Diet Have Been Ordered for You No qualifying data available. No qualifying data available. The Following Equipment Has Been Ordered for You No qualifying data available. The Following Treatments Have Been Ordered for You Discharge Labs No qualifying data available. Discharge Radiology No qualifying data available. Other Therapies No qualifying data available. Post Acute Orders No qualifying data available. Someone Will Contact You Regarding These Home Health Referrals No home referrals have been ordered for you. No one will call you. Allergies Toradol ketorolac (Unknown) Medications Please ask your primary doctor or pharmacist before taking any other medication not listed, including over the counter drugs, herbal medications, vitamins and or supplements as they may interact with your home medications. What How Much When Instructions Last Dose New dofetilide (Tikosyn 250 mcg oral capsule) 1 cap by mouth Every 12 hours Pickup at [facility] New dofetilide (Tikosyn 250 mcg oral capsule) 1 cap by mouth Every 12 hours Duration: 7 Days Pickup at [facility] Unchanged digoxin (digoxin 250 mcg (0.25 mg) oral tablet) 1 tab(s) by mouth Once a day Unchanged fluticasone nasal (Flonase 50 mcg/ inh nasal spray) 1 spray(s) each nostril Once a day (in the morning) as needed for Allergy symptoms Unchanged lisinopril (lisinopril 20 mg oral tablet) 1 tab(s) by mouth Once a day Unchanged metoprolol (metoprolol succinate 100 mg oral TABLET extended release) 1 tab(s) by mouth Two (2) times a day Unchanged rivaroxaban (Xarelto 20 mg oral tablet) 1 tab(s) by mouth With supper Unchanged spironolactone (Aldactone 25 mg oral tablet) 0.5 tab(s) by mouth Once a day with a meal Pharmacy Information [facility]: [address] [place], [place] [phone] [facility]: [address] [place] [address] [phone] What How Much When Comments Stop Taking multivitamin (Multivitamin) 1 tab(s) by mouth Every day Please take this list to your next doctor s visit. Bring all medications you take, including over the counter medications, herbals and other supplements with you to your doctor s visit. Patients and families are reminded to discard old lists and to update any records with all medication providers or retail pharmacies. Medication Leaflets lisinopril (lyse [place] pril) Gema Gonzalez Zestril What is the most important information I should know about lisinopril? Do not use if you are , and tell your doctor right away if you become . If you have diabetes, do not use lisinopril together with any medication that contains aliskiren (a blood pressure medicine). Do not take lisinopril within 36 hours before or after taking medicine that contains sacubitril (such as Entresto). What is lisinopril? Lisinopril is an SIOBHAN inhibitor that is used to treat high blood pressure (hypertension) in adults and children who are at least 6 years old. Lisinopril is also used to treat congestive heart failure in adults, or to improve survival after a heart attack. Lisinopril may also be used for purposes not listed in this medication guide. What should I discuss with my healthcare provider before taking lisinopril? You should not use lisinopril if you are allergic to it, or if you: have a history of angioedema; recently took a heart medicine called sacubitril; or are allergic to any other SIOBHAN inhibitor, such as benazepril, captopril, enalapril, fosinopril, moexipril, perindopril, quinapril, ramipril, or trandolapril. Do not take lisinopril within 36 hours before or after taking medicine that contains sacubitril (such as Entresto). If you have diabetes, do not use lisinopril together with any medication that contains aliskiren (a blood pressure medicine). You may also need to avoid taking lisinopril with aliskiren if you have kidney disease. Tell your doctor if you have ever had: kidney disease (or if you are on dialysis); liver disease; or high levels of potassium in your blood. Do not use if you are , and tell your doctor right away if you become . Lisinopril can cause injury or to the unborn baby if you take the medicine during your second or third trimester. You should not breastfeed while using this medicine. How should I take lisinopril? Follow all directions on your prescription label and read all medication guides or instruction sheets. Your doctor may occasionally change your dose. Use the medicine exactly as directed. Drink plenty of water each day while you are taking this medicine. Lisinopril can be taken with or without food. Measure liquid medicine carefully. Use the dosing syringe provided, or use a medicine dose-measuring device (not a kitchen spoon). Your blood pressure will need to be checked often. Your kidney function and electrolytes may also need to be checked. Call your doctor if you are sick with vomiting or diarrhea, or if you are sweating more than usual. You can easily become dehydrated while taking lisinopril. This can lead to very low blood pressure, a serious electrolyte imbalance, or kidney failure. If you need surgery, tell the surgeon ahead of time that you are using lisinopril. If you have high blood pressure, keep using this medicine even if you feel well. High blood pressure often has no symptoms. You may need to use blood pressure medicine for the rest of your life. Store at room temperature away from moisture and heat. Do not freeze the oral liquid. What happens if I miss a dose? Take the medicine as soon as you can, but skip the missed dose if it is almost time for your next dose. Do not take two doses at one time. What happens if I overdose? Seek emergency medical attention or call the Poison Help line at . What should I avoid while taking lisinopril? Drinking alcohol can further lower your blood pressure and may increase certain side effects of lisinopril. Avoid becoming overheated or dehydrated during exercise, in hot weather, or by not drinking enough fluids. Lisinopril can decrease sweating and you may be more prone to heat stroke. Do not use potassium supplements or salt substitutes, unless your doctor has told you to. Avoid getting up too fast from a sitting or lying position, or you may feel dizzy. What are the possible side effects of lisinopril? Get emergency medical help if you have signs of an allergic reaction: hives; severe stomach pain; difficulty breathing; swelling of your face, lips, tongue, or throat. You may be more likely to have an allergic reaction if you are -Beninese. Call your doctor at once if you have: a light-headed feeling, like you might pass out; fever, sore throat; high potassium--nausea, weakness, tingly feeling, chest pain, irregular heartbeats, loss of movement; kidney problems--little or no urination, swelling in your feet or ankles, feeling tired or short of breath; or liver problems--nausea, upper stomach pain, itching, tired feeling, loss of appetite, dark urine, júnior-colored stools, jaundice (yellowing of the skin or eyes). Common side effects may include: headache, dizziness; cough; or chest pain. This is not a complete list of side effects and others may occur. Call your doctor for medical advice about side effects. You may report side effects to FDA at 2-246-HUJ-3177. What other drugs will affect lisinopril? Tell your doctor about all your other medicines, especially: a diuretic or 'water pill'; lithium; gold injections to treat arthritis; insulin or oral diabetes medicine; a potassium supplement; medicine to prevent organ transplant rejection--everolimus, sirolimus, tacrolimus, temsirolimus; or NSAIDs (nonsteroidal anti-inflammatory drugs)--aspirin, ibuprofen (Advil, Motrin), naproxen (Aleve), celecoxib, diclofenac, indomethacin, meloxicam, and others. This list is not complete. Other drugs may affect lisinopril, including prescription and msey-erk-hguvdku medicines, vitamins, and herbal products. Not all possible drug interactions are listed here. Where can I get more information? Your pharmacist can provide more information about lisinopril. Remember, keep this and all other medicines out of the reach of children, never share your medicines with others, and use this medication only for the indication prescribed. Every effort has been made to ensure that the information provided by [employer]. [employer] is accurate, up-to-date, and complete, but no guarantee is made to that effect. Drug information contained herein may be time sensitive. [employer] information has been compiled for use by healthcare practitioners and consumers in the [place] and therefore [employer] does not warrant that uses outside of the [place] are appropriate, unless specifically indicated otherwise. [employer] drug information does not endorse drugs, diagnose patients or recommend therapy. [employer] drug information is an informational resource designed to assist licensed healthcare practitioners in caring for their patients and/or to serve consumers viewing this service as a supplement to, and not a substitute for, the expertise, skill, knowledge and judgment of healthcare practitioners. The absence of a warning for a given drug or drug combination in no way should be construed to indicate that the drug or drug combination is safe, effective or appropriate for any given patient. [employer] does not assume any responsibility for any aspect of healthcare administered with the aid of information [employer] provides. The information contained herein is not intended to cover all possible uses, directions, precautions, warnings, drug interactions, allergic reactions, or adverse effects. If you have questions about the drugs you are taking, check with your doctor, nurse or pharmacist. Copyright 7906-7526 [employer]. Version: 15.03. Revision Date: 08/17/2019. metoprolol (oral/injection) (me TOE pro lol) Kapspargo Sprinkle, Lopressor, Metoprolol Succinate ER, Metoprolol Tartrate, Toprol-XL What is the most important information I should know about metoprolol? You should not use this medicine if you have a serious heart problem (heart block, sick sinus syndrome, slow heart rate), severe circulation problems, severe heart failure, or a history of slow heart beats that caused fainting. What is metoprolol? Metoprolol is a beta-lowell that affects the heart and circulation (blood flow through arteries and veins). Metoprolol is used to treat angina (chest pain) and hypertension (high blood pressure). It is also used to lower your risk of or needing to be hospitalized for heart failure. Metoprolol injection is used during the early phase of a heart attack to lower the risk of . Metoprolol may also be used for other purposes not listed in this medication guide. What should I discuss with my healthcare provider before taking metoprolol? You should not use this medicine if you are allergic to metoprolol, or other beta-blockers (atenolol, carvedilol, labetalol, nadolol, nebivolol, propranolol, sotalol, and others), or if you have: a serious heart problem such as heart block, sick sinus syndrome, or slow heart rate; severe circulation problems; severe heart failure (that required you to be in the hospital); or a history of slow heart beats that have caused you to faint. Tell your doctor if you have ever had: asthma, chronic obstructive pulmonary disease (COPD), sleep apnea, or other breathing disorder; diabetes (taking metoprolol may make it harder for you to tell when you have low blood sugar); liver disease; congestive heart failure; problems with circulation (such as Raynaud's syndrome); a thyroid disorder; or pheochromocytoma (tumor of the adrenal gland). Do not give this medicine to a child without medical advice. Tell your doctor if you are or plan to become . It is not known whether metoprolol will harm an unborn baby. However, having high blood pressure during may cause complications such as diabetes or eclampsia (dangerously high blood pressure that can lead to medical problems in both mother and baby). The benefit of treating hypertension may outweigh any risks to the baby. Ask a doctor before using this medicine if you are breast-feeding. Metoprolol can pass into breast milk and may cause dry skin, dry mouth, diarrhea, constipation, or slow heartbeats in your baby. How should I take metoprolol? Follow all directions on your prescription label and read all medication guides or instruction sheets. Your doctor may occasionally change your dose. Use the medicine exactly as directed. Metoprolol should be taken with a meal or just after a meal. Take the medicine at the same time each day. Swallow the capsule whole and do not crush, chew, break, or open it. A Toprol XL tablet can be divided in half if your doctor has told you to do so. Swallow the half-tablet whole, without chewing or crushing. Measure liquid medicine carefully. Use the dosing syringe provided, or use a medicine dose-measuring device (not a kitchen spoon). You will need frequent medical tests, and your blood pressure will need to be checked often. If you need surgery, tell the surgeon ahead of time that you are using metoprolol. You should not stop using metoprolol suddenly. Stopping suddenly may make your condition worse. If you have high blood pressure, keep using this medicine even if you feel well. High blood pressure often has no symptoms. You may need to use metoprolol for the rest of your life. Store at room temperature away from moisture and heat. Metoprolol injection is given as an infusion into a vein. A healthcare provider will give you this injection in a medical setting where your heart and blood pressure can be monitored. Metoprolol injections are given for only a short time before switching you to the oral form of this medicine. What happens if I miss a dose? Skip the missed dose and use your next dose at the regular time. Do not use two doses at one time. What happens if I overdose? Seek emergency medical attention or call the Poison Help line at . What should I avoid while taking metoprolol? Avoid driving or hazardous activity until you know how this medicine will affect you. Your reactions could be impaired. Drinking alcohol can increase certain side effects of metoprolol. What are the possible side effects of metoprolol? Get emergency medical help if you have signs of an allergic reaction: hives; difficulty breathing; swelling of your face, lips, tongue, or throat. Call your doctor at once if you have: very slow heartbeats; a light-headed feeling, like you might pass out; shortness of breath (even with mild exertion), swelling, rapid weight gain; or cold feeling in your hands and feet. Common side effects may include: dizziness, tired feeling; depression, confusion, memory problems; nightmares, trouble sleeping; diarrhea; or mild itching or rash. This is not a complete list of side effects and others may occur. Call your doctor for medical advice about side effects. You may report side effects to FDA at 2-224-LUV-2189. What other drugs will affect metoprolol? Tell your doctor about all your current medicines. Many drugs can affect metoprolol, especially: any other heart or blood pressure medications; epinephrine (Epi-Pen); an antidepressant; an ergot medicine--dihydroergotamine, ergonovine, ergotamine, methylergonovine; or an MAO inhibitor--isocarboxazid, linezolid, phenelzine, rasagiline, selegiline, tranylcypromine. This list is not complete and many other drugs may affect metoprolol. This includes prescription and [id number]-[id number] medicines, vitamins, and herbal products. Not all possible drug interactions are listed here. Where can I get more information? Your pharmacist can provide more information about metoprolol. Remember, keep this and all other medicines out of the reach of children, never share your medicines with others, and use this medication only for the indication prescribed. Every effort has been made to ensure that the information provided by [employer] is accurate, up-to-date, and complete, but no guarantee is made to that effect. Drug information contained herein may be time sensitive. [employer] information has been compiled for use by healthcare practitioners and consumers in the [place] and therefore [employer] does not warrant that uses outside of the [place] are appropriate, unless specifically indicated otherwise. [employer] drug information does not endorse drugs, diagnose patients or recommend therapy. [employer] drug information is an informational resource designed to assist licensed healthcare practitioners in caring for their patients and/or to serve consumers viewing this service as a supplement to, and not a substitute for, the expertise, skill, knowledge and judgment of healthcare practitioners. The absence of a warning for a given drug or drug combination in no way should be construed to indicate that the drug or drug combination is safe, effective or appropriate for any given patient. [facility] does not assume any responsibility for any aspect of healthcare administered with the aid of information [facility] provides. The information contained herein is not intended to cover all possible uses, directions, precautions, warnings, drug interactions, allergic reactions, or adverse effects. If you have questions about the drugs you are taking, check with your doctor, nurse or pharmacist. Copyright [id number] [facility]. Version: 17.03. Revision Date: 03/24/2019. rivaroxaban (ESTRELLITA a MAYELA a ban) Xarelto What is the most important information I should know about rivaroxaban? Do not stop taking rivaroxaban without first talking to your doctor. Stopping suddenly can increase your risk of blood clot or stroke. Call your doctor at once if you have signs of bleeding such as: headaches, feeling very weak or dizzy, bleeding gums, nosebleeds, heavy menstrual periods or abnormal vaginal bleeding, blood in your urine, bloody or tarry stools, coughing up blood or vomit that looks like coffee grounds. Many other drugs can increase your risk of bleeding when used with rivaroxaban. Tell your doctor about all medicines you have recently used. Rivaroxaban can cause a very serious blood clot around your spinal cord if you undergo a spinal tap or receive spinal anesthesia (epidural). Tell any doctor who treats you that you are taking rivaroxaban. What is rivaroxaban? Rivaroxaban is used to treat or prevent blood clots (venous thromboembolism, or VTE). Blood clots can occur in the legs (deep vein thrombosis, DVT) or the lungs (pulmonary embolism, PE). Blood clots can develop when you are very ill and cannot move around as much as normal, such as during or after a stay in the hospital. Blood clots may also develop after knee or hip replacement surgery. Rivaroxaban is sometimes used to lower your risk of a blood clot coming back after you have received treatment for blood clots for at least 6 months. Rivaroxaban is also used in people with atrial fibrillation (a heart rhythm disorder) to lower the risk of stroke caused by a blood clot. Rivaroxaban is also given together with aspirin to lower the risk of stroke, heart attack, or other serious heart problems in people with coronary artery disease (decreased blood flow to the heart) or peripheral artery disease (decreased blood flow to the legs). Rivaroxaban may also be used for purposes not listed in this medication guide. What should I discuss with my healthcare provider before taking rivaroxaban? You should not use rivaroxaban if you are allergic to it, or if you have active or uncontrolled bleeding. Rivaroxaban can cause a very serious blood clot around your spinal cord if you undergo a spinal tap or receive spinal anesthesia (epidural). This type of blood clot could cause long-term paralysis, and may be more likely to occur if: you have a genetic spinal defect; you have a spinal catheter in place; you have a history of spinal surgery or repeated spinal taps; you have recently had a spinal tap or epidural anesthesia; you are taking an NSAID--Advil, Aleve, Motrin, and others; or you are using other medicines to treat or prevent blood clots. Rivaroxaban may cause you to bleed more easily, especially if you have: a bleeding disorder that is inherited or caused by disease; hemorrhagic stroke; uncontrolled high blood pressure; stomach or intestinal bleeding or ulcer; or if you take certain medicines such as aspirin, enoxaparin, heparin, warfarin (Coumadin, Jantoven), clopidogrel (Plavix), or certain antidepressants. Tell your doctor if you have ever had: antiphospholipid syndrome (also called Vick syndrome or 'sticky blood syndrome'), an immune system disorder that increases the risk of blood clots; an artificial heart valve; or liver or kidney disease. Taking rivaroxaban during may cause bleeding in the mother or the unborn baby. Tell your doctor if you are or plan to become . It may not be safe to breastfeed a baby while you are using this medicine. Ask your doctor about any risks. How should I take rivaroxaban? Follow all directions on your prescription label and read all medication guides or instruction sheets. Your doctor may occasionally change your dose. Use the medicine exactly as directed. The number of times you take rivaroxaban each day will depend on the reason you are using this medication. For some conditions, rivaroxaban should be taken with food. Whether you take the medicine with or without food may also depend on the tablet strength you take. Follow your doctor's dosing instructions very carefully. Tell your doctor if you have trouble swallowing a rivaroxaban tablet. Tell any doctor who treats you that you are using rivaroxaban. If you need surgery or dental work, tell the surgeon or dentist ahead of time that you are using this medication. If you need anesthesia for a medical procedure or surgery, you may need to stop using rivaroxaban for a short time. Do not change your dose or stop taking this medication without first talking to your doctor. Stopping suddenly can increase your risk of blood clot or stroke. Store at room temperature away from moisture and heat. What happens if I miss a dose? If you take rivaroxaban 1 time each day: Take the medicine as soon as you remember, and then go back to your regular schedule. Do not take two doses in the same day. If you take the 2.5-milligram tablet 2 times each day: Skip the missed dose and take your next dose at the regular time. If you take the 15-milligram tablet 2 times each day: Take the missed dose on the same day you remember it. You may take 2 doses at the same time to make up a missed dose. Get your prescription refilled before you run out of medicine completely. What happens if I overdose? Seek emergency medical attention or call the Poison Help line at . Overdose may cause excessive bleeding. What should I avoid while taking rivaroxaban? Avoid activities that may increase your risk of bleeding or injury. Use extra care to prevent bleeding while shaving or brushing your teeth. What are the possible side effects of rivaroxaban? Get emergency medical help if you have signs of an allergic reaction: hives; difficult breathing; swelling of your face, lips, tongue, or throat. Also seek emergency medical attention if you have symptoms of a spinal blood clot: back pain, numbness or muscle weakness in your lower body, or loss of bladder or bowel control. Rivaroxaban can cause you to bleed more easily. Call your doctor at once if you have signs of bleeding such as: easy bruising or bleeding (nosebleeds, bleeding gums, heavy menstrual bleeding); pain, swelling, new drainage, or excessive bleeding from a wound or where a needle was injected in your skin; any bleeding that will not stop; headaches, dizziness, weakness, feeling like you might pass out; urine that looks red, pink, or brown; or bloody or tarry stools, coughing up blood or vomit that looks like coffee grounds. Bleeding is the most common side effect of rivaroxaban. This is not a complete list of side effects and others may occur. Call your doctor for medical advice about side effects. You may report side effects to FDA at 2-460-CIX-2750. What other drugs will affect rivaroxaban? Sometimes it is not safe to use certain medications at the same time. Some drugs can affect your blood levels of other drugs you take, which may increase side effects or make the medications less effective. Other drugs may affect rivaroxaban, including prescription and xkam-ydd-lkcksuu medicines, vitamins, and herbal products. Tell your doctor about all your current medicines and any medicine you start or stop using. Where can I get more information? Your pharmacist can provide more information about rivaroxaban. Remember, keep this and all other medicines out of the reach of children, never share your medicines with others, and use this medication only for the indication prescribed. Every effort has been made to ensure that the information provided by [employer]. [employer]') is accurate, up-to-date, and complete, but no guarantee is made to that effect. Drug information contained herein may be time sensitive. [employer] information has been compiled for use by healthcare practitioners and consumers in the [place] and therefore [employer] does not warrant that uses outside of the [place] are appropriate, unless specifically indicated otherwise. [employer] drug information does not endorse drugs, diagnose patients or recommend therapy. [employer] drug information is an informational resource designed to assist licensed healthcare practitioners in caring for their patients and/or to serve consumers viewing this service as a supplement to, and not a substitute for, the expertise, skill, knowledge and judgment of healthcare practitioners. The absence of a warning for a given drug or drug combination in no way should be construed to indicate that the drug or drug combination is safe, effective or appropriate for any given patient. [employer] does not assume any responsibility for any aspect of healthcare administered with the aid of information [employer] provides. The information contained herein is not intended to cover all possible uses, directions, precautions, warnings, drug interactions, allergic reactions, or adverse effects. If you have questions about the drugs you are taking, check with your doctor, nurse or pharmacist. Copyright 0146-4263 [employer]. Version: 8.01. Revision Date: 04/07/2020. digoxin (oral/injection) (terri SHELDON in) Digitek, Digox, Lanoxin What is the most important information I should know about digoxin? You should not use digoxin if you have a heart rhythm disorder called ventricular fibrillation. What is digoxin? Digoxin is derived from the leaves of a digitalis plant and is used to treat heart failure. Digoxin is also used to treat atrial fibrillation, a heart rhythm disorder of the atrium (the upper chambers of the heart that allow blood to flow into the heart). Digoxin may also be used for purposes not listed in this medication guide. What should I discuss with my healthcare provider before using digoxin? You should not use digoxin if you are allergic to it, or if you have ventricular fibrillation (a heart rhythm disorder of the ventricles, or lower chambers of the heart that allow blood to flow out of the heart). Tell your doctor if you have ever had: a serious heart condition such as 'sick sinus syndrome' or 'AV block' (unless you have a pacemaker); a heart attack; slow heartbeats that have caused you to faint; Hqipf-Grsbigfqz-Nhpry Syndrome (sudden fast heartbeats); kidney disease; an electrolyte imbalance (such as low levels of calcium, potassium, or magnesium in your blood); a thyroid disorder; or if you have recently been sick with vomiting or diarrhea. Tell your doctor if you are . It is not known whether digoxin will harm an unborn baby. However, having heart failure or atrial fibrillation during may cause complications such as premature or low weight, or risk of in both mother and baby. The benefit of treating heart problems with digoxin may outweigh any risks to the baby. It may not be safe to breast-feed while using this medicine. Ask your doctor about any risk. How should I use digoxin? Follow all directions on your prescription label and read all medication guides or instruction sheets. Use the medicine exactly as directed. Try to take oral digoxin at the same time every day. Measure liquid medicine carefully. Use the dosing syringe provided, or use a medicine dose-measuring device (not a kitchen spoon). Take digoxin regularly even if you feel fine or have no symptoms. Get your prescription refilled before you run out of medicine completely. Digoxin injection is given as a shot into a muscle, or as an infusion into a vein. A healthcare provider will give you this injection if you are unable to take the medicine by mouth. Your blood pressure and heart rate will need to be checked daily. You may need frequent blood tests. Your kidney function may also need to be checked. You should not stop taking digoxin suddenly. Stopping suddenly may make your condition worse. Store at room temperature away from moisture and heat. What happens if I miss a dose? Take the medicine as soon as you can, but skip the missed dose if your next dose is due in less than 12 hours. Do not take two doses at one time. What happens if I overdose? Seek emergency medical attention or call the Poison Help line at . An overdose of digoxin can be fatal. Overdose symptoms may include nausea, vomiting, loss of appetite, and feeling tired. What should I avoid while using digoxin? Avoid becoming overheated or dehydrated during exercise, in hot weather, or by not drinking enough fluids. Digoxin overdose can occur more easily if you are dehydrated. What are the possible side effects of digoxin? Get emergency medical help if you have signs of an allergic reaction: hives; difficulty breathing; swelling of your face, lips, tongue, or throat. Call your doctor at once if you have: nausea, vomiting, diarrhea, stomach pain; fast, slow, or uneven heart rate; a light-headed feeling, like you might pass out; bloody or black, tarry stools; confusion, weakness, hallucinations, unusual thoughts or behavior; breast swelling or tenderness; blurred vision, yellowed vision; or (in babies or children) stomach pain, weight loss, growth delay, behavior changes. Serious side effects may be more likely in older adults and those who are ill or debilitated. Common side effects may include: nausea, diarrhea; feeling weak or dizzy; headache, weakness, anxiety, depression; or rash. This is not a complete list of side effects and others may occur. Call your doctor for medical advice about side effects. You may report side effects to FDA at 8-175-JOJ-1969. What other drugs will affect digoxin? Sometimes it is not safe to use certain medications at the same time. Some drugs can affect your blood levels of other drugs you take, which may increase side effects or make the medications less effective. Many drugs can affect digoxin. This includes prescription and qqhp-jpj-crwydqm medicines, vitamins, and herbal products. Not all possible interactions are listed here. Tell your doctor about all your current medicines and any medicine you start or stop using. Where can I get more information? Your pharmacist can provide more information about digoxin. Remember, keep this and all other medicines out of the reach of children, never share your medicines with others, and use this medication only for the indication prescribed. Every effort has been made to ensure that the information provided by [employer]') is accurate, up-to-date, and complete, but no guarantee is made to that effect. Drug information contained herein may be time sensitive. [employer] information has been compiled for use by healthcare practitioners and consumers in the [place] and therefore [employer] does not warrant that uses outside of the [place] are appropriate, unless specifically indicated otherwise. [employer] drug information does not endorse drugs, diagnose patients or recommend therapy. [employer] drug information is an informational resource designed to assist licensed healthcare practitioners in caring for their patients and/or to serve consumers viewing this service as a supplement to, and not a substitute for, the expertise, skill, knowledge and judgment of healthcare practitioners. The absence of a warning for a given drug or drug combination in no way should be construed to indicate that the drug or drug combination is safe, effective or appropriate for any given patient. [employer] does not assume any responsibility for any aspect of healthcare administered with the aid of information [employer] provides. The information contained herein is not intended to cover all possible uses, directions, precautions, warnings, drug interactions, allergic reactions, or adverse effects. If you have questions about the drugs you are taking, check with your doctor, nurse or pharmacist. Copyright 0346-1273 [employer]. Version: 9.01. Revision Date: 08/18/2018. spironolactone (spir ON oh [place] tone) Aldactone, CaroSpir What is the most important information I should know about spironolactone? You should not use spironolactone if you Wright's disease, high levels of potassium in your blood, if you are unable to urinate, or if you are also taking eplerenone. What is spironolactone? Spironolactone is a potassium-sparing diuretic (water pill) that prevents your body from absorbing too much salt and keeps your potassium levels from getting too low. Spironolactone is used to treat heart failure, high blood pressure (hypertension), or hypokalemia (low potassium levels in the blood). Spironolactone also treats fluid retention (edema) in people with congestive heart failure, cirrhosis of the liver, or a kidney disorder called nephrotic syndrome. Spironolactone is also used to diagnose or treat a condition in which you have too much aldosterone in your body. Aldosterone is a hormone produced by your adrenal glands to help regulate the salt and water balance in your body. Spironolactone may also be used for purposes not listed in this medication guide. What should I discuss with my healthcare provider before taking spironolactone? You should not use spironolactone if you are allergic to it, or if you have: Eyad's disease (an adrenal gland disorder); high levels of potassium in your blood (hyperkalemia); if you are unable to urinate; or if you are also taking eplerenone. Tell your doctor if you have ever had: an electrolyte imbalance (such as low levels of calcium, magnesium, or sodium in your blood); kidney disease; liver disease; or heart disease. Tell your doctor if you are or plan to become . Having congestive heart failure, cirrhosis, or uncontrolled high blood pressure during may lead to medical problems in the mother or the baby. Your doctor should decide whether you take spironolactone if you are . It may not be safe to breastfeed while using this medicine. Ask your doctor about any risk. How should I take spironolactone? Follow all directions on your prescription label and read all medication guides or instruction sheets. Your doctor may occasionally change your dose. Use the medicine exactly as directed. Do not share this medicine with another person, even if they have the same symptoms you have. You may take spironolactone with or without food, but take it the same way each time. You will need frequent medical tests. This medicine can affect the results of certain medical tests. Tell any doctor who treats you that you are using spironolactone. If you need surgery, tell your surgeon you currently use this medicine. You may need to stop for a short time. If you are being treated for high blood pressure, keep using this medication even if you feel well. High blood pressure often has no symptoms. You may need to use blood pressure medication for the rest of your life. Store at room temperature away from heat, light, and moisture. What happens if I miss a dose? Take the medicine as soon as you can, but skip the missed dose if it is almost time for your next dose. Do not take two doses at one time. What happens if I overdose? Seek emergency medical attention or call the Poison Help line at . What should I avoid while taking spironolactone? Drinking alcohol can increase certain side effects. Do not use potassium supplements or salt substitutes, unless your doctor has told you to. Avoid a diet high in salt. Too much salt will cause your body to retain water and can make this medication less effective. Avoid driving or hazardous activity until you know how this medicine will affect you. Your reactions could be impaired. Avoid getting up too fast from a sitting or lying position, or you may feel dizzy. What are the possible side effects of spironolactone? Get emergency medical help if you have signs of an allergic reaction: hives; difficulty breathing; swelling of your face, lips, tongue, or throat. Call your doctor at once if you have: a light-headed feeling, like you might pass out; little or no urination; high potassium level--nausea, weakness, tingly feeling, chest pain, irregular heartbeats, loss of movement; o signs of other electrolyte imbalances--increased thirst or urination, confusion, vomiting, muscle pain, slurred speech, severe weakness, numbness, (more content not included)... [facility] 11-13-2022 Anesthesiology Consult note Patient: RICKY BOLANOS Age: 67 years Sex: Female : 1955 Associated Diagnoses: None Author: SHOLA VILLARREAL MD Preoperative Information Time of last food or liquid consumption: 11/12/2022 23:00:00 Anesthesia history Patient's history: negative. Family's history: negative. History of Present Illness 67 yr F pt with afib on Xarelto presents for DCCV after Tikosyn loading. PMH: Cardiomyopathy, chronic systolic HF, HTN, HLD, PE, DVT, morbid obesity (BMI 40) and OA. TTE, 03/13/22: Summary: 1. Left ventricle: The cavity size is normal. Wall thickness is normal. Systolic function is normal. The estimated ejection fraction is 60-65%. Wall motion is normal; there are no regional wall motion abnormalities. Unable to assess diastolic function. 2. Mitral valve: There is mild regurgitation. 3. Left atrium: The atrium is moderately dilated. 4. Right ventricle: The RV systolic pressure by Doppler is 12 mm Hg. 5. Tricuspid valve: There is mild, 1+ regurgitation. 6. Right atrium: The atrium is moderately dilated. Review of Systems Ear/Nose/Mouth/Throat: Negative except as documented in history of present illness. Respiratory: Negative except as documented in history of present illness. Cardiovascular: Negative except as documented in history of present illness. Gastrointestinal: Negative except as documented in history of present illness. Genitourinary: Negative except as documented in history of present illness. Endocrine: Negative except as documented in history of present illness. Musculoskeletal: Negative except as documented in history of present illness. Integumentary: Negative except as documented in history of present illness. Neurologic: Negative except as documented in history of present illness. Health Status Allergies: Allergic Reactions (Selected) Severity Not Documented Ketorolac- Unknown. Toradol- No reactions were documented., Allergies (2) ActiveReaction ketorolacUnknown ToradolNone Documented Current medications: (Selected) Inpatient Medications Ordered Aldactone 5 mg/mL Susp ORAL syringe: 12.5 mg, 2.5 mL, Oral, qDayM Dofetilide Pharmacy Information: 1 EA, Miscellaneous, Daily Flonase 50 mcg/inh nasal spray: 50 mcg, 1 spray(s), Nostril, each, qAM, PRN: Allergy symptoms Tikosyn: 250 mcg, 1 cap(s), Oral, q12h Xarelto: 20 mg, 1 tab(s), Oral, with supper digoxin: 250 mcg, 1 tab(s), Oral, qDay lisinopril: 20 mg, 1 tab(s), Oral, qDay metoprolol succinate 100 mg oral TABLET extended release: 100 mg, 1 tab(s), Oral, BID Prescriptions Prescribed Aldactone 25 mg oral tablet: 12.5 mg, 0.5 tab(s), Oral, qDayM, 45 tab(s), 3 Refill(s) Tikosyn 250 mcg oral capsule: 250 mcg, 1 cap(s), Oral, q12h, 180 cap(s), 0 Refill(s) Xarelto 20 mg oral tablet: 20 mg, 1 tab(s), Oral, with supper, 90 tab(s), 3 Refill(s) digoxin 250 mcg (0.25 mg) oral tablet: 250 mcg, 1 tab(s), Oral, qDay, 90 tab(s), 3 Refill(s) lisinopril 20 mg oral tablet: 1 tab(s), Oral, qDay, 90 tab(s), 1 Refill(s) metoprolol succinate 100 mg oral TABLET extended release: 100 mg, 1 tab(s), Oral, BID, 180 tab(s), 3 Refill(s) Documented Medications Documented Flonase 50 mcg/inh nasal spray: 1 spray(s), Nostril, each, qAM, PRN: Allergy symptoms, 0 Refill(s), Medications (8) Active Scheduled: (7) digoxin 0.25 mg tablet 250 mcg 1 tab(s), Oral, qDay dofetilide 250 mcg capsule 250 mcg 1 cap(s), Oral, q12h lisinopril 20 mg tablet 20 mg 1 tab(s), Oral, qDay metoprolol succinate 100 mg ER tablet 100 mg 1 tab(s), Oral, BID Misc communication order 1 EA, Miscellaneous, Daily rivaroxaban 20 mg tablet 20 mg 1 tab(s), Oral, with supper spironolactone 5 mg /1 mL 2.5 mL Susp ORAL syringe CMPD 12.5 mg 2.5 mL, Oral, qDayM Continuous: (0) PRN: (1) fluticasone nasal 0.05 mg/inh [place] 50 mcg 1 spray(s), Nostril, each, qAM Problem list: Medical Atrial fibrillation / SNOMED CT 00529695 / Confirmed CARDIOMYOPATHY / SNOMED CT 158010561 / Confirmed CHRONIC SYSTOLIC CONGESTIVE HEART FAILURE, NYHA CLASS 3 / SNOMED CT 3216821358 / Confirmed DEEP VEIN THROMBOSIS / SNOMED CT 563049822 / Confirmed ELEVATED BLOOD PRESSURE / SNOMED CT 14880020 / Confirmed GERD (GASTROESOPHAGEAL REFLUX DISEASE) / SNOMED CT 086800115 / Confirmed Headache / SNOMED CT 41440298 / Confirmed Heart failure / SNOMED CT 369761332 / Confirmed High blood pressure / SNOMED CT 84972747 / Confirmed Hypercholesterolemia / SNOMED CT 76202329 / Confirmed LV DYSFUNCTION / SNOMED CT 5018185739 / Confirmed DC - Myocardial infarction / SNOMED CT 5143253598 / Confirmed OBESITY (Renamed from OBESE) / SNOMED CT 2455898369 / Confirmed OSTEOARTHRITIS / SNOMED CT 2783465118 / Confirmed INCREASED BMI (Renamed from OVERWEIGHT) / SNOMED CT 561415649 / Confirmed Pulmonary embolism / SNOMED CT 62554058 / Confirmed Syncope / SNOMED CT 971739247 / Confirmed UTERINE FIBROID / SNOMED CT 314552974 / Confirmed, Active Problems (19) Atrial fibrillation Atrial fibrillation CARDIOMYOPATHY CHRONIC SYSTOLIC CONGESTIVE HEART FAILURE, NYHA CLASS 3 DEEP VEIN THROMBOSIS ELEVATED BLOOD PRESSURE GERD (GASTROESOPHAGEAL REFLUX DISEASE) Headache Heart failure High blood pressure Hypercholesterolemia INCREASED BMI (Renamed from OVERWEIGHT) LV DYSFUNCTION DC - Myocardial infarction OBESITY (Renamed from OBESE) OSTEOARTHRITIS Pulmonary embolism Syncope UTERINE FIBROID Histories Past Medical History: Active Syncope ([id number]): Onset on 08/24/2013 at 57 years. DC - Myocardial infarction (4895662266) Pulmonary embolism (91499679) High blood pressure (20603385) Hypercholesterolemia (32992704) Heart failure (946288802) Headache (43303657) Atrial fibrillation (46273671) Family History: Procedure history: Echocardiogram ([id number]) on 03/12/2022 at 66 Years. Comments: 10/18/2022 8:38 Goldie Osei LPN Summary: 1. Left ventricle: The cavity size is normal. Wall thickness is normal. Systolic function is normal. The estimated ejection fraction is 60-65%. Wall motion is normal; there are no regional wall motion abnormalities. Unable to assess diastolic function. 2. Mitral valve: There is mild regurgitation. 3. Left atrium: The atrium is moderately dilated. 4. Right ventricle: The RV systolic pressure by Doppler is 12 mm Hg. 5. Tricuspid valve: There is mild, 1+ regurgitation. 6. Right atrium: The atrium is moderately dilated. Cardiac catheterisation ([id number]) on 08/25/2013 at 57 Years. Comments: 03/28/2020 9:10 ROBBIE - Danelle Nicholson MA (ABR-OE) Normal coronary arteries. Left ventricular dysfunction with dilatation of the left ventricle with global LV hypokinesis and a depressed ejection fraction in the range of 20 to 25%. Non-ischemic cardiomyopathy. Mild mitral regurgitation. Hysterectomy ([id number]) in 2005 at 50 Years. 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 Physical Examination Vital Signs 11/13/2022 4:45 EST Temperature Oral 36.6 DegC Heart Rate Monitored 69 bpm Respiratory Rate 16 br/min Systolic Blood Pressure Non-Invasive 123 mmHg Diastolic Blood Pressure Non-Invasive 63 mmHg Blood Pressure Method Automatic Blood Pressure Location Left arm Blood Pressure Cuff Size Large Reason For Taking VItal Signs Routine 11/13/2022 3:41 EST Heart Rate Monitored 70 bpm 11/12/2022 23:13 EST Temperature Oral 36.6 DegC Heart Rate Monitored 72 bpm Respiratory Rate 16 br/min Systolic Blood Pressure Non-Invasive 134 mmHg Diastolic Blood Pressure Non-Invasive 59 mmHg LOW Mean Arterial Pressure (NBP) 83 mmHg Reason For Taking VItal Signs Routine 11/12/2022 20:00 EST Heart Rate Monitored 95 bpm Reason For Taking VItal Signs Routine 11/12/2022 18:38 EST Temperature Oral 36.7 DegC Heart Rate Monitored 83 bpm Respiratory Rate 18 br/min Systolic Blood Pressure Non-Invasive 108 mmHg Diastolic Blood Pressure Non-Invasive 68 mmHg Blood Pressure Method Manual Blood Pressure Location Right arm Blood Pressure Cuff Size Large Reason For Taking VItal Signs Routine 11/12/2022 16:54 EST Apical Heart Rate 107 bpm HI Heart Rate Monitored 93 bpm Reason For Taking VItal Signs Routine 11/12/2022 16:45 EST Heart Rate Monitored 91 bpm Reason For Taking VItal Signs Routine 11/12/2022 16:40 EST Heart Rate Monitored 94 bpm 11/12/2022 16:27 EST Heart Rate Monitored 112 bpm HI Respiratory Rate 16 br/min Systolic Blood Pressure Non-Invasive 135 mmHg Diastolic Blood Pressure Non-Invasive 61 mmHg Mean Arterial Pressure (NBP) 86 mmHg Reason For Taking VItal Signs Routine 11/12/2022 14:51 EST Heart Rate Monitored 89 bpm Reason For Taking VItal Signs Routine 11/12/2022 14:40 EST Systolic Blood Pressure Non-Invasive 104 mmHg Diastolic Blood Pressure Non-Invasive 68 mmHg Blood Pressure Method Manual Blood Pressure Location Right arm Blood Pressure Cuff Size Large Reason For Taking VItal Signs Routine 11/12/2022 14:22 EST Temperature Oral 36.8 DegC Heart Rate Monitored 94 bpm Respiratory Rate 16 br/min Reason For Taking VItal Signs Routine 11/12/2022 12:00 EST Apical Heart Rate 96 bpm Heart Rate Monitored 100 bpm Reason For Taking VItal Signs Routine 11/12/2022 10:50 EST Heart Rate Monitored 86 bpm Reason For Taking VItal Signs Routine 11/12/2022 10:48 EST Temperature Oral 36.6 DegC Heart Rate Monitored 88 bpm Respiratory Rate 18 br/min Systolic Blood Pressure Non-Invasive 98 mmHg Diastolic Blood Pressure Non-Invasive 64 mmHg 11/12/2022 9:56 EST Apical Heart Rate 74 bpm 11/12/2022 6:41 EST Temperature Oral 36.6 DegC Heart Rate Monitored 65 bpm Respiratory Rate 18 br/min Systolic Blood Pressure Non-Invasive 106 mmHg Diastolic Blood Pressure Non-Invasive 68 mmHg Blood Pressure Method Manual Blood Pressure Location Left arm Blood Pressure Cuff Size Large Reason For Taking VItal Signs Routine Vital Signs(last 24 hrs) Last Charted Temp Oral36.6 DegC (NOV 13 04:45) Heart Rate [id number] bpm (NOV 13 04:45) Resp Rate 16 br/min (NOV 13 04:45) FNI308 mmHg (NOV 13 04:45) DBP63 mmHg (NOV 13 04:45) Pain assessment: Pain Assessment 11/13/2022 4:45 EST Primary Pain Intensity 0 Pain Scale Type 0-10 Pain scale 11/12/2022 23:13 EST Primary Pain Intensity 0 Primary Pain Nonverbal Response Nods No Pain Scale Type 0-10 Pain scale 11/12/2022 20:00 EST Primary Pain Intensity 0 Primary Pain Nonverbal Response Nods No Pain Scale Type 0-10 Pain scale 11/12/2022 16:27 EST Primary Pain Intensity 0 Primary Pain Nonverbal Response Nods No Pain Scale Type 0-10 Pain scale 11/12/2022 14:51 EST Primary Pain Intensity 0 Pain Scale Type 0-10 Pain scale 11/12/2022 12:00 EST Primary Pain Intensity 0 Pain Scale Type 0-10 Pain scale 11/12/2022 10:50 EST Primary Pain Intensity 0 Pain Scale Type 0-10 Pain scale 11/12/2022 6:41 EST Primary Pain Intensity 0 Pain Scale Type 0-10 Pain scale . General: Alert and oriented, No acute distress. Airway: Normal temporomandibular joint mobility. Mallampati classification: III (soft palate, base of uvula visible). Head: Normocephalic, Atraumatic. Dentition Evaluation: Intact, Own teeth. Neck: Supple, Non-tender. Respiratory: Lungs are clear to auscultation, Respirations are non-labored, Breath sounds are equal. Cardiovascular: Normal rate, irregular rhythm.. Heart Sounds: Normal. Gastrointestinal: Soft, Non-tender. Musculoskeletal Normal range of motion. Normal strength. Integumentary: Intact, Warm, No pallor. Neurologic: Alert, Oriented, No focal deficits. Review / Management Results review: Labs (Last four charted values) Na 140(NOV 13)140(NOV 12)140(NOV 11) K 4.1(NOV 13)4.6(NOV 12)4.6(NOV 11) CO2 32(NOV 13)29(NOV 12)H 33(NOV 11) Cl 106(NOV 13)106(NOV 12)103(NOV 11) Cr 0.96(NOV 13)0.99(NOV 12)1.00(NOV 11) BUN 14.0(NOV 13)11.0(NOV 12)11.0(NOV 11) Glucose 112(NOV 13)112(NOV 12)104(NOV 11) Mg 2.1(NOV 13)2.0(NOV 12)1.9(NOV 11) Phos 3.2(NOV 11) Ca 9.1(NOV 13)9.2(NOV 12)9.6(NOV 11) , Lab results 11/13/2022 4:58 EST CAM Mental Status Change & Fluctuation No CAM Inattention No CAM Disorganized Thinking No CAM Altered Level of Consciousness No Confusion Assessment Method Score Negative Violence Risk Confused No Violence Risk Irritable No Violence Risk Boisterous No Violence Risk Verbal Threats No Violence Risk Physical Threats No Violence Risk Attacking Objects No Violence Risk Predictor Score 0 Violence Risk Intervention None Violence Risk Current Interventions None 11/13/2022 4:57 EST Forearm Right 11/11/2022 18 gauge Peripheral IV Activity: Assessed Peripheral IV Dressing Condition: Clean, Dry, Intact Peripheral IV Dressing Activity: Transparent dressing Peripheral IV Line Care: Secured with tape Peripheral IV Site Condition: No complications Peripheral IV Equipment: PRN Adaptor Able To Drink Order Detail Yes Able To Sign Consents Order Detail Yes Code Status Order Detail Full code IV Order Detail Yes Dialysis Schedule Order Detail N/A Has Diabetes Order Detail No Isolation Precautions Order Detail None Nurse Collect Order Detail 0 Oxygen Order Detail No Order Detail No Prior Valve Replacement Order Detail No Transport Mode Order Detail Bed Nurse and Monitor Measurement Operator Details Form Measurement Operator Details Form 11/13/2022 4:45 EST Temperature Oral 36.6 DegC Heart Rate Monitored 69 bpm Respiratory Rate 16 br/min Systolic Blood Pressure Non-Invasive 123 mmHg Diastolic Blood Pressure Non-Invasive 63 mmHg Blood Pressure Method Automatic Blood Pressure Location Left arm Blood Pressure Cuff Size Large Reason For Taking VItal Signs Routine Primary Pain Intensity 0 Pain Scale Type 0-10 Pain scale Monitor Alarms On and Limits Checked Nail Bed Color [place] Capillary Refill < 2 seconds Heart Sounds ICU S1S2 (Modified) Heart Rhythm Irregular Dorsalis Pedis Pulse, Left 2+ Normal Dorsalis Pedis Pulse, Right 2+ Normal Posttibial Pulse, Left 1+ Thready Posttibial Pulse, Right 1+ Thready Radial Pulse, Left 2+ Normal Radial Pulse, Right 2+ Normal Respirations Unlabored Respiratory Pattern Regular Breath Sounds Auscultated Anterior and posterior All Lobes Breath Sounds Clear Oxygen Therapy Room air Oxygen Saturation 96 % Abdomen Description Non-distended, Soft, Rounded Abdomen Palpation Non-Tender Bowel Sounds All Quadrants Present Facial Movement Symmetric resting/crying All Extremity Description [place] Skin Temperature Warm Temperature All Extremities Warm Skin Description [place] Skin Integrity Intact Skin Turgor Elastic Mucous Membrane Color [place] Mucous Membrane Description Moist Sensory Perception Nikko No impairment Moisture Nikko Rarely moist Activity Nikko Walks occasionally Mobility Nikko No limitations Nutrition Nikko Adequate Friction and Shear Nikko No apparent problem Nikko Score 21 Hospital Acquired Pressure Injury Risk None/minimal risk (score 19-23) Neurological Language Able to speak clearly Neurological Symptoms Patient denies Gait Unable to assess Extremity Movement Equal Swallowing Difficulty None Characteristics of Communication Appropriate Characteristics of Speech Clear Facial Symmetry Symmetric Level of Consciousness Arousable with minimal stimulation YEVGENIY Yes Left Pupil Description Regular, Round Right Pupil Description Regular, Round Left Pupil Reaction Brisk Right Pupil Reaction Brisk Pupil Size, Left 3 mm Pupil Size, Right 3 mm Strength All Extremities Strong Left Upper Extremity Sensation Intact Right Upper Extremity Sensation Intact Left Lower Extremity Sensation Intact Right Lower Extremity Sensation Intact Affect/Behavior Appropriate, Calm, Cooperative Orientation Oriented x 4 Orientation Assessment Oriented x 4 Activity Status ADL Awake, Resting Standard Safety ID band on, Call device within reach, Bed in low position, Wheels locked, Upper/Half-Length side-rails up, Phone within reach, personal items within reach, Bedside Cart Locked, Safety level maintained High Risk Safety Room check performed 11/13/2022 4:12 EST Glucose Level 112 mg/dL Sodium Level 140 mEq/L Potassium Level 4.1 mEq/L Chloride 106 mEq/L CO2 32 mEq/L Electrolyte Balance 2.0 mEq/L LOW BUN 14.0 mg/dL Creatinine Lvl (s) 0.96 mg/dL BUN/Creatinine Ratio 14.6 ratio Calcium Lvl 9.1 mg/dL Magnesium Lvl 2.1 mg/dL GFR Non- 58 ml/min/1.73sqm NA GFR >60 ml/min/1.73sqm NA Creatinine Clearance Calc 53.93 mL/min 11/13/2022 3:41 EST Heart Rate Monitored 70 bpm Monitor Alarms On and Limits Checked Cardiac Rhythm Atrial fibrillation, Premature ventricular contraction Monitoring Lead III, V1/MCL1 QRS Duration 0.08 second(s) ST Exclusion Criteria Yes Alarms On and Functional Yes Heart Rate Alarm Set At - Low 50 Heart Rate Alarm Set At - High 120 11/13/2022 0:00 EST Cardiac Rhythm Atrial fibrillation Monitoring Lead III, V1/MCL1 QRS Duration 0.11 second(s) Alarms On and Functional Yes Heart Rate Alarm Set At - Low 50 Heart Rate Alarm Set At - High 120 11/12/2022 23:44 EST Violence Risk Confused No Violence Risk Irritable No Violence Risk Boisterous No Violence Risk Verbal Threats No Violence Risk Physical Threats No Violence Risk Attacking Objects No Violence Risk Predictor Score 0 Violence Risk Intervention None Violence Risk Current Interventions None Able To Drink Order Detail Yes Able To Sign Consents Order Detail Yes Code Status Order Detail Full code IV Order Detail Yes Dialysis Schedule Order Detail N/A Has Diabetes Order Detail No Isolation Precautions Order Detail None Nurse Collect Order Detail 0 Oxygen Order Detail No Order Detail No Prior Valve Replacement Order Detail No Transport Mode Order Detail Bed Nurse and Monitor Measurement Operator Details Form Measurement Operator Details Form 11/12/2022 23:13 EST Temperature Oral 36.6 DegC Heart Rate Monitored 72 bpm Respiratory Rate 16 br/min Systolic Blood Pressure Non-Invasive 134 mmHg Diastolic Blood Pressure Non-Invasive 59 mmHg LOW Mean Arterial Pressure (NBP) 83 mmHg Reason For Taking VItal Signs Routine Primary Pain Intensity 0 Primary Pain Nonverbal Response Nods No Pain Scale Type 0-10 Pain scale Monitor Alarms On and Limits Checked Nail Bed Color [place] Capillary Refill < 2 seconds Heart Sounds ICU S1S2 Heart Rhythm Irregular Dorsalis Pedis Pulse, Left 2+ Normal Dorsalis Pedis Pulse, Right 2+ Normal Radial Pulse, Left 2+ Normal Radial Pulse, Right 2+ Normal Respirations Unlabored Respiratory Pattern Regular Breath Sounds Auscultated Anterior and posterior All Lobes Breath Sounds Clear, Equal Cough None Oxygen Therapy Room air Oxygen Saturation 96 % Tracheal Position Midline Urinary Elimination Voiding, no difficulties Urine Color Yellow Urine Description Medium amount Facial Movement Symmetric resting/crying All Extremity Description [place], Normal for ethnicity Skin Temperature Warm Temperature All Extremities Warm Skin Description [place], Normal for ethnicity Skin Integrity Intact Skin Turgor Non-Elastic Mucous Membrane Color [place] Mucous Membrane Description Moist Forearm Right 11/11/2022 18 gauge Peripheral IV Activity: Assessed Peripheral IV Dressing Condition: Clean, Dry, Intact Peripheral IV Dressing Activity: Transparent dressing Peripheral IV Line Status/Patency: Flushes easily Peripheral IV Site Condition: No complications Peripheral IV Equipment: PRN Adaptor Neurological Language Able to speak clearly, Follows simple commands Neurological Symptoms Patient denies Gait Steady Extremity Movement Equal Swallowing Difficulty None Characteristics of Communication Appropriate Characteristics of Speech Clear Facial Symmetry Symmetric Level of Consciousness Alert Aspiration Risk None Eye Opening Response Margaux Spontaneously Best Motor Response Jefferson Obeys simple commands Best Verbal Response Margaux Oriented Margaux Coma Score 15 YEVGENIY Yes Left Pupil Description Regular, Round Right Pupil Description Regular, Round Left Pupil Reaction Brisk Right Pupil Reaction Brisk Pupil Size, Left 3 mm Pupil Size, Right 3 mm Strength All Extremities Strong Left Upper Extremity Sensation Intact Right Upper Extremity Sensation Intact Left Lower Extremity Sensation Intact Right Lower Extremity Sensation Intact CN V Facial Sensation Light touch equal bilaterally CN VII Facial Expression and Symmetry Facial movement symmetrical CN VIII Hearing Spoken word equally audible left/right CN IX, X Swallowing, Gag Reflex Swallowing present Affect/Behavior Appropriate, Calm, Cooperative Orientation Oriented x 4 Orientation Assessment Oriented x 4 Memory Recall Ability Location of own room 11/12/2022 23:06 EST Electrocardiogram - EKG - CV Completed (In Progress) 11/12/2022 23:00 EST Oral Intake 0 mL Urine Count 1 EA 11/12/2022 21:37 EST CAM Mental Status Change & Fluctuation No CAM Inattention No CAM Disorganized Thinking No CAM Altered Level of Consciousness No Confusion Assessment Method Score Negative 11/12/2022 21:06 EST dofetilide 250 mcg mcg 11/12/2022 20:00 EST Heart Rate Monitored 95 bpm Reason For Taking VItal Signs Routine Primary Pain Intensity 0 Primary Pain Nonverbal Response Nods No Pain Scale Type 0-10 Pain scale Monitor Alarms On and Limits Checked Nail Bed Color [place] Capillary Refill < 2 seconds Heart Sounds ICU S1S2 Heart Rhythm Irregular Dorsalis Pedis Pulse, Left 2+ Normal Dorsalis Pedis Pulse, Right 2+ Normal Radial Pulse, Left 2+ Normal Radial Pulse, Right 2+ Normal Secondary ST Segment Measurement [address] Segment Measurement [address] Segment Measurement -0.1 mm Respirations Unlabored Respiratory Pattern Regular Breath Sounds Auscultated Anterior and posterior All Lobes Breath Sounds Clear, Equal Oxygen Therapy Room air Abdomen Description Non-distended, Symmetric, Soft Abdomen Palpation Non-Tender, Soft Passing Flatus Yes Urinary Elimination Voiding, no difficulties Urine Description Medium amount Facial Movement Symmetric resting/crying All Extremity Description [place], Normal for ethnicity Skin Temperature Warm Temperature All Extremities Warm Skin Description [place], Normal for ethnicity Skin Integrity Intact Skin Turgor Non-Elastic Mucous Membrane Color [place] Mucous Membrane Description Moist Forearm Right 11/11/2022 18 gauge Peripheral IV Activity: Assessed Peripheral IV Dressing Condition: Clean, Dry, Intact Peripheral IV Dressing Activity: Transparent dressing Peripheral IV Line Status/Patency: Flushes easily Peripheral IV Site Condition: No complications Peripheral IV Equipment: PRN Adaptor Neurological Language Able to speak clearly, Follows simple commands Neurological Symptoms Patient denies Gait Steady Extremity Movement Equal Swallowing Difficulty None Characteristics of Communication Appropriate Characteristics of Speech Clear Facial Symmetry Symmetric Level of Consciousness Alert Aspiration Risk None Eye Opening Response [place] Spontaneously Best Motor Response Margaux Obeys simple commands Best Verbal Response Jefferson Oriented [place] Coma Score 15 Strength All Extremities Strong Left Upper Extremity Sensation Intact Right Upper Extremity Sensation Intact Left Lower Extremity Sensation Intact Right Lower Extremity Sensation Intact CN V Facial Sensation Light touch equal bilaterally CN VII Facial Expression and Symmetry Facial movement symmetrical CN VIII Hearing Spoken word equally audible left/right CN IX, X Swallowing, Gag Reflex Swallowing present Affect/Behavior Appropriate, Calm, Cooperative Orientation Oriented x 4 Orientation Assessment Oriented x 4 Memory Recall Ability Location of own room Activity Status ADL Repositions self Beds/Devices Hospital bed Activity Assistance Independent Assistive Device None Standard Safety ID band on, Allergy Band on, Call device within reach, Bed in low position, Wheels locked, Upper/Half-Length side-rails up, Phone within reach, personal items within reach, Assistive devices within reach, Toileting device within reach, Bedside Cart Locked, Safety level maintained, Non-Slip footwear, Precautions maintained High Risk Safety Room check performed Demonstrates Correct Call Light Use Yes Appetite Good Eating Difficulties None 11/12/2022 19:00 EST Cardiac Rhythm Atrial fibrillation Monitoring Lead III, V1/MCL1 QRS Duration 0.08 second(s) Alarms On and Functional Yes Heart Rate Alarm Set At - Low 50 Heart Rate Alarm Set At - High 120 11/12/2022 18:38 EST Temperature Oral 36.7 DegC Heart Rate Monitored 83 bpm Respiratory Rate 18 br/min Systolic Blood Pressure Non-Invasive 108 mmHg Diastolic Blood Pressure Non-Invasive 68 mmHg Blood Pressure Method Manual Blood Pressure Location Right arm Blood Pressure Cuff Size Large Reason For Taking VItal Signs Routine Oxygen Therapy Room air Oxygen Saturation 95 % Activity Status ADL Awake, Resting, Returned to bed, Watching TV Beds/Devices Hospital bed Activity Assistance Independent Assistive Device None Standard Safety ID band on, Allergy Band on, Call device within reach, Bed in low position, Wheels locked, Upper/Half-Length side-rails up, Phone within reach, personal items within reach, Safety level maintained High Risk Safety Room check performed Demonstrates Correct Call Light Use Yes 11/12/2022 17:21 EST Violence Risk Confused No Violence Risk Irritable No Violence Risk Boisterous No Violence Risk Verbal Threats No Violence Risk Physical Threats No Violence Risk Attacking Objects No Violence Risk Predictor Score 0 Violence Risk Intervention None Violence Risk Current Interventions None Able To Drink Order Detail Yes Able To Sign Consents Order Detail Yes Code Status Order Detail Full code IV Order Detail Yes Dialysis Schedule Order Detail N/A Has Diabetes Order Detail No Isolation Precautions Order Detail None Nurse Collect Order Detail 0 Oxygen Order Detail No Order Detail No Prior Valve Replacement Order Detail No Transport Mode Order Detail Bed Nurse and Monitor Measurement Operator Details Form Measurement Operator Details Form 11/12/2022 17:18 EST Post Rehab Outcome Not Done: Patient Refused (Not Done) Post Rehab Outcome Not Done: Patient Refused (Not Done) Cardiac Rehab - Phase I Not Done (Not Done) Cardiac Rehab - Phase I Not Done (Not Done) 11/12/2022 16:54 EST Apical Heart Rate 107 bpm HI Heart Rate Monitored 93 bpm Reason For Taking VItal Signs Routine metoprolol 100 mg mg rivaroxaban 20 mg mg 11/12/2022 16:50 EST Cardiac EP Progress Note Progress Note (Modified) 11/12/2022 16:45 EST Heart Rate Monitored 91 bpm Reason For Taking VItal Signs Routine 11/12/2022 16:40 EST Heart Rate Monitored 94 bpm 11/12/2022 16:27 EST Heart Rate Monitored 112 bpm HI Respiratory Rate 16 br/min Systolic Blood Pressure Non-Invasive 135 mmHg Diastolic Blood Pressure Non-Invasive 61 mmHg Mean Arterial Pressure (NBP) 86 mmHg Reason For Taking VItal Signs Routine Primary Pain Intensity 0 Primary Pain Nonverbal Response Nods No Pain Scale Type 0-10 Pain scale Monitor Alarms On and Limits Checked Nail Bed Color [place] Capillary Refill < 2 seconds Heart Sounds ICU S1S2 Heart Rhythm Irregular Dorsalis Pedis Pulse, Left 2+ Normal Dorsalis Pedis Pulse, Right 2+ Normal Radial Pulse, Left 2+ Normal Radial Pulse, Right 2+ Normal Respirations Unlabored Respiratory Pattern Regular Breath Sounds Auscultated Anterior and posterior All Lobes Breath Sounds Clear, Equal Oxygen Therapy Room air Oxygen Saturation 95 % Tracheal Position Midline Abdomen Description Non-distended, Symmetric, Soft Abdomen Palpation Non-Tender, Soft Passing Flatus Yes Urinary Elimination Voiding, no difficulties Urine Description Medium amount Facial Movement Symmetric resting/crying All Extremity Description [place], Normal for ethnicity Skin Temperature Warm Temperature All Extremities Warm Skin Description [place], Normal for ethnicity Skin Integrity Intact Skin Turgor Non-Elastic Mucous Membrane Color [place] Mucous Membrane Description Moist Forearm Right 11/11/2022 18 gauge Peripheral IV Activity: Assessed Peripheral IV Dressing Condition: Clean, Dry, Intact Peripheral IV Dressing Activity: Transparent dressing Peripheral IV Line Status/Patency: Flushes easily Peripheral IV Site Condition: No complications Peripheral IV Equipment: PRN Adaptor Neurological Language Able to speak clearly, Follows simple commands Neurological Symptoms Patient denies Gait Steady Extremity Movement Equal Swallowing Difficulty None Characteristics of Communication Appropriate Characteristics of Speech Clear Facial Symmetry Symmetric Level of Consciousness Alert Aspiration Risk None Eye Opening Response [place] Spontaneously Best Motor Response Jefferson Obeys simple commands Best Verbal Response Margaux Oriented Margaux Coma Score 15 YEVGENIY Yes Left Pupil Description Regular, Round Right Pupil Description Regular, Round Left Pupil Reaction Brisk Right Pupil Reaction Brisk Pupil Size, Left 3 mm Pupil Size, Right 3 mm Strength All Extremities Strong Left Upper Extremity Sensation Intact Right Upper Extremity Sensation Intact Left Lower Extremity Sensation Intact Right Lower Extremity Sensation Intact CN V Facial Sensation Light touch equal bilaterally CN VII Facial Expression and Symmetry Facial movement symmetrical CN VIII Hearing Spoken word equally audible left/right CN IX, X Swallowing, Gag Reflex Swallowing present Affect/Behavior Appropriate, Calm, Cooperative Orientation Oriented x 4 Orientation Assessment Oriented x 4 Memory Recall Ability Location of own room Appetite Good Eating Difficulties None 11/12/2022 14:52 EST Activity Status ADL Awake Activity Assistance Independent 11/12/2022 14:51 EST Heart Rate Monitored 89 bpm Reason For Taking VItal Signs Routine Primary Pain Intensity 0 Pain Scale Type 0-10 Pain scale Monitor Alarms On and Limits Checked Heart Rhythm Irregular Cardiac Rhythm Atrial fibrillation Monitoring Lead III, V1/MCL1 Alarms On and Functional Yes Oxygen Therapy Room air Ambulation Ambulation in [place] Assistive Device None 11/12/2022 14:40 EST Systolic Blood Pressure Non-Invasive 104 mmHg Diastolic Blood Pressure Non-Invasive 68 mmHg Blood Pressure Method Manual Blood Pressure Location Right arm Blood Pressure Cuff Size Large Reason For Taking VItal Signs Routine 11/12/2022 14:22 EST Temperature Oral 36.8 DegC Heart Rate Monitored 94 bpm Respiratory Rate 16 br/min Reason For Taking VItal Signs Routine Oxygen Therapy Room air Oxygen Saturation 97 % Activity Status ADL Awake, Remains up in chair, Watching TV Beds/Devices Hospital bed Activity Assistance Independent Assistive Device None Standard Safety ID band on, Allergy Band on, Call device within reach, Bed in low position, Wheels locked, Upper/Half-Length side-rails up, Phone within reach, personal items within reach, Visitor at bedside, Safety level maintained High Risk Safety Room check performed Demonstrates Correct Call Light Use Yes 11/12/2022 14:15 EST CAM Mental Status Change & Fluctuation No CAM Inattention No CAM Disorganized Thinking No CAM Altered Level of Consciousness No Confusion Assessment Method Score Negative 11/12/2022 13:55 EST Past 12 Mo. Worry Food Run Out, No Money Never true Past 12 Mo. Food Bought Ran Out,No Money Never true Living Situation Home independently Patient's Responsibilities Personal ADL Current Home Treatments None Professional Skilled Services None Special Services and Community Resources None Transition Planning Note Transition Planning Initial Assessment 11/12/2022 12:01 EST Electrocardiogram - EKG - CV Completed (In Progress) 11/12/2022 12:00 EST Notify date/time 11/12/2022 12:15 Provider Notified DEJON HAM MD Notification Method Pager Information Communicated Nurse communication Details Communicated EKG shows [id number] Person Reporting Result(s) ClawverRN Apical Heart Rate 96 bpm Heart Rate Monitored 100 bpm Reason For Taking VItal Signs Routine Primary Pain Intensity 0 Pain Scale Type 0-10 Pain scale Nail Bed Color [place] Oxygen Therapy Room air Facial Movement Symmetric resting/crying Neurological Language Able to speak clearly Neurological Symptoms Patient denies Gait Steady Extremity Movement Equal Swallowing Difficulty None Characteristics of Communication Appropriate Characteristics of Speech Clear Facial Symmetry Symmetric Level of Consciousness Alert Aspiration Risk None Eye Opening Response Margaux Spontaneously Best Motor Response Margaux Obeys simple commands Best Verbal Response Margaux Oriented [place] Coma Score 15 YEVGENIY Yes Strength All Extremities Strong Left Upper Extremity Sensation Intact Right Upper Extremity Sensation Intact Left Lower Extremity Sensation Intact Right Lower Extremity Sensation Intact CN V Facial Sensation Light touch equal bilaterally CN VII Facial Expression and Symmetry Facial movement symmetrical Affect/Behavior Appropriate, Calm, Cooperative Orientation Oriented x 4 Orientation Assessment Oriented x 4 digoxin 250 mcg mcg 11/12/2022 11:20 EST Concomitant Disease Process Moderate congestive heart failure, Other condition complicating cure Concomitant Disease Process Score 1 Palliative restricted score 0 Palliative Total Score 1 11/12/2022 11:18 EST LACE Length of Stay 3 days LACE Acute Admission Inpatient [facility] ED Visits 0 [facility]ACE CoMorbidity Score 5 LACE Score 11 Readmission Risk Screening Note Readmission Risk Screening 11/12/2022 10:50 EST Heart Rate Monitored 86 bpm Reason For Taking VItal Signs Routine Primary Pain Intensity 0 Pain Scale Type 0-10 Pain scale Monitor Alarms On and Limits Checked Heart Sounds ICU S1S2 Heart Rhythm Irregular Cardiac Rhythm Atrial fibrillation Monitoring Lead III, V1/MCL1 QRS Duration 0.05 second(s) Alarms On and Functional Yes Heart Rate Alarm Set At - Low 50 Heart Rate Alarm Set At - High 120 Oxygen Therapy Room air Oxygen Saturation 93 % Activity Status ADL Ambulating in [place] Activity Assistance Independent Assistive Device None Standard Safety Safety level maintained 11/12/2022 10:48 EST Temperature Oral 36.6 DegC Heart Rate Monitored 88 bpm Respiratory Rate 18 br/min Systolic Blood Pressure Non-Invasive 98 mmHg Diastolic Blood Pressure Non-Invasive 64 mmHg Oxygen Therapy Room air Oxygen Saturation 93 % Activity Status ADL Awake, Lights dimmed, Remains up in chair, Repositions self, Watching TV Standard Safety ID band on, Allergy Band on, Call device within reach, Bed in low position, Wheels locked, Upper/Half-Length side-rails up, Phone within reach, personal items within reach, Safety level maintained, Hazards removed from floor, Non-Slip footwear High Risk Safety Room check performed Demonstrates Correct Call Light Use Yes 11/12/2022 9:56 EST Apical Heart Rate 74 bpm dofetilide 250 mcg mcg lisinopril 20 mg mg metoprolol 100 mg mg spironolactone 12.5 mg mg 11/12/2022 8:31 EST CHG Preoperative Wash/Wipe Daily CHG bath Bed Bath Independent Hair Care Independent Oral Care Independent Skin Care Done Skin Care Product Applied CHG bath Nya Care Independent Linen Change Done 11/12/2022 8:00 EST Able To Drink Order Detail Yes Able To Sign Consents Order Detail No Code Status Order Detail Full code IV Order Detail Yes Dialysis Schedule Order Detail N/A Has Diabetes Order Detail No Isolation Precautions Order Detail None Nurse Collect Order Detail 0 Oxygen Order Detail No Order Detail No Prior Valve Replacement Order Detail No Transport Mode Order Detail Bed Nurse and Monitor Measurement Operator Details Form Measurement Operator Details Form 11/12/2022 7:00 EST Oral Intake 800 mL Urine Count 3 EA 11/12/2022 6:41 EST Temperature Oral 36.6 DegC Heart Rate Monitored 65 bpm Respiratory Rate 18 br/min Systolic Blood Pressure Non-Invasive 106 mmHg Diastolic Blood Pressure Non-Invasive 68 mmHg Blood Pressure Method Manual Blood Pressure Location Left arm Blood Pressure Cuff Size Large Reason For Taking VItal Signs Routine Primary Pain Intensity 0 Pain Scale Type 0-10 Pain scale Monitor Alarms On and Limits Checked Nail Bed Color [place] Capillary Refill < 2 seconds Heart Sounds ICU S1S2 Heart Rhythm Irregular Dorsalis Pedis Pulse, Left 2+ Normal Dorsalis Pedis Pulse, Right 2+ Normal Posttibial Pulse, Left 1+ Thready Posttibial Pulse, Right 1+ Thready Radial Pulse, Left 2+ Normal Radial Pulse, Right 2+ Normal Cardiac Rhythm Atrial fibrillation Monitoring Lead III, V1/MCL1 QRS Duration 0.06 second(s) Alarms On and Functional Yes Heart Rate Alarm Set At - Low 50 Heart Rate Alarm Set At - High 120 Respirations Unlabored Respiratory Pattern Regular Breath Sounds Auscultated Anterior and posterior All Lobes Breath Sounds Clear Oxygen Therapy Room air Oxygen Saturation 97 % Abdomen Description Non-distended, Soft Abdomen Palpation Non-Tender Passing Flatus Yes Bowel Sounds All Quadrants Present Urinary Elimination Voiding, no difficulties Urine Color Yellow Urine Description Medium amount Facial Movement Symmetric resting/crying All Extremity Description [place] Skin Temperature Warm Temperature All Extremities Warm Skin Description [place], Dry Skin Integrity Intact Skin Turgor Elastic Mucous Membrane Color [place] Mucous Membrane Description Moist Sensory Perception Nikko No impairment Moisture Nikko Rarely moist Activity Nikko Walks occasionally Mobility Nikko No limitations Forearm Right 11/11/2022 18 gauge Peripheral IV Activity: Assessed Peripheral IV Dressing Condition: Clean, Dry, Intact Peripheral IV Dressing Activity: Transparent dressing Peripheral IV Line Status/Patency: Flushes easily Peripheral IV Site Condition: Erythema Peripheral IV Equipment: PRN Adaptor Neurological Language Able to speak clearly, Follows simple commands Neurological Symptoms Patient denies Gait Steady Extremity Movement Equal Swallowing Difficulty None Characteristics of Communication Appropriate Characteristics of Speech Clear Facial Symmetry Symmetric Level of Consciousness Alert Aspiration Risk None Eye Opening Response [place] Spontaneously Best Motor Response Jefferson Obeys simple commands Best Verbal Response Jefferson Oriented Margaux Coma Score 15 [id number] Yes Left Pupil Description Regular Right Pupil Description Regular Left Pupil Reaction Brisk Right Pupil Reaction Brisk Strength All Extremities Strong Left Upper Extremity Sensation Intact Right Upper Extremity Sensation Intact Left Lower Extremity Sensation Intact Right Lower Extremity Sensation Intact CN V Facial Sensation Light touch equal bilaterally CN VII Facial Expression and Symmetry Facial movement symmetrical CN VIII Hearing Spoken word equally audible left/right CN IX, X Swallowing, Gag Reflex Swallowing present Urrutia Screen Daily History of Fall in Last 3 Months Urrutia No Presence of Secondary Diagnosis Urrutia Yes Use of Ambulatory Aid Urrutia None, bedrest, wheelchair, nurse IV/PRN Adapter Fall Risk Urrutia Yes Gait Weak or Impaired Fall Risk Urrutia Normal, bedrest, immobile Mental Status Fall Risk Urrutia Oriented to own ability Urrutia Fall Risk Score 35 Violence Risk Confused No Violence Risk Irritable No Violence Risk Boisterous No Violence Risk Verbal Threats No Violence Risk Physical Threats No Violence Risk Attacking Objects No Violence Risk Predictor Score 0 Violence Risk Intervention None Violence Risk Current Interventions None Affect/Behavior Appropriate, Calm, Cooperative Orientation Oriented x 4 Orientation Assessment Oriented x 4 Activity Status ADL Remains out of bed, Remains up in chair Beds/Devices Hospital bed Activity Assistance Independent Assistive Device None Standard Safety ID band on, Allergy Band on, Call device within reach, Bed in low position, Wheels locked, Upper/Half-Length side-rails up, Phone within reach, personal items within reach High Risk Safety Door open, Non-Slip footwear, Room check performed Demonstrates Correct Call Light Use Yes Appetite Good Eating Difficulties None 11/12/2022 4:36 EST Glucose Level 112 mg/dL Sodium Level 140 mEq/L Potassium Level 4.6 mEq/L Chloride 106 mEq/L CO2 29 mEq/L Electrolyte Balance 5.0 mEq/L BUN 11.0 mg/dL Creatinine Lvl (s) 0.99 mg/dL BUN/Creatinine Ratio 11.1 ratio Calcium Lvl 9.2 mg/dL Magnesium Lvl 2.0 mg/dL GFR Non- 56 ml/min/1.73sqm NA GFR >60 ml/min/1.73sqm NA Creatinine Clearance Calc 52.29 mL/min 11/12/2022 0:37 EST Electrocardiogram - EKG - CV Signed 11/12/2022 0:00 EST Cardiac Rhythm Atrial fibrillation Monitoring Lead III, V1/MCL1 QRS Duration 0.11 second(s) Alarms On and Functional Yes Heart Rate Alarm Set At - Low 50 Heart Rate Alarm Set At - High 120 . Assessment and Plan [place] [employer] (ASA) physical status classification: Class III. Anesthetic Preoperative Plan Premedication: intravenous. Anesthetic technique: General. Maintenance airway: Mask. Postoperative pain management: Per surgeon. Risks discussed: nausea, vomiting, sore throat, allergic reaction, serious complications. Informed consent: signed by patient. Beta Lowell: Beta Lowell Taken Within 24 Hrs: Yes. Digitally Signed by SHOLA VILLARREAL MD on 11/13/2022 10:38 AM [facility] 11-12-2022 Note Date of Service 11/12/2022 Chief Complaint AF Subjective Feels well, NAEO Objective Vitals and Measurements T: 36.8 C (Oral) TMIN: 36.5 C (Oral) TMAX: 36.8 C (Oral) HR: 89(Monitored) RR: 16 BP: 104/68 SpO2: 97% Intake and Output 7AM Yesterday to 7AM Today Intake and Output (Last 24 hours) Intake Oral Intake 800.00 Output Urine Count 5.00 Total Summary Total Intake 800.00 Total Output 0.00 Fluid Balance 800.00 Physical Exam General Appearance: Comfortable, not in acute distress Cardiac: S1, S2, no murmurs, irregular rhythm, normal rate, no lower extremity edema, no crackles, no JVP distention, warm extremities. Lungs: No wheezes, normal chest expansion. Abdomen: No tenderness, no distention, normal bowel sounds. Musculoskeletal: No signs of acute synovitis. Neurological: Alert and oriented x3, no focal neurological deficits grossly. Psychiatric: Appropriate, normal mood. Weight Dosing Weight: 114.5 kg (11/11/22) Dosing Weight: 114.5 kg (11/11/22) Medications Medications (8) Active Scheduled: (7) digoxin 0.25 mg tablet 250 mcg 1 tab(s), Oral, qDay dofetilide 250 mcg capsule 250 mcg 1 cap(s), Oral, q12h lisinopril 20 mg tablet 20 mg 1 tab(s), Oral, qDay metoprolol succinate 100 mg ER tablet 100 mg 1 tab(s), Oral, BID Misc communication order 1 EA, Miscellaneous, Daily rivaroxaban 20 mg tablet 20 mg 1 tab(s), Oral, with supper spironolactone 5 mg /1 mL 2.5 mL Susp ORAL syringe CMPD 12.5 mg 2.5 mL, Oral, qDayM Continuous: (0) PRN: (1) fluticasone nasal 0.05 mg/inh [place] 50 mcg 1 spray(s), Nostril, each, qAM Lab Results 11/12 04:36 Glucose Level: 112 Sodium Level: 140 Potassium Level: 4.6 BUN: 11.0 Creatinine Lvl (s): 0.99 11/11 09:44 Glucose Level: 104 Sodium Level: 140 Potassium Level: 4.6 BUN: 11.0 Creatinine Lvl (s): 1.00 EKG EKG - Completed -- 11/11/22 9:27:00 EST, STAT on Admission, Complete by Nursing EKG - Completed -- 11/11/22 13:15:00 EST, 2 hours post Tikosyn EKG - Completed -- 11/12/22 0:25:00 EST, Post dose #2 tikosyn Electrocardiogram (EKG) - InProcess -- 11/12/22 11:57:00 EST Assessment/Plan Orders: Electrocardiogram Longstanding persistent NVAF [id number] 4 Chronic heart failure improved EF (20% LV gram 2012, 60 65 % 02/2022 TTE) Nonischemic cardiomyopathy (left heart cath 2012 clean) Dyslipidemia, hypertension CVC: Alba Jara 67-year-old woman with longstanding percent AF, admitted directly from Dr. [facility] for dofetilide loading. She is euvolemic, no acute complaints. Plan: Dofetilide loading per protocol with labs and ECGs, telemetry NPO after midnight for DCV tomorrow Continue to monitor, anticipate discharge tomorrow after DCV d/w Dr Alba Ham MD [employer] or Pager [phone] Digitally Signed by DEJON HAM MD on 11/12/2022 04:51 PM [facility] 11-12-2022 Note Date of Service 11/12/2022 Chief Complaint AF Subjective Feels well, NAEO Objective Vitals and Measurements T: 36.8 C (Oral) TMIN: 36.5 C (Oral) TMAX: 36.8 C (Oral) HR: 89(Monitored) RR: 16 BP: 104/68 SpO2: 97% Intake and Output 7AM Yesterday to 7AM Today Intake and Output (Last 24 hours) Intake Oral Intake 800.00 Output Urine Count 5.00 Total Summary Total Intake 800.00 Total Output 0.00 Fluid Balance 800.00 Physical Exam General Appearance: Comfortable, not in acute distress Cardiac: S1, S2, no murmurs, irregular rhythm, normal rate, no lower extremity edema, no crackles, no JVP distention, warm extremities. Lungs: No wheezes, normal chest expansion. Abdomen: No tenderness, no distention, normal bowel sounds. Musculoskeletal: No signs of acute synovitis. Neurological: Alert and oriented x3, no focal neurological deficits grossly. Psychiatric: Appropriate, normal mood. Weight Dosing Weight: 114.5 kg (11/11/22) Dosing Weight: 114.5 kg (11/11/22) Medications Medications (8) Active Scheduled: (7) digoxin 0.25 mg tablet 250 mcg 1 tab(s), Oral, qDay dofetilide 250 mcg capsule 250 mcg 1 cap(s), Oral, q12h lisinopril 20 mg tablet 20 mg 1 tab(s), Oral, qDay metoprolol succinate 100 mg ER tablet 100 mg 1 tab(s), Oral, BID Misc communication order 1 EA, Miscellaneous, Daily rivaroxaban 20 mg tablet 20 mg 1 tab(s), Oral, with supper spironolactone 5 mg /1 mL 2.5 mL Susp ORAL syringe CMPD 12.5 mg 2.5 mL, Oral, qDayM Continuous: (0) PRN: (1) fluticasone nasal 0.05 mg/inh [place] 50 mcg 1 spray(s), Nostril, each, qAM Lab Results 11/12 04:36 Glucose Level: 112 Sodium Level: 140 Potassium Level: 4.6 BUN: 11.0 Creatinine Lvl (s): 0.99 11/11 09:44 Glucose Level: 104 Sodium Level: 140 Potassium Level: 4.6 BUN: 11.0 Creatinine Lvl (s): 1.00 EKG EKG - Completed -- 11/11/22 9:27:00 EST, STAT on Admission, Complete by Nursing EKG - Completed -- 11/11/22 13:15:00 EST, 2 hours post Tikosyn EKG - Completed -- 11/12/22 0:25:00 EST, Post dose #2 tikosyn Electrocardiogram (EKG) - InProcess -- 11/12/22 11:57:00 EST Assessment/Plan Orders: Electrocardiogram Longstanding persistent NVAF [id number] 4 Chronic heart failure improved EF (20% LV gram 2012, 60 65 % 02/2022 TTE) Nonischemic cardiomyopathy (left heart cath 2012 clean) Dyslipidemia, hypertension CVC: Alba Jara 67-year-old woman with longstanding percent AF, admitted directly from Dr. Alba mireles for dofetilide loading. She is euvolemic, no acute complaints. Plan: Dofetilide loading per protocol with labs and ECGs, telemetry NPO after midnight for DCV tomorrow Continue to monitor, anticipate discharge tomorrow after DCV d/w Dr Alba Ham MD [employer] or Pager [phone] Digitally Signed by DEJON HAM MD on 11/12/2022 04:51 PM [facility] 11-11-2022 History and physical note Date of Service 11/11/2022 Chief Complaint AF History of Present Illness 67-year-old woman with longstanding percent AF, admitted directly from Dr. Willis clinic for dofetilide loading. She is euvolemic, no acute complaints. No ischemic heart disease history. No recent chest pain, shortness of breath on exertion, orthopnea, PND's, syncope, lower extremity swelling. She is a little anxious about side effects of dofetilide, she was not on any treatment that can cause headaches. Review of Systems Apart from mentioned in HPI, pertinent review of systems is otherwise negative. Physical Exam Vitals and Measurements T: 36.5 C (Oral) HR: 105(Monitored) RR: 20 BP: 122/68 SpO2: 96% HT: 167.6 cm WT: 114.5 kg BMI: 40.76 Weight Dosing Weight: 114.5 kg (11/11/22) Dosing Weight: 114.5 kg (11/11/22) General Appearance: Comfortable, not in acute distress Cardiac: S1, S2, no murmurs, irregular rhythm, normal rate, no lower extremity edema, no crackles, no JVP distention, warm extremities. Lungs: No wheezes, normal chest expansion. Abdomen: No tenderness, no distention, normal bowel sounds. Musculoskeletal: No signs of acute synovitis. Neurological: Alert and oriented x3, no focal neurological deficits grossly. Psychiatric: Appropriate, normal mood. Lab Results No 36 Hour Lab Data Assessment/Plan Orders: .PharmacyCommunication, Start: 11/11/22 9:27:00 EST, Daily, 7 day(s), Stop: 11/18/22 9:00:00 EST, 11/11/22 9:27:00 EST digoxin, Start: 11/11/22 12:00:00 EST, Dose = 250 mcg, = 1 tab(s), Oral, qDay, 11/11/22 9:27:00 EST dofetilide, Start: 11/11/22 9:27:00 EST, Dose = 250 mcg, = 1 cap(s), Oral, q12h, 11/11/22 9:27:00 EST lisinopril, Start: 11/11/22 9:27:00 EST, Dose = 20 mg, = 1 tab(s), Oral, qDay, 11/11/22 9:27:00 EST metoprolol, Start: 11/11/22 9:27:00 EST, Dose = 100 mg, = 1 tab(s), Oral, BID, 11/11/22 9:27:00 EST rivaroxaban, Start: 11/11/22 17:00:00 EST, Dose = 20 mg, = 1 tab(s), Oral, with supper, Indication for Use Atrial fibrillation, 11/11/22 9:27:00 EST spironolactone, Start: 11/11/22 9:27:00 EST, Dose = 12.5 mg, = 2.5 mL, Oral, qDayM, 11/11/22 9:27:00 EST Admit to Inpatient Basic Metabolic Panel Basic Metabolic Panel Blood Glucose Call Parameter Blood Glucose Call Parameter Blood Glucose Monitoring Bedside PRN Call Parameters Call Parameters Call Parameters Cardiac Rehab Phase 1 Code Status Communication Order (continuous) Communication Order (continuous) Communication Order (continuous) Communication Order (continuous) Communication Order (continuous) Communication Order (scheduled) Communication Order (scheduled) Communication Order (scheduled) Complete EKG Diet Order Electrocardiogram Follow Clinical Pathway Intake and Output IV Catheter Insertion/Care Magnesium Level Magnesium Level Notify Provider Oxygen Administration Patient Education Phosphorus Level Prn Adapter Pulse Oximeter - Intermittent Reason VTE Prophylaxis Not Received Telemetry Monitoring Titrate / Wean Oxygen Video on Demand Vital Signs Longstanding persistent NVAF [id number] 4 Chronic heart failure improved EF (20% LV gram 2012, 60 65 % 02/2022 TTE) Nonischemic cardiomyopathy (left heart cath 2012 clean) Dyslipidemia, hypertension CVC: Alba Jara 67-year-old woman with longstanding percent AF, admitted directly from Dr. Willis [facility] for dofetilide loading. She is euvolemic, no acute complaints. Plan: Dofetilide loading per protocol with labs and ECGs, telemetry Continue to monitor d/w Dr Alba Ham MD [employer] or Pager [phone] Problem List/Past Medical History Ongoing Atrial fibrillation CARDIOMYOPATHY CHRONIC SYSTOLIC CONGESTIVE HEART FAILURE, NYHA CLASS 3 DEEP VEIN THROMBOSIS ELEVATED BLOOD PRESSURE GERD (GASTROESOPHAGEAL REFLUX DISEASE) Headache Heart failure High blood pressure Hypercholesterolemia INCREASED BMI (Renamed from OVERWEIGHT) LV DYSFUNCTION DC - Myocardial infarction OBESITY (Renamed from OBESE) OSTEOARTHRITIS Pulmonary embolism Syncope UTERINE FIBROID Historical No qualifying data Procedure/Surgical History Echocardiogram: 03/12/22 Hysterectomy: 2004 Medications Home Medications (6) Active Aldactone 25 mg oral tablet 12.5 mg = 0.5 tab(s), Oral, qDayM digoxin 250 mcg (0.25 mg) oral tablet 250 mcg = 1 tab(s), Oral, qDay Flonase 50 mcg/inh nasal spray 1 spray(s), PRN, Nostril, each, qAM lisinopril 20 mg oral tablet 1 tab(s), Oral, qDay metoprolol succinate 100 mg oral TABLET extended release 100 mg = 1 tab(s), Oral, BID Xarelto 20 mg oral tablet 20 mg = 1 tab(s), Oral, with supper Allergies Toradol ketorolac (Unknown) Social History Smoking Status - 08/27/2017 Never smoker Alcohol - No Risk, 08/27/2017 Use: Current. 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 HTN - Hypertension: Negative: Mother and Father. Heart disease: Negative: Mother and Father. Hyperchloremia: Negative: Mother and Father. Stroke: Negative: Mother. Sister: History is negative Brother: History is negative Daughter: History is negative Son: History is negative Immunizations No qualifying data available. Code Status Code Status - Ordered -- 11/11/22 9:26:00 EST, Full Code, Constant Order Digitally Signed by DEJON HAM MD on 11/11/2022 02:47 PM [facility] Orders: .PharmacyCommunication, Start: 11/11/22 9:27:00 EST, Daily, 7 day(s), Stop: 11/18/22 9:00:00 EST, 11/11/22 9:27:00 EST digoxin, Start: 11/11/22 12:00:00 EST, Dose = 250 mcg, = 1 tab(s), Oral, qDay, 11/11/22 9:27:00 EST dofetilide, Start: 11/11/22 9:27:00 EST, Dose = 250 mcg, = 1 cap(s), Oral, q12h, 11/11/22 9:27:00 EST lisinopril, Start: 11/11/22 9:27:00 EST, Dose = 20 mg, = 1 tab(s), Oral, qDay, 11/11/22 9:27:00 EST metoprolol, Start: 11/11/22 9:27:00 EST, Dose = 100 mg, = 1 tab(s), Oral, BID, 11/11/22 9:27:00 EST rivaroxaban, Start: 11/11/22 17:00:00 EST, Dose = 20 mg, = 1 tab(s), Oral, with supper, Indication for Use Atrial fibrillation, 11/11/22 9:27:00 EST spironolactone, Start: 11/11/22 9:27:00 EST, Dose = 12.5 mg, = 2.5 mL, Oral, qDayM, 11/11/22 9:27:00 EST Admit to Inpatient Basic Metabolic Panel Basic Metabolic Panel Blood Glucose Call Parameter Blood Glucose Call Parameter Blood Glucose Monitoring Bedside PRN Call Parameters Call Parameters Call Parameters Cardiac Rehab Phase 1 Code Status Communication Order (continuous) Communication Order (continuous) Communication Order (continuous) Communication Order (continuous) Communication Order (continuous) Communication Order (scheduled) Communication Order (scheduled) Communication Order (scheduled) Complete EKG Diet Order Electrocardiogram Follow Clinical Pathway Intake and Output IV Catheter Insertion/Care Magnesium Level Magnesium Level Notify Provider Oxygen Administration Patient Education Phosphorus Level Prn Adapter Pulse Oximeter - Intermittent Reason VTE Prophylaxis Not Received Telemetry Monitoring Titrate / Wean Oxygen Video on Demand Vital Signs Longstanding persistent NVAF [id number] 4 Chronic heart failure improved EF (20% LV gram 2012, 60 65 % 02/2022 TTE) Nonischemic cardiomyopathy (left heart cath 2012 clean) Dyslipidemia, hypertension CVC: Alba Jara 67-year-old woman with longstanding percent AF, admitted directly from Dr[facility] for dofetilide loading. She is euvolemic, no acute complaints. Plan: Dofetilide loading per protocol with labs and ECGs, telemetry Continue to monitor d/w Dr Alba Ham MD [employer] or Pager [phone] Addendum by KEELY WILLIS MD on November 11, 2022 15:42:26 EST I have seen and examined the patient and agree with the note as above. 67-year-old female with atrial fibrillation and well-controlled HFpEF here to initiate dofetilide for atrial fibrillation. Future Appointments Appointment Date:12/19/2022 11:00:00 AM Scheduled Provider:FRANSISCO MIMS Location:[facility] Appointment Type:[facility] Up Appointment Date:12/31/2022 01:00:00 PM Scheduled Provider: Location:[facility] Appointment Type:[facility] Appointment Date:04/03/2023 01:45:00 PM Scheduled Provider: Location:[facility] Appointment Type:[facility] 01-16-2023 History and physical note Date of Service 11/11/2022 Chief Complaint AF History of Present Illness 67-year-old woman with longstanding percent AF, admitted directly from Dr. Willis clinic for dofetilide loading. She is euvolemic, no acute complaints. No ischemic heart disease history. No recent chest pain, shortness of breath on exertion, orthopnea, PND's, syncope, lower extremity swelling. She is a little anxious about side effects of dofetilide, she was not on any treatment that can cause headaches. Review of Systems Apart from mentioned in HPI, pertinent review of systems is otherwise negative. Physical Exam Vitals and Measurements T: 36.5 C (Oral) HR: 105(Monitored) RR: 20 BP: 122/68 SpO2: 96% HT: 167.6 cm WT: 114.5 kg BMI: 40.76 Weight Dosing Weight: 114.5 kg (11/11/22) Dosing Weight: 114.5 kg (11/11/22) General Appearance: Comfortable, not in acute distress Cardiac: S1, S2, no murmurs, irregular rhythm, normal rate, no lower extremity edema, no crackles, no JVP distention, warm extremities. Lungs: No wheezes, normal chest expansion. Abdomen: No tenderness, no distention, normal bowel sounds. Musculoskeletal: No signs of acute synovitis. Neurological: Alert and oriented x3, no focal neurological deficits grossly. Psychiatric: Appropriate, normal mood. Lab Results No 36 Hour Lab Data Assessment/Plan Orders: .PharmacyCommunication, Start: 11/11/22 9:27:00 EST, Daily, 7 day(s), Stop: 11/18/22 9:00:00 EST, 11/11/22 9:27:00 EST digoxin, Start: 11/11/22 12:00:00 EST, Dose = 250 mcg, = 1 tab(s), Oral, qDay, 11/11/22 9:27:00 EST dofetilide, Start: 11/11/22 9:27:00 EST, Dose = 250 mcg, = 1 cap(s), Oral, q12h, 11/11/22 9:27:00 EST lisinopril, Start: 11/11/22 9:27:00 EST, Dose = 20 mg, = 1 tab(s), Oral, qDay, 11/11/22 9:27:00 EST metoprolol, Start: 11/11/22 9:27:00 EST, Dose = 100 mg, = 1 tab(s), Oral, BID, 11/11/22 9:27:00 EST rivaroxaban, Start: 11/11/22 17:00:00 EST, Dose = 20 mg, = 1 tab(s), Oral, with supper, Indication for Use Atrial fibrillation, 11/11/22 9:27:00 EST spironolactone, Start: 11/11/22 9:27:00 EST, Dose = 12.5 mg, = 2.5 mL, Oral, qDayM, 11/11/22 9:27:00 EST Admit to Inpatient Basic Metabolic Panel Basic Metabolic Panel Blood Glucose Call Parameter Blood Glucose Call Parameter Blood Glucose Monitoring Bedside PRN Call Parameters Call Parameters Call Parameters Cardiac Rehab Phase 1 Code Status Communication Order (continuous) Communication Order (continuous) Communication Order (continuous) Communication Order (continuous) Communication Order (continuous) Communication Order (scheduled) Communication Order (scheduled) Communication Order (scheduled) Complete EKG Diet Order Electrocardiogram Follow Clinical Pathway Intake and Output IV Catheter Insertion/Care Magnesium Level Magnesium Level Notify Provider Oxygen Administration Patient Education Phosphorus Level Prn Adapter Pulse Oximeter - Intermittent Reason VTE Prophylaxis Not Received Telemetry Monitoring Titrate / Wean Oxygen Video on Demand Vital Signs Longstanding persistent NVAF [id number] 4 Chronic heart failure improved EF (20% LV gram 2012, 60 65 % 02/2022 TTE) Nonischemic cardiomyopathy (left heart cath 2012 clean) Dyslipidemia, hypertension CVC: Alba Jara 67-year-old woman with longstanding percent AF, admitted directly from Dr. Willis clinic for dofetilide loading. She is euvolemic, no acute complaints. Plan: Dofetilide loading per protocol with labs and ECGs, telemetry Continue to monitor d/w Dr Alba Ham MD [employer] or Pager [phone] Problem List/Past Medical History Ongoing Atrial fibrillation CARDIOMYOPATHY CHRONIC SYSTOLIC CONGESTIVE HEART FAILURE, NYHA CLASS 3 DEEP VEIN THROMBOSIS ELEVATED BLOOD PRESSURE GERD (GASTROESOPHAGEAL REFLUX DISEASE) Headache Heart failure High blood pressure Hypercholesterolemia INCREASED BMI (Renamed from OVERWEIGHT) LV DYSFUNCTION DC - Myocardial infarction OBESITY (Renamed from OBESE) OSTEOARTHRITIS Pulmonary embolism Syncope UTERINE FIBROID Historical No qualifying data Procedure/Surgical History Echocardiogram: 03/12/22 Hysterectomy: 2004 Medications Home Medications (6) Active Aldactone 25 mg oral tablet 12.5 mg = 0.5 tab(s), Oral, qDayM digoxin 250 mcg (0.25 mg) oral tablet 250 mcg = 1 tab(s), Oral, qDay Flonase 50 mcg/inh nasal spray 1 spray(s), PRN, Nostril, each, qAM lisinopril 20 mg oral tablet 1 tab(s), Oral, qDay metoprolol succinate 100 mg oral TABLET extended release 100 mg = 1 tab(s), Oral, BID Xarelto 20 mg oral tablet 20 mg = 1 tab(s), Oral, with supper Allergies Toradol ketorolac (Unknown) Social History Smoking Status - 08/27/2017 Never smoker Alcohol - No Risk, 08/27/2017 Use: Current. 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 HTN - Hypertension: Negative: Mother and Father. Heart disease: Negative: Mother and Father. Hyperchloremia: Negative: Mother and Father. Stroke: Negative: Mother. Sister: History is negative Brother: History is negative Daughter: History is negative Son: History is negative Immunizations No qualifying data available. Code Status Code Status - Ordered -- 11/11/22 9:26:00 EST, Full Code, Constant Order Digitally Signed by DEJON HAM MD on 11/11/2022 02:47 PM [facility] No data available for this section [facility] Discharge instructions No data available for this section [facility] Progress note No data available for this section [facility] Summary Purpose Family History No Family History Records Found Advance Directives No Advanced Directives Records Found Additional Source Comments Care Team (unrecognized sect ion and content) Personnel Name: PEACE MCKINNEY MD Address: [address] [place] [address] Care Team (unrecognized sect ion and content) Care Team Personnel Name: PEACE MCKINNEY MD Member Role: Primary Care Physician Address: Address: [address] [place] [address] Care Team Related Persons Name: UZAIR BOLANOS INFORMATION SOURCE (unrecogn ized section and content) FOR RECORDS PERTAINING TO PATIENTS WHO ARE OR HAVE BEEN ENROLLED IN A CHEMICAL DEPENDENCY/SUBSTANCEABUSE PROGRAM, SOME INFORMATION MAY BE OMITTED. This clinical summary was aggregated from multiple sources. Caution should be exercised in using it in the provision of clinical care. This summary normalizes information from multiple sources, and as a consequence, information in this document may materially change the coding, format and clinical context of patient data. In addition, data may be omitted in some cases. CLINICAL DECISIONS SHOULD BE BASED ON THE PRIMARY CLINICAL RECORDS. [facility] [employer] provides no warranty or guarantee of the accuracy or completeness of information in this document.
[2024-01-01 08:33] LABS: Absolute Lymphocyte Count 2.16 X10^3/uL (0.83-4.51); Absolute Neutrophil Count 3.3 X10^3/uL (2.0-7.7); Basophil# 0.05 X10^3/uL; Basophil% 0.8 % (0-1); Eosinophil# 0.09 X10^3/uL; Eosinophils% 1.5 % (0-5); Hematocrit 42.5 % (37-47); Hemoglobin 13.7 g/dL (12.0-15.0); Lymphocyte # 2.16 X10^3/ul (0.83-4.51); Lymphocyte % 35.9 % (19-41); Mean Corp Hgb Conc 32.2 g/dL (32-36); Mean Corpuscular Volume 93.2 fL (81-99); Mean Platelet Vol. 10.8 fl (6.2-12.0); Monocyte# 0.34 X10^3/uL; Monocyte% 5.7 % (0-10); NRBC Flagged by Analyzer 0 % (0-5); Neutrophil # 3.31 X10^3/uL (2.7-7.7); Neutrophil % 55.1 % (47-70); Platelet Count 238 K/mm3 (150-450); RBC Distribution Width CV 13.1 % (11.6-14.6); RBC Distribution Width SD 44.3 fl (35.1-43.9); Red Blood Count 4.56 M/mm3 (4.2-5.4)
[2024-01-01 09:14] LABS: ALB/GLOB Ratio 0.8 RATIO (0.9-2.4); AST(SGOT) 23 U/L (15-37); Alanine Aminotransfer ALT/SGPT 15 U/L (13-56); Albumin, Serum 3.2 g/dL (3.2-5.0); Alkaline Phosphatase 87 U/L (45-117); Anion Gap 7 (5-15); BUN 14 mg/dL (7-18); BUN/Creat Ratio 13.5 RATIO (10-20); Calcium,Total 9.1 mg/dL (8.5-10.1); Chloride 107 mmol/L (98-107); Cholesterol 176 mg/dL (200); Creatinine, Serum 1.04 mg/dL (0.55-1.02); EST Glomerular Filtration Rate 56 mL/min (>60); Est Glom Filt Rate - Afr Amer 68 mL/min (>60); Globulin 3.9 g/dL (2.2-4.2); Glucose 119 mg/dL (74-106); High Density Lipoprotein 51 mg/dL; Potassium 4.8 mmol/L (3.5-5.1); Protein, Total 7.1 g/dL (6.4-8.2); Sodium Level 140 mmol/L (136-145); Triglycerides 126 mg/dL; Very Low Density Lipoprotein 25 mg/dL (5-40)
[2024-01-01 09:35] LABS: Digoxin Level 2.26 ng/mL (0.80-2.00)
[2024-01-01 12:30] LABS: Microalbumin,Random Urine 19.4 mg/L (NO RANGE EST.); Microalbumin:Creatinine Ratio 6.7 mg/g CRE (<30 mg/g CRE)
== END | disposition home or self-care (01) ==
PROVIDERS: PCP Family Medicine; Referring Provider Family Medicine; Visit Provider Family Medicine
DX: I48.91 Unspecified atrial fibrillation (principal); E11.9 Type 2 diabetes mellitus without complications; E78.5 Hyperlipidemia, unspecified; I10 Essential (primary) hypertension
CPT/HCPCS: 36415; 80053; 80061; 80162; 82043; 82570; 85025

== ENCOUNTER → 2024-07-15 | Outpatient (CLI) | payer MEDICARE, OTHER, SELFPAY ==
--- NOTE | 2024-07-15 14:44 | RAD_ITS ---
STUDY: X-RAY CHEST REASON FOR EXAM: Female, 68 years old. Amiodarone therapy. TECHNIQUE: Frontal and lateral views of the chest. COMPARISON: June 12, 2018 FINDINGS: Mild hyperinflation. No interstitial prominence identified. There is no demonstrated pleural abnormality. Borderline cardiomegaly unchanged. Normal mediastinum and tony. Normal visualized pulmonary arteries. Stable aortic tortuosity. Mild thoracic spondylosis unchanged. Normal visualized ribs, clavicles, and shoulders. No abnormality of the visualized soft tissue structures of the upper abdomen. RAD/Chest PA and Lateral IMPRESSION: Stable chest with no acute or active cardiopulmonary disease. Electronically Signed: Lauro Rogers MD at 15:11 EDT ,
[2024-07-15 18:19] LABS: T4 Free Direct 1.01 ng/dL (0.76-1.46)
== END | disposition home or self-care (01) ==
PROVIDERS: PCP Family Medicine; Referring Provider Family Medicine; Visit Provider Family Medicine
DX: I48.91 Unspecified atrial fibrillation (principal); I50.9 Heart failure, unspecified
CPT/HCPCS: 36415; 71046; 84439; 84443

== ENCOUNTER → 2025-01-14 | Outpatient (CLI) | payer MEDICARE, OTHER, SELFPAY ==
--- NOTE | 2025-01-14 12:34 | VDLE_ITS ---
Reason For Study Reason For Study: Right leg pain RIGHT LEFT GSV is normal. CFV is compressible, spontaneous, phasic, competent, CFV is compressible, spontaneous, phasic, competent and demonstrates normal augmentation. and demonstrates normal augmentation. FV is compressible, spontaneous, phasic, competent and demonstrates normal augmentation. POP V is compressible, spontaneous, phasic, competent and demonstrates normal augmentation. T/P Trunk is compressible. PTV is compressible. RT PerV is compressible. Nonvascularized structure noted in the right posterior calf prox, it measures 1.19 x 4.83 x 4.63 cm. Procedure This is a venous duplex using B-mode, color flow and spectral Doppler. Exam performed in department. A preliminary report was called and/or faxed to [facility]. VL/Venous Duplex US, Unilateral Interpretation Summary Deep veins of the right lower extremity are patent and compressible segmentally . There is no evidence of right lower extremity deep vein thrombosis. Valvular competence appears intact within the p roximal deep venous system on the right . The right great saphenous vein appears patent and compressible segmentally. A n on-vascular, hypoechoic structure is noted in the right proximal, posterior calf, measuring 1.19 cm x 4.83 cm x 4.63 cm. This may represent a seroma or hematoma. Clinical correlation is advised. The left common femoral vein is blue nt and compressible . Ordering Physician: Nayeli Carroll Referring Physician: Kanchan Fausitn Performed By: Rosalba Juarez RVT
== END | disposition home or self-care (01) ==
LOC: CVS 12:34
PROVIDERS: PCP Family Medicine; Referring Provider Nurse Practitioner Family; Visit Provider Nurse Practitioner Family
DX: M79.604 Pain in right leg (principal)
CPT/HCPCS: 93971